=== PATIENT | male | born 1975 | race American Indian/Alaskan Native ===

== ENCOUNTER 2016-06-01 17:40 | Inpatient (IN) | payer MEDICARE, BC ==
[2016-06-01 17:52] VITALS: BMI 37.3
[2016-06-01 18:26] LABS: ADD MANUAL DIFF? NO
--- NOTE | 2016-06-01 18:31 | ED PDOC ---
Arrival/HPI - General Chief Complaint: Abdominal Pain Time Seen by Provider: 06/01/16 18:02 Historian: Patient - History of Present Illness Narrative History of Present Illness (Text): 06/01/16 18:30 A 40 year old male, whose past medical history includes ESRD (on dialysis M,W,F ) presents to the emergency room complaining of epigastric abdominal pain that developed 4 days ago. Patient reports he completed today's dialysis treatment prior to arrival. Patient notes that he has had a decrease in appetite since then and has been vomiting. Patient denies any cough or any other complaints at this time. PMD: Dr. White Time/Duration: < week Symptom Onset: Gradual Symptom Course: Unchanged Activities at Onset: Rest Modifying Factors (Text): none Context: Home Associated Symptoms (Text): nausea and vomiting Past Medical History - Provider Review Nursing Documentation Reviewed: Yes - Infectious Disease Hx of Infectious Diseases: None - Tetanus Immunization Tetanus Immunization: Unknown - Cardiac Hx Cardiac Disorders: Yes Hx Congestive Heart Failure: Yes Hx Hypertension: Yes Hx Pacemaker: No - Pulmonary Hx Respiratory Disorders: Yes Hx Respiratory Tract Infection: Yes Hx Sleep Apnea: Yes - Neurological Hx Neurological Disorder: No Hx Paralysis: No - HEENT Hx HEENT Disorder: No - Renal Hx Renal Disorder: Yes Date of Last Dialysis Treatment: 06/01/16 Hx Renal Failure: Yes - Endocrine/Metabolic Hx Endocrine Disorders: Yes Hx Diabetes Mellitus Type 2: Yes - Hematological/Oncological Hx Blood Disorders: No Hx Blood Transfusions: No Hx Blood Transfusion Reaction: No - Integumentary Hx Dermatological Disorder: No - Musculoskeletal/Rheumatological Hx Musculoskeletal Disorders: Yes (OSTEOMYELITIS) - Gastrointestinal Hx Gastrointestinal Disorders: Yes Hx Diverticulitis: Yes Hx Gastroesophageal Reflux: Yes - Genitourinary/Gynecological Hx Genitourinary Disorders: No Hx Reproductive Disorders: No - Psychiatric Hx Psychophysiologic Disorder: No Hx Emotional Abuse: No Hx Physical Abuse: No Hx Substance Use: No - Past Surgical History Past Surgical History: Non-Contributing - Surgical History Hx Cardiac Catheterization: Yes Hx Coronary Stent: Yes Other/Comment: defibrillator - Anesthesia Hx Anesthesia Reactions: No Hx Malignant Hyperthermia: No - Suicidal Assessment Feels Threatened In Home Enviroment: No Family/Social History - Physician Review Nursing Documentation Reviewed: Yes Family/Social History: No Known Family HX Smoking Status: Never Smoked Hx Alcohol Use: No Hx Substance Use: No Hx Substance Use Treatment: No Allergies/Home Meds Allergies/Adverse Reactions: Allergies IV DYE Adverse Reaction (Uncoded 06/01/16 17:51) NAUSEA Home Medications: Home Meds Medication Instructions Recorded Confirmed Clopidogrel [Plavix] 75 mg PO DAILY 10/06/15 06/01/16 Review of Systems - Physician Review All systems were reviewed & negative as marked: Yes - Review of Systems Respiratory: absent: Cough Gastrointestinal: Abdominal Pain, Nausea, Vomiting Physical Exam Vital Signs Reviewed: Yes Vital Signs Temp Pulse Resp BP Pulse Ox 06/01/16 20:46 100 H 19 123/77 99 06/01/16 18:00 98.6 F 111 H 17 95/53 L 99 Temperature: Afebrile Blood Pressure: Hypotensive Pulse: Tachycardic Respiratory Rate: Normal Appearance: Positive for: Well-Appearing, Non-Toxic, Comfortable Pain Distress: None Mental Status: Positive for: Alert and Oriented X 3 - Systems Exam Head: Present: Atraumatic, Normocephalic Pupils: Present: PERRL Extroacular Muscles: Present: EOMI Conjunctiva: Present: Normal Mouth: Present: Moist Mucous Membranes Neck: Present: Normal Range of Motion Respiratory/Chest: Present: Clear to Auscultation, Good Air Exchange. No: Respiratory Distress, Accessory Muscle Use Cardiovascular: Present: Regular Rate and Rhythm, Normal S1, S2. No: Murmurs Abdomen: Present: Tenderness (epigastric), Normal Bowel Sounds. No: Peritoneal Signs Upper Extremity: Present: Normal Inspection. No: Cyanosis, Edema Lower Extremity: Present: Normal Inspection. No: Edema Neurological: Present: GCS=15, CN II-XII Intact, Speech Normal Skin: Present: Warm, Dry, Normal Color. No: Rashes Psychiatric: Present: Alert, Oriented x 3, Normal Insight, Normal Concentration Medical Decision Making ED Course and Treatment: 06/01/16 18:10 Impression: 40 year old male with epigastric abdominal pain. bedside us shows distended gallbladder, no wall thickening, limited study 2/[address] added as pt allergic to iv contrast. Differential Diagnosis included but are not limited to: r/o colitis vs gastitis vs pancreatitis, vs atypical cardiac Plan: -- EKG -- CT abd/pelvis -- Urinalysis -- Labs -- Zofran, Protonix -- Reassess and disposition Prior Visits: Notes and results from previous visits were reviewed. Progress Notes: EKG: Ordered, reviewed, and independently interpreted the EKG. Rate : 104 BPM Rhythm : Sinus Tachycardia Interpretation : No ST/T changes CT Abd/Pelvis Creator : Aneesh Diaz MD FINDINGS: GALLBLADDER AND BILE DUCTS: Cholelithiasis. IMPRESSION: Cholelithiasis. 06/01/16 19:23 pt with persistent vomiting, case discussed with dr white, requests admission surgical eval to r/o cholecytitis. - Lab Interpretations Lab Results: 06/01/16 18:12 06/01/16 18:12 Lab Results 06/01/16 18:12: WBC 13.5 H D, RBC 4.19, Hgb 14.7, Hct 44.5, MCV 106.2 H, MCH 35.1 H, MCHC 33.0, RDW 16.5 H, Plt Count 284, MPV 10.1, Gran % 78.6 H, Lymph % ( Auto) 14.5 L, [place] % (Auto) 6.1 H, Eos % (Auto) 0.5 L, Baso % (Auto) 0.3, Gran # 10.62 H, Lymph # 2.0, [place] # 0.8 H, Eos # 0.1, Baso # 0.04, Neutrophils % ( Manual) 76 H, Band Neutrophils % 2, Lymphocytes % (Manual) 13 L, Monocytes % ( Manual) 9 H, Platelet Evaluation Normal, Polychromasia Slight, Anisocytosis ( manual) Slight, Macrocytosis (manual) Slight, PT 10.6, INR 0.98, APTT 27.3, Sodium 135, Potassium 4.5, Chloride 88 L, Carbon Dioxide 32, Anion Gap 20, BUN 25 H, Creatinine 8.4 H*, Est GFR ( Amer) 9, Est GFR (Non-Af Amer) 7, Random Glucose 228 H, Calcium 9.7, Magnesium 2.0, Total Bilirubin 0.9, AST 45, ALT 51, Alkaline Phosphatase 90, Lactate Dehydrogenase 674, Total Creatine Kinase 310 H, CK-MB (CK-2) 4.9 H, CK-MB (CK-2) % Cancelled, Troponin I 0.05 D, Total Protein 9.9 H, Albumin 4.7, Globulin 5.3, Albumin/Globulin Ratio 0.9 L, Lipase 118 I have reviewed the lab results: Yes - RAD Interpretation Radiology Orders: 06/01/16 18:10 CHEST PORTABLE [RAD] Stat 06/01/16 18:20 ABD & PELVIS W/O PO OR IV CONT [CT] Stat - EKG Interpretation Interpreted by ED Physician: Yes Type: 12 lead EKG - Medication Orders Current Medication Orders: Piperacillin Sod/Tazobactam Sod (Zosyn 2.25 Gm In 0.9% 100 Ml) 100 mls @ 100 mls/hr IV Q8 TINY PRN Reason: Protocol Stop: 06/09/16 06:01 Losartan Potassium (Cozaar) 50 mg PO DAILY TINY Pantoprazole Sodium (Protonix Inj) 40 mg IVP DAILY TINY Last Admin: 06/02/16 09:43 Dose: 40 MG IVP Administration Document 06/02/16 09:43 [facility] (Rec: 06/02/16 09:43 [facility] [id number]) Charges for Administration # of IVP Administrations 1 Sevelamer HCl (Renagel) 800 mg PO AC TINY Discontinued Medications Piperacillin Sod/Tazobactam Sod (Zosyn 3.375 In Ns 100ml) 100 mls @ 200 mls/hr IVPB STAT STA PRN Reason: Protocol Stop: 06/01/16 19:47 Last Admin: 06/01/16 19:32 Dose: 200 MLS/HR eMAR Start Stop Document 06/01/16 19:32 SE (Rec: 06/01/16 19:32 SE [id number]) Intravenous Solution Start Date 06/01/16 Start Time 19:32 Morphine Sulfate (Morphine) 1 mg IVP STAT STA Stop: 06/01/16 21:58 Last Admin: 06/01/16 22:35 Dose: 1 MG MAR Pain Assessment Document 06/01/16 22:35 CDE (Rec: 06/01/16 22:36 [facility] [id number]) Pain Reassessment Is this a pain reassessment? No Presence of Pain Presence of Pain Yes Pain Scale Used Pain Scale Used Numeric Location Pain Location Body Site Abdomen Description Description Sharp Intensity of Pain at present 10 Alleviating Factors/Management Medication Techniques Alleviating Factors Medication IVP Administration Document 06/01/16 22:35 CDE (Rec: 06/01/16 22:36 CDE [id number]) Charges for Administration # of IVP Administrations 1 Morphine Sulfate (Morphine) 1 mg IVP STAT STA Stop: 06/02/16 00:30 Last Admin: 06/02/16 00:55 Dose: 1 MG MAR Pain Assessment Document 06/02/16 00:55 CDE (Rec: 06/02/16 00:56 [id number]) Pain Reassessment Is this a pain reassessment? No Presence of Pain Presence of Pain Yes Pain Scale Used Pain Scale Used Numeric Location Pain Location Body Site Abdomen Description Intensity of Pain at present 10 Alleviating Factors Medication IVP Administration Document 06/02/16 00:55 CDE (Rec: 06/02/16 00:56 [id number]) Charges for Administration # of IVP Administrations 1 Ondansetron HCl (Zofran Inj) 4 mg IVP STAT STA Stop: 06/01/16 18:12 Last Admin: 06/01/16 18:16 Dose: 4 MG IVP Administration Document 06/01/16 18:16 SE (Rec: 06/01/16 18:16 SE [id number]) Charges for Administration # of IVP Administrations 1 Ondansetron HCl (Zofran Inj) 4 mg IVP ONCE ONE Stop: 06/01/16 21:58 Last Admin: 06/01/16 22:35 Dose: 4 MG IVP Administration Document 06/01/16 22:35 CDE (Rec: 06/01/16 22:35 [facility] [id number]) Charges for Administration # of IVP Administrations 1 Pantoprazole Sodium (Protonix Inj) 40 mg IVP STAT STA Stop: 06/01/16 18:12 Last Admin: 06/01/16 18:16 Dose: 40 MG IVP Administration Document 06/01/16 18:16 SE (Rec: 06/01/16 18:16 SE [id number]) Charges for Administration # of IVP Administrations 1 - Scribe Statement The provider has reviewed the documentation as recorded by the Shal[employer] Diallo training under Otis Tena All medical record entries made by the Delmiibchidi were at my direction and personally dictated by me. I have reviewed the chart and agree that the record accurately reflects my personal performance of the history, physical exam, medical decision making, and the department course for this patient. I have also personally directed, reviewed, and agree with the discharge instructions and disposition. Disposition/Present on Arrival - Present on Arrival Any Indicators Present on Arrival: No History of DVT/PE: No History of Uncontrolled Diabetes: No Urinary Catheter: No History of Decub. Ulcer: No History Surgical Site Infection Following: Orthopedic Procedures - Disposition Have Diagnosis and Disposition been Completed?: Yes Diagnosis: Abdominal pain, Cholelithiasis Disposition: HOSPITALIZED Disposition Time: 07:00 Condition: FAIR
[2016-06-01 18:37] LABS: ALB/GLOB RATIO 0.9 (1.1-1.8); BILIRUBIN,TOTAL 0.9 mg/dL (0.2-1.3); CALCIUM 9.7 mg/dL (8.4-10.5); POTASSIUM 4.5 mmol/L (3.6-5.0); TOTAL PROTEIN 9.9 g/dL (5.8-8.3)
[2016-06-01 18:45] LABS: BASO # 0.04 K/mm3 (0.0-2.0); BASO % 0.3 % (0.0-3.0); EOS # 0.1 (0.0-0.7); EOS % 0.5 % (1.5-5.0); GRAN # 10.62 (1.4-6.5); GRAN % 78.6 % (50.0-68.0); HEMATOCRIT 44.5 % (42.0-52.0); LYMPH % 14.5 % (22.0-35.0); MEAN CELL VOLUME 106.2 fL (80.0-105.0); MEAN CORPUSCULAR HEMOGLOBIN 35.1 pg (25.0-35.0); MEAN PLATELET VOLUME 10.1 fl (7.0-11.0); MONO # 0.8 (0.1-0.6); MONO % 6.1 % (1.0-6.0); PLATELET COUNT 284 10^3/uL (120.0-450.0); RED CELL DISTRIBUTION WIDTH 16.5 % (11.5-14.5)
[2016-06-01 18:48] LABS: TROPONIN I 0.05 ng/mL
[2016-06-01 18:52] LABS: WHITE BLOOD COUNT 13.5 10^3/ul (4.5-11.0)
--- NOTE | 2016-06-01 19:00 | CT ---
PROCEDURE: CT Abdomen and Pelvis without intravenous contrast HISTORY: upper abd pain n/v COMPARISON: None. TECHNIQUE: Technique. Contrast Dose: Radiation dose: Total exam DLP = 1385 mGy-cm. This CT exam was performed using one or more of the following dose reduction techniques: Automated exposure control, adjustment of the mA and/or kV according to patient size, and/or use of iterative reconstruction technique. FINDINGS: LOWER THORAX: Unremarkable. LIVER: Unremarkable. No gross lesion or ductal dilatation. GALLBLADDER AND BILE DUCTS: Cholelithiasis. PANCREAS: Unremarkable. No gross lesion or ductal dilatation. SPLEEN: Unremarkable. ADRENALS: Unremarkable. No mass. KIDNEYS AND URETERS: Unremarkable. No hydronephrosis. No solid mass. VASCULATURE: Unremarkable. No aortic aneurysm. BOWEL: Unremarkable. No obstruction. No gross mural thickening. APPENDIX: Unremarkable. Normal appendix. PERITONEUM: Unremarkable. No free fluid. No free air. LYMPH NODES: Unremarkable. No enlarged lymph nodes. BLADDER: Unremarkable. REPRODUCTIVE: Unremarkable. BONES: No acute fracture. OTHER FINDINGS: None. IMPRESSION: Cholelithiasis.
[2016-06-01] MEDS ORDERED: Piperacillin/Tazobact 3.375 gm 100 ML IVPB STA (19:18)
[2016-06-01 19:25] LABS: INR 0.98 (0.93-1.08); PARTIAL THROMBOPLASTIN TIME 27.3 Seconds (23.7-30.8)
[2016-06-01 20:14] LABS: BAND 2 % (0-2); NEUTROPHIL 76 % (50.0-70.0)
[2016-06-01 20:15] LABS: ANISOCYTOSIS SLIGHT; PLATELET ESTIMATE NORMAL (NORMAL); POLYCHROMASIA SLIGHT
--- NOTE | 2016-06-01 21:27 | US ---
EXAM: US Abdomen Complete CLINICAL HISTORY: 40 years old, male; Pain; Abdominal pain; Flank; Right upper quadrant (ruq); Additional info: R/O cholecystitis TECHNIQUE: Real-time ultrasound of the abdomen (complete) with image documentation. COMPARISON: Prior CT abdomen of 06/01/2016 FINDINGS: Limitations: Overall suboptimal visualization, due to bowel gas and the patient's body habitus. Gallbladder: Contains several small gallstones. No significant gallbladder wall thickening noted. No evidence of pericholecystic fluid. Reportedly negative sonographic Hugo's sign. Common bile duct: Does not appear abnormally dilated, measuring less than 6 mm in diameter. Liver: Demonstrates increased parenchymal echogenicity, most compatible with fatty infiltration. Otherwise within normal limits in appearance. Measures 12.1 cm in length. Normal flow seen in the main portal vein on color and Doppler imaging. Pancreas: Incompletely seen due to gas. Imaged portions appear grossly normal. Right kidney: Incompletely seen due to gas. Demonstrates increased cortical echogenicity, most likely due to renal parenchymal disease. Measures 10.4 cm in length. No evidence of hydronephrosis. Left kidney: Incompletely seen due to gas. Demonstrates increased cortical echogenicity, most likely due to renal parenchymal disease. Measures 10.8 cm in length. No evidence of hydronephrosis. Spleen: Poorly seen due to gas. Appears normal in size, measuring 9 cm in length. Aorta: Imaged portions appear unremarkable. IVC: Obscured by gas. IMPRESSION: Gallstones. No sonographic evidence of acute cholecystitis. Increased renal cortical echogenicity, most likely due to renal parenchymal disease. No evidence of hydronephrosis. Fatty infiltration of the liver. Limited exam due to bowel gas and the patient's body habitus. See above for remaining findings.
--- NOTE | 2016-06-01 21:32 | HP ---
HISTORY OF PRESENT ILLNESS: A 40-year-old male on dialysis unit with a history of vomiting bilious material. The patient states that for the last several days , he has been having some abdominal discomfort with vomiting. He believes that it might be related to a recent change in his medication where blood pressure medicines were added. He names valsartan and carvedilol, which he believes were added after having a defibrillator placed at [facility]. He states that he was seen at that time by a boiler repairman, Dr. Green, and the blood pressure medicines were changed. He states that he did discuss this with the surgeon who placed the pacemaker who said that he needed the blood pressure medicines. He denies any fever or chills, any change in bowel habits, any problems with urination. SOCIAL HISTORY: History of being a nonsmoker, nondrinker, nondrug user. PAST MEDICAL HISTORY: Diabetes, coronary artery disease with stent placement, cardiomyopathy, defibrillator placement, osteomyelitis of the left foot, end- stage renal disease, dental abscess. MEDICATIONS: He states that the medications that he is currently taking is Renagel 3 times a day, Ecotrin 81 mg daily, Plavix 75 mg daily. This is what is populated in the L2 system through the Emergency Room. ALLERGIES: THERE IS AN ALLERGY TO IV DYE. PHYSICAL EXAMINATION: VITAL SIGNS: He has a temp of 98.6, his pulse is 111. His blood pressure was reported as 95/53, respiratory rate was 17. Oxygen saturation is reported in the Emergency Room at 99% on room air, as per the L2 system. PHYSICAL EXAMINATION: NEUROLOGIC: He is alert and oriented x 3. NECK: Supple. LUNGS: Show diminished breath sounds at the bases. HEART: S1, S2 rhythm. ABDOMEN: Soft. No rebound appreciated. EXTREMITIES: No evidence of edema. LABORATORY DATA: Shows a WBC of 13.5, RBC 4.19, hemoglobin 14.7, hematocrit 44.5, MCV of 106.2, platelet count of 284. His PT is 10.6 with an INR of 0.98. His PTT is 27.3. Chemistry shows a sodium 135, potassium 4.5, chloride 88, CO2 of 32, BUN is 25, creatinine is 8.4. His blood sugar is 228. His calcium is 9.7, his magnesium is 2. LFTs are normal. He has total CK of 310. His troponin is 0.05. Total protein is 9.9. Lipase is 118. A CAT scan of the abdomen and pelvis was performed which was reported as showing cholelithiasis. Chest x-ray was pending, as was his EKG. PROBLEMS: A 40-year-old male: 1. On dialysis with nausea and vomiting, history of abdominal pain for several days, cholelithiasis on a CAT scan with leukocytosis. One must rule out the possibility of acute cholecystitis.Differential includes gastritis,gastroparesis 2. Systemic inflammatory response syndrome. 3. Chronic renal disease. 4. Diabetes mellitus. 5. History of osteomyelitis. 6. Cardiomyopathy. 7. Status post defibrillator placement. 8.Ulcer right foot PLAN: The patient will be admitted to telemetry. Serial cardiac enzymes will be requested, as well as consults with GI, infectious disease, nephrology and surgery. The patient will receive PPI medication, initiated on antibiotic therapy after cultures of urine and blood are performed. Further evaluation as per the individual consultants. All clinical findings have been discussed with the Emergency Room and the patient. Cleopatra White MD cc: [id number] TT: 06/01/2016 21:31:12 melecio HARRIS
[2016-06-01] MEDS ORDERED: Morphine 2 mg/ml ISec IVP STA (21:57)
--- NOTE | 2016-06-01 22:04 | CP.PCM.CON ---
<Isidoro Pichardo - Last Filed: 06/01/16 21:58> History of Present Illness - History of Present Illness History of Present Illness: General Surgery Consult note for Dr. Resendez CC: Abdominal / Epigastric pain for 3 days This is a 40M with a PMH of HTN, DM, CAD, TX, S/P stent placement X 4, ESRD on dialysis, COPD, who presents complaining of abodminal pain that has been going on for the past few weeks. He was just started on valsartan and reports that the pain begins after taking his pills. He reports however that over the past 3 days the pain has been more or less constant. The pain is located on the upper aspect of his abdomen. He has experienced reflux, nausea, vomiting, and mild diarrhea. He denies any association between the pain and meals. He denies any fevers or chills at home. He does report a soar throat as a consequence of his emesis. PMH: See above PSH: Cardiac stending, AVF placement left arm PSH: Deneis ETOH, Tobacco, Drugs ALL: IV Contrast Review of Systems - Constitutional Constitutional: absent: Anorexia, Chills, Weight Loss - EENT Eyes: absent: Blurred Vision, Change in Vision Ears: absent: Ear Pain, Tinnitus Nose/Mouth/Throat: absent: Nasal Congestion, Nasal Discharge - Cardiovascular Cardiovascular: absent: Chest Pain, Diaphoresis, Dyspnea - Gastrointestinal Gastrointestinal: Abdominal Pain, Diarrhea, Heartburn, Loose Stools, Nausea, Vomiting - Musculoskeletal Additional comments: Foot ulcer Past Patient History - Infectious Disease Hx of Infectious Diseases: None - Tetanus Immunizations Tetanus Immunization: Unknown - Past Social History Smoking Status: Never Smoked - CARDIAC Hx Cardiac Disorders: Yes Hx Congestive Heart Failure: Yes Hx Hypertension: Yes Hx Pacemaker: No - PULMONARY Hx Respiratory Disorders: Yes Hx Respiratory Tract Infection: Yes Hx Sleep Apnea: Yes - NEUROLOGICAL Hx Neurological Disorder: No Hx Paralysis: No - HEENT Hx HEENT Problems: No - RENAL Hx Chronic Kidney Disease: Yes Date of Last Dialysis Treatment: 06/01/16 Hx Renal Failure: Yes - ENDOCRINE/METABOLIC Hx Endocrine Disorders: Yes Hx Diabetes Mellitus Type 2: Yes - HEMATOLOGICAL/ONCOLOGICAL Hx Blood Disorders: No Hx Blood Transfusions: No Hx Blood Transfusion Reaction: No - INTEGUMENTARY Hx Dermatological Problems: No - MUSCULOSKELETAL/RHEUMATOLOGICAL Hx Musculoskeletal Disorders: Yes (OSTEOMYELITIS) - GASTROINTESTINAL Hx Gastrointestinal Disorders: Yes Hx Diverticulitis: Yes Hx Gastroesophageal Reflux: Yes - GENITOURINARY/GYNECOLOGICAL Hx Genitourinary Disorders: No Hx Reproductive Disorders: No - PSYCHIATRIC Hx Psychophysiologic Disorder: No Hx Emotional Abuse: No Hx Physical Abuse: No Hx Substance Use: No - SURGICAL HISTORY Hx Cardiac Catheterization: Yes Hx Coronary Stent: Yes Other/Comment: defibrillator - ANESTHESIA Hx Anesthesia Reactions: No Hx Malignant Hyperthermia: No Meds Allergies/Adverse Reactions: Allergies Allergy/AdvReac Type Severity Reaction Status Date / Time IV DYE AdvReac NAUSEA Uncoded 06/01/16 17:51 - Medications Medications: Current Medications Pantoprazole Sodium (Protonix Inj) 40 mg IVP DAILY TINY Physical Exam - Constitutional Appears: Non-toxic, No Acute Distress - Head Exam Head Exam: ATRAUMATIC, NORMOCEPHALIC - Eye Exam Eye Exam: EOMI, Normal appearance - ENT Exam ENT Exam: Mucous Membranes Moist, Normal Exam - Respiratory Exam Respiratory Exam: NORMAL BREATHING PATTERN - Cardiovascular Exam Cardiovascular Exam: +S1, +S2 - GI/Abdominal Exam GI & Abdominal Exam: Soft, Tenderness (Mild epigastric tenderness, no murphys, no RUQ tenderness). absent: Distended, Firm, Guarding, Hernia - Neurological Exam Neurological exam: Alert, Oriented x3 Results - Vital Signs Recent Vital Signs: Last Vital Signs Temp 98.6 F 06/01/16 18:00 Pulse 100 H 06/01/16 20:46 Resp 19 06/01/16 20:46 BP 123/77 06/01/16 20:46 Pulse Ox 99 06/01/16 20:46 - Labs Result Diagrams: 06/01/16 18:12 06/01/16 18:12 - Imaging and Cardiology CT scan - abdomen Status: Image reviewed by me, Report reviewed by me Assessment & Plan - Assessment and Plan (Free Text) Assessment: This is a 40M Presenting with abdominal and epigastric pain CT significant for gallstones Abdominal ultrasound ordered will followup Continue medical management per primary care provider Serial abdominal exams Will re-evaluate in the morning D/W Dr. Mal Pichardo <Declan Resendez - Last Filed: 06/02/16 08:40> Meds - Medications Medications: Current Medications Piperacillin Sod/Tazobactam Sod (Zosyn 2.25 Gm In 0.9% 100 Ml) 100 mls @ 100 mls/hr IV Q8 TINY PRN Reason: Protocol Stop: 06/09/16 06:01 Pantoprazole Sodium (Protonix Inj) 40 mg IVP DAILY [facility] Results - Vital Signs Recent Vital Signs: Last Vital Signs Temp 98.4 F 06/02/16 06:00 Pulse 80 06/02/16 06:00 Resp 22 06/02/16 06:00 BP 106/53 L 06/02/16 06:00 Pulse Ox 98 06/02/16 06:00 - Labs Result Diagrams: 06/02/16 07:00 06/01/16 18:12 Labs: Laboratory Results - last 24 hr 06/01/16 06/02/16 21:41 07:00 WBC 12.2 H RBC 4.22 Hgb 14.6 Hct 44.8 MCV 106.2 H MCH 34.6 MCHC 32.6 RDW 16.7 H Plt Count 295 MPV 10.0 Gran % 62.4 Lymph % (Auto) 30.4 [place] % (Auto) 5.2 Eos % (Auto) 1.4 L Baso % (Auto) 0.6 Gran # 7.60 H Lymph # 3.7 H [place] # 0.6 Eos # 0.2 Baso # 0.07 Lactate Dehydrogenase 598 Total Creatine Kinase 269 H CK-MB (CK-2) 3.9 H CK-MB (CK-2) % Cancelled Troponin I 0.06 Assessment & Plan - Assessment and Plan (Free Text) Assessment: Patient was seen and examined by me. I agree with assessment and plan as per resident's note. - Date & Time Date: 06/01/16 Time: 22:30
[2016-06-01 22:32] LABS: TROPONIN I 0.06 ng/mL
[2016-06-02] MEDS ORDERED: Morphine 2 mg/ml ISec IVP STA (00:29)
--- NOTE | 2016-06-02 00:32 | CON ---
DATE: 06/01/2016 SUBJECTIVE: This patient was seen in the Emergency Room and discussed with the ER physician and also with Dr. White. This is a 40-year-old patient who has been complaining of episodes of vomiting for the past 3 days. The patient is complaining of epigastric discomfort. No history of any diarrhea. The patient had no vomiting blood. PAST MEDICAL HISTORY: Significant for end-stage renal disease, on hemodialysis, coronary artery dise ase, diabetes mellitus, status post PCI, cardiomyopathy, defibrillator placement and osteomyelitis of the left foot, history of dental abscess. ALLERGIES: TO IV DYE. SOCIAL HISTORY: Denies smoking or alcohol. REVIEW OF SYSTEMS: All other 14-point systems reviewed, positive as above. PHYSICAL EXAMINATION: GENERAL: The patient is lying on the bed, not in acute distress. VITAL SIGNS: Stable. Blood pressure was 95/53, pulse 110, respirations 18, O2 saturation 99%. HEENT: Atraumatic, anicteric. NECK: Supple. HEART: S1, S2 heard. LUNGS: Bilateral air entry present. ABDOMEN: Soft. There is no mass, no tenderness. EXTREMITIES: No cyanosis, no clubbing. LABORATORY DATA: WBC count is elevated at 13.5, hemoglobin 14.7, hematocrit 43.5. LFTs normal. The CT of the abdomen and pelvis was reviewed, which showed small calcified gallstones. IMPRESSION: This 40-year-old patient admitted with recurrent episodes of vomiting and has an epigast torin discomfort. The CAT scan showed gallstones. There is no CT evidence of cholecystitis. The anna ent has some epigastric tenderness. This could be due to recurrence of retching and vomiting. The d ifferential diagnosis of vomiting should include gastroparesis, erosive esophagitis less likely secon cedric to , less likely secondary to the gallstones. The patient has been requested for ultrasoun d scan of the abdomen and will follow up. The patient had an endoscopy done in 2012, found to have g astritis, H. pylori negative. PLAN: 1. The present plan is to start the patient on IV Protonix. 2. Follow up the ultrasound scan. 3. Will consider clear liquid diet when the symptoms improve. 4. Followup of the hemoglobin, follow up the ultrasound. 5. The patient may consider upper GI endoscopy. The patient continues to remain symptomatic. The p atient has a mild leukocytosis, the etiology is unclear. 6. We will continue to closely follow up his care and suggest further management based on the clinic al course. Rick Raymond MD cc: [id number] TT: 06/02/2016 00:31:23 Confirmation # [id number] Dictation # [id number] mn
--- NOTE | 2016-06-02 01:41 | CP.PCM.PN ---
Subjective - Date & Time of Evaluation Date of Evaluation: 06/01/16 Time of Evaluation: 21:45 - Subjective Subjective: Evaluated for abd pain upon request of the pmd, as per the patient says has been happening off and on for about a month and attributes to newer medication valsartan, last time taken on the monday and skipped since that time due to nausea/vomiting/abd pain. Mentions pain and nausea are related. USG done in ER negative pelletising extruder operator's oro sign, gb stone noticed. CT abd/pelvis no acute inflammation related with gb Meds ER course, pmh reviewed On exam Epigastric tenderness causing nausea Chest clear, aicd on the right side Ext no edema Skin euvolemic Assessment/Plan Epigastric pain clinically gastritis, dd of biliary colic, unlikely cholecytstis as negative pelletising extruder operator's oro sign, as per the patient has tolerated morphine before will give with zofran, informed about s/e of nausea/ vomiting. Patient already receive protonix, NSAIDS should be avoided. D/w the nurse. Objective - Vital Signs/Intake and Output Vital Signs (last 24 hours): Temp Pulse Resp BP Pulse Ox 97.3 F L 112 H 20 135/66 99 06/01/16 21:13 06/01/16 22:00 06/01/16 21:13 06/01/16 21:13 06/01/16 20:46 - Medications Medications: Current Medications Pantoprazole Sodium (Protonix Inj) 40 mg IVP DAILY TINY - Labs Labs: PT 10.6 Seconds (9.9-11.8) 06/01/16 18:12 INR 0.98 (0.93-1.08) 06/01/16 18:12 APTT 27.3 Seconds (23.7-30.8) 06/01/16 18:12
[2016-06-02 08:10] LABS: ADD MANUAL DIFF? NO
[2016-06-02 08:20] LABS: BASO # 0.07 K/mm3 (0.0-2.0); BASO % 0.6 % (0.0-3.0); EOS # 0.2 (0.0-0.7); EOS % 1.4 % (1.5-5.0); GRAN % 62.4 % (50.0-68.0); HEMATOCRIT 44.8 % (42.0-52.0); LYMPH # 3.7 (1.2-3.4); LYMPH % 30.4 % (22.0-35.0); MEAN CELL VOLUME 106.2 fL (80.0-105.0); MEAN CORPUSCULAR HEMOGLOBIN 34.6 pg (25.0-35.0); MEAN CORPUSCULAR HGB CONC 32.6 g/dl (31.0-37.0); MONO # 0.6 (0.1-0.6); MONO % 5.2 % (1.0-6.0); PLATELET COUNT 295 10^3/uL (120.0-450.0); RED CELL DISTRIBUTION WIDTH 16.7 % (11.5-14.5); WHITE BLOOD COUNT 12.2 10^3/ul (4.5-11.0)
[2016-06-02 08:39] LABS: ALB/GLOB RATIO 0.9 (1.1-1.8); CALCIUM 9.7 mg/dL (8.4-10.5); POTASSIUM 4.3 mmol/L (3.6-5.0); TOTAL PROTEIN 9.9 g/dL (5.8-8.3)
[2016-06-02 08:45] LABS: TROPONIN I 0.05 ng/mL
--- NOTE | 2016-06-02 09:49 | PN ---
DATE: 06/02/2016 A 40-year-old male resting in bed this morning. The patient states that he is still having some epig astric abdominal pain. No nausea or vomiting was reported during the night. PHYSICAL EXAMINATION: VITAL SIGNS: Show a temp of 98.4. His pulse is 80, his blood pressure is 106/53. His oxygen satura tion is reported 98% on room air. GENERAL: He is alert and oriented x 3. NECK: Supple. LUNGS: Clear. HEART: An S1, S2 rhythm. ABDOMEN: Soft. There is mild epigastric tenderness. EXTREMITIES: Show no evidence of edema. LABORATORY DATA: Shows sodium 137, potassium 4.3, chloride 90, the BUN is 30, the creatinine is 10.3 . His random blood sugar is 121. His lipase is 118. His amylase is 110. The troponins are 0.05, 0 .06 and 0.05. His calcium is 9.7. LFTs are normal. CBC shows a WBC of 12.2, RBC 4.22, hemoglobin 1 4.6, hematocrit 44.8, platelet count of 295. ASSESSMENT AND PLAN: 1. The patient is having abdominal discomfort. While the CAT scan of the abdomen showed gallstones, in the differential is gastritis, gastroparesis. Gastroenterology is evaluating the patient and the patient has been placed on Zosyn IV because of the leukocytosis and cultures are pending. He has al so been placed on Protonix IV. 2. The patient has chronic renal disease on dialysis 3 times a week. He will be followed by Dr. Vern malloy, his cnc operator, and a discussion will be had with nephrology and the patient regarding the r ecent addition by thoracic surgery who placed his defibrillator for his blood pressure medications. 3. The patient has a history of a new ulcer on the right foot which he says Dr. Bucio has been monit oring on the outside. He was planning to go for an MRI of the foot, but because of the recent placem ent of the defibrillator it was not able to be done. We will request a consult with Dr. Bucio. I eubanks ve discussed the findings with infectious disease and the patient did not allow me to take the dressi ng down at this time. His diabetes is currently monitored on diet. He is not on any medications at this time. The ultrasound of his abdomen looking at the gallbladder did not show any evidence of acu te cholecystitis. This will be discussed with infectious disease and gastroenterology. Cleopatra White MD cc: [id number] TT: 06/02/2016 09:49:23 Confirmation # [id number] Dictation # [id number] tn
--- NOTE | 2016-06-02 10:02 | RAD ---
HISTORY: abd pain COMPARISON: 10/06/2015 FINDINGS: LUNGS: No active pulmonary disease. PLEURA: No significant pleural effusion identified, no pneumothorax apparent. CARDIOVASCULAR: AICD new since prior examination. OSSEOUS STRUCTURES: No significant abnormalities. VISUALIZED UPPER ABDOMEN: Normal. OTHER FINDINGS: None. IMPRESSION: No active disease.
--- NOTE | 2016-06-02 10:50 | CARD ---
APPROVED REPORT EKG Measurement Heart [id number] [place] [id number] <Conclusion> Sinus tachycardia Possible Left atrial enlargement Anterolateral infarct, age undetermined Abnormal ECG
--- NOTE | 2016-06-02 11:30 | CON ---
DATE: 06/02/2016 REFERRING PHYSICIAN: Dr. White. REASON FOR CONSULTATION: End-stage renal disease, on hemodialysis. CHIEF COMPLAINT AND HISTORY OF PRESENT ILLNESS: This is a 40-year-old male who is coming in to the [facility] complaining of nausea and vomiting. The patient has a past medical history of end-stage dov l disease and has been on hemodialysis. He says that he was started on valsartan after he had his de fibrillator placed, and since then he has been having epigastric discomfort; he has been having episo fadi of nausea and vomiting. He believes that this is from his medications. He says that when he barron s not take his medication, his nausea and vomiting improved. He has been having a decrease in appeti te. He denies any chest pain or shortness of breath. He has been evaluated for transplant and was u ndergoing this defibrillator so that he can be placed on a transplant list. REVIEW OF SYSTEMS: All of the review of symptoms are within normal limits except as mentioned. He d enies any diarrhea. He says that he has also been taking carvedilol that was started while he was at [facility] having his defibrillator placed. The patient had successful defibrillator done and had been placed on carve dilol and valsartan by Dr. Green. HOME MEDICATIONS: He is on: 1. Renagel 800 mg t.i.d. with meals. 2. Aspirin 81 mg daily. 3. Plavix 75 mg daily. 4. Carvedilol. 5. Valsartan. PAST MEDICAL HISTORY: 1. End-stage renal disease, on hemodialysis. 2. Coronary artery disease with stent. 3. Obesity with a body mass index of 40. 4. Dyslipidemia. 5. Hypertension. 6. Diabetes, type 2, x 13 years. 7. Secondary hyperparathyroidism. 8. Anemia, chronic. 9. Cardiomyopathy. 10. Defibrillator. 11. Osteomyelitis of his foot. PAST SURGICAL HISTORY: 1. Left forearm fistula placement. 2. PermCath placement in 01/2013. FAMILY HISTORY: No kidney disease in the family. SOCIAL HISTORY: He drinks socially. He denies smoking and drug use. PHYSICAL EXAMINATION: VITAL SIGNS: He has a temperature of 98.4, pulse of 80, blood pressure 106/53, respirations 22, O2 s aturation 98%. Height is 5 feet 10, weight is 281 pounds, BMI is 40.3. GENERAL: Patient lying in bed, flat, and in no apparent distress. HEAD AND NECK EXAM: Atraumatic, normocephalic. Conjunctivae are pink. Throat clear and mouth with moist mucosa. Oropharynx benign. EYES: Extraocular movements are intact. PERRLA. NECK: Supple. No JVD, thyromegaly, or adenopathy. No bruits. HEART: S1 and S2 regular rate and rhythm. No murmurs, rubs, or gallops. LUNGS: Clear to auscultation bilaterally. No wheezing rales or rhonchi appreciated. No retraction s on exam. ABDOMEN: Soft, nontender, nondistended. Bowel sounds are positive in all quadrants. No rebound. No hepatosplenomegaly. EXTREMITIES: No cyanosis, clubbing, or edema. In the left arm, he has a fistula with a good thril l and bruit. NEURO: No facial asymmetry, tongue is midline, no uvula deviation. Power is 5/5 in upper extremity and 5/5 in lower extremity. Sensation is normal in upper extremity and lower extremity. PSYCH: Awake, alert, oriented x3. No anxiety or depression symptoms. Good insight. Normal affec t. : No CVA tenderness VASCULAR: 2+ pulses in carotid and pedal pulses. SKIN: No erythema or abnormal nodules noted. SPINE: Normal curvature. LYMPHADENOPATHY: No anterior cervical or posterior cervical adenopathy. No inguinal adenopathy. LABORATORY DATA: White count of 13.5 and repeat is 12.2, hemoglobin is 14.7 with an MCV that is 106. INR is 0.98. He has a sodium of 135, potassium is 4.5, creatinine is 8.4. Troponin x 3 have been negative. Albumin is 4.7, amylase is 110, lipase is 118. Calcium is 9.7, magnesium is 2.0. CT of the abdomen and pelvis done shows cholelithiasis. Chest x-ray done shows no active disease. An EKG done shows sinus tachycardia at 104, left atrial enlargement, QTC is 49. ASSESSMENT: 1. Nausea and vomiting. 2. Coronary artery disease. 3. End-stage renal disease, on hemodialysis. 4. Secondary hyperparathyroidism. 5. Obesity with a body mass index of 40. 6. Hypertension. 7. Diabetes, type 2. 8. Diabetic nephropathy. 9. Cardiomyopathy. 10. Defibrillator. PLAN: The patient is admitted to the hospital. The patient's CT of the abdomen does not show any si gnificant abnormalities except for cholelithiasis. The patient will have his valsartan discontinued. I will start him on losartan and to see if he is able to tolerate at 50 mg. I did advise him eithe r to stop medication and follow up with Dr. Roger who placed the defibrillator, or I can start the p atient on another ARB to see if he can tolerate. He agreed to being started on another ARB. I will start him on losartan to see if he is able to tolerate because he has a cardiomyopathy. I did speak to Dr. White regarding the case. The patient is getting evaluated by Dr. Raymond. He is going to continue his Renagel for his secondary hyperparathyroidism. He is on Zosyn for antibiotics. The pat ient has urine cultures and blood cultures that are pending. I will add on B12 and folate level maria del rosario use his MCV is elevated. Maximilian Zheng MD cc: [id number] TT: 06/02/2016 11:29:16 Confirmation # [id number] Dictation # [id number] ashlee
--- NOTE | 2016-06-02 11:39 | PN ---
DATE: 06/02/2016 GI FOLLOWUP NOTE Seen and examined at the bedside earlier this morning. He denies any further episodes of nausea or v omiting. The epigastric discomfort has improved. He is reporting that he is hungry. No reports of any shortness of breath or chest pain. Had formed bowel movement. No melena or bright red blood. VITAL SIGNS: Temperature is 98.4, blood pressure 106/52, pulse 80, respirations 22, 98% on room air. LABORATORY DATA: WBC is 12.2. H and H is 14.6 and 44.8, platelets of 95. Sodium is 137. The K is 4.3. BUN is 30. Creatinine is 10.3. His LFTs are within normal limits. The total CK decreased to 236. Troponin is 0.05. Amylase is 110. He went for an abdominal ultrasound yesterday, and that did reveal several small gallstones, but no s ignificant gallbladder wall thickening noted. No evidence of pericholecystic fluid. The common bile duct measures less than 6 mm in diameter, did not appear abnormally dilated. Liver is fatty infiltr ations. PHYSICAL EXAMINATION: HEENT: Sclerae are anicteric. NECK: Supple. CARDIAC: S1, S2. LUNGS: Lung sounds with decreased breath sounds. No rales or wheeze. ABDOMEN: With bowel sounds, soft. Mild epigastric tenderness. No rebound or guarding. EXTREMITIES: No edema. NEUROLOGIC: Awake, alert, and oriented. ASSESSMENT: This is a 40-year-old male with history of chronic renal disease on dialysis t.i.____ wi th complaints of abdominal discomfort, mostly epigastric discomfort. The patient had a CAT scan show ing gallstones. He also had an abdominal ultrasound confirming gallstones, but no evidence of acute cholecystitis or biliary ductal dilatation or common bile duct stones. He is not having any more wilner sea or vomiting. We are considering gastritis, gastroparesis. The patient was also found to have le ukocytosis, unknown etiology. Cultures are pending. The patient also has history of ulcer on right foot. PLAN: We will start the patient on clear liquid diet. Continue Protonix IV daily. The patient has been placed on IV antibiotics, as per ID. Follow up his urine and blood cultures, and discuss with t he patient regarding endoscopic evaluation if his epigastric pain continues. He says it is feeling b kathryn now. We will continue to follow. The patient was seen and case discussed with Dr. Raymond. Katarina AC cc: [phone] TT: 06/02/2016 11:31:22 Confirmation # [id number] Dictation # [id number] yenifer
[2016-06-02 13:05] LABS: TROPONIN I 0.04 ng/mL
[2016-06-02] MEDS: Piperacillin/Tazobact 2.25gm 100 ML IV SCH ×2 (14:08→22:05)
--- NOTE | 2016-06-02 15:37 | CP.PCM.PN ---
<Samia Monsivais - Last Filed: 06/02/16 15:33> Subjective - Date & Time of Evaluation Date of Evaluation: 06/02/16 Time of Evaluation: 10:30 - Subjective Subjective: Surgery: Dr. Resendez Pt seen and examined. No acute overnight events. States abdominal pain has improved. Denies N/V, F/C. Objective - Vital Signs/Intake and Output Vital Signs (last 24 hours): Temp Pulse Resp BP Pulse Ox 98.4 F 115 H 22 74/47 L 98 06/02/16 06:00 06/02/16 11:23 06/02/16 06:00 06/02/16 11:23 06/02/16 06:00 Intake and Output: 06/02/16 06/02/16 06:59 18:59 Intake Total 100 Balance 100 - Medications Medications: Current Medications Piperacillin Sod/Tazobactam Sod (Zosyn 2.25 Gm In 0.9% 100 Ml) 100 mls @ 100 mls/hr IV Q8 [facility] PRN Reason: Protocol Stop: 06/09/16 06:01 Last Admin: 06/02/16 14:08 Dose: 100 mls/hr Losartan Potassium (Cozaar) 50 mg PO DAILY [facility] Last Admin: 06/02/16 11:23 Dose: Not Given Pantoprazole Sodium (Protonix Inj) 40 mg IVP DAILY [facility] Last Admin: 06/02/16 09:43 Dose: 40 mg Sevelamer HCl (Renagel) 800 mg PO AC [facility] Last Admin: 06/02/16 11:18 Dose: 800 mg - Labs Labs: 06/02/16 07:00 06/02/16 07:20 PT 10.6 Seconds (9.9-11.8) 06/01/16 18:12 INR 0.98 (0.93-1.08) 06/01/16 18:12 APTT 27.3 Seconds (23.7-30.8) 06/01/16 18:12 - Constitutional Appears: Well, No Acute Distress - Head Exam Head Exam: ATRAUMATIC, NORMOCEPHALIC - ENT Exam ENT Exam: Mucous Membranes Moist - Respiratory Exam Respiratory Exam: NORMAL BREATHING PATTERN - Cardiovascular Exam Cardiovascular Exam: Tachycardia - GI/Abdominal Exam GI & Abdominal Exam: Soft. absent: Distended, Guarding, Tenderness - Extremities Exam Extremities Exam: absent: Tenderness - Neurological Exam Neurological Exam: Alert, Awake, Oriented x3 - Skin Skin Exam: Dry, Intact, Warm Assessment and Plan - Assessment and Plan (Free Text) Assessment: 40M with abdominal pain Plan: - Abdomen US findings were benign and pt's abdominal pain has improved - GI is on board and diet can be advanced as tolerated as per GI recs - no plan for surgical intervention at this time - d/w Dr. Mal Monsivais, PGY-2 Surgery <Declan Resendez - Last Filed: 09/07/16 23:28> Objective - Vital Signs/Intake and Output Vital Signs (last 24 hours): Temp Pulse Resp BP Pulse Ox 98.1 F 95 H 18 116/69 95 06/04/16 06:00 06/04/16 06:00 06/04/16 06:00 06/04/16 06:00 06/04/16 06:00 - Labs Labs: 06/04/16 07:00 06/04/16 07:00 PT 10.6 Seconds (9.9-11.8) 06/01/16 18:12 INR 0.98 (0.93-1.08) 06/01/16 18:12 APTT 27.3 Seconds (23.7-30.8) 06/01/16 18:12 Assessment and Plan - Assessment and Plan (Free Text) Plan: Patient was seen and examined by me. I agree with assessment and plan as per resident's note.
[2016-06-02 17:48] LABS: FOLATE 16.9 ng/mL
--- NOTE | 2016-06-02 18:20 | CON ---
DATE: 06/02/2016 The patient is in bed, was seen earlier today. CHIEF COMPLAINT: Nausea and vomiting x 4 days and epigastric pain. HISTORY OF PRESENT ILLNESS: A 40-year-old male with morbid obesity with a BMI of 41 and a history of end-stage renal disease on hemodialysis, diabetes mellitus, chronic obstructive lung disease, hypert ension, history of Klebsiella bacteremia secondary to a catheter which was removed eventually, histor y of diverticulitis, history of a left foot cellulitis and osteomyelitis, which has healed in the fac e of diabetes, hypertension and COPD. Now admitted with epigastric pain, nausea and vomiting x 4 day s' duration. The patient denies any fevers. The epigastric pain is described as dull in nature. No chest pain, no headaches, no blurred vision. PAST MEDICAL HISTORY: Significant for end-stage renal disease on hemodialysis, diabetes mellitus, hy pertension, chronic obstructive lung disease, morbid obesity, BMI of 41, Klebsiella bacteremia second kaylyn to catheter, history of diverticulitis, history of left foot cellulitis and osteomyelitis. PAST SURGICAL HISTORY: Significant for dialysis catheter removal because of the persistent and recur rent bacteremia with Klebsiella. ALLERGIES: THE PATIENT HAS ALLERGY TO IV DYE. MEDICATIONS AT HOME: Reveals Plavix and Ecotrin and Renagel. PHYSICAL EXAMINATION: GENERAL: The patient is in bed. VITAL SIGNS: Temperature of 98, blood pressure is 106/60, respiratory rate of 22, a heart rate of 10 0. HEENT: Unremarkable. NECK: Supple. LUNGS: Have decreased breath sounds. HEART: Normal S1, S2. ABDOMEN: Soft, nontender. EXTREMITIES: Examination of the right foot, there is apparently an ulcer. He is not allowing me to fully examine his right foot. He does let me remove the dressing. LABORATORY EXAMINATION: Reveals the patient's white count of 13,500, hemoglobin of 14, platelets of 284. Coagulation is noted. Chemistries reveals the BUN of 25, creatinine of 8.4. Microbiology is p ending. The patient had a CAT scan of the abdomen and pelvis, which was unremarkable except for the cholelithiasis. Ultrasound is noted. Dr. Zheng's consultation is reviewed. Katarina Barkley' note is reviewed. Dr. Samia Monsivais review ed. As per vice president & general manager [employer] [place], no surgical intervention. Chest x-ray is reported to be no active pul monary disease. ASSESSMENT AND PLAN: A 40-year-old male with end-stage renal disease on hemodialysis, diabetes ned harden, chronic obstructive lung disease, hypertension, morbid obesity with a body mass index of 41, his tory of Klebsiella bacteremia, history of diverticulitis. Now presenting with tachycardia, dyspnea, leukocytosis. Systemic inflammatory response syndrome and must rule out gastrointestinal such as acute cholecystiti s in a diabetic. Must also rule out diabetic gastroparesis in a patient with a right foot ulcer. We will treat the patient with Zosyn pending the remainder of the workup and patient's clinical respons e and culture, blood culture, urine culture and we will follow the WBCs. Case discussed with Dr. Anoop hernandez. We will further need to work up the right foot and rule out underlying osteomyelitis and a bone scan has been ordered. Vascular workup should be done for the right foot workup and will follow benny holland with you. Nasir Dunn MD cc: [id number] TT: 06/02/2016 18:19:44 Confirmation # [id number] Dictation # [id number] en
--- NOTE | 2016-06-03 05:36 | CON ---
DATE: 06/02/2016 LOCATION OF CONSULTATION: Room 373, bed 1. REASON FOR CONSULTATION: Bilateral diabetic ulceration. HISTORY OF PRESENT ILLNESS: This is a 40-year-old male known to me who had been hospitalized last ye with osteomyelitis and diabetic ulcer on the left foot. This had undergone surgical debridement a nd had resolved. The patient was on diabetic foot care in the office after healing and underwent sev eral months of delay in acquiring his diabetic orthopedic shoe gear, mostly because of ongoing comorb idities including cardiac and his renal dialysis. During last 6 weeks he developed an ulceration on the right foot, which has not improved during this time of continued greater attention to his cardiac and renal condition. He was admitted through the ED on Monday following dialysis, having had sev eral days of vomiting and significant epigastric pain. PAST MEDICAL HISTORY: Is obtained. It is positive for diabetes, peripheral neuropathy, CAD, obesity , hypertension, dyslipidemia, end-stage renal disease on dialysis, previous osteomyelitis of the left foot and current diabetic foot ulceration on both feet. He also has a history of bacteremia seconda ry to a catheter, which was recently removed, history of diverticulitis and COPD. Now he is admitted for workup of his epigastric pain and nausea and vomiting, which he says started several weeks ago a fter 2 or 3 weeks prior to the onset having had a significant change in his hypertensive medications following a cardiac defibrillator surgical placement. PAST SURGICAL HISTORY: Includes cardiac stenting, previous left foot debridement for osteomyelitis, recent removal of a dialysis catheter because of chronic infection, and recently placement of the car diac defibrillator. ALLERGIES: THE PATIENT IS ALLERGIC TO IV DYE. HOME MEDICATIONS: Positive for Renagel, Plavix, and Ecotrin. FAMILY AND SOCIAL HISTORY: No significant family history obtained. The patient currently lives at [facility] with both parents. He denies tobacco, alcohol or recreational drug use. He has been on renal di alysis for some time now, 3 times a week. REVIEW OF SYSTEMS: A 10-point review of systems is obtained from the patient and reveals nothing sig nificant with the exception of the previously mentioned history. He currently reports no leg cramps, calf tenderness, or dizziness or shortness of breath. PHYSICAL EXAMINATION: GENERAL: The patient is alert and oriented x 3 with vital signs stable and in no acute distress, lyi ng comfortably in bed during this examination tonight. EXTREMITIES: The dressings on both feet are removed. He has weakly palpable pulses of the foot and ankle. Both lower extremities are warm to the touch. There is no significant erythema. There is no lymphangitis, no appearance of cellulitis in the feet. There is no calf tenderness and a negative H omans sign bilaterally. There was is heel or ankle decubitus. The patient's light touch is signific antly reduced. His 2-point discrimination and proprioception is significantly reduced. He has no pa in in either foot. There is no malodor. There is no acute discharge. There is a full thickness ulce ration on both feet in the area of the fifth MTP joint on the margins and sole. There is a respectfu l amount of necrosis on the right foot ulceration. The size is 7 x 3 cm and goes down to the joint c apsule layer. There is no exposed bone. The wound bed is 80-90% necrotic slough and there appears t o be no undermining or pocketing. The left foot is approximately 4 x 1.5 cm. It also is full thickn ess at the center, but goes down to subcutaneous fat. It is probably less than 50% fibrous slough an d also has no undermining and no evidence of sinus. LABORATORY DATA: Reviewed. It reveals an elevated white count. No cultures were obtained yet. IMPRESSION: A 40-year-old male known to me with end-stage renal disease on hemodialysis, diabetes me llitus with neuropathy, chronic obstructive pulmonary disease, hypertension, morbid obesity, and rece nt bacteremia and a history of diverticulitis, currently admitted and undergoing workup for recent ep igastric pain and vomitus, who has ongoing diabetic foot ulcerations on both feet, the right worse th an the left. PLAN: During this hospitalization for his comorbidities, the patient will undergo continued diabetic foot ulcer care. Additional debridements will probably be anticipated. Currently, at the bedside, aerobic and anaerobic wound cultures were obtained from both the right and left foot as well as a [facility] han[facility] scrub both feet with saline, moist gauze, and application of hydrogel and gauze dressing to b oth feet. Orders will be written for foot x-rays on both feet tomorrow. We will order Cruzito myers tic debridement ointment to the bedside to be used for daily dressing changes once a day. We will or tamela a pair of postop shoes to be used with the overlying bandages for any ambulation that the patient does. We are waiting for the previously ordered 3 phase bone scan to be performed. After consultat ion with the nurse practitioner and because of his recent cardiac defibrillator placement, we are sti ll several weeks away from being allowed to perform MRI examination and we are trying to discern the likelihood of possible osteomyelitis, especially in the right foot. We will reevaluate the patient a fter the tests come online and after several days of Santyl wound dressing changes for possible debri radhika of the ulcers on both feet. Ajay Bucio DPM cc: [phone] TT: 06/03/2016 05:35:20 Confirmation # [id number] Dictation # [id number] jn
[2016-06-03] MEDS: Piperacillin/Tazobact 2.25gm 100 ML IV SCH ×3 (05:44→21:46)
[2016-06-03 07:52] LABS: ADD MANUAL DIFF? NO
[2016-06-03 07:54] LABS: BASO # 0.06 K/mm3 (0.0-2.0); BASO % 0.5 % (0.0-3.0); EOS # 0.3 (0.0-0.7); EOS % 2.3 % (1.5-5.0); GRAN # 6.93 (1.4-6.5); GRAN % 62.7 % (50.0-68.0); HEMATOCRIT 40.2 % (42.0-52.0); LYMPH # 2.9 (1.2-3.4); LYMPH % 26.6 % (22.0-35.0); MEAN CELL VOLUME 105.2 fL (80.0-105.0); MEAN CORPUSCULAR HEMOGLOBIN 34.6 pg (25.0-35.0); MEAN CORPUSCULAR HGB CONC 32.8 g/dl (31.0-37.0); MEAN PLATELET VOLUME 9.7 fl (7.0-11.0); MONO # 0.9 (0.1-0.6); MONO % 7.9 % (1.0-6.0); PLATELET COUNT 265 10^3/uL (120.0-450.0); RED CELL DISTRIBUTION WIDTH 16.6 % (11.5-14.5); WHITE BLOOD COUNT 11.1 10^3/ul (4.5-11.0)
[2016-06-03 08:21] LABS: BILIRUBIN,TOTAL 0.9 mg/dL (0.2-1.3); CALCIUM 9.1 mg/dL (8.4-10.5); TOTAL PROTEIN 8.4 g/dL (5.8-8.3)
--- NOTE | 2016-06-03 09:14 | PN ---
DATE: 06/03/2016 SUBJECTIVE: The patient has no complaints of any chest pain or shortness of breath. He says he does not feel nauseous. He says he has no abdominal pain. He feels well, better than yesterday. PHYSICAL EXAMINATION: VITAL SIGNS: Temperature is 98.2, pulse of 98, blood pressure 111/67, respirations 19, O2 saturation 94%. GENERAL: The patient comfortable, in no acute distress. HEENT: Anicteric sclerae. Moist mucosa. NECK: No JVD or adenopathy. CARDIAC: S1/S2. No murmurs. No rubs. Regular. RESPIRATORY: Clear to auscultation bilaterally. No wheezes, rales, or rhonchi. Good air entry. ABDOMEN: Bowel sounds are positive, soft, nontender, and nondistended. EXTREMITIES: No edema. Has 1+ pulses. ASSESSMENT: 1. Nausea and vomiting, improved. 2. Coronary artery disease. 3. End-stage renal disease, on hemodialysis. 4. Secondary hyperparathyroidism. 5. Cardiomyopathy. 6. Obesity with a body mass index of 40. 7. Hypertension. 8. Diabetes, type 2. 9. Diabetic nephropathy. 10. Defibrillator. PLAN: The patient is currently comfortable. He is going to be on losartan instead of valsartan. If he is able to tolerate this medication then he should continue losartan at home. He does have carve dilol that he was taking; this has been placed on hold to see if there are any side effects from the losartan. I advised him that if he is able to tolerate the losartan he should continue this medicati on and also take carvedilol as well. He is on Renagel for his secondary hyperparathyroidism. He is on Protonix. He is receiving antibiotics with Zosyn. He has a bone scan that is scheduled for his f oot. If the bone scan is negative, he may be discharged home according to Dr. White who I spoke wit h today. The patient is due for dialysis today. He had an elevated MCV. A folate level was ordered and that is within normal limits as well as a B12 level that is within normal limits. Maximilian Zheng MD cc: [id number] TT: 06/03/2016 09:13:23 Confirmation # [id number] Dictation # [id number] mn
--- NOTE | 2016-06-03 10:26 | RAD ---
PROCEDURE: Bilateral feet three views HISTORY: ulcer 5th MTP left foot COMPARISON: Left foot 12/10/2015 TECHNIQUE: Three views of each foot FINDINGS: There is a chronic bony erosion of the head of the 5th metatarsal. This is unchanged. There is shortening and deformity of the 1st proximal phalanx which appears to be a chronic finding. There are no acute findings IMPRESSION: Chronic bony erosion of the head of the 5th metatarsal unchanged
--- NOTE | 2016-06-03 10:42 | PN ---
DATE: 06/03/2016 The patient is in bed, in no acute distress. PHYSICAL EXAMINATION: VITAL SIGNS: Temperature is 98, blood pressure is 111/60, respiratory rate of 16. HEENT: Unremarkable. NECK: Supple. LUNGS: Have decreased breath sounds. HEART: Normal S1, S2. ABDOMEN: Soft, nontender. LABORATORY EXAMINATION: Reveals a white count of 11,000, hemoglobin of 13, platelets of 265. Coagul ation is noted. BUN is 39, creatinine of 12.3. The patient's foot ulcer is noted. The patient's [facility] foot culture is pending. The patient is in bed, no acute distress. PHYSICAL EXAMINATION: VITAL SIGNS: Temperature of 98, blood pressure is 100/60, respiratory rate of 16. HEENT: Unremarkable. NECK: Supple. LUNGS: Have decreased breath sounds. HEART: Normal S1, S2. ABDOMEN: Soft. LABORATORY EXAMINATION: Noted and reviewed. Right foot culture is pending. Left foot culture is pe nding. The patient is scheduled for a bone scan, which is also pending. The patient is on Zosyn. ASSESSMENT AND PLAN: A 40-year-old male with end-stage renal disease on hemodialysis, diabetes ned harden, chronic obstructive lung disease, hypertension, morbid obesity with a body mass index of 41, his tory of Klebsiella bacteremia, history of diverticulitis. Admitted with systemic inflammatory respon se syndrome with gastrointestinal as a possible cause and possible diabetic gastroparesis and also pa tient with a right foot ulcer, must rule out underlying osteomyelitis. Awaiting for bone scan result s from today. Case discussed with Dr. White Currently, the patient is on Zosyn and will follow with you. Nasir Dunn MD cc: [id number] TT: 06/03/2016 10:22:07 Confirmation # [id number] Dictation # [id number] en 06/03/2016 09:41:55
[2016-06-03] MEDS: Collagenase 250 Units/gm Ointment(30 gm) TOP SCH (11:00)
--- NOTE | 2016-06-03 11:53 | CP.PCM.PN ---
Subjective - Date & Time of Evaluation Date of Evaluation: 06/03/16 Time of Evaluation: 12:04 - Subjective Subjective: 40 y/o male patient with PMHx of HTN, DM, ESRD on HD< CAD, obesity was seen at bedside this morning concerning bilateral feet ulcers. Patient is well known to Dr. Ajay Bucio DPM who has treated him in the past for Left foot osteomyelitis. Patient states that he developed another ulcer to his right foot over the past few weeks. Patient denies of any trauma or bug bite. Patient was resting comfortably in bed and AAO x3 at the time of visit, and the dressings to bilateral feet were clean, dry and intact. Patient denies of any N/V/F/C or SOB today. Objective - Vital Signs/Intake and Output Vital Signs (last 24 hours): Temp Pulse Resp BP Pulse Ox 98.2 F 98 H 19 111/67 94 L 06/03/16 08:00 06/03/16 10:43 06/03/16 08:00 06/03/16 10:43 06/03/16 08:00 Intake and Output: 06/03/16 06/03/16 06:59 18:59 Intake Total 960 240 Output Total 800 Balance 160 240 - Medications Medications: Current Medications Collagenase (Santyl) 0 gm TOP DAILY [facility] Piperacillin Sod/Tazobactam Sod (Zosyn 2.25 Gm In 0.9% 100 Ml) 100 mls @ 100 mls/hr IV Q8 [facility] PRN Reason: Protocol Stop: 06/09/16 06:01 Last Admin: 06/03/16 05:44 Dose: 100 mls/hr Losartan Potassium (Cozaar) 50 mg PO DAILY [facility] Last Admin: 06/03/16 10:43 Dose: 50 mg Pantoprazole Sodium (Protonix Inj) 40 mg IVP DAILY [facility] Last Admin: 06/03/16 10:44 Dose: 40 mg Sevelamer HCl (Renagel) 800 mg PO AC [facility] Last Admin: 06/03/16 08:40 Dose: 800 mg - Labs Labs: 06/03/16 07:00 06/03/16 07:00 PT 10.6 Seconds (9.9-11.8) 06/01/16 18:12 INR 0.98 (0.93-1.08) 06/01/16 18:12 APTT 27.3 Seconds (23.7-30.8) 06/01/16 18:12 - Constitutional Appears: Well, Non-toxic, No Acute Distress - Extremities Exam Additional comments: Bilateral lower extremity exam DERM: 1) RIGHT foot open ulceration to lateral aspect of right 5th digit measuring 2.5cm x 2.5cm x 0.4cm with fibrotic base. Mild serous drainage is noted from the wound. Mild erythema noted around the ulceration with margins less than 2 cm. No probe to bone noted. No tracking noted. 2)Left foot open ulceration noted to lateral aspect of 5th MTPJ measuring 1cm x 1cm x 0.2cm with no erythema around the ulcer. No drainage is noted. Wound base appears 80% granular and 20% fibrotic and appears to be healing. No PTB. VASC: Palpable DP / PT. MINE ENGINEER less than 3 seconds to digits ORTHO: No pain on palpation to the left foot wound site NEURO: Gross sensation diminished - Neurological Exam Neurological Exam: Alert, Awake, Oriented x3 - Psychiatric Exam Psychiatric exam: Normal Affect, Normal Mood - Skin Skin Exam: Normal Color, Warm Assessment and Plan - Assessment and Plan (Free Text) Assessment: 40 yo male patient presenting with bilateral feet diabetic open ulcerations Plan: Patient was seen, evaluated and treated this AM discussed with Dr. Bucio labs and vitals reviewed Bilateral feet dressed with DSD; Santyl to be applied with wet-to dry dressing WCX from bilateral feet pending MRI contra indicated for the patient for several weeks; s/p cardiac defibrillator placement Bone scan ordered to r/o Podiatry will continue to follow In-house
--- NOTE | 2016-06-03 12:41 | NM ---
PROCEDURE: Bone scan, three-phase HISTORY: r/o osteo, radha/feet attention to 5th metarsal COMPARISON: Plain film same day TECHNIQUE: 20.0 mCi of technetium 99 M MDP. Triple phase imaging of both feet were performed FINDINGS: On the flow images there is some minimal focal activity in the region of the 5th toe bilaterally right greater than left. On the follow-up immediate images there is persistent activity in the region of the 5th toes. There is also some activity in the midfoot on the right. The delayed images show more focal intense activity in the region of the right 5th toe as well as the midfoot. There is mildly increased activity in the region of the left metatarsal head. The findings are equivocal for osteomyelitis. Plain film show chronic erosive changes in the head of the 5th metatarsal on the left. Minimal air is seen in the soft tissues adjacent to the right 5th proximal phalanx without evidence of bony destruction. IMPRESSION: Mild accumulation of radionuclide in the right 5th toe region on all 3 phases suspicious for osteomyelitis. There is no corresponding bony destruction seen on plain film.
--- NOTE | 2016-06-03 14:46 | CP.PCM.PN ---
<JacekRakesh schulte - Last Filed: 06/03/16 14:40> Subjective - Date & Time of Evaluation Date of Evaluation: 06/03/16 Time of Evaluation: 07:45 - Subjective Subjective: Surgery Progress note. Dr. Resendez. PT seen and examined at bedside. No acute events overnight. Denies any new complaints. No N/V/D. No Abdominal pain. No F/C. Objective - Vital Signs/Intake and Output Vital Signs (last 24 hours): Temp Pulse Resp BP Pulse Ox 98.2 F 98 H 19 111/67 94 L 06/03/16 08:00 06/03/16 10:43 06/03/16 08:00 06/03/16 10:43 06/03/16 08:00 Intake and Output: 06/03/16 06/03/16 06:59 18:59 Intake Total 960 240 Output Total 800 Balance 160 240 - Medications Medications: Current Medications Collagenase (Santyl) 0 gm TOP DAILY [facility] Last Admin: 06/03/16 11:00 Dose: Not Given Piperacillin Sod/Tazobactam Sod (Zosyn 2.25 Gm In 0.9% 100 Ml) 100 mls @ 100 mls/hr IV Q8 [facility] PRN Reason: Protocol Stop: 06/09/16 06:01 Last Admin: 06/03/16 05:44 Dose: 100 mls/hr Losartan Potassium (Cozaar) 50 mg PO DAILY [facility] Last Admin: 06/03/16 10:43 Dose: 50 mg Pantoprazole Sodium (Protonix Inj) 40 mg IVP DAILY [facility] Last Admin: 06/03/16 10:44 Dose: 40 mg Sevelamer HCl (Renagel) 800 mg PO AC [facility] Last Admin: 06/03/16 12:48 Dose: 800 mg - Labs Labs: 06/03/16 07:00 06/03/16 07:00 PT 10.6 Seconds (9.9-11.8) 06/01/16 18:12 INR 0.98 (0.93-1.08) 06/01/16 18:12 APTT 27.3 Seconds (23.7-30.8) 06/01/16 18:12 - Constitutional Appears: Well, No Acute Distress - Head Exam Head Exam: ATRAUMATIC, NORMAL INSPECTION, NORMOCEPHALIC - Eye Exam Eye Exam: EOMI, Normal appearance, PERRL Pupil Exam: PERRL - ENT Exam ENT Exam: Mucous Membranes Moist - Neck Exam Neck Exam: Full ROM - Respiratory Exam Respiratory Exam: NORMAL BREATHING PATTERN - Cardiovascular Exam Cardiovascular Exam: REGULAR RHYTHM - GI/Abdominal Exam GI & Abdominal Exam: Soft. absent: Distended, Firm, Guarding, Rigid, Tenderness , Rebound - Extremities Exam Extremities Exam: Normal Inspection - Neurological Exam Neurological Exam: Alert, Awake, Oriented x3 - Psychiatric Exam Psychiatric exam: Normal Affect, Normal Mood - Skin Skin Exam: Dry, Intact, Normal Color, Warm Assessment and Plan - Assessment and Plan (Free Text) Assessment: 40yo M here with abdominal pain. - abdominal pain improved - CT Abd - evidence of cholelithiasis - ABD US with no evidence of acute rodrigo. - GI following. Patient tolerating Renal Soft Diet - No plans for any acute surgical intervention Discussed case with Dr. Mal Read PGY1 Surgery Pager: [phone] <Declan Resendez - Last Filed: 09/07/16 23:29> Objective - Vital Signs/Intake and Output Vital Signs (last 24 hours): Temp Pulse Resp BP Pulse Ox 98.1 F 95 H 18 116/69 95 06/04/16 06:00 06/04/16 06:00 06/04/16 06:00 06/04/16 06:00 06/04/16 06:00 - Labs Labs: 06/04/16 07:00 06/04/16 07:00 PT 10.6 Seconds (9.9-11.8) 06/01/16 18:12 INR 0.98 (0.93-1.08) 06/01/16 18:12 APTT 27.3 Seconds (23.7-30.8) 06/01/16 18:12 Assessment and Plan - Assessment and Plan (Free Text) Plan: Patient was seen and examined by me. I agree with assessment and plan as per resident's note.
--- NOTE | 2016-06-03 14:54 | PN ---
DATE: 06/03/2016 Seen and examined at the bedside earlier today. The patient reports resolved epigastric pain, which may have likely been from his intractable vomiting. He is tolerating solid intake. No further nause a, vomiting. He is having bowel movements. No reports of any bleeding or bright red blood per rectu m. VITAL SIGNS: Temperature is 98.2, blood pressure 111/67, pulse 98, respirations 19, 94% room air. LABORATORIES: WBC is 11.1, H and H is 13.2 and 40.2, platelets is 265. Sodium is 134, K 4.0, BUN 39 , creatinine is 12.3. LFTs are within normal limits. The patient went for a bone scan and it showed mild accumulation of radionuclide in the right fifth t oe region on all 3 phases, suspicious for osteomyelitis. No corresponding bony destruction seen on p fabian films. PHYSICAL EXAMINATION: HEENT: Sclera is anicteric. NECK: Supple. CARDIAC: S1, S2. LUNG SOUNDS: Clear. ABDOMEN: With bowel sounds, softly obese, and nontender. No rebound, guarding, or organomegaly. ASSESSMENT: The patient with intractable nausea, vomiting, improved, resolved. He also was complain ing of epigastric discomfort, which may have been secondary to the intractable vomiting. His epigast torin discomfort has resolved. He did go for an abdominal ultrasound and that did show gallstones, but the common bile duct was not abnormally dilated. It measured less than 60 mm. There was no evidenc e of pericholecystic fluid or gallbladder wall thickening. Also, obese, has history of end-stage phyllis al disease on hemodialysis, diabetes mellitus type 2, defibrillator, diabetic neuropathy. PLAN: The patient was recommended an upper endoscopy for further evaluation of the epigastric pain, but his pain has resolved and he does not want to have the endoscopy done today. Discussed with the patient in detail, risks, benefits, alternatives. He currently still does not want to have the endos copy. If his symptoms return, patient was recommended to have endoscopy done, which he stated unders tanding. The patient had a bone scan. It looks like he may have some osteomyelitis on his right fif th toe. He is on PPI. He is on IV antibiotics as per ID. He is going to see Dr. Bucio for his foot ulcer. Continue diet as tolerated. The patient was seen and case discussed with Dr. Raymond. Katarina AC cc: [phone] TT: 06/03/2016 14:54:08 Confirmation # [id number] Dictation # [id number]
[2016-06-03] MEDS ORDERED: Doxercalciferol 4 mcg/2 ml Inj (RENAL) IVP ONE (17:29)
[2016-06-03] MEDS ORDERED: Doxercalciferol 4 mcg/2 ml Inj IVP ONE (17:35)
--- NOTE | 2016-06-03 18:30 | PN ---
Progress note 06/03/2016 A 40-year-old male was admitted to [facility] with complaints of abdominal pain. The patient also has a history of an ulcer on the right foot. PHYSICAL EXAMINATION VITAL SIGNS: His temperature is 98.2, his pulse is 98, his blood pressure 111/ 67, respiratory rate is 19. NECK: Supple. LUNGS: Clear. HEART: S1, S2 rhythm. ABDOMEN: Soft with positive bowel sounds. EXTREMITIES: Show dressings on both feet. The patient is not permitting me to take the dressing down. He states that Dr. Bucio has been debriding an ulcer on the right foot. LABORATORY DATA: His WBC is 11, hemoglobin 13, hematocrit 40, platelet count is 265. His chemistry shows sodium 134, potassium 4, chloride 90. BUN is 39, creatinine is 12.3, random blood sugar is 135 with normal LFTs. The patient is scheduled for a bone scan as ordered by Dr. Bucio today, as well as dialysis. Pending the results of the bone scan, we will see recommendations for further treatment. The concern is there is a possibility of osteomyelitis of the right foot. There is a history of osteomyelitis of the left foot. These things have been explained to the patient and he has been strongly cautioned about the need to comply with his care. Wound care continues at this time as well as GI prophylaxis with Protonix and IV Zosyn by infectious disease. Cleopatra White MD cc: [id number] TT: 06/03/2016 18:29:42 jn MTDD
[2016-06-04] MEDS: Piperacillin/Tazobact 2.25gm 100 ML IV SCH (05:28)
[2016-06-04 07:52] LABS: HEMATOCRIT 37.2 % (42.0-52.0); MEAN CELL VOLUME 106.3 fL (80.0-105.0); MEAN PLATELET VOLUME 9.5 fl (7.0-11.0); RED CELL DISTRIBUTION WIDTH 16.5 % (11.5-14.5)
[2016-06-04 08:05] LABS: ALB/GLOB RATIO 0.9 (1.1-1.8); BILIRUBIN,TOTAL 0.4 mg/dL (0.2-1.3); CALCIUM 7.6 mg/dL (8.4-10.5); POTASSIUM 3.4 mmol/L (3.6-5.0); TOTAL PROTEIN 7.3 g/dL (5.8-8.3)
[2016-06-04] MEDS: Collagenase 250 Units/gm Ointment(30 gm) TOP SCH (09:10)
[2016-06-04 09:13] VITALS: BP 116/69; PULSE 95; RESP 18; TEMP 98.1; O2SAT 95
--- NOTE | 2016-06-04 10:55 | CP.PCM.PN ---
Subjective - Date & Time of Evaluation Date of Evaluation: 06/04/16 Time of Evaluation: 10:55 - Subjective Subjective: 40 year old male patient with PMHx of HTN, DM, ESRD on HD< CAD, obesity was seen at bedside this morning concerning bilateral feet ulcers. Patient was resting comfortably in bed and AAO x3 at the time of visit, and the dressings to bilateral feet were clean, dry and intact. Patient states that he is going home today and will follow up with Dr. Bucio on Monday in office. Patient denies any n/v/f/c/sob/cp. Objective - Vital Signs/Intake and Output Vital Signs (last 24 hours): Temp Pulse Resp BP Pulse Ox 98.1 F 95 H 18 116/69 95 06/04/16 06:00 06/04/16 06:00 06/04/16 06:00 06/04/16 06:00 06/04/16 06:00 Intake and Output: 06/04/16 06/04/16 06:59 18:59 Intake Total 960 Balance 960 - Medications Medications: Current Medications Collagenase (Santyl) 0 gm TOP DAILY [facility] Last Admin: 06/04/16 09:10 Dose: 1 applic Losartan Potassium (Cozaar) 50 mg PO DAILY [facility] Last Admin: 06/04/16 09:09 Dose: 50 mg Pantoprazole Sodium (Protonix Inj) 40 mg IVP DAILY [facility] Last Admin: 06/04/16 09:09 Dose: 40 mg Sevelamer HCl (Renagel) 800 mg PO AC [facility] Last Admin: 06/04/16 08:30 Dose: 800 mg - Labs Labs: 06/04/16 07:00 06/04/16 07:00 PT 10.6 Seconds (9.9-11.8) 06/01/16 18:12 INR 0.98 (0.93-1.08) 06/01/16 18:12 APTT 27.3 Seconds (23.7-30.8) 06/01/16 18:12 - Constitutional Appears: Well, Non-toxic, No Acute Distress - Extremities Exam Additional comments: Bilateral lower extremity exam: VASC: DP and PT pulses palpable 2/4 b/l. CFT less than 3 seconds to digits DERM:Right foot open ulceration to lateral aspect of right 5th digit measuring approximately 2.5cm x 2.5cm x 0.4cm with fibrotic base. Mild serous drainage is noted from the wound. Mild erythema noted around the ulceration with margins less than 2 cm. No probe to bone noted. No tracking noted. Left foot open ulceration noted to lateral aspect of 5th MTPJ measuring approximately 1cm x 1cm x 0.2cm with no erythema around the ulcer. No drainage is noted. Wound base appears 80% granular and 20% fibrotic and appears to be healing. No probe to bone noted. ORTHO: No pain on palpation to the left foot wound site NEURO: Gross sensation diminished - Neurological Exam Neurological Exam: Alert, Awake, Oriented x3 - Psychiatric Exam Psychiatric exam: Normal Affect, Normal Mood Assessment and Plan - Assessment and Plan (Free Text) Assessment: 40 year old male presenting with bilateral feet diabetic open ulcerations Plan: Patient was examined and evaluated Chart, labs, vitals reviewed Discussed with Dr. Bucio Bilateral feet dressed with DSD; Santyl to be applied with wet-to dry dressing WCX from feet-no growth noted Bone scan IMPRESSION: Mild accumulation of radionuclide in the right 5th toe region on all 3 phases suspicious for osteomyelitis. There is no corresponding bony destruction seen on plain film. Patient to have daily dressing changes at home Patient to follow up with Dr. Bucio upon d/c Podiatry will continue to follow In-house
--- NOTE | 2016-06-04 13:13 | PN ---
DATE: 06/04/2016 SUBJECTIVE: This patient was seen and evaluated earlier. The patient is doing well, tolerating the diet. No complaints. The patient was admitted with complaints of epigastric pain. His episodes of vomiting have totally subsided. This patient was offered upper GI endoscopic evaluation in view of t he history of mild anemia with endoscopy before and the patient refused. He states he is feeling bet ter. He will decide about it later on. PHYSICAL EXAMINATION: VITAL SIGNS: Afebrile, blood pressure is 116/69, pulse 95, room air saturation 95%. HEENT: Atraumatic, anicteric. NECK: Supple. HEART: S1, S2 heard. LUNGS: Bilateral air entry present. ABDOMEN: Soft. There is no tenderness. LABORATORY DATA: Hemoglobin 11, hematocrit 37.2, WBC is 9.0, platelets are 238. The patient did hav e some drop in blood count. The patient's hemoglobin before was 14.7 on admission. The patient's al bumin yesterday was 4.2. Today is 3.4. Partly, drop in blood count could be due to dilutional. IMPRESSION AND PLAN: This is a 40-year-old patient with a history of end-stage renal disease on hemo dialysis, gallstones, admitted with nausea, epigastric pain and vomiting. The patient's symptoms hav e subsided and tolerating the diet now. The patient refused to have the endoscopy done. He is feeli ng better. The patient's hemoglobin slightly dropped today, but albumin also correspondingly shows s ome decrease. It could be partly related to the hemodilution. The patient is on PPI and the patient is being treated for possible osteomyelitis. I did discuss with Dr. White. The hemoglobin and hem atocrit can be followed as an outpatient during dialysis and continue the PPI. If the patient is agr eeable, we will consider upper GI endoscopy. Thank you very much for allowing us to participate in the care of the patient. Rick Raymond MD cc: [id number] TT: 06/04/2016 13:12:52 Confirmation # [id number] Dictation # [id number] [email or web address]
--- NOTE | 2016-06-04 14:44 | PN ---
DATE: 06/04/2016 The patient is in bed in no acute distress, nontoxic. PHYSICAL EXAMINATION: VITAL SIGNS: Temperature is 98, blood pressure is 117/60, respiratory rate 16. HEENT: Unremarkable. NECK: Supple. LUNGS: Have decreased breath sounds. HEART: Normal S1, S2. ABDOMEN: Soft. LABORATORY DATA: Reveals a white count of 9, hemoglobin 11, platelets of 238. The chemistries revea l the BUN of 22, creatinine of 8.3. Coagulation is noted. Microbiology reveals the blood cultures a re negative. Right foot culture has no growth. ASSESSMENT AND PLAN: This is a 40-year-old male with end-stage renal disease on hemodialysis, diabet es mellitus, chronic obstructive lung disease, hypertension, morbid obesity, BMI of 41, history of Kl ebsiella bacteremia, history of diverticulitis, admitted with systemic inflammatory response syndrome , gastrointestinal as the source, diabetic gastroparesis, possibly patient also with a right foot ulc er. We will discontinue the antibiotics and patient for possible debridement of the right foot. Dr. Raymond's, the manager freelance, note from this morning is reviewed and is considering upper endo scopy. The patient is for possible foot surgery. Nasir Dunn MD cc: [id number] TT: 06/04/2016 14:44:19 Confirmation # [id number] Dictation # [id number] [email or web address]
--- NOTE | 2016-06-04 20:28 | DS ---
A 40-year-old male with a history of abdominal pain, chronic renal disease, coronary artery disease, [place], stent, a remote history of osteomyelitis of the left foot, admitted to [facility] for abdom inal discomfort, which improved, and he was seen by surgery and GI and cleared by them. Upper endosc opy was recommended, but the patient declined. He had a CAT scan of the abdomen that showed gallston es. He was found to have a chronic ulcer on the right foot, which was being attended to by his podia trist, Dr. Ajay Bucio. He is also being followed by infectious disease, Dr. Dunn. The patien t was advised of the possibility of changes on the bone scan consistent with the possibility of osteo myelitis. It was recommended that the patient remain in the hospital; however, he wished to be disch arged home and after discussion with the individual consultants, Dr. Bucio, infectious disease, and Iris Gilman, the patient was subsequently discharged home. He was fully aware of his medical issues and his or ed to closely follow up with podiatry in 24-48 hours. He would be on Cozaar 50 mg daily, prescribed by his customer consulting manager, Dr. Zheng. He will be on Protonix 40 mg daily, Renagel 800 mg before meals, Santyl wound care. There was no feeling that there was any indication for any sort of antibiotics to be prescribed for the patient to continue at home. He was seen by Dr. Raymond and will be followed as an outpatient post-hospital. His WBC was 9, his hemoglobin was 11.9, hematocrit 37.2, platelet c ount was 238. Chemistries showed a sodium of 141, potassium 3.4, chloride 102. The BUN was 22, his creatinine was 8.3. He was status post dialysis. Cultures of blood and wound were negative. Antibi otic was discontinued by infectious disease. Again, the patient is aware that there is a need to fol low up with podiatry for further management of his foot and the risk of noncompliance was clearly exp lained to the patient and he was fully aware of the risks and assumed full responsibility for himself . Cleopatra M White MD cc: [id number] TT: 06/04/2016 20:27:56 rn
== END 2016-06-04 14:08 | disposition home or self-care (01) | DRG 444 ==
LOC: ED 17:40 → ERH 19:20 → 2RSO 20:57 → 3RSO 06-02 14:46
PROVIDERS: ADMIT Internal Medicine; ATTEND Internal Medicine
PROC: 5A1D00Z (ICD-10-PCS; principal; 2016-06-03)
DX: K80.20 Calculus of gallbladder without cholecystitis without obstruction (principal); N18.6 End stage renal disease; I13.2 Hypertensive heart and chronic kidney disease with heart failure and with stage 5 chronic kidney disease, or end stage renal disease; I42.9 Cardiomyopathy, unspecified; R65.10 Systemic inflammatory response syndrome (SIRS) of non-infectious origin without acute organ dysfunction; E11.21 Type 2 diabetes mellitus with diabetic nephropathy; N25.81 Secondary hyperparathyroidism of renal origin; M86.8X7 Other osteomyelitis, ankle and foot; Z68.41 Body mass index [BMI] 40.0-44.9, adult; K29.70 Gastritis, unspecified, without bleeding; E11.621 Type 2 diabetes mellitus with foot ulcer; L97.519 Non-pressure chronic ulcer of other part of right foot with unspecified severity; L97.529 Non-pressure chronic ulcer of other part of left foot with unspecified severity; I25.10 Atherosclerotic heart disease of native coronary artery without angina pectoris; E11.69 Type 2 diabetes mellitus with other specified complication; E78.5 Hyperlipidemia, unspecified; D64.9 Anemia, unspecified; E11.42 Type 2 diabetes mellitus with diabetic polyneuropathy; K31.84 Gastroparesis; J44.9 Chronic obstructive pulmonary disease, unspecified; E11.43 Type 2 diabetes mellitus with diabetic autonomic (poly)neuropathy; E66.01 Morbid (severe) obesity due to excess calories; Z99.2 Dependence on renal dialysis; Z95.810 Presence of automatic (implantable) cardiac defibrillator; Z95.5 Presence of coronary angioplasty implant and graft; I25.2 Old myocardial infarction; Z79.02 Long term (current) use of antithrombotics/antiplatelets; Z79.82 Long term (current) use of aspirin

== ENCOUNTER 2016-06-10 07:38 | Inpatient (IN) | payer MEDICARE, BC ==
[2016-06-10 07:48] VITALS: BMI 40.8
--- NOTE | 2016-06-10 08:12 | ED PDOC ---
Arrival/HPI - General Chief Complaint: Lower Extremity Problem/Injury Time Seen by Provider: 06/10/16 07:50 Historian: Patient - History of Present Illness Narrative History of Present Illness (Text): 06/10/16 07:59 A 40 year old male was sent in to the emergency department by PMD for hospital admission concerning right foot wound. Patient denies any pain or discomfort at this time. Patient is able to ambulate without difficultly. Patient denies any fever, nausea, vomiting, diarrhea, abdominal pain, chest pain, shortness of breath or any other complaints. PMD: Dr. White Time/Duration: Prior to Arrival Symptom Course: Unchanged Quality: Other Context: Other Past Medical History - Provider Review Nursing Documentation Reviewed: Yes - Infectious Disease Hx of Infectious Diseases: None - Tetanus Immunization Tetanus Immunization: Unknown - Cardiac Hx Cardiac Disorders: Yes Hx Congestive Heart Failure: Yes Hx Hypertension: Yes Hx Internal Defibrillator: Yes Hx Pacemaker: No - Pulmonary Hx Respiratory Disorders: Yes Hx Respiratory Tract Infection: Yes Hx Sleep Apnea: Yes - Neurological Hx Neurological Disorder: No Hx Paralysis: No - HEENT Hx HEENT Disorder: No - Renal Hx Renal Disorder: Yes Hx Dialysis: Yes (Left Fistula) Type of Dialysis Access: Hemodialysis Date of Last Dialysis Treatment: 06/08/16 Hx Renal Failure: Yes - Endocrine/Metabolic Hx Endocrine Disorders: Yes Hx Diabetes Mellitus Type 2: Yes - Hematological/Oncological Hx Blood Disorders: No Hx Blood Transfusions: No Hx Blood Transfusion Reaction: No - Integumentary Hx Dermatological Disorder: No - Musculoskeletal/Rheumatological Hx Musculoskeletal Disorders: Yes Hx Osteomyelitis: Yes - Gastrointestinal Hx Gastrointestinal Disorders: Yes Hx Diverticulitis: Yes Hx Gastroesophageal Reflux: Yes - Genitourinary/Gynecological Hx Genitourinary Disorders: No Hx Reproductive Disorders: No - Psychiatric Hx Psychophysiologic Disorder: No Hx Emotional Abuse: No Hx Physical Abuse: No Hx Substance Use: No - Past Surgical History Past Surgical History: Non-Contributing - Surgical History Hx Arteriovenous Shunt: Yes Hx Cardiac Catheterization: Yes Hx Coronary Stent: Yes Other/Comment: defibrillator - Anesthesia Hx Anesthesia Reactions: No Hx Malignant Hyperthermia: No - Suicidal Assessment Feels Threatened In Home Enviroment: No Family/Social History - Physician Review Nursing Documentation Reviewed: Yes Family/Social History: No Known Family HX Smoking Status: Never Smoked Hx Alcohol Use: No Hx Substance Use: No Hx Substance Use Treatment: No Allergies/Home Meds Allergies/Adverse Reactions: Allergies IV DYE Adverse Reaction (Uncoded 06/10/16 07:48) NAUSEA Home Medications: Home Meds Medication Instructions Recorded Confirmed Clopidogrel [Plavix] 75 mg PO DAILY 10/06/15 06/01/16 Review of Systems - Physician Review All systems were reviewed & negative as marked: Yes - Review of Systems Constitutional: absent: Fevers Respiratory: absent: SOB Cardiovascular: absent: Chest Pain Gastrointestinal: absent: Abdominal Pain, Diarrhea, Nausea, Vomiting Musculoskeletal: Other (Right foot wound) Physical Exam Vital Signs Reviewed: Yes Vital Signs Temp Pulse Resp BP Pulse Ox 06/10/16 07:53 98.2 F 75 18 140/79 97 Temperature: Afebrile Blood Pressure: Normal Pulse: Regular Respiratory Rate: Normal Appearance: Positive for: Well-Appearing, Non-Toxic, Comfortable Pain Distress: None Mental Status: Positive for: Alert and Oriented X 3 - Systems Exam Head: Present: Atraumatic, Normocephalic Pupils: Present: PERRL Extroacular Muscles: Present: EOMI Conjunctiva: Present: Normal Respiratory/Chest: Present: Clear to Auscultation, Good Air Exchange. No: Respiratory Distress, Accessory Muscle Use Cardiovascular: Present: Regular Rate and Rhythm, Normal S1, S2. No: Murmurs Lower Extremity: Present: NORMAL PULSES, Other (1cm ulcer with purulent discharge on right 5th digit). No: Edema, CALF TENDERNESS Neurological: Present: GCS=15, CN II-XII Intact, Speech Normal Skin: Present: Warm, Dry, Normal Color. No: Rashes Psychiatric: Present: Alert, Oriented x 3, Normal Insight, Normal Concentration Medical Decision Making ED Course and Treatment: 06/10/16 07:59 Impression: A 40 year old male sent in for right foot wound Plan: -- Labs -- Reassess and disposition Progress Notes: 06/10/16 08:[address] White, who request Dr. Meza for consult 06/10/16 08:[address] Meza, who states to administer Zosyn and Vancomycin 06/10/16 09:31 pt reported itching during zosyn infusion. infusion stopped. shawn started. dr white updated. - Lab Interpretations Lab Results: 06/10/16 08:37 06/10/16 08:37 Lab Results 06/10/16 08:37: WBC 9.1, RBC 3.47 L, Hgb 12.1 L, Hct 36.1 L, MCV 104.0, MCH 34.9 , MCHC 33.5, RDW 15.7 H, Plt Count 274, MPV 9.4, Gran % 64.0, Lymph % (Auto) 24.5, [place] % (Auto) 8.4 H, Eos % (Auto) 2.5, Baso % (Auto) 0.6, Gran # 5.80, Lymph # 2.2, [place] # 0.8 H, Eos # 0.2, Baso # 0.05, ESR Pending, PT 10.2, INR 0.94, APTT 28.3, Sodium 136, Potassium 5.0, Chloride 93 L, Carbon Dioxide 28, Anion Gap 20, BUN 51 H, Creatinine 10.8 H*, Est GFR ( Amer) 6, Est GFR ( Non-Af Amer) 5, Random Glucose 146 H, Calcium 9.4, Total Bilirubin 0.7, AST 22, ALT 36, Alkaline Phosphatase 57, Total Protein 7.5, Albumin 3.9, Globulin 3.5, Albumin/Globulin Ratio 1.1 I have reviewed the lab results: Yes - Medication Orders Current Medication Orders: Vancomycin HCl (Vancomycin 1gm) 250 mls @ 167 mls/hr IVPB STAT STA PRN Reason: Protocol Stop: 06/10/16 09:49 Discontinued Medications Diphenhydramine HCl (Benadryl) 25 mg IVP STAT STA Stop: 06/10/16 09:24 Piperacillin Sod/Tazobactam Sod (Zosyn 3.375 In Ns 100ml) 100 mls @ 200 mls/hr IVPB STAT STA PRN Reason: Protocol Stop: 06/10/16 08:48 Last Admin: 06/10/16 08:52 Dose: 200 MLS/HR eMAR Start Stop Document 06/10/16 08:52 SS (Rec[facility] 06[facility]10[facility]16 08:57 [id number] Intravenous Solution Start Date 06/10/16 Start Time 08:57 End Date 06/10/16 End time 09:27 Total Infusion Time 30 Morphine Sulfate (Morphine) 4 mg IVP STAT STA Stop: 06/10/16 09:00 Last Admin: 06/10/16 09:09 Dose: 4 MG MAR Pain Assessment Document 06/10/16 09:09 SS (Rec: 06/10/16 09:23 [facility] [id number] Pain Reassessment Is this a pain reassessment? No Sleep Is patient sleeping during reassessment? No Presence of Pain Presence of Pain Yes Pain Scale Used Pain Scale Used Numeric Location Left, Right or Bilateral Right Pain Location Body Site Foot Description Description Throbbing Intensity of Pain at present 7 IVP Administration Document 06/10/16 09:09 SS (Rec: 06/10/16 09:23 [facility] [id number] Charges for Administration # of IVP Administrations 1 - Scribe Statement The provider has reviewed the documentation as recorded by the Scribe Eden Bajwa Provider Scribe Attestation: All medical record entries made by the Scribe were at my direction and personally dictated by me. I have reviewed the chart and agree that the record accurately reflects my personal performance of the history, physical exam, medical decision making, and the department course for this patient. I have also personally directed, reviewed, and agree with the discharge instructions and disposition. Disposition/Present on Arrival - Present on Arrival Any Indicators Present on Arrival: No History of DVT/PE: No History of Uncontrolled Diabetes: No Urinary Catheter: No History of Decub. Ulcer: No History Surgical Site Infection Following: Orthopedic Procedures - Disposition Have Diagnosis and Disposition been Completed?: Yes Diagnosis: Osteomyelitis, Foot ulcer Disposition: HOSPITALIZED Disposition Time: 09:05 Patient Problems: Current Active Problems Problem Status Diagnosed Foot ulcer Acute Osteomyelitis Acute Condition: STABLE Referrals: Cleopatra White MD [Primary Care Provider] - Follow up with primary
[2016-06-10] MEDS ORDERED: Piperacillin/Tazobact 3.375 gm 100 ML IVPB STA (08:19)
[2016-06-10] MEDS ORDERED: Vancomycin 1gm in NS 250ml 250 ML IVPB STA (08:20)
[2016-06-10 08:46] LABS: ADD MANUAL DIFF? NO
[2016-06-10 08:53] LABS: BASO # 0.05 K/mm3 (0.0-2.0); BASO % 0.6 % (0.0-3.0); EOS # 0.2 (0.0-0.7); EOS % 2.5 % (1.5-5.0); HEMATOCRIT 36.1 % (42.0-52.0); LYMPH # 2.2 (1.2-3.4); LYMPH % 24.5 % (22.0-35.0); MEAN CORPUSCULAR HEMOGLOBIN 34.9 pg (25.0-35.0); MEAN CORPUSCULAR HGB CONC 33.5 g/dl (31.0-37.0); MEAN PLATELET VOLUME 9.4 fl (7.0-11.0); MONO # 0.8 (0.1-0.6); MONO % 8.4 % (1.0-6.0); PLATELET COUNT 274 10^3/uL (120.0-450.0); RED CELL DISTRIBUTION WIDTH 15.7 % (11.5-14.5); WHITE BLOOD COUNT 9.1 10^3/ul (4.5-11.0)
[2016-06-10] MEDS ORDERED: Morphine 4 mg/ml ISec IVP STA (08:59)
[2016-06-10 09:08] LABS: ALB/GLOB RATIO 1.1 (1.1-1.8); BILIRUBIN,TOTAL 0.7 mg/dL (0.2-1.3); CALCIUM 9.4 mg/dL (8.4-10.5); TOTAL PROTEIN 7.5 g/dL (5.8-8.3)
[2016-06-10] MEDS ORDERED: DiphenhydrAMINE 50 mg/ml Inj IVP STA (09:23)
[2016-06-10 09:25] LABS: INR 0.94 (0.93-1.08); PARTIAL THROMBOPLASTIN TIME 28.3 Seconds (23.7-30.8)
[2016-06-10] MEDS ORDERED: Meropenem 1g/NS 100mL IVPB 100 ML IVPB STA (09:30)
--- NOTE | 2016-06-10 10:05 | HP ---
A 40-year-old male referred to [facility] with a history of a draining ulcer of the right foot. The patient had a bone scan done which raised concerns for osteomyelitis of the right foot, a nd reported that the wound, which has been being followed by his recruiter manager, had started to drain. Piper murillo was referred to the Emergency Room. PAST MEDICAL HISTORY: Osteomyelitis of the left foot, coronary artery disease, PTCA, remote cardiomy opathy, recent placement of a defibrillator, diabetes, end-stage kidney disease on dialysis, dental a bscess. ALLERGY TO IV DYE. He reports that his home medications consist of Renagel 1600 mg 3 times a day, Cozaar 50 mg daily, Pl avix 75 mg daily, and Ecotrin 81 mg daily. REVIEW OF SYSTEMS: Twelve systems are reviewed. Pertinent findings is that there was a dressing ove r the right foot which he says is a little moist, but I did not notice any drainage this morning. On physical exam his temp is 98.2, his pulse is 75, his blood pressure is 140/79, his oxygen sat is 9 7% on room air, his respiratory rate is 18. He is alert and oriented x 3. NECK: Supple. LUNGS: Clear, with diminished breath sounds at the bases. HEART: Has a regular S1, S2 rhythm. ABDOMEN: Soft, positive bowel sounds, obese. EXTREMITIES: Show a dressing over the right foot. LABORATORY DATA: Shows a WBC of 9.1, RBC 3.47, hemoglobin 12, hematocrit 36, platelet count is 274. The PT is 10.2, with an INR of 0.94, the PTT is 28.3. Chemistry shows sodium 136, potassium 5, chlo ride 93, BUN is 51, and creatinine is 10.8. His random blood sugar is 146. LFTs are normal. IMPRESSION: A 40-year-old dialysis patient with a draining ulcer of the right foot, with positive betito ne scan for osteomyelitis, to be admitted to [facility] for antibiotic treatment and surgical m anagement of the foot. Consults have been requested with nephrology, infectious disease, and podiatr y. All clinical findings to date have been discussed to the Emergency Room, and with the patient. More than 50 minutes have been spent. Cleopatra White MD cc: [phone] TT: 06/10/2016 10:05:18 jn
[2016-06-10 11:09] LABS: ERYTHROCYTE SEDIMENTATION RATE 49 mm/hr (0.0-15.0)
--- NOTE | 2016-06-10 23:23 | CP.PCM.PN ---
Subjective - Date & Time of Evaluation Date of Evaluation: 06/10/16 Time of Evaluation: 23:23 - Subjective Subjective: Nurse calls because patient has right foot pain. Patient was seen by bedside. Complains of right foot pain, sharp ,intermittent pain for past hour. Received morphine 4 mg I V in the ER for same pain. Wants something orally , mild for pain. Has no other complaints now. Medical record was reviewed. This 40 year old male was admitted with draining ulcer on right foot. Has PMH of osteomyelitis of left foot, CAD, PTCA, remote CMP,DM,ESRD, placement of defibrillator, obesity, dental abscess. Objective - Vital Signs/Intake and Output Vital Signs (last 24 hours): Temp Pulse Resp BP Pulse Ox 97 F L 88 18 150/78 97 06/10/16 13:20 06/10/16 13:20 06/10/16 13:20 06/10/16 13:20 06/10/16 09:52 Intake and Output: 06/10/16 06/11/16 18:59 06:59 Intake Total 120 Balance 120 - Medications Medications: Current Medications Losartan Potassium (Cozaar) 50 mg PO DAILY [facility] Last Admin: 06/10/16 10:16 Dose: 50 mg Sevelamer HCl (Renagel) 1,600 mg PO 0800,1200,1700 [facility] Last Admin: 06/10/16 12:27 Dose: 1,600 mg - Labs Labs: PT 10.2 Seconds (9.9-11.8) 06/10/16 08:37 INR 0.94 (0.93-1.08) 06/10/16 08:37 APTT 28.3 Seconds (23.7-30.8) 06/10/16 08:37 - Constitutional Appears: Well, No Acute Distress - Head Exam Head Exam: ATRAUMATIC, NORMAL INSPECTION Additional comments: Obese person. - ENT Exam ENT Exam: Normal External Ear Exam - Neck Exam Neck Exam: Normal Inspection - Respiratory Exam Respiratory Exam: NORMAL BREATHING PATTERN - Cardiovascular Exam Cardiovascular Exam: absent: JVD - GI/Abdominal Exam GI & Abdominal Exam: absent: Distended - Rectal Exam Rectal Exam: Deferred - Extremities Exam Additional comments: Right foot dressing on. Clean & Dry. - Back Exam Back Exam: NORMAL INSPECTION - Neurological Exam Neurological Exam: Alert, Oriented x3 - Psychiatric Exam Psychiatric exam: Normal Affect, Normal Mood - Skin Skin Exam: Normal Color Assessment and Plan - Assessment and Plan (Free Text) Assessment: A/P:Right foot ulcer. Right foot osteomyelitis. Obesity. CAD. CMP. DM. Percocet as ordered. Discussed with . Continue present medications.
[2016-06-10] MEDS: Oxycodone/Acetaminophen 10/325 mg Tab PO PRN (23:35)
[2016-06-11] MEDS ORDERED: Piperacillin/Tazobact 2.25gm 100 ML IVPB SCH (00:15)
--- NOTE | 2016-06-11 00:19 | CP.PCM.CON ---
History of Present Illness - History of Present Illness History of Present Illness: 40 year old male with PMH of eft foot cellulitis and osteomyelitis with enterococcus, morbid obesity with a BMI 38.9 , end stage renal failure on hemodialysis with left arm fistula, diabetes mellitus, chronic obstructive lung disease, hypertension, history of Klebsiella bacteremia secondary to a dialysis catheter, S/P removal, coronary artery disease S/P cardiac catheterization was admitted because of right foot wound with note of discharge. He has been seeing his Addiction Specialist and there is note of worsening of the wound. The patient denies fever or chills, no nausea or vomiting, no chest pain, no dysuria, no diarrhea, no sore throat, no abdominal pain. Infectious Diseases consult is requested to further evaluate and manage. Review of Systems - Review of Systems All systems: reviewed and no additional remarkable complaints except (as per HPI ) Past Patient History - Infectious Disease Hx of Infectious Diseases: None - Tetanus Immunizations Tetanus Immunization: Unknown - Past Social History Smoking Status: Never Smoked - CARDIAC Hx Cardiac Disorders: Yes Hx Congestive Heart Failure: Yes Hx Hypertension: Yes Hx Internal Defibrillator: Yes Hx Pacemaker: No - PULMONARY Hx Respiratory Disorders: Yes Hx Respiratory Tract Infection: Yes Hx Sleep Apnea: Yes - NEUROLOGICAL Hx Neurological Disorder: No Hx Paralysis: No - HEENT Hx HEENT Problems: No - RENAL Hx Chronic Kidney Disease: Yes Hx Dialysis: Yes (Left Fistula) Type of Dialysis Access: Hemodialysis Date of Last Dialysis Treatment: 06/08/16 Hx Renal Failure: Yes - ENDOCRINE/METABOLIC Hx Endocrine Disorders: Yes Hx Diabetes Mellitus Type 2: Yes - HEMATOLOGICAL/ONCOLOGICAL Hx Blood Disorders: No Hx Blood Transfusions: No Hx Blood Transfusion Reaction: No - INTEGUMENTARY Hx Dermatological Problems: No - MUSCULOSKELETAL/RHEUMATOLOGICAL Hx Musculoskeletal Disorders: Yes Hx Osteomyelitis: Yes - GASTROINTESTINAL Hx Gastrointestinal Disorders: Yes Hx Diverticulitis: Yes Hx Gastroesophageal Reflux: Yes - GENITOURINARY/GYNECOLOGICAL Hx Genitourinary Disorders: No Hx Reproductive Disorders: No - PSYCHIATRIC Hx Psychophysiologic Disorder: No Hx Emotional Abuse: No Hx Physical Abuse: No Hx Substance Use: No - SURGICAL HISTORY Hx Arteriovenous Shunt: Yes Hx Cardiac Catheterization: Yes Hx Coronary Stent: Yes Other/Comment: defibrillator - ANESTHESIA Hx Anesthesia Reactions: No Hx Malignant Hyperthermia: No Meds Allergies/Adverse Reactions: Allergies Allergy/AdvReac Type Severity Reaction Status Date / Time IV DYE AdvReac NAUSEA Uncoded 06/10/16 07:48 - Medications Medications: Current Medications Vancomycin HCl (Vancomycin 1gm) 250 mls @ 167 mls/hr IVPB STAT STA PRN Reason: Protocol Stop: 06/10/16 09:49 Physical Exam - Constitutional Appears: Non-toxic, No Acute Distress - Head Exam Head Exam: NORMAL INSPECTION - ENT Exam ENT Exam: Mucous Membranes Moist - Neck Exam Neck exam: Negative for: Lymphadenopathy, Meningismus - Respiratory Exam Respiratory Exam: Decreased Breath Sounds - Cardiovascular Exam Cardiovascular Exam: +S1, +S2 - GI/Abdominal Exam GI & Abdominal Exam: Soft, Tenderness - Extremities Exam Additional comments: right foot with dry dressings in place Results - Vital Signs Recent Vital Signs: Last Vital Signs Temp 98.2 F 06/10/16 07:53 Pulse 75 06/10/16 07:53 Resp 18 06/10/16 07:53 BP 140/79 06/10/16 07:53 Pulse Ox 97 06/10/16 07:53 - Labs Result Diagrams: 06/10/16 08:37 06/10/16 08:37 Labs: Laboratory Results - last 24 hr 06/10/16 08:37 WBC 9.1 RBC 3.47 L Hgb 12.1 L Hct 36.1 L MCV 104.0 MCH 34.9 MCHC 33.5 RDW 15.7 H Plt Count 274 MPV 9.4 Gran % 64.0 Lymph % (Auto) 24.5 [place] % (Auto) 8.4 H Eos % (Auto) 2.5 Baso % (Auto) 0.6 Gran # 5.80 Lymph # 2.2 [place] # 0.8 H Eos # 0.2 Baso # 0.05 PT 10.2 INR 0.94 APTT 28.3 Sodium 136 Potassium 5.0 Chloride 93 L Carbon Dioxide 28 Anion Gap 20 BUN 51 H Creatinine 10.8 H* Est GFR ( Amer) 6 Est GFR (Non-Af Amer) 5 Random Glucose 146 H Calcium 9.4 Total Bilirubin 0.7 AST 22 ALT 36 Alkaline Phosphatase 57 Total Protein 7.5 Albumin 3.9 Globulin 3.5 Albumin/Globulin Ratio 1.1 Assessment & Plan - Assessment and Plan (Free Text) Plan: Assessment Probable right foot ulcer, infected with skin and skin structure infection, suspicious for osteomyelitis Sepsis secondary to left foot skin and skin structure infection with abscess with Corynebacterium, abscess again found S/P repeat drainage POD #4 - so far no growth; no evidence of osteomyelitis on MRI history of left foot cellulitis and osteomyelitis with enterococcus morbid obesity with a BMI 38.9 end stage renal failure on hemodialysis with left arm fistula diabetes mellitus chronic obstructive lung disease hypertension history of Klebsiella bacteremia secondary to a dialysis catheter S/P removal coronary artery disease S/P cardiac catheterization Plan started Intermittent Vancomycin and started Zosyn pending blood cx, wound cx; follow up Podiatry evaluation Will follow clinically
[2016-06-11] MEDS: Oxycodone/Acetaminophen 10/325 mg Tab PO PRN ×2 (05:57→22:31)
--- NOTE | 2016-06-11 08:40 | CON ---
DATE: 06/11/2016 REFERRING PHYSICIAN: Dr. White. REASON FOR CONSULTATION: End-stage renal disease on hemodialysis and continuation of dialysis. CHIEF COMPLAINT AND HISTORY OF PRESENT ILLNESS: This is a 40-year-old male who is coming into the [facility], was sent in by his primary care doctor because of a right foot drainage and wound. The patie nt has a history of a right foot ulcer that is being treated by Dr. Bucio. The patient had a bone sc an done on 06/03/2016 indicating that maybe osteomyelitis is present. The patient is admitted to the hospital for evaluation. He has a history of end-stage renal disease and has been on dialysis 3 time s a week. There are some issues with compliance at times. The patient has undergone cardiac evaluat ion in order to be placed the transplant list. He currently has no complaints of any chest pain or s hortness of breath, no nausea, no vomiting, no fever, headaches or chills. He does have cardiomyopat hy and had recent defibrillator that was placed. He says he started noticing drainage over the past few days. He has been able to put weight on it, but the pain has developed in the last day or 2. He has no abdominal pain, no back pain, no weakness in the arms or the legs. REVIEW OF SYSTEMS: All other review of symptoms are within normal limits except as mentioned. ALLERGIES: IV DYE. HOME MEDICATIONS: 1. Plavix 75 mg daily. 2. Aspirin 81 mg daily. 3. Renvela 1600 mg t.i.d. with meals. 4. Losartan 50 mg daily. PAST MEDICAL HISTORY: 1. End-stage renal disease on hemodialysis. 2. Coronary artery disease with stenting. 3. Cardiomyopathy. 4. Defibrillator placement. 5. Dyslipidemia. 6. Hypertension. 7. Diabetes type 2. 8. Secondary hyperparathyroidism. 9. Chronic anemia secondary to kidney disease. 10. Osteomyelitis. PAST SURGICAL HISTORY: 1. Left AV fistula placement. 2. Perm-A-Cath placement. 3. Defibrillator. FAMILY HISTORY: No history of kidney disease in the family. SOCIAL HISTORY: He drinks socially. He denies smoking or drug use. PHYSICAL EXAMINATION: VITAL SIGNS: Temperature is 97, pulse of 88, blood pressure 150/78, respirations 18, O2 saturation i s 97%. Height is 5 feet 10, weight is 285 pounds, BMI is 40.9. GENERAL: Patient lying in bed, flat, and in no apparent distress. HEAD AND NECK EXAM: Atraumatic, normocephalic. Conjunctivae are pink. Throat clear and mouth with moist mucosa. Oropharynx benign. EYES: Extraocular movements are intact. PERRLA. NECK: Supple. No JVD, thyromegaly, or adenopathy. No bruits. HEART: S1 and S2 regular rate and rhythm. No murmurs, rubs, or gallops. LUNGS: Clear to auscultation bilaterally. No wheezing rales or rhonchi appreciated. No retraction s on exam. ABDOMEN: Soft, nontender, nondistended. Bowel sounds are positive in all quadrants. No rebound. No hepatosplenomegaly. EXTREMITIES: Left forearm fistula with good thrill and bruit. Right foot with sock, unable to do ex am with dressing in place. There is some dried blood that can be seen. NEURO: No facial asymmetry, tongue is midline, no uvula deviation. Power is 5/5 in upper extremity and 5/5 in lower extremity. Sensation is normal in upper extremity and lower extremity. PSYCH: Awake, alert, oriented x3. No anxiety or depression symptoms. Good insight. Normal affec t. : No CVA tenderness VASCULAR: 2+ pulses in carotid and pedal pulses. SKIN: No erythema or abnormal nodules noted. SPINE: Normal curvature. LYMPHADENOPATHY: No anterior cervical or posterior cervical adenopathy. No inguinal adenopathy. LABORATORY DATA: White count of 9.1, hemoglobin 12.1, platelet count is 274. INR is 0.94, creatinin e is 10.8, potassium is 5.0. AST, ALT is 22 and 36. Albumin is 3.9. ASSESSMENT: 1. Right foot ulcer, possible suspicious for osteomyelitis. 2. End-stage renal disease on hemodialysis. 3. Left forearm AV fistula. 4. Secondary hyperparathyroidism. 5. Chronic anemia. 6. Obesity with a body mass index of 41. 7. Diabetes type 2. 8. Diabetic nephropathy. 9. Hypertension. 10. Cardiomyopathy. 11. Defibrillator. 12. Coronary artery disease with stent. PLAN: The patient is currently comfortable. He was dialyzed yesterday, I did speak to the dialysis nurse. He is going to need further management of his foot ulcer. Dr. Bucio from podiatry and Dr. Si son from ID will be seeing the patient. He is currently on Zosyn that is renally dosed at 2.25 grams . The patient is currently not in volume overload. The patient is on Renagel for secondary hyperpar athyroidism, he is getting 2 tablets 3 times a day with meals. He does not wish to be on a renal t. I will change that to a regular diet. He is going to continue his losartan and we will also plac e him on carvedilol. Will continue his dialysis. Next dialysis will be on Monday. Blood cultures h ave been done. He may need surgical intervention and he is optimized from renal prospective for this . Thank you for allowing me to participate in the care of your patient. Maximilian Zheng MD cc: [id number] TT: 06/11/2016 08:39:11 Confirmation # [id number] Dictation # [id number] yenifer
--- NOTE | 2016-06-11 09:25 | PN ---
DATE: 06/11/2016 A 40-year-old male admitted to [facility] with a draining ulcer of the right foot and a b one scan with findings consistent with osteomyelitis. The patient was being followed by podiatry. PHYSICAL EXAMINATION: VITAL SIGNS: He currently has a temp of 98.2, his pulse is 95, his blood pressure is 121/77, his oxy gen sat is 95% on room air. GENERAL: He is alert and oriented x 3. NECK: Supple. LUNGS: Clear. HEART: An S1, S2 rhythm. ABDOMEN: Soft, obese, positive bowel sounds. There is a positive fistula for dialysis in the left f orearm with a positive thrill. EXTREMITIES: Show no evidence of edema. There is a dressing over the right foot. LABORATORY DATA: This morning is pending. He has a C-reactive protein of 8.7. The patient received a dose of Zosyn in the Emergency Room. It was reported that there was some mild itching and the medication is being changed to meropenem and vancomycin by infectious disease. He w ill continue Renagel and Percocet p.r.n. for pain and he has been placed on Cozaar and Coreg by his n ephrologist. He has a history of cardiomyopathy. We will be getting an infectious disease consult a s well as podiatry consult and cardiology consult for clearance for probable debridement of the wound . Cleopatra White MD cc: [id number] TT: 06/11/2016 09:25:04 Confirmation # [id number] Dictation # [id number] tn
[2016-06-11] MEDS ORDERED: Meropenem 500 MG in Sodium Chloride 0.9% 100 ML IVPB SCH (10:00)
[2016-06-11 10:20] LABS: ADD MANUAL DIFF? NO
[2016-06-11 10:22] LABS: BASO # 0.04 K/mm3 (0.0-2.0); BASO % 0.4 % (0.0-3.0); EOS # 0.3 (0.0-0.7); EOS % 2.8 % (1.5-5.0); GRAN # 6.48 (1.4-6.5); GRAN % 64.7 % (50.0-68.0); HEMATOCRIT 39.8 % (42.0-52.0); LYMPH # 2.4 (1.2-3.4); MEAN CELL VOLUME 105.6 fL (80.0-105.0); MEAN CORPUSCULAR HGB CONC 33.2 g/dl (31.0-37.0); MEAN PLATELET VOLUME 9.8 fl (7.0-11.0); MONO # 0.8 (0.1-0.6); MONO % 8.1 % (1.0-6.0); PLATELET COUNT 251 10^3/uL (120.0-450.0); RED CELL DISTRIBUTION WIDTH 15.8 % (11.5-14.5)
[2016-06-11 10:40] LABS: ALB/GLOB RATIO 0.9 (1.1-1.8); CALCIUM 9.5 mg/dL (8.4-10.5); POTASSIUM 4.8 mmol/L (3.6-5.0); TOTAL PROTEIN 8.2 g/dL (5.8-8.3)
[2016-06-11] MEDS: Meropenem 500 MG in Sodium Chloride 0.9% 100 ML IVPB SCH ×2 (10:47→21:46)
[2016-06-11] MEDS: Collagenase 250 Units/gm Ointment(30 gm) TOP SCH (10:48)
--- NOTE | 2016-06-11 11:37 | CP.PCM.CON ---
History of Present Illness - History of Present Illness History of Present Illness: PODIATRY CONSULT NOTE 40 year old male with PMH of ESRD, DM, HTN, presents fr right foot ulceration and potential osteomyelitis. Pt sent in from by PMD for admission & evaluation of right foot ulceration. Pt denies recent f/c/n/vcp/sob. Pt is know to attending Dr. Bucio as he ahs been treated for chronic leg wound. Right foot ulceration has persisted for past 4 weeks, occurring secondary to shear forces from prolonged walking. Pt denies acute traumatic source. Pt in no acute distress. Past Patient History - Infectious Disease Hx of Infectious Diseases: None - Tetanus Immunizations Tetanus Immunization: Unknown - Past Social History Smoking Status: Never Smoked - CARDIAC Hx Cardiac Disorders: Yes Hx Congestive Heart Failure: Yes Hx Hypertension: Yes Hx Internal Defibrillator: Yes Hx Pacemaker: No - PULMONARY Hx Respiratory Disorders: Yes Hx Respiratory Tract Infection: Yes Hx Sleep Apnea: Yes - NEUROLOGICAL Hx Neurological Disorder: No Hx Paralysis: No - HEENT Hx HEENT Problems: No - RENAL Hx Chronic Kidney Disease: Yes Hx Dialysis: Yes (Left Fistula) Type of Dialysis Access: Hemodialysis Date of Last Dialysis Treatment: 06/08/16 Hx Renal Failure: Yes - ENDOCRINE/METABOLIC Hx Endocrine Disorders: Yes Hx Diabetes Mellitus Type 2: Yes - HEMATOLOGICAL/ONCOLOGICAL Hx Blood Disorders: No Hx Blood Transfusions: No Hx Blood Transfusion Reaction: No - INTEGUMENTARY Hx Dermatological Problems: No - MUSCULOSKELETAL/RHEUMATOLOGICAL Hx Musculoskeletal Disorders: Yes Hx Osteomyelitis: Yes - GASTROINTESTINAL Hx Gastrointestinal Disorders: Yes Hx Diverticulitis: Yes Hx Gastroesophageal Reflux: Yes - GENITOURINARY/GYNECOLOGICAL Hx Genitourinary Disorders: No Hx Reproductive Disorders: No - PSYCHIATRIC Hx Psychophysiologic Disorder: No Hx Emotional Abuse: No Hx Physical Abuse: No Hx Substance Use: No - SURGICAL HISTORY Hx Arteriovenous Shunt: Yes Hx Cardiac Catheterization: Yes Hx Coronary Stent: Yes Other/Comment: defibrillator - ANESTHESIA Hx Anesthesia Reactions: No Hx Malignant Hyperthermia: No Meds Allergies/Adverse Reactions: Allergies Allergy/AdvReac Type Severity Reaction Status Date / Time piperacillin sodium Allergy ITCHING Verified 06/11/16 09:16 [From Zosyn] tazobactam sodium Allergy ITCHING Verified 06/11/16 09:16 [From Zosyn] IV DYE AdvReac NAUSEA Uncoded 06/10/16 07:48 - Medications Medications: Current Medications Carvedilol (Coreg) 3.125 mg PO BID [facility] Last Admin: 06/11/16 10:45 Dose: Not Given Collagenase (Santyl) 0 gm TOP DAILY [facility] Last Admin: 06/11/16 10:48 Dose: 1 gm Meropenem 500 mg/ Sodium (Chloride) 100 mls @ 100 mls/hr IVPB Q12 TINY PRN Reason: Protocol Stop: 06/17/16 22:59 Last Admin: 06/11/16 10:47 Dose: 100 mls/hr Losartan Potassium (Cozaar) 50 mg PO DAILY [facility] Last Admin: 06/11/16 10:45 Dose: Not Given Oxycodone/Acetaminophen (Percocet 10/325 Mg Tab) 1 tab PO Q4H PRN PRN Reason: Pain, moderate (4-7) Last Admin: 06/11/16 05:57 Dose: 1 tab Sevelamer HCl (Renagel) 1,600 mg PO 0800,1200,1700 [facility] Last Admin: 06/11/16 08:23 Dose: 1,600 mg Physical Exam - Constitutional Appears: Well, Non-toxic, No Acute Distress - Extremities Exam Additional comments: Lower extremity focused. VASC: DP pilses graded 2/4, PT pulses wekly palpable, graded 1/4 bilaterally. Temperature runs warm to cooll proximal to distal. DERM: Right foot ulceration, to lateral 5th MTPJ, measuring 2 x 1.6 cm with positive probe to bone on a 15% necrotic to 85% fibrotic base, absent active draingage, no undermining of margins or tunneling. Erythemaatous margin extending 5mm circumferentially. Left foot superficial ulceration, to planta lateral aspect of 5th mettarsal head, measuring 1.2 x 0.6 cm with hyperkeratotic margins. No acut signs of infection. left 4th inter-space maceration noted. Scaling, peeling, xerotic acral skin noted to feet bilaterally. NEURO: Protective sensation grossly diminished. ORTHO: No pain on palpation to beet bilaterally. Decreased arch height noted bilaterally, reproducible on Hubscher maneuver. - Neurological Exam Neurological exam: Alert, Oriented x3 - Psychiatric Exam Psychiatric exam: Normal Affect, Normal Mood Results - Vital Signs Recent Vital Signs: Last Vital Signs Temp 98.2 F 06/11/16 07:55 Pulse 86 06/11/16 10:45 Resp 20 06/11/16 07:55 BP 100/70 06/11/16 10:45 Pulse Ox 95 06/11/16 07:55 - Labs Result Diagrams: 06/11/16 10:10 06/11/16 10:10 Labs: Laboratory Results - last 24 hr 06/11/16 10:10 WBC 10.0 RBC 3.77 Hgb 13.2 L Hct 39.8 L MCV 105.6 H MCH 35.0 MCHC 33.2 RDW 15.8 H Plt Count 251 MPV 9.8 Gran % 64.7 Lymph % (Auto) 24.0 [place] % (Auto) 8.1 H Eos % (Auto) 2.8 Baso % (Auto) 0.4 Gran # 6.48 Lymph # 2.4 [place] # 0.8 H Eos # 0.3 Baso # 0.04 Sodium 134 Potassium 4.8 Chloride 95 L Carbon Dioxide 25 Anion Gap 19 BUN 34 H Creatinine 8.5 H* Est GFR ( Amer) 9 Est GFR (Non-Af Amer) 7 Random Glucose 153 H Calcium 9.5 Total Bilirubin 1.0 AST 28 ALT 33 Alkaline Phosphatase 52 Total Protein 8.2 Albumin 3.9 Globulin 4.3 Albumin/Globulin Ratio 0.9 L Assessment & Plan - Assessment and Plan (Free Text) Assessment: 40 year old male with 1) right foot wound (Rojas Grade 3), secondary to diabetes, 2) Left foot rojas grade 1 ulcer, secondary to diabetes. 3) Tinea Pedis. Plan: Charts evaluated and treated at bedside. Discussed with attending, Dr. Bucio. Wound culture taken Foot x-ray ordered Continue Iv abx Pre-operative clearance pending. Dressed with Santyl, 4x4,abd, kerlix. - Date & Time Date: 06/11/16 Time: 11:40
--- NOTE | 2016-06-11 21:40 | CP.PCM.PN ---
Subjective - Date & Time of Evaluation Date of Evaluation: 06/11/16 Time of Evaluation: 10:45 - Subjective Subjective: Complained that he had some itching with Zosyn. No fevers. Less pain in the right foot. Objective - Vital Signs/Intake and Output Vital Signs (last 24 hours): Temp Pulse Resp BP Pulse Ox 98.3 F 88 20 151/83 H 93 L 06/11/16 16:00 06/11/16 16:00 06/11/16 16:00 06/11/16 16:00 06/11/16 16:00 Intake and Output: 06/11/16 06/12/16 18:59 06:59 Intake Total 600 720 Balance 600 720 - Medications Medications: Current Medications Carvedilol (Coreg) 3.125 mg PO BID [facility] Last Admin: 06/11/16 17:05 Dose: Not Given Collagenase (Santyl) 0 gm TOP DAILY [facility] Last Admin: 06/11/16 10:48 Dose: 1 gm Meropenem 500 mg/ Sodium (Chloride) 100 mls @ 100 mls/hr IVPB Q12 [facility] PRN Reason: Protocol Stop: 06/17/16 22:59 Last Admin: 06/11/16 10:47 Dose: 100 mls/hr Losartan Potassium (Cozaar) 50 mg PO DAILY [facility] Last Admin: 06/11/16 10:45 Dose: Not Given Oxycodone/Acetaminophen (Percocet 10/325 Mg Tab) 1 tab PO Q4H PRN PRN Reason: Pain, moderate (4-7) Last Admin: 06/11/16 05:57 Dose: 1 tab Sevelamer HCl (Renagel) 1,600 mg PO 0800,1200,1700 [facility] Last Admin: 06/11/16 17:04 Dose: 1,600 mg - Labs Labs: 06/11/16 10:10 06/11/16 10:10 PT 10.2 Seconds (9.9-11.8) 06/10/16 08:37 INR 0.94 (0.93-1.08) 06/10/16 08:37 APTT 28.3 Seconds (23.7-30.8) 06/10/16 08:37 - Constitutional Appears: Non-toxic, No Acute Distress - Head Exam Head Exam: NORMAL INSPECTION - ENT Exam ENT Exam: Mucous Membranes Moist - Neck Exam Neck Exam: absent: Lymphadenopathy, Meningismus - Respiratory Exam Respiratory Exam: Decreased Breath Sounds - Cardiovascular Exam Cardiovascular Exam: +S1, +S2 - GI/Abdominal Exam GI & Abdominal Exam: Soft. absent: Tenderness Assessment and Plan - Assessment and Plan (Free Text) Plan: Assessment Probable right foot ulcer, infected with skin and skin structure infection, suspicious for osteomyelitis history of epsis secondary to left foot skin and skin structure infection with abscess with Corynebacterium history of left foot cellulitis and osteomyelitis with enterococcus morbid obesity with a BMI 38.9 end stage renal failure on hemodialysis with left arm fistula diabetes mellitus chronic obstructive lung disease hypertension history of Klebsiella bacteremia secondary to a dialysis catheter S/P removal coronary artery disease S/P cardiac catheterization Plan continue Intermittent Vancomycin and change Zosyn to Meropenem pending blood cx , wound cx; follow up Podiatry evaluation Will continue to follow clinically Discussed with Dr. White
--- NOTE | 2016-06-12 08:01 | RAD ---
HISTORY: r/o OM COMPARISON: 06/03/2016 FINDINGS: BONES: Normal. No fracture. Chronic deformity of the 1st proximal phalanx. JOINTS: Normal. No osteoarthritis. SOFT TISSUE: Normal. OTHER FINDINGS: None . IMPRESSION: No fracture.
[2016-06-12] MEDS: Meropenem 500 MG in Sodium Chloride 0.9% 100 ML IVPB SCH ×2 (09:09→22:37)
[2016-06-12] MEDS: Collagenase 250 Units/gm Ointment(30 gm) TOP SCH (09:11)
[2016-06-12] MEDS ORDERED: Vancomycin 1gm in NS 250ml 250 ML IVPB STA (10:34)
--- NOTE | 2016-06-12 10:48 | PN ---
DATE: 06/12/2016 A 40-year-old male receiving IV antibiotic therapy and wound care for osteomyelitis of the right foot . The patient has chronic renal disease on dialysis 3 times a week, cardiomyopathy, coronary artery disease with remote stenting, and recently had a defibrillator placed. PHYSICAL EXAMINATION: VITAL SIGNS: Show a temp of 98. His pulse is 88. His blood pressure is 104/70. His oxygen sat is 100% on room air. GENERAL: The patient is alert and oriented x 3. NECK: Supple. LUNGS: Clear. HEART: S1, S2 rhythm. ABDOMEN: Obese, soft with positive bowel sounds. EXTREMITIES: Show dressing over the right foot. X-ray of the right foot showed no evidence of fracture. He is being followed by infectious disease, on antibiotics consisting of meropenem. Cultures of the blood and wound at this point are negative. We are awaiting podiatry and cardiology input for planned debridement and surgery of the foot. We wi ll continue current medical care. The patient is scheduled for dialysis in the morning, and I will c heck his labs. Cleopatra White MD cc: [id number] TT: 06/12/2016 10:47:59 Confirmation # [id number] Dictation # [id number] yenifer
--- NOTE | 2016-06-12 12:38 | CON ---
DATE: 06/11/2016 HISTORY OF PRESENT ILLNESS: The patient is a 40-year-old male who presents with possible osteomyelit is in the lower extremity. PAST MEDICAL HISTORY: Complex with a documented ejection fraction of 38%. The patient is free of CHF symptoms. The patient's cardiac risk factors include end-stage renal disease, diabetes mellitus and hypertensio n. He also has persistent increased weight. SOCIAL HISTORY: Denies smoking. REVIEW OF SYSTEMS: A 14-point review of systems was reviewed in detail. No cardiac symptomatology i s noted. PHYSICAL EXAMINATION: VITAL SIGNS: Blood pressure is 144/94, the heart rate is in the 80s-90s, regular. NECK: Negative JVD. LUNGS: Without rales. HEART: Revealed S1, S2. EXTREMITIES: Positive wounds in the lower extremities. EKG is not available. LABORATORIES: Includes a potassium of 4.8, glucose is 153. The hemoglobin is unchanged. IMPRESSION: 1. Possible osteomyelitis of the lower extremities. 2. Diabetes mellitus. 3. Dilated cardiomyopathy. 4. Hypertension. 5. End-stage renal disease. 6. Hypertension. Given these findings, the patient's cardiac status as well as his multiple comorbidities puts him at increased risk for any anesthesia. His cardiac status, however, is at its optimum at this time. Ajay Diggs MD cc: [id number] TT: 06/12/2016 12:37:27 Confirmation # [id number] Dictation # [id number] an
--- NOTE | 2016-06-12 13:15 | CARD ---
APPROVED REPORT EKG Measurement Heart [id number] <Conclusion> Normal sinus rhythm Anterior infarct, age undetermined Abnormal ECG
--- NOTE | 2016-06-12 13:39 | CP.PCM.PN ---
Subjective - Date & Time of Evaluation Date of Evaluation: 06/12/16 Time of Evaluation: 13:00 - Subjective Subjective: 40 year old male with right 5th digit ulceration and osteomyelitis. Pt reports no acute overnight events. Pt denies recent f.c.n.v.cp.sob Objective - Vital Signs/Intake and Output Vital Signs (last 24 hours): Temp Pulse Resp BP Pulse Ox 98.2 F 101 H 22 128/90 100 06/12/16 08:00 06/12/16 08:00 06/12/16 08:00 06/12/16 12:15 06/12/16 08:00 Intake and Output: 06/12/16 06/12/16 06:59 18:59 Intake Total 960 Balance 960 - Medications Medications: Current Medications Collagenase (Santyl) 0 gm TOP DAILY [facility] Last Admin: 06/12/16 09:11 Dose: 1 gm Meropenem 500 mg/ Sodium (Chloride) 100 mls @ 100 mls/hr IVPB Q12 [facility] PRN Reason: Protocol Stop: 06/17/16 22:59 Last Admin: 06/12/16 09:09 Dose: 100 mls/hr Losartan Potassium (Cozaar) 50 mg PO DAILY [facility] Last Admin: 06/12/16 12:15 Dose: 50 mg Oxycodone/Acetaminophen (Percocet 10/325 Mg Tab) 1 tab PO Q4H PRN PRN Reason: Pain, moderate (4-7) Last Admin: 06/11/16 22:31 Dose: 1 tab Sevelamer HCl (Renagel) 1,600 mg PO 0800,1200,1700 [facility] Last Admin: 06/12/16 12:16 Dose: 1,600 mg - Labs Labs: 06/11/16 10:10 06/11/16 10:10 PT 10.2 Seconds (9.9-11.8) 06/10/16 08:37 INR 0.94 (0.93-1.08) 06/10/16 08:37 APTT 28.3 Seconds (23.7-30.8) 06/10/16 08:37 - Constitutional Appears: Well, Non-toxic, No Acute Distress - Extremities Exam Additional comments: Lower extremity focused. VASC: DP pilses graded 2/4, PT pulses wekly palpable, graded 1/4 bilaterally. Temperature runs warm to cooll proximal to distal. DERM: Right foot ulceration, to lateral 5th MTPJ, measuring 2 x 1.6 cm with positive probe to bone on a 15% necrotic to 85% fibrotic base, absent active draingage, no undermining of margins or tunneling. Erythemaatous margin extending 5mm circumferentially. Left foot superficial ulceration, to planta lateral aspect of 5th mettarsal head, measuring 1.2 x 0.6 cm with hyperkeratotic margins. No acut signs of infection. left 4th inter-space maceration noted. Scaling, peeling, xerotic acral skin noted to feet bilaterally. NEURO: Protective sensation grossly diminished. ORTHO: No pain on palpation to beet bilaterally. Decreased arch height noted bilaterally, reproducible on Hubscher maneuver. - Neurological Exam Neurological Exam: Alert, Awake, Oriented x3 - Psychiatric Exam Psychiatric exam: Normal Affect, Normal Mood Assessment and Plan - Assessment and Plan (Free Text) Assessment: 40 year old male with 1) right foot wound (Rojas Grade 3), secondary to diabetes, 2) Left foot rojas grade 1 ulcer, secondary to diabetes. 3) Tinea Pedis. Plan: Charts evaluated and treated at bedside. Discussed with attending, Dr. Bucio. Wound culture results- pending Foot x-ray ordered Continue Iv abx Pre-operative & cardiac clearances pending. Dressed with Santyl, 4x4,abd, kerlix. Lotrisone cream ordered. Discussed with pt potential need for right foot debridement and potential amputation or metatarsal ehad resection as needed. Pt aware of risks benefits, complications and alternatives for surgical intervention. podiatry will continue to monitor while inhouse.
--- NOTE | 2016-06-12 15:57 | RAD ---
HISTORY: sirs COMPARISON: No prior. TECHNIQUE: Chest PA and lateral FINDINGS: LUNGS: No active pulmonary disease. PLEURA: No significant pleural effusion identified. No pneumothorax apparent. CARDIOVASCULAR: Normal. Pacemaker leads in place. OSSEOUS STRUCTURES: No significant abnormalities. VISUALIZED UPPER ABDOMEN: Normal. OTHER FINDINGS: None. IMPRESSION: No active disease.
[2016-06-12] MEDS: Clotrimazole 1% Cream(30 gm) TOP SCH (17:42)
--- NOTE | 2016-06-12 18:37 | CP.PCM.PN ---
Subjective - Date & Time of Evaluation Date of Evaluation: 06/12/16 Time of Evaluation: 10:50 - Subjective Subjective: Comfortable in bed, not in distress, afebrile. Objective - Vital Signs/Intake and Output Vital Signs (last 24 hours): Temp Pulse Resp BP Pulse Ox 98.3 F 95 H 22 149/97 H 95 06/12/16 16:00 06/12/16 16:00 06/12/16 16:00 06/12/16 16:00 06/12/16 16:00 Intake and Output: 06/12/16 06/12/16 06:59 18:59 Intake Total 960 520 Balance 960 520 - Medications Medications: Current Medications Clotrimazole (Lotrimin 1%) 0 gm TOP BID [facility] Last Admin: 06/12/16 17:42 Dose: 1 gm Collagenase (Santyl) 0 gm TOP DAILY [facility] Last Admin: 06/12/16 09:11 Dose: 1 gm Meropenem 500 mg/ Sodium (Chloride) 100 mls @ 100 mls/hr IVPB Q12 [facility] PRN Reason: Protocol Stop: 06/17/16 22:59 Last Admin: 06/12/16 09:09 Dose: 100 mls/hr Losartan Potassium (Cozaar) 50 mg PO DAILY [facility] Last Admin: 06/12/16 12:15 Dose: 50 mg Oxycodone/Acetaminophen (Percocet 10/325 Mg Tab) 1 tab PO Q4H PRN PRN Reason: Pain, moderate (4-7) Last Admin: 06/11/16 22:31 Dose: 1 tab Sevelamer HCl (Renagel) 1,600 mg PO 0800,1200,1700 [facility] Last Admin: 06/12/16 17:43 Dose: Not Given - Labs Labs: 06/11/16 10:10 06/11/16 10:10 PT 10.2 Seconds (9.9-11.8) 06/10/16 08:37 INR 0.94 (0.93-1.08) 06/10/16 08:37 APTT 28.3 Seconds (23.7-30.8) 06/10/16 08:37 - Constitutional Appears: Non-toxic, No Acute Distress - Head Exam Head Exam: NORMAL INSPECTION - ENT Exam ENT Exam: Mucous Membranes Moist - Neck Exam Neck Exam: absent: Lymphadenopathy, Meningismus - Respiratory Exam Respiratory Exam: Decreased Breath Sounds - Cardiovascular Exam Cardiovascular Exam: +S1, +S2 - GI/Abdominal Exam GI & Abdominal Exam: Soft. absent: Tenderness - Extremities Exam Additional comments: right foot with dry dressings in place Assessment and Plan - Assessment and Plan (Free Text) Plan: Assessment Probable right foot ulcer, infected with skin and skin structure infection, suspicious for osteomyelitis history of epsis secondary to left foot skin and skin structure infection with abscess with Corynebacterium history of left foot cellulitis and osteomyelitis with enterococcus morbid obesity with a BMI 38.9 end stage renal failure on hemodialysis with left arm fistula diabetes mellitus chronic obstructive lung disease hypertension history of Klebsiella bacteremia secondary to a dialysis catheter S/P removal coronary artery disease S/P cardiac catheterization Plan continue Intermittent Vancomycin and Meropenem pending blood cx, wound cx; follow up Podiatry evaluation Will continue to follow clinically
[2016-06-13 07:51] LABS: ADD MANUAL DIFF? NO
[2016-06-13 07:56] LABS: BASO # 0.06 K/mm3 (0.0-2.0); BASO % 0.6 % (0.0-3.0); EOS # 0.3 (0.0-0.7); EOS % 2.8 % (1.5-5.0); GRAN # 6.36 (1.4-6.5); GRAN % 64.3 % (50.0-68.0); HEMATOCRIT 37.5 % (42.0-52.0); LYMPH # 2.3 (1.2-3.4); LYMPH % 23.7 % (22.0-35.0); MEAN CELL VOLUME 102.7 fL (80.0-105.0); MEAN CORPUSCULAR HEMOGLOBIN 34.2 pg (25.0-35.0); MEAN CORPUSCULAR HGB CONC 33.3 g/dl (31.0-37.0); MEAN PLATELET VOLUME 9.8 fl (7.0-11.0); MONO # 0.9 (0.1-0.6); MONO % 8.6 % (1.0-6.0); PLATELET COUNT 314 10^3/uL (120.0-450.0); RED CELL DISTRIBUTION WIDTH 15.2 % (11.5-14.5); WHITE BLOOD COUNT 9.9 10^3/ul (4.5-11.0)
[2016-06-13 08:24] LABS: CALCIUM 9.7 mg/dL (8.4-10.5); POTASSIUM 5.5 mmol/L (3.6-5.0)
--- NOTE | 2016-06-13 09:21 | PN ---
DATE: 06/13/2016 SUBJECTIVE: The patient has no complaints of any chest pain, no shortness of breath, no headaches or dizziness. PHYSICAL EXAMINATION: VITAL SIGNS: Temperature is 98.6, pulse of 100, blood pressure 120/81, respirations 18. GENERAL: The patient comfortable, in no acute distress. HEENT: Anicteric sclerae. Moist mucosa. NECK: No JVD or adenopathy. CARDIAC: S1/S2. No murmurs. No rubs. Regular. RESPIRATORY: Clear to auscultation bilaterally. No wheezes, rales, or rhonchi. Good air entry. ABDOMEN: Bowel sounds are positive, soft, nontender, and nondistended. EXTREMITIES: No edema. Has 1+ pulses. ASSESSMENT: 1. Right foot ulcer with probable osteomyelitis. 2. End-stage renal disease, on hemodialysis. 3. Secondary hyperparathyroidism. 4. Left forearm arteriovenous fistula. 5. Chronic anemia. 6. Coronary artery disease with stents. 7. Diabetes, type 2. 8. Diabetic nephropathy. 9. Obesity with a body mass index of 41. 10. Cardiomyopathy. 11. Hypertension. 12. Defibrillator. PLAN: The patient is currently comfortable. He is undergoing dialysis with no issues. He is on Lyle agel for his secondary hyperparathyroidism. The patient is on meropenem for antibiotics. His blood cultures have been negative. He is on losartan for his hypertension. I did speak to Dr. White this morning. Awaiting input from Dr. Bucio about the patient's procedure in the OR. Maximilian Zheng MD cc: [id number] TT: 06/13/2016 09:20:37 Confirmation # [id number] Dictation # [id number] mn
--- NOTE | 2016-06-13 09:23 | CON ---
DATE: 06/13/2016 TIME OF CONSULTATION: 0700 hours LOCATION OF CONSULTATION: Room 570, bed 2. REASON FOR CONSULTATION: Ongoing diabetic foot ulcer with probable osteomyelitis and cellulitis of t he right foot. HISTORY OF PRESENT ILLNESS: This is a 40-year-old male patient, known to me for some time now with o ngoing ulcerations on both feet over time. Over the last 6 weeks, he developed a significant diabeti c foot ulcer on the right fifth metatarsal and toe, which has not responded to conservative therapies and debridements. He was inpatient approximately 2 weeks ago, scheduled for a following week debrid ement. Because of cardiac history, he was unable to have an MRI. Bone scans indicated probable oste omyelitis of the fifth toe. The patient was discharged prior to debridement and was scheduled last w rainier for outpatient procedure when he became cellulitic and given his extensive past medical history, was admitted this past weekend through the ED for medical and cardiology clearances, anticipating florentin ridement this week. PAST MEDICAL HISTORY: Extensive. He is on hemodialysis for ESRD. He has CAD with cardiac stenting, cardiomyopathy with current ejection fraction of 38%. Approximately 6-8 weeks ago, he had a defibri llator placement procedure performed. Type 2 diabetes, poorly controlled, hyperlipidemia and hyperte nsion, hyperparathyroidism and significant obesity. HOME MEDICATIONS: Include Plavix, aspirin, and losartan and occasionally oral antibiotic. PAST SURGICAL HISTORY: Positive for a left AV fistula, PermCath and defibrillator procedures and pre vious foot debridements. FAMILY HISTORY: Noncontributory. SOCIAL HISTORY: Social alcohol use and denies any tobacco or recreational drug use. ALLERGIES: HE ADMITS AN IV DYE ALLERGY. REVIEW OF SYSTEMS: Performed and no findings except for the extensive past medical history is obtain ed. PHYSICAL EXAMINATION: GENERAL: The patient is in bed, awake, alert and oriented x 3, sitting up, and in no acute distress. VITAL SIGNS: Stable. EXTREMITIES: The dressings are removed from the right foot. There is forefoot edema. There is some resolving cellulitis in the forefoot. There is a 3 cm x 5 cm full-thickness diabetic ulceration rohini n to and contiguous with the capsular and periosteal tissues of the toe and metatarsal on the right f oot. The appearance of this tissue is significantly nonviable. There appears to be no significant u ndermining or sinus formation to this ulcer. There are no visible decubitus. There is no calf tende rness. There is no lymphangitis or streaking on the extremity. LABORATORY DATA: Indicates an elevated white count marginally, an INR close to 1 and elevated creati nine. X-ray data is reviewed. The most recent x-ray indicates a negative finding. However, a view of film s indicates a demineralization of the proximal phalanx and the head of the first metatarsal without c lear osteonecrosis. The 3-phase bone scan performed approximately 1 week to 10 days prior indicates probable delayed intensity in the fifth toe and metatarsal of the right foot. We are unable to perfo rm MRI studies because of the recent placement of the defibrillator. IMPRESSION: Diabetic patient with extensive neuropathy of the feet, poor glucose control with multip le comorbidities, not the least of which is cardiomyopathy and hemodialysis with end-stage renal dise ase, and most likely osteomyelitis of the fifth toe and metatarsal head on the right foot with a nonh ealing full thickness diabetic foot ulcer. PLAN: The patient has been seen by medicine, infectious disease and cardiology. Appears to have bee n cleared by cardiology for a surgical debridement of the right foot. He is currently on the schedul e for this . We are attempting to move the surgery procedure to first thing tomorrow morning . We anticipate being able to do this. We will check with Dr. White and Dr. Diggs this afternoon to confirm medical clearance and take the patient to the OR for debridement and probable amputation of the fifth toe and metatarsal on the right foot. Ajay Bucio DPM cc: [id number] TT: 06/13/2016 09:22:30 Confirmation # [id number] Dictation # [id number] en
[2016-06-13] MEDS: Meropenem 500 MG in Sodium Chloride 0.9% 100 ML IVPB SCH ×2 (09:46→22:20)
[2016-06-13] MEDS: Clotrimazole 1% Cream(30 gm) TOP SCH ×2 (09:47→17:37)
[2016-06-13] MEDS: Collagenase 250 Units/gm Ointment(30 gm) TOP SCH (09:48)
--- NOTE | 2016-06-13 10:53 | PN ---
DATE: 06/13/2016 A 40-year-old male, receiving IV antibiotic with history of osteomyelitis of the right foot, an ulcer , chronic renal disease on dialysis, cardiomyopathy, diabetes, status post recent defibrillator place ment, history of sepsis, cellulitis and osteomyelitis in the past. PHYSICAL EXAMINATION: VITAL SIGNS: Show a temp of 98.6, his pulse is 95, his blood pressure is 120/81. GENERAL: He is alert and oriented x 3. NECK: Supple. LUNGS: Clear. HEART: Has an S1, S2. ABDOMEN: Soft, obese, positive bowel sounds. EXTREMITIES: Show no evidence of edema. There is a dressing on the right foot. The patient has been seen by cardiology, Dr. Diggs, podiatry, Dr. Bucio, nephrology, Dr. Zheng. patient's notes of these consultants have been reviewed. The patient is tentatively scheduled for debridement of the ulcer and care of the osteomyelitis of the foot. Infectious disease is following the patient and he is currently receiving IV meropenem. He is receiving topical Lotrimin cream as we ll. His blood pressure medication at this time is Cozaar 50 mg daily. His composing machine operator discontinued any Coreg. He is on Renagel 3 times a day and Santyl wound dressings, Percocet p.r.n. for pain. patient is scheduled for dialysis this morning. His WBC is 9.9, his hemoglobin is 12.5, hematocrit 37.5, his platelet count is 314. His chemistry sh ows a sodium of 135, potassium 5.5, chloride is 92, the BUN is 66, the creatinine is 12.6, his blood sugar is 103. Clinical findings and settings and impressions from the individual consultants have been reviewed wit h the patient and we are awaiting surgical scheduling of the procedure by Dr. Bucio. We will continu e to follow the patient closely, continue the current antibiotics, follow up the patient's lab work. Cleopatra White MD cc: [id number] TT: 06/13/2016 10:52:57 Confirmation # [id number] Dictation # [id number] en
[2016-06-13] MEDS: Oxycodone/Acetaminophen 10/325 mg Tab PO PRN ×3 (11:11→22:19)
[2016-06-13 15:15] LABS: ADD MANUAL DIFF? NO
[2016-06-13 15:23] LABS: BASO # 0.03 K/mm3 (0.0-2.0); BASO % 0.4 % (0.0-3.0); EOS # 0.3 (0.0-0.7); GRAN # 5.67 (1.4-6.5); GRAN % 66.3 % (50.0-68.0); HEMATOCRIT 35.1 % (42.0-52.0); LYMPH # 1.8 (1.2-3.4); LYMPH % 20.9 % (22.0-35.0); MEAN CELL VOLUME 100.6 fL (80.0-105.0); MEAN CORPUSCULAR HEMOGLOBIN 34.7 pg (25.0-35.0); MEAN CORPUSCULAR HGB CONC 34.5 g/dl (31.0-37.0); MONO # 0.8 (0.1-0.6); MONO % 9.4 % (1.0-6.0); PLATELET COUNT 313 10^3/uL (120.0-450.0); WHITE BLOOD COUNT 8.6 10^3/ul (4.5-11.0)
[2016-06-13 15:28] LABS: ALB/GLOB RATIO 1.1 (1.1-1.8); BILIRUBIN,TOTAL 0.8 mg/dL (0.2-1.3); MAGNESIUM 2.2 mg/dL (1.7-2.2); PHOSPHOROUS 8.3 mg/dL (2.5-4.5); POTASSIUM 5.4 mmol/L (3.6-5.0); TOTAL PROTEIN 8.3 g/dL (5.8-8.3)
--- NOTE | 2016-06-13 22:22 | CP.PCM.PN ---
Subjective - Date & Time of Evaluation Date of Evaluation: 06/13/16 Time of Evaluation: 12:35 - Subjective Subjective: Comfortable in bed, not in distress, afebrile. Objective - Vital Signs/Intake and Output Vital Signs (last 24 hours): Temp Pulse Resp BP Pulse Ox 98.6 F 100 H 18 128/81 99 06/13/16 07:30 06/13/16 09:46 06/13/16 07:30 06/13/16 09:46 06/13/16 07:30 Intake and Output: 06/13/16 06/14/16 18:59 06:59 Intake Total 600 720 Balance 600 720 - Medications Medications: Current Medications Clotrimazole (Lotrimin 1%) 0 gm TOP BID [facility] Last Admin: 06/13/16 17:37 Dose: 1 applic Collagenase (Santyl) 0 gm TOP DAILY [facility] Last Admin: 06/13/16 09:48 Dose: 1 gm Meropenem 500 mg/ Sodium (Chloride) 100 mls @ 100 mls/hr IVPB Q12 [facility] PRN Reason: Protocol Stop: 06/17/16 22:59 Last Admin: 06/13/16 22:20 Dose: 100 mls/hr Losartan Potassium (Cozaar) 50 mg PO DAILY [facility] Last Admin: 06/13/16 09:46 Dose: 50 mg Oxycodone/Acetaminophen (Percocet 10/325 Mg Tab) 1 tab PO Q4H PRN PRN Reason: Pain, moderate (4-7) Last Admin: 06/13/16 22:19 Dose: 1 tab Sevelamer HCl (Renagel) 1,600 mg PO 0800,1200,1700 [facility] Last Admin: 06/13/16 17:36 Dose: 1,600 mg - Labs Labs: 06/13/16 13:00 06/13/16 13:00 PT 10.2 Seconds (9.9-11.8) 06/10/16 08:37 INR 0.94 (0.93-1.08) 06/10/16 08:37 APTT 28.3 Seconds (23.7-30.8) 06/10/16 08:37 - Constitutional Appears: Non-toxic, No Acute Distress - Head Exam Head Exam: NORMAL INSPECTION - Respiratory Exam Respiratory Exam: Decreased Breath Sounds - Cardiovascular Exam Cardiovascular Exam: +S1, +S2 - GI/Abdominal Exam GI & Abdominal Exam: Soft. absent: Tenderness - Extremities Exam Additional comments: right foot with dry dressings in place Assessment and Plan - Assessment and Plan (Free Text) Plan: Assessment Probable right foot ulcer, infected with skin and skin structure infection, suspicious for osteomyelitis history of epsis secondary to left foot skin and skin structure infection with abscess with Corynebacterium history of left foot cellulitis and osteomyelitis with enterococcus morbid obesity with a BMI 38.9 end stage renal failure on hemodialysis with left arm fistula diabetes mellitus chronic obstructive lung disease hypertension history of Klebsiella bacteremia secondary to a dialysis catheter S/P removal coronary artery disease S/P cardiac catheterization Plan continue Intermittent Vancomycin and Meropenem day 3; wound cx only showing coagulase negative staph but need deeper cultures; planned for Surgery this week Will continue to follow clinically
[2016-06-14] MEDS ORDERED: Vancomycin 1 GM in Sodium Chloride 0.9% 500 ML IVPB ONE (07:00)
[2016-06-14] MEDS ORDERED: Vancomycin 1 g Inj ONE (07:22)
[2016-06-14] MEDS ORDERED: Lidocaine 2% Inj (20ml) ONE (07:23)
[2016-06-14] MEDS ORDERED: Midazolam 2 MG/2 ML VIAL ONE (07:45)
[2016-06-14] MEDS ORDERED: Bupivacaine 0.5% Inj(30mL) ONE (07:47)
--- NOTE | 2016-06-14 09:23 | PCM.SURG1 ---
Surgeon's Initial Post Op Note - Surgeon's Notes Surgeon: Dr. Ajay Bucio Retail Office Manager: Dr. Westfall PGY-1 Type of Anesthesia: IV Sedation, Local Anesthesia Administered By: Dr. Reddy Pre-Operative Diagnosis: right foot nonhealing ulceration with ostemyelitis of 5th digit Operative Findings: see dictation. 20mL 0.5%marcaine plain. 2-0 prolene. vancomycin 500mg abx beads. YOUNG drain Post-Operative Diagnosis: same as preop Operation Performed: right foot full thickness debridement of diabetic ulceration with partial resection of osteomyelitic bone Specimen/Specimens Removed: bone, soft tissue Estimated Blood Loss: EBL {In ML}: 20 Blood Products Given: N/A Drains Used: Jose Gambino Post-Op Condition: Good Date of Surgery/Procedure: 06/14/16 Time of Surgery/Procedure: 08:00
[2016-06-14] MEDS ORDERED: Lactated Ringer's 1,000 ML IV SCH (09:24)
[2016-06-14] MEDS: Meropenem 500 MG in Sodium Chloride 0.9% 100 ML IVPB SCH ×2 (09:30→22:47)
[2016-06-14] MEDS: Clotrimazole 1% Cream(30 gm) TOP SCH ×2 (09:35→17:29)
[2016-06-14] MEDS: Collagenase 250 Units/gm Ointment(30 gm) TOP SCH (09:36)
--- NOTE | 2016-06-14 10:22 | PN ---
DATE: 06/14/2016 A 40-year-old male with a history of osteomyelitis of the right foot, receiving IV antibiotic therapy , meropenem and vancomycin, history of chronic renal disease on dialysis 3 times a week, history of c ardiomyopathy, diabetes mellitus, hypertension, recent placement of defibrillator, is undergoing debr idement of the right foot ulcer and bone by Dr. Ajay Bucio. PHYSICAL EXAMINATION: VITAL SIGNS: Show a temp of 98.8, his pulse is 98, his blood pressure is 138/70, oxygen sat is 98% o n room air, respiratory rate is 20. GENERAL: He is alert and oriented x 3. NECK: Supple. LUNGS: Clear. HEART: S1, S2 rhythm. ABDOMEN: Obese, soft, positive bowel sounds. EXTREMITIES: There is a dressing over the right foot, status post surgical procedure by Dr. Bucio. There is an AV fistula in the left forearm for dialysis, there is a positive bruit. CURRENT MEDICATIONS: Consist of Cozaar 50 mg daily, Lotrimin topically b.i.d., meropenem q. 12, vanc omycin daily, Santyl to wound site, Renagel 3 times a day, Percocet p.r.n. for pain. LABORATORY DATA: Pending. The patient will continue current level of care, continue to be followed by podiatry and infectious d isyohanae. We will await cultures of the bone. His blood cultures at 4 days are negative. Cleopatra White MD cc: [id number] TT: 06/14/2016 10:21:27 Confirmation # [id number] Dictation # [id number] [email or web address]
--- NOTE | 2016-06-14 10:32 | RAD ---
PROCEDURE: Right Foot Radiographs. HISTORY: s/p right foot surrgery COMPARISON: 06/11/2016 FINDINGS: BONES: Surgical packing is seen in the region of the amputation of the distal 5th metatarsal. JOINTS: Normal. SOFT TISSUES: Normal. OTHER FINDINGS: None. IMPRESSION: Surgical packing is seen in the region of the amputation of the distal 5th metatarsal.
[2016-06-14] MEDS: Oxycodone/Acetaminophen 10/325 mg Tab PO PRN ×3 (12:02→22:46)
--- NOTE | 2016-06-14 12:25 | OP ---
PROCEDURE DATE: 06/14/2016 SURGEON: Dr. Ajay Bucio. STATION COOK: Dr. Sotomayor, PGY-1. BREAKDOWN MAN: Dr. Reddy. ANESTHESIA: IV sedation with local. PREOPERATIVE DIAGNOSES: Right foot nonhealing diabetic ulceration and osteomyelitis. POSTOPERATIVE DIAGNOSES: Right foot nonhealing diabetic ulceration and osteomyelitis. NAME OF PROCEDURE: Right foot full thickness debridement of diabetic ulceration with resection of osteomyelitic bone. INDICATIONS: The patient is a 40-year-old male with the above diagnosis. The patient has exhausted all conservative treatment at this time and now requests surgical intervention. The patient signed the consent after careful explanation of risks, benefits, complications and alternatives for surgical procedure. No guarantees were given nor implied. PREPARATION: The patient was brought into the operating room and placed on the operating room table in a supine position. Timeout was performed for identification of the correct patient and procedure. The patient received a total of 20 mL of 0.5% Marcaine plain in a local block type fashion to the right foot. Once local anesthesia was achieved, the right foot was then prepped and draped in normal sterile manner and the procedure began. PROCEDURE: Right foot full thickness debridement of diabetic ulceration with resection of osteomyelitic bone. DESCRIPTION OF PROCEDURE: Attention was then directed to the patient's right foot in which the use of a #15 blade, a circumferential incision was made down around the fifth digit ulceration extending distally across the fifth digit and proximally to the mid shaft of the fifth metatarsal. The incision was deepened through subcutaneous tissue all the way down to bone using a #15 blade and Metzenbaum scissors. At this time, deep cultures were taken once adequate bone was exposed. Once adequate bone was exposed, a sagittal saw was then used to resect the fifth metatarsal, just proximal to the metatarsal neck. All necrotic nonviable and devitalized tissue and bone was then excisionally excised and sent to pathology. A bone culture was taken and sent to pathology as well. The remaining sharp bone was then debrided down to smoothness with a rongeur. Next, a pulse lavage using 3 liters of saline mixed with bacitracin was utilized to copiously flush the wound. At this time, antibiotic beads were made using [employer] OsteoSet and vancomycin 500 mg powder and were placed in the surgical incision site. Next, 2-0 Prolene suture was then used to reapproximate the skin edges in a simple suture technique. A YOUNG drain was then placed in the wound and the bulb was attached to allow for negative pressure. The surgical site was then dressed with sterile gauze, ABD, Kerlix and Lionel. POSTOPERATIVE CONDITION: The patient tolerated the local anesthesia and procedure well and was escorted to the recovery room with vital signs stable and neurovascular status intact to the right foot. The patient is to remain weightbearing in a surgical shoe to the right lower extremity and podiatry will follow the patient while in house and will follow up with Dr. Ajay Bucio upon discharge. JEFFREY SOTOMAYOR DPM Ajay Bucio DPM cc: [id number] TT: 06/14/2016 12:25:42 [email or web address] HARRIS
--- NOTE | 2016-06-14 13:07 | PN ---
DATE: 06/14/2016 The patient tolerated his surgery for his foot. No shortness of breath, no chest pain. PHYSICAL EXAMINATION: VITAL SIGNS: Stable. NECK: Negative JVD. LUNGS: Without rales. HEART: Reveals S1, S2. EXTREMITIES: Bandaged. IMPRESSION: 1. Cellulitis of the lower extremities. 2. Hypertension. 3. Dilated cardiomyopathy. 4. Coronary artery disease. Given these findings, the patient tolerated his surgery without issues. Ajay Diggs MD cc: [id number] TT: 06/14/2016 13:06:26 Confirmation # [id number] Dictation # [id number] en
[2016-06-14 13:16] LABS: HEMATOCRIT 36.4 % (42.0-52.0); MEAN CORPUSCULAR HEMOGLOBIN 34.9 pg (25.0-35.0); MEAN CORPUSCULAR HGB CONC 33.5 g/dl (31.0-37.0); MEAN PLATELET VOLUME 9.3 fl (7.0-11.0); RED CELL DISTRIBUTION WIDTH 15.4 % (11.5-14.5); WHITE BLOOD COUNT 7.9 10^3/ul (4.5-11.0)
[2016-06-14 13:24] LABS: BILIRUBIN,TOTAL 0.8 mg/dL (0.2-1.3); CALCIUM 9.8 mg/dL (8.4-10.5); POTASSIUM 5.4 mmol/L (3.6-5.0); TOTAL PROTEIN 8.5 g/dL (5.8-8.3)
[2016-06-14] MEDS: POLYETHYLENE GLYCOL 3350 17 GM/Dose PACKET PO SCH (17:22)
--- NOTE | 2016-06-14 21:06 | CP.PCM.PN ---
Subjective - Date & Time of Evaluation Date of Evaluation: 06/14/16 Time of Evaluation: 11:45 - Subjective Subjective: Comfortable in bed, not in distress, had surgery today on his foot. No fevers overnight. Objective - Vital Signs/Intake and Output Vital Signs (last 24 hours): Temp Pulse Resp BP Pulse Ox 97.9 F 90 20 123/49 L 100 06/14/16 16:00 06/14/16 16:00 06/14/16 16:00 06/14/16 16:00 06/14/16 16:00 Intake and Output: 06/14/16 06/15/16 18:59 06:59 Intake Total 480 Balance 480 - Medications Medications: Current Medications Clotrimazole (Lotrimin 1%) 0 gm TOP BID [facility] Last Admin: 06/14/16 17:29 Dose: 1 applic Collagenase (Santyl) 0 gm TOP DAILY [facility] Last Admin: 06/14/16 09:36 Dose: Not Given Meropenem 500 mg/ Sodium (Chloride) 100 mls @ 100 mls/hr IVPB Q12 [facility] PRN Reason: Protocol Stop: 06/17/16 22:59 Last Admin: 06/14/16 09:30 Dose: Not Given Losartan Potassium (Cozaar) 50 mg PO DAILY [facility] Last Admin: 06/14/16 09:30 Dose: 50 mg Oxycodone/Acetaminophen (Percocet 10/325 Mg Tab) 1 tab PO Q4H PRN PRN Reason: Pain, moderate (4-7) Last Admin: 06/14/16 17:28 Dose: 1 tab Polyethylene Glycol (Miralax) 17 gm PO DAILY [facility] Last Admin: 06/14/16 17:22 Dose: 17 gm Sevelamer HCl (Renagel) 1,600 mg PO 0800,1200,1700 [facility] Last Admin: 06/14/16 17:23 Dose: 1,600 mg - Labs Labs: 06/14/16 13:10 06/14/16 13:10 PT 10.2 Seconds (9.9-11.8) 06/10/16 08:37 INR 0.94 (0.93-1.08) 06/10/16 08:37 APTT 28.3 Seconds (23.7-30.8) 06/10/16 08:37 - Constitutional Appears: Non-toxic, No Acute Distress - Head Exam Head Exam: NORMAL INSPECTION - ENT Exam ENT Exam: Mucous Membranes Moist - Neck Exam Neck Exam: absent: Lymphadenopathy, Meningismus - Respiratory Exam Respiratory Exam: Decreased Breath Sounds - Cardiovascular Exam Cardiovascular Exam: +S1, +S2 - GI/Abdominal Exam GI & Abdominal Exam: Soft. absent: Tenderness - Extremities Exam Additional comments: right foot with dressings in place Assessment and Plan - Assessment and Plan (Free Text) Plan: Assessment Probable right foot ulcer, infected with skin and skin structure infection, suspicious for osteomyelitis S/P 5th toe amputation and partial metatarsal amputation today history of epsis secondary to left foot skin and skin structure infection with abscess with Corynebacterium history of left foot cellulitis and osteomyelitis with enterococcus morbid obesity with a BMI 38.9 end stage renal failure on hemodialysis with left arm fistula diabetes mellitus chronic obstructive lung disease hypertension history of Klebsiella bacteremia secondary to a dialysis catheter S/P removal coronary artery disease S/P cardiac catheterization Plan continue Intermittent Vancomycin and Meropenem day 4; follow up OR cultures and pathology Will continue to follow clinically
[2016-06-15] MEDS: Oxycodone/Acetaminophen 10/325 mg Tab PO PRN ×2 (05:49→19:14)
[2016-06-15] MEDS: Collagenase 250 Units/gm Ointment(30 gm) TOP SCH (09:53)
[2016-06-15] MEDS: Meropenem 500 MG in Sodium Chloride 0.9% 100 ML IVPB SCH ×2 (09:53→22:01)
[2016-06-15] MEDS: POLYETHYLENE GLYCOL 3350 17 GM/Dose PACKET PO SCH (09:53)
--- NOTE | 2016-06-15 10:39 | PN ---
DATE: 06/15/2016 This is postop day 1. The patient had a surgical procedure on his right foot for osteomyelitis by Dr Samara Bucio. PHYSICAL EXAMINATION: VITAL SIGNS: His temp is 98, his pulse is 90, blood pressure is 128/82, his respiratory rate is 20 a nd his oxygen saturation is 96% on room air. GENERAL: He is alert and oriented x 3. NECK: Supple. LUNGS: Clear. HEART: S1, S2 rhythm. ABDOMEN: Soft with positive bowel sounds. EXTREMITIES: Show dressing with drainage on the right foot, ____ is in place. ASSESSMENT AND PLAN: The patient is scheduled for dialysis today. Labs will be done during dialysis . Currently, he is receiving meropenem IV, is receiving intermittent vancomycin as well. We will co ntinue his blood pressure medicine of Cozaar 50 mg daily and his local wound care of Lotrimin, contin ue his meropenem antibiotic and wound care with Santyl. We will await final cultures of the surgical site and continue current level of care. Cleopatra White MD cc: [id number] TT: 06/15/2016 10:39:18 Confirmation # [id number] Dictation # [id number] tn
[2016-06-15 14:18] LABS: ADD MANUAL DIFF? NO
--- NOTE | 2016-06-15 14:28 | CP.PCM.PN ---
Subjective - Date & Time of Evaluation Date of Evaluation: 06/15/16 Time of Evaluation: 14:25 - Subjective Subjective: 40 y/o male seen at bedside 1 day s/p right foot 5th partial ray resection. Patient denies any acute events overnight. The dressing remains c/d/i, YOUNG drain intact and actively draining. Patient denies n/f/v/c/d/sob. Objective - Vital Signs/Intake and Output Vital Signs (last 24 hours): Temp Pulse Resp BP Pulse Ox 98 F 100 H 20 128/82 96 06/15/16 08:46 06/15/16 09:52 06/15/16 08:46 06/15/16 09:52 06/15/16 08:46 Intake and Output: 06/15/16 06/15/16 06:59 18:59 Intake Total 340 Output Total 35 Balance 305 - Medications Medications: Current Medications Clotrimazole (Lotrimin 1%) 0 gm TOP BID [facility] Last Admin: 06/14/16 17:29 Dose: 1 applic Collagenase (Santyl) 0 gm TOP DAILY [facility] Last Admin: 06/15/16 09:53 Dose: 1 gm Meropenem 500 mg/ Sodium (Chloride) 100 mls @ 100 mls/hr IVPB Q12 [facility] PRN Reason: Protocol Stop: 06/17/16 22:59 Last Admin: 06/15/16 09:53 Dose: 100 mls/hr Losartan Potassium (Cozaar) 50 mg PO DAILY [facility] Last Admin: 06/15/16 09:52 Dose: 50 mg Oxycodone/Acetaminophen (Percocet 10/325 Mg Tab) 1 tab PO Q4H PRN PRN Reason: Pain, moderate (4-7) Last Admin: 06/15/16 05:49 Dose: 1 tab Polyethylene Glycol (Miralax) 17 gm PO DAILY [facility] Last Admin: 06/15/16 09:53 Dose: 17 gm Sevelamer HCl (Renagel) 1,600 mg PO 0800,1200,1700 [facility] Last Admin: 06/15/16 11:57 Dose: 1,600 mg - Labs Labs: 06/14/16 13:10 06/14/16 13:10 PT 10.2 Seconds (9.9-11.8) 06/10/16 08:37 INR 0.94 (0.93-1.08) 06/10/16 08:37 APTT 28.3 Seconds (23.7-30.8) 06/10/16 08:37 - Constitutional Appears: Well, Non-toxic, No Acute Distress - Extremities Exam Additional comments: Vasc: lightly palpable pedal pulses b/l, TG wnl, CFT < 3 sec to all digits, nonpitting edema neuro: grossly diminished derm: mild edema, no erythema, surgical incision site well coapted, sutures intact, no dehiscence, no purulence, mild serous drainage with strikethrough on bandage, YOUNG drain in place and actively draining blood, no acute clinical signs of infection ortho: no pain on palpation along surgical incision site - Neurological Exam Neurological Exam: Alert, Awake, Oriented x3 - Psychiatric Exam Psychiatric exam: Normal Affect, Normal Mood Assessment and Plan - Assessment and Plan (Free Text) Assessment: 40 y/o male seen at bedside 1 day s/p right foot 5th ray resection Plan: patient evaluated and chart reviewed discussed in detail with attending Dr. Bucio labs and vitals reviewed, WBC 7.9 continue IV abx as per ID YOUNG drain left intact applied DSD, ABD, kerlix, JOANNE to right foot patient to continue nonweightbearing to forefoot podiatry will continue to monitor while patient remains in house
[2016-06-15 14:30] LABS: ALB/GLOB RATIO 1.1 (1.1-1.8); BILIRUBIN,TOTAL 0.7 mg/dL (0.2-1.3); CALCIUM 9.7 mg/dL (8.4-10.5); MAGNESIUM 2.1 mg/dL (1.7-2.2); PHOSPHOROUS 6.9 mg/dL (2.5-4.5); POTASSIUM 5.3 mmol/L (3.6-5.0); TOTAL PROTEIN 7.6 g/dL (5.8-8.3)
[2016-06-15 14:39] LABS: BASO # 0.04 K/mm3 (0.0-2.0); BASO % 0.6 % (0.0-3.0); EOS # 0.1 (0.0-0.7); GRAN % 67.1 % (50.0-68.0); HEMATOCRIT 33.3 % (42.0-52.0); LYMPH # 1.5 (1.2-3.4); LYMPH % 20.8 % (22.0-35.0); MEAN CELL VOLUME 101.2 fL (80.0-105.0); MEAN CORPUSCULAR HGB CONC 33.6 g/dl (31.0-37.0); MEAN PLATELET VOLUME 9.9 fl (7.0-11.0); MONO # 0.7 (0.1-0.6); MONO % 9.5 % (1.0-6.0); PLATELET COUNT 283 10^3/uL (120.0-450.0); RED CELL DISTRIBUTION WIDTH 14.9 % (11.5-14.5); WHITE BLOOD COUNT 7.2 10^3/ul (4.5-11.0)
--- NOTE | 2016-06-15 15:00 | PN ---
DATE: 06/15/2016 SUBJECTIVE: The patient is comfortable. No shortness of breath, no chest pain. The patient is undergoing dialysis without issues. PHYSICAL EXAMINATION: VITAL SIGNS: Blood pressure is 128/82, heart rate is in the 90s. NECK: Negative JVD. LUNGS: Without rales. HEART: Reveals S1, S2. EXTREMITIES: Bandaged. LABORATORIES: Hemoglobin is 10.2, potassium is 5.3 predialysis. IMPRESSION: 1. End-stage renal disease. 2. Open wound of the lower extremity. 3. Dilated cardiomyopathy. 4. Diabetes mellitus. 5. Hypertension. PLAN: Given these findings, the patient is hemodynamically stable. He is currently on IV antibiotic s. Ajay Diggs MD cc: [id number] TT: 06/15/2016 14:59:51 Confirmation # [id number] Dictation # [id number] oh
[2016-06-15] MEDS ORDERED: Doxercalciferol 4 mcg/2 ml Inj (RENAL) IVP ONE (15:40)
[2016-06-15] MEDS ORDERED: Doxercalciferol 4 mcg/2 ml Inj IV ONE (16:05)
[2016-06-15] MEDS: Clotrimazole 1% Cream(30 gm) TOP SCH ×2 (17:12→18:06)
--- NOTE | 2016-06-15 20:23 | PN ---
DATE: 06/15/2016 SUBJECTIVE: The patient has no complaints of any chest pain, no shortness of breath, no headaches. He says the pain is controlled. PHYSICAL EXAMINATION: VITAL SIGNS: Temperature is 98.4, pulse 110, blood pressure 130/74, respirations are 18. GENERAL: The patient comfortable, in no acute distress. HEENT: Anicteric sclerae. Moist mucosa. NECK: No JVD or adenopathy. CARDIAC: S1/S2. No murmurs. No rubs. Regular. RESPIRATORY: Clear to auscultation bilaterally. No wheezes, rales, or rhonchi. Good air entry. ABDOMEN: Bowel sounds are positive, soft, nontender, and nondistended. EXTREMITIES: No edema. Has 1+ pulses. The right foot has dressing in place. There is also a drai n with serosanguineous fluid that is being drained. Left forearm fistula with good thrill and bruit . ASSESSMENT: 1. Right foot ulcer with osteomyelitis. 2. End-stage renal disease on hemodialysis. 3. Secondary hyperparathyroidism. 4. Left forearm arteriovenous fistula. 5. Coronary artery disease. 6. Diabetes type 2. 7. Diabetic nephropathy. 8. Cardiomyopathy. 9. Hypertension. 10. Defibrillator. 11. Obesity with a body mass index of 41. PLAN: The patient is continuing on dialysis. He is on losartan for his hypertension. He is on Hect orol for his secondary hyperparathyroidism. The patient is on meropenem for antibiotics. He is on R enagel for his secondary hyperparathyroidism. He is on Santyl for dressing. He is on a renal diet. Will go ahead and place him on a regular diet and by Dr. White, will continue for now. Maximilian Zheng MD cc: [id number] TT: 06/15/2016 20:22:36 Confirmation # [id number] Dictation # [id number] [email or web address]
[2016-06-15] MEDS ORDERED: Oxycodone/Acetaminophen 5/325 mg Tab PO ONE (21:41)
--- NOTE | 2016-06-15 22:25 | CP.PCM.PN ---
Subjective - Date & Time of Evaluation Date of Evaluation: 06/15/16 Time of Evaluation: 12:45 - Subjective Subjective: Comfortable in bed, not in distress, afebrile overnight. Objective - Vital Signs/Intake and Output Vital Signs (last 24 hours): Temp Pulse Resp BP Pulse Ox 98.4 F 110 H 18 130/74 96 06/15/16 19:21 06/15/16 19:21 06/15/16 19:21 06/15/16 19:21 06/15/16 19:21 Intake and Output: 06/15/16 06/16/16 18:59 06:59 Intake Total 720 780 Balance 720 780 - Medications Medications: Current Medications Clotrimazole (Lotrimin 1%) 0 gm TOP BID [facility] Last Admin: 06/15/16 18:06 Dose: Not Given Collagenase (Santyl) 0 gm TOP DAILY [facility] Last Admin: 06/15/16 09:53 Dose: 1 gm Meropenem 500 mg/ Sodium (Chloride) 100 mls @ 100 mls/hr IVPB Q12 [facility] PRN Reason: Protocol Stop: 06/17/16 22:59 Last Admin: 06/15/16 22:01 Dose: 100 mls/hr Losartan Potassium (Cozaar) 50 mg PO DAILY [facility] Last Admin: 06/15/16 09:52 Dose: 50 mg Oxycodone/Acetaminophen (Percocet 10/325 Mg Tab) 1 tab PO Q4H PRN PRN Reason: Pain, moderate (4-7) Last Admin: 06/15/16 19:14 Dose: 1 tab Polyethylene Glycol (Miralax) 17 gm PO DAILY [facility] Last Admin: 06/15/16 09:53 Dose: 17 gm Sevelamer HCl (Renagel) 1,600 mg PO 0800,1200,1700 [facility] Last Admin: 06/15/16 19:13 Dose: 1,600 mg - Labs Labs: 06/15/16 14:17 06/15/16 14:17 PT 10.2 Seconds (9.9-11.8) 06/10/16 08:37 INR 0.94 (0.93-1.08) 06/10/16 08:37 APTT 28.3 Seconds (23.7-30.8) 06/10/16 08:37 - Constitutional Appears: Non-toxic, No Acute Distress - Head Exam Head Exam: NORMAL INSPECTION - ENT Exam ENT Exam: Mucous Membranes Moist - Neck Exam Neck Exam: absent: Lymphadenopathy, Meningismus - Respiratory Exam Respiratory Exam: Decreased Breath Sounds - Cardiovascular Exam Cardiovascular Exam: +S1, +S2 - GI/Abdominal Exam GI & Abdominal Exam: Soft. absent: Tenderness Assessment and Plan - Assessment and Plan (Free Text) Plan: Assessment Probable right foot ulcer, infected with skin and skin structure infection, with probable osteomyelitis S/P 5th toe amputation and partial metatarsal amputation POD #2 history of epsis secondary to left foot skin and skin structure infection with abscess with Corynebacterium history of left foot cellulitis and osteomyelitis with enterococcus morbid obesity with a BMI 38.9 end stage renal failure on hemodialysis with left arm fistula diabetes mellitus chronic obstructive lung disease hypertension history of Klebsiella bacteremia secondary to a dialysis catheter S/P removal coronary artery disease S/P cardiac catheterization Plan continue Intermittent Vancomycin and Meropenem day 5; follow up OR cultures and pathology Will continue to follow clinically Discussed with Dr. White
[2016-06-16 08:22] VITALS: RESP 20
--- NOTE | 2016-06-16 09:01 | PN ---
DATE: 06/16/2016 TIME OF PROGRESS NOTE: 0700 hours. LOCATION OF PATIENT: Room 570, bed 2. SUBJECTIVE: The patient is approximately 48 hours status post debridement of diabetic foot ulcer wit h resection of osteomyelitic fifth metatarsal head and toe on the right foot. He is awake, alert, or iented x 3. His vital signs are stable. He is dressed and communicative. He has no complaint of pa in. He remains on IV antibiotic and reports the infectious disease physician had been in to see him yesterday. OBJECTIVE: VITAL SIGNS: Stable. EXTREMITIES: Dressings are dry and intact on both feet. The dressing is removed from the left foot where there had been a partial-thickness ulceration improving on the left side of the fifth metatarsa l. It is currently a status of healed. There is no open wound, no moisture, and no discharge from t he left foot. The left foot is dry and scaly. Pulses are weak but palpable, and the foot is warm to the touch without any swelling or cellulitis. The dressings are removed from the right foot. The J P drain is still intact. There appears to be about 4 mL of fluid at the current time in the drain. The patient reports having it filled and emptied 2-3 times over the last 48 hours, though he notes le ss drainage now compared to the first 24 hours. The wound is inspected. The skin is dry. There is no evidence of maceration. There is no discharge. There is no dehiscence of the wound edges. The c oloration is normal skin. There is no evidence of acute cellulitis. There is no lymphangitis or str eaking on the foot. There is no significant edema in the foot or ankle. The pathology report is still yet unavailable, and the wound cultures and bone cultures obtained 2 da ys ago and surgery are still not online. ASSESSMENT AND PLAN: The drain will remain in place for another 48-72 hours to ensure a minimal back up of infiltrate and decrease the risk of wound maceration and dehiscence. The patient will remain o n IV antibiotic per infectious disease and medicine. He will continue his cardiology and medical wor kups and his renal dialysis as per Dr. White. The right foot dressing is reapplied with a dry steri le dressing, ABD and Kerlix with a lightly applied Lionel bandage for dressing protection. The patient is fully ambulatory. He can start rehab at this point any time he wants. He has been dispensed 2 po stoperative shoes. A dry sterile dressing is applied to the left side just for padding and control o f the previously ulcerated foot. He can ambulate to tolerance with the surgical shoes, exercising ca re for the YOUNG drain so it does not become entangled. He will undergo dry dressing changes daily by e zuly the floor nurses or the podiatry resident over the next 2-3 days. Anticipating no change in hi s healing status, we anticipate removing the drain at the bedside Monday morning. Ajay Bucio DPM cc: [phone] TT: 06/16/2016 09:00:23 Confirmation # [id number] Dictation # [id number] mn
[2016-06-16] MEDS: POLYETHYLENE GLYCOL 3350 17 GM/Dose PACKET PO SCH (09:28)
[2016-06-16] MEDS: Meropenem 500 MG in Sodium Chloride 0.9% 100 ML IVPB SCH (09:28)
[2016-06-16] MEDS: Clotrimazole 1% Cream(30 gm) TOP SCH (09:29)
[2016-06-16] MEDS: Collagenase 250 Units/gm Ointment(30 gm) TOP SCH (09:29)
[2016-06-16] MEDS ORDERED: Meropenem 500 MG in Sodium Chloride 0.9% 100 ML IVPB SCH (11:00)
--- NOTE | 2016-06-16 11:41 | PN ---
DATE: 06/16/2016 The patient is healing well. The drain in his right foot is decreasing. PHYSICAL EXAMINATION: VITAL SIGNS: Blood pressure is 112/67, the heart rate is approximately 100. NECK: Negative JVD. LUNGS: Without rales. HEART: Reveals S1, S2. EXTREMITIES: Bandages on both legs. Hemoglobin was not measured today. IMPRESSION: 1. Lower extremity wounds, which tolerated surgery. 2. End-stage renal disease. 3. Diabetes mellitus. 4. Dilated cardiomyopathy. Given these findings, the patient is doing well postoperatively. No evidence for congestive heart fa ilure. Ajay Diggs MD cc: [phone] TT: 06/16/2016 11:40:47 Confirmation # [id number] Dictation # [id number]
[2016-06-16] MEDS: Oxycodone/Acetaminophen 10/325 mg Tab PO PRN (15:42)
[2016-06-16 16:13] VITALS: BP 141/86; PULSE 108; TEMP 98.4; O2SAT 94
--- NOTE | 2016-06-16 18:27 | PN ---
DATE: 06/16/2016 SUBJECTIVE: The patient has no complaints of any chest pain or shortness of breath, no headaches or dizziness. PHYSICAL EXAMINATION: VITAL SIGNS: Temperature is 98.4, pulse of 108, blood pressure 141/86, respirations 20. GENERAL: Patient lying in bed, flat, and in no apparent distress. HEAD AND NECK EXAM: Atraumatic, normocephalic. Conjunctivae are pink. Throat clear and mouth with moist mucosa. Oropharynx benign. EYES: Extraocular movements are intact. PERRLA. NECK: Supple. No JVD, thyromegaly, or adenopathy. No bruits. HEART: S1 and S2 regular rate and rhythm. No murmurs, rubs, or gallops. LUNGS: Clear to auscultation bilaterally. No wheezing rales or rhonchi appreciated. No retraction s on exam. ABDOMEN: Soft, nontender, nondistended. Bowel sounds are positive in all quadrants. No rebound. No hepatosplenomegaly. EXTREMITIES: No cyanosis, clubbing, or edema. NEURO: No facial asymmetry, tongue is midline, no uvula deviation. Power is 5/5 in upper extremity and 5/5 in lower extremity. Sensation is normal in upper extremity and lower extremity. PSYCH: Awake, alert, oriented x3. No anxiety or depression symptoms. Good insight. Normal affec t. : No CVA tenderness VASCULAR: 2+ pulses in carotid and pedal pulses. SKIN: No erythema or abnormal nodules noted. SPINE: Normal curvature. LYMPHADENOPATHY: No anterior cervical or posterior cervical adenopathy. No inguinal adenopathy. ASSESSMENT: 1. Right foot ulcer with osteomyelitis. 2. End-stage renal disease on hemodialysis. 3. Secondary hyperparathyroidism. 4. Left forearm arteriovenous fistula. 5. Coronary artery disease. 6. Diabetes type 2. 7. Diabetic nephropathy. 8. Cardiomyopathy. 9. Hypertension. 10. Defibrillator. 11. Obesity with a body mass index of 41. PLAN: The patient is comfortable. He is getting dialyzed. He may be discharged home later today. He does have a drain that has serosanguineous fluid. He is on a renal diet. The patient is on Renag el. He is going to continue with Hectorol. He is receiving meropenem for antibiotics. Maximilian Zheng MD cc: [id number] TT: 06/16/2016 18:26:07 Confirmation # [id number] Dictation # [id number] ln
--- NOTE | 2016-06-16 18:49 | DS ---
A 40-year-old male receiving IV antibiotic for presumptive osteomyelitis of the right foot, status po st surgical debridement of the right foot with removal of the fifth toe and a portion of the metatars al. Cultures are pending. PHYSICAL EXAMINATION: VITAL SIGNS: His temp is 98.4, his pulse is 108, his blood pressure is 141/86. His oxygen saturatio n is 95% on room air. His respiratory rate is 20. GENERAL: He is alert and oriented x 3. NECK: Supple. LUNGS: Clear. HEART: S1, S2 rhythm. ABDOMEN: Soft, obese, positive bowel sounds. EXTREMITIES: Show no evidence of edema. There was a dressing over the right foot with a Jose-Pra tt drain. The patient states that this morning he was visited by infectious disease and by Dr. Bucio. He has b een advised by Dr. Bucio that the Jose-Gambino should remain in place through Monday. He said that infectious disease is awaiting for further results of the surgical procedure to decide regarding his course of antibiotics. He currently has no pain at the surgical site. He is on MiraLax 17 grams liya ly, meropenem q. 12, Lotrimin topically b.i.d., Cozaar 50 mg daily, Percocet 10/325 q. 4 hours p.r.n. 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 LABORATORY DATA: Shows WBC is pending. The patient has underlying chronic renal disease on dialysis 3 times a week. He has a history of kno wn coronary disease with myocardial infarction and remote percutaneous transluminal coronary angiopla sty with stent. He has a fistula, which is functional in the left forearm. He has a history of diab etes and hypertension. He also has a defibrillator that was placed several weeks back with a history of cardiomyopathy. The patient will be transferred to the transitional care unit to continue his wound care, continue hi s antibiotic therapy and will continue on dialysis. We are awaiting final results of the pathology o f the surgical procedure done on his foot. This will then give us a direction regarding his course o f antibiotics. This has been fully explained to the patient and this has been discussed with the con sultants, as well as with the embedded case manager and the nursing staff. Cleopatra White MD cc: [phone] TT: 06/16/2016 18:48:50 rn
--- NOTE | 2016-06-17 07:30 | PN ---
DATE: 06/16/2016 The patient is in bed. Was seen early this morning in room 570, bed 2. No fevers and no chills. PHYSICAL EXAMINATION: VITAL SIGNS: Temperature is 98, blood pressure is 112/60, respiratory rate of 20, heart rate of 116. HEENT: Unremarkable. NECK: Supple. LUNGS: Have decreased breath sounds. HEART: Normal S1, S2. ABDOMEN: Soft, nontender. LABORATORY EXAMINATION: Reveals a white count of 7.2, hemoglobin 11 and platelets of 283. Chemistri es reveal a BUN of 50, creatinine is 12. Microbiology reveals the leg cultures are noted. ASSESSMENT AND PLAN: This is a 40-year-old male who was seen early this morning doing well with a ri ght foot ulcer, infected skin and skin soft tissue infection, probable osteomyelitis, status post amp utation, and patient's pathology report of the toe from 06/14/2016 reveals the patient's resection ma rgins are free of any bone, margin of bone is free of inflammation. Case discussed with PMD. Toni andrew closely with you. Nasir Dunn MD cc: [phone] TT: 06/17/2016 07:29:18 Confirmation # [id number] Dictation # [id number] mn
== END 2016-06-16 16:13 | DRG 617 ==
LOC: ED 07:38 → ERH 09:13 → 5RSO 10:43
PROVIDERS: ADMIT Internal Medicine; ATTEND Internal Medicine
PROC: 5A1D60Z (ICD-10-PCS; 2016-06-10)
PROC: 0Y6M0ZF Detachment at Right Foot, Partial 5th Ray, Open Approach (ICD-10-PCS; principal; 2016-06-14 07:30)
PROC: 0QBN0ZZ Excision of Right Metatarsal, Open Approach (ICD-10-PCS; 2016-06-14 07:30)
DX: E11.69 Type 2 diabetes mellitus with other specified complication (principal); M86.171 Other acute osteomyelitis, right ankle and foot; N18.6 End stage renal disease; I42.0 Dilated cardiomyopathy; I13.11 Hypertensive heart and chronic kidney disease without heart failure, with stage 5 chronic kidney disease, or end stage renal disease; E11.21 Type 2 diabetes mellitus with diabetic nephropathy; L03.116 Cellulitis of left lower limb; Z68.41 Body mass index [BMI] 40.0-44.9, adult; E11.621 Type 2 diabetes mellitus with foot ulcer; N25.81 Secondary hyperparathyroidism of renal origin; E11.22 Type 2 diabetes mellitus with diabetic chronic kidney disease; I25.10 Atherosclerotic heart disease of native coronary artery without angina pectoris; L97.529 Non-pressure chronic ulcer of other part of left foot with unspecified severity; J44.9 Chronic obstructive pulmonary disease, unspecified; L97.519 Non-pressure chronic ulcer of other part of right foot with unspecified severity; E66.01 Morbid (severe) obesity due to excess calories; D63.1 Anemia in chronic kidney disease; E78.5 Hyperlipidemia, unspecified; B35.3 Tinea pedis; E11.65 Type 2 diabetes mellitus with hyperglycemia; E11.40 Type 2 diabetes mellitus with diabetic neuropathy, unspecified; K04.7 Periapical abscess without sinus; Z99.2 Dependence on renal dialysis; I25.2 Old myocardial infarction; Z95.5 Presence of coronary angioplasty implant and graft; Z95.810 Presence of automatic (implantable) cardiac defibrillator; Z79.82 Long term (current) use of aspirin

== ENCOUNTER 2016-06-16 16:52 | Inpatient (IN) | payer OTHER, BC ==
[2016-06-16 17:32] VITALS: BMI 42.3
[2016-06-16] MEDS: Clotrimazole 1% Cream(30 gm) TOP SCH (18:48)
[2016-06-16] MEDS ORDERED: Pneumococcal 23-Valent Vaccine IM ONE (19:34)
--- NOTE | 2016-06-17 07:59 | PN ---
DATE: 06/17/2016 SUBJECTIVE: The patient has no complaints of any chest pain, shortness of breath, no headaches or di zziness. PHYSICAL EXAMINATION: VITAL SIGNS: Temperature is 99.3, pulse of 112, blood pressure 186/97, respirations 18. GENERAL: The patient comfortable, in no acute distress. HEENT: Anicteric sclerae. Moist mucosa. NECK: No JVD or adenopathy. CARDIAC: S1/S2. No murmurs. No rubs. Regular. RESPIRATORY: Clear to auscultation bilaterally. No wheezes, rales, or rhonchi. Good air entry. ABDOMEN: Bowel sounds are positive, soft, nontender, and nondistended. EXTREMITIES: No edema. Has 1+ pulses. Right leg has a dressing in place with a drain that has ser osanguineous fluid. ASSESSMENT: 1. Right foot ulcer with osteomyelitis. 2. End-stage renal disease on hemodialysis. 3. Secondary hyperparathyroidism. 4. Left forearm AV fistula. 5. Coronary artery disease. 6. Diabetes type 2. 7. Diabetic nephropathy. 8. Cardiomyopathy. 9. Hypertension. 10. Defibrillator. 11. Obesity with a body mass index of 41. PLAN: The patient was seen in the hospital on initial consultation, which I agree with. The patient is here for IV antibiotics. He is awaiting final results of his pathology from the surgical procedu re that was done on his foot by Dr. Bucio. He is on losartan for his hypertension and his cardiomyop athy. He is on MiraLax for his constipation. He is going to continue Renagel for his secondary hype rparathyroidism. The patient is on a renal diet. He is going to continue dialysis 3 times a week. No issues on dialysis. Maximilian Zheng MD cc: [id number] TT: 06/17/2016 07:59:00 Confirmation # [id number] Dictation # [id number]
[2016-06-17] MEDS: Oxycodone/Acetaminophen 10/325 mg Tab PO PRN (08:38)
--- NOTE | 2016-06-17 09:47 | HP ---
HISTORY OF PRESENT ILLNESS: A 40-year-old male admitted to the transitional care unit status post leung rgical management of an osteomyelitic right foot. He has currently been receiving IV antibiotic and being followed by infectious disease, podiatry, and renal. PAST MEDICAL HISTORY: Chronic renal disease, diabetes mellitus, cardiomyopathy, defibrillator, cellu litis of the feet, osteomyelitis of the foot, coronary artery disease with remote PTCA. ALLERGIES: THE PATIENT HAS ALLERGIES TO ZOSYN AND IV DYE. CURRENT ACTIVE MEDICATIONS: Cozaar 50 mg daily, Lotrimin topically b.i.d., MiraLax 17 grams daily, P ercocet 10/325 q. 4 hours p.r.n. pain, Renagel 1600 mg with meals, and Santyl topically. This is to be reviewed with Dr. Bucio. PRIOR MEDICATIONS: Consisted of Ecotrin 81 mg daily and Plavix 75 mg daily. We will review with pod iatry if there is any contraindication to resuming it. The patient is now postop 2 days. He has a Jose-Gambino in place which is draining some fluid. SOCIAL HISTORY: He is a nonsmoker, nondrinker, nondrug user. REVIEW OF SYSTEMS: Fourteen systems are reviewed. Pertinent findings are that he has a dressing on the right foot and he has an AV fistula in the left forearm. PHYSICAL EXAMINATION: VITAL SIGNS: His temp is 99.3, his pulse is 112. His blood pressure is 186/97. His room air oxygen is 93%. GENERAL: He is alert and oriented x 3. NECK: Supple. LUNGS: Clear. HEART: An S1, S2 rhythm. ABDOMEN: Soft, obese, positive bowel sounds. EXTREMITIES: Show the dressing on the right foot and a positive thrill in the AV fistula in his left forearm. The patient will be seen by infectious disease who will decide on the course of antibiotics. The pat hology of the surgical site from the surgical procedure on his right foot showed acute osteomyelitis, but this seems to be culture negative. He will be going to dialysis today. He will receive physica l and occupational therapy. He has been encouraged to work with them and ambulate and he will contin ue his wound care as provided by podiatry. Cleopatra White MD cc: [id number] TT: 06/17/2016 09:47:27 tn
[2016-06-17] MEDS: POLYETHYLENE GLYCOL 3350 17 GM/Dose PACKET PO SCH (09:50)
[2016-06-17] MEDS: Clotrimazole 1% Cream(30 gm) TOP SCH ×2 (09:51→22:05)
[2016-06-17] MEDS ORDERED: Collagenase 250 Units/gm Ointment(30 gm) TOP SCH (10:00)
--- NOTE | 2016-06-17 10:46 | CP.PCM.PN ---
Subjective - Date & Time of Evaluation Date of Evaluation: 06/17/16 Time of Evaluation: 10:44 - Subjective Subjective: 40 y/o male seen at bedside 3 days s/p right foot 5th partial ray resection. Patient denies any acute events overnight. The dressing remains c/d/i, YOUNG drain intact and actively draining. Patient denies n/f/v/c/d/sob. Objective - Vital Signs/Intake and Output Vital Signs (last 24 hours): Temp Pulse Resp BP Pulse Ox 98.2 F 90 18 137/88 97 06/17/16 06:00 06/17/16 09:45 06/17/16 06:00 06/17/16 09:45 06/17/16 06:00 - Medications Medications: Current Medications Clotrimazole (Lotrimin 1%) 0 gm TOP BID TINY PRN Reason: Protocol Last Admin: 06/17/16 09:51 Dose: 1 applic Collagenase (Santyl) 0 gm TOP DAILY TINY PRN Reason: Protocol Last Admin: 06/17/16 09:44 Dose: Not Given Losartan Potassium (Cozaar) 50 mg PO DAILY TINY PRN Reason: Protocol Last Admin: 06/17/16 09:45 Dose: Not Given Oxycodone/Acetaminophen (Percocet 10/325 Mg Tab) 1 tab PO Q4H PRN; Protocol PRN Reason: Pain, moderate (4-7) Last Admin: 06/17/16 08:38 Dose: 1 tab Polyethylene Glycol (Miralax) 17 gm PO DAILY TINY PRN Reason: Protocol Last Admin: 06/17/16 09:50 Dose: 17 gm Sevelamer HCl (Renagel) 1,600 mg PO WM TINY PRN Reason: Protocol Last Admin: 06/17/16 08:16 Dose: 1,600 mg - Constitutional Appears: Well, Non-toxic, No Acute Distress - Extremities Exam Additional comments: Vasc: lightly palpable pedal pulses b/l, TG wnl, CFT < 3 sec to all digits, nonpitting edema neuro: grossly diminished derm: mild edema, no erythema, surgical incision site well coapted, sutures intact, no dehiscence, no purulence, mild serous drainage with strikethrough on bandage, YOUNG drain in place and actively draining blood, no acute clinical signs of infection ortho: no pain on palpation along surgical incision site - Neurological Exam Neurological Exam: Alert, Awake, Oriented x3 - Psychiatric Exam Psychiatric exam: Normal Affect, Normal Mood Assessment and Plan - Assessment and Plan (Free Text) Assessment: 40 y/o male seen at bedside in TCU 3 days s/p right foot 5th ray resection Plan: patient evaluated and chart reviewed discussed in detail with attending Dr. Bucio labs and vitals reviewed, afebrile continue IV abx as per ID YOUNG drain left intact applied DSD, ABD, kerlix, JOANNE to right foot patient to continue weightbearing in a surgical shoe continue PT daily podiatry will continue to monitor while patient remains in house
--- NOTE | 2016-06-17 20:25 | CON ---
DATE: 06/17/2016 The patient seen in room 303 this morning. CHIEF COMPLAINT: Weakness times several days. HISTORY OF PRESENT ILLNESS: This is a 40-year-old male with a history of chronic left foot infection , osteomyelitis, history of Klebsiella bacteremia, history of diabetes mellitus, history of chronic r enal failure on hemodialysis, diabetes mellitus and morbid obesity with a BMI of 42, who was in the [facility]. He had amputation of the right fifth toe and is now transferred to transitional care for further care. REVIEW OF SYSTEMS: The patient is complaining of being weak. No fevers, no chills, no nausea, no vo miting. PAST MEDICAL HISTORY: Is significant for recurrent Klebsiella bacteremia, diabetes mellitus, morbid obesity, BMI of 42, chronic renal failure on hemodialysis, chronic left foot infection, coronary zaida ry disease and anemia. PAST SURGICAL HISTORY: Is significant for a left arm fistula for dialysis. The patient had cardiac stents. ALLERGIES: THE PATIENT IS ALLERGIC TO ZOSYN AND IV DYE. MEDICATIONS: Are reviewed. PHYSICAL EXAMINATION: GENERAL: He is in bed with a temperature of 99.3, heart rate of 112, blood pressure is , respir atory rate of 18. HEENT: Unremarkable. NECK: Supple. LUNGS: Have decreased breath sounds. HEART: Normal S1, S2. ABDOMEN: Soft, nontender. No rebound, no guarding. EXTREMITIES: Examination of the foot is noted. LABORATORY EXAMINATION: Is reviewed. WBC count is 5.9, hemoglobin of 11, platelets of 299. Microbi ology is reviewed. Pathology is also reviewed. ASSESSMENT AND PLAN: This is a 40-year-old male with a chronic left foot infection, osteomyelitis, K lebsiella bacteremia, morbid obesity, BMI of 42; diabetes mellitus, chronic renal failure on hemodial ysis, coronary artery disease and anemia. 1. Status post right fifth toe amputation. Will treat the patient with meropenem; adjusted the dosi ng. Since there is no remaining osteomyelitis and the pathology shows that the patient has margins t hat are free of osteomyelitis 5-7 days post-procedure treatment and will follow closely with you. Wi ll be discontinuing the antibiotics within the next 24-48 hours. The case was discussed with Dr. Anoop hernandez. Nasir Dunn MD cc: [phone] TT: 06/17/2016 20:24:26 Confirmation # [id number] Dictation # [id number] dn
[2016-06-18] MEDS: POLYETHYLENE GLYCOL 3350 17 GM/Dose PACKET PO SCH ×2 (09:33→18:14)
[2016-06-18] MEDS: Clotrimazole 1% Cream(30 gm) TOP SCH ×2 (09:34→18:14)
--- NOTE | 2016-06-18 10:35 | PN ---
DATE: 06/18/2016 This is a 40-year-old male on transitional care unit. He is status post surgical debridement of an o steomyelitic right foot. Currently with a Jose-Gambino drain and dressing, on IV meropenem by infec tious disease. Nursing staff relates that there were no particular problems during the night. The p atient states that he is feeling a bit better today, although he does state that there is significant drainage in the Jose-Gambino this morning. PHYSICAL EXAMINATION: VITAL SIGNS: His temp is 98.2, his pulse is 90, his blood pressure is 137/88, oxygen saturation is 9 7% on room air. GENERAL: He is alert and oriented x 3. NECK: Supple. LUNGS: Clear. HEART: An S1, S2 rhythm. ABDOMEN: Obese, soft, positive bowel sounds. EXTREMITIES: Show a dressing over the right foot with a Jose-Gambino drain with blood-tinged fluid. There is an AV fistula in the left forearm for his dialysis. ASSESSMENT AND PLAN: The patient is continuing on meropenem and receiving wound care by podiatry. Piper murillo is receiving physical therapy and he is on dialysis 3 times a week. He is a non-insulin dependent diabetic. He has a history of cardiomyopathy and defibrillator and a history of coronary disease wit h remote percutaneous transluminal coronary angioplasty. We will continue his current medications wi wound care and await recommendations from podiatry, Dr. Bucio. We will order labs for the morning and continue current level of care. Cleopatra White MD cc: [phone] TT: 06/18/2016 10:34:31 Confirmation # [id number] Dictation # [id number] tn
--- NOTE | 2016-06-18 18:58 | PN ---
DATE: 06/18/2016 The patient seen earlier today in bed. No acute distress, nontoxic. PHYSICAL EXAMINATION: VITAL SIGNS: Temperature is 99, blood pressure is 130/70, respiratory rate of 16. HEENT: Unremarkable. NECK: Supple. LUNGS: Have decreased breath sounds. HEART: Normal S1, S2. ABDOMEN: Soft, nontender. LABORATORY DATA: Reveals the patient's numbers are reviewed. ASSESSMENT AND PLAN: This is a 40-year-old male status post right fifth toe amputation, still has th e drainage tube and continues to drain. Currently on meropenem in this patient who has a history of osteomyelitis, history of recurrent Klebsiella bacteremia, morbid obesity, BMI of 42, diabetes mell us, chronic renal failure on hemodialysis, coronary artery disease, anemia. Will continue the merope nem. Case discussed with Dr. Wihte. Will follow with you. Nasir Dunn MD cc: 350 TT: 06/18/2016 18:57:55 Confirmation # [id number] Dictation # [id number] melecio
[2016-06-19 09:31] LABS: ADD MANUAL DIFF? NO
[2016-06-19] MEDS: Clotrimazole 1% Cream(30 gm) TOP SCH ×2 (09:34→17:31)
[2016-06-19] MEDS: POLYETHYLENE GLYCOL 3350 17 GM/Dose PACKET PO SCH ×2 (09:35→17:31)
[2016-06-19 09:42] LABS: BASO # 0.06 K/mm3 (0.0-2.0); BASO % 0.8 % (0.0-3.0); EOS # 0.2 (0.0-0.7); EOS % 2.7 % (1.5-5.0); GRAN # 4.09 (1.4-6.5); GRAN % 55.4 % (50.0-68.0); HEMATOCRIT 35.5 % (42.0-52.0); LYMPH # 2.3 (1.2-3.4); LYMPH % 31.5 % (22.0-35.0); MEAN CELL VOLUME 103.2 fL (80.0-105.0); MEAN CORPUSCULAR HEMOGLOBIN 34.3 pg (25.0-35.0); MEAN CORPUSCULAR HGB CONC 33.2 g/dl (31.0-37.0); MEAN PLATELET VOLUME 9.8 fl (7.0-11.0); MONO # 0.7 (0.1-0.6); MONO % 9.6 % (1.0-6.0); PLATELET COUNT 338 10^3/uL (120.0-450.0); RED CELL DISTRIBUTION WIDTH 14.8 % (11.5-14.5); WHITE BLOOD COUNT 7.4 10^3/ul (4.5-11.0)
[2016-06-19 09:59] LABS: BILIRUBIN,TOTAL 0.8 mg/dL (0.2-1.3); CALCIUM 10.4 mg/dL (8.4-10.5); POTASSIUM 4.5 mmol/L (3.6-5.0); TOTAL PROTEIN 8.3 g/dL (5.8-8.3)
--- NOTE | 2016-06-19 14:06 | PN ---
DATE: 06/19/2016 A 40-year-old male on the transitional care unit receiving IV antibiotics for osteomyelitis of the ri ght foot, status post surgical debridement. The patient is alert and oriented x 3. PHYSICAL EXAMINATION: VITAL SIGNS: His temp is 98.3, his pulse is 100 and his blood pressure is 138/97. His respiratory r ate is 20. Oxygen sat on room air is 98%. LABORATORY DATA: Shows a WBC of 7.4, hemoglobin 11.8, hematocrit 35.5, platelet count 338. Chemistr y shows a sodium 134, potassium 4.5, chloride 93, BUN is 43, creatinine is 11.2. His LFTs are normal . PHYSICAL EXAMINATION: GENERAL: The patient is alert and oriented x 3. NECK: Supple. LUNGS: Clear. HEART: S1, S2 rhythm. ABDOMEN: Obese, soft, positive bowel sounds. EXTREMITIES: Show dressing over the right foot with a Jose-Gambino drain. Nursing staff relates th at this morning there was only 5 mL of fluid in the bulb. However, the patient does state that the b ed was wet this morning and the bulb had opened up and spilled some liquid drainage. He is feeling well. He is moving his bowels. He continues on meropenem antibiotics by chidi abrams. We are awaiting a followup with podiatry regarding wound care, and he has chronic dialysis h istory. Dialysis is 3 times a week, being followed by nephrology. He has a history of coronary dise ase, cardiomyopathy, defibrillator, remote PTCA with stent and non-insulin dependent diabetes. He wi ll continue his occupational and physical therapy. Continue medical care. Cleopatra White MD cc: [phone] TT: 06/19/2016 14:05:43 Confirmation # [id number] Dictation # [id number] an
--- NOTE | 2016-06-19 16:14 | PN ---
DATE: 06/19/2016 SUBJECTIVE: The patient is in bed in no acute distress, nontoxic. PHYSICAL EXAMINATION: VITAL SIGNS: Temperature is 98, blood pressure is 130/70, respiratory rate of 20, heart rate of 100. HEENT: Unremarkable. NECK: Supple. LUNGS: Have decreased breath sounds. HEART: Normal S1, S2. ABDOMEN: Soft, nontender. LABORATORY DATA: Reveals a white count of 7.4, hemoglobin of 11, platelets of 338, BUN of 42, creati nine of 11. ASSESSMENT AND PLAN: This is a 40-year-old male status post right and 5th toe amputation. Still has a drainage tube, continues to drain. Currently on meropenem with a history of osteomyelitis. Has a recurrent history of Klebsiella bacteremia, morbid obesity, BMI of 42, diabetes mellitus and chroni c renal failure on hemodialysis, coronary artery disease, currently on meropenem. The patient's path ology report reveals the margins are clear of any infection of osteomyelitis and margins are free of osteomyelitis. Ideally would complete 5-7 days post-surgery. Cultures thus far are negative, althou gh he still has a drainage tube that is draining. Will follow with you. Nasir Dunn MD cc: [phone] TT: 06/19/2016 16:13:34 Confirmation # [id number] Dictation # [id number] an
[2016-06-20 06:21] VITALS: RESP 18
--- NOTE | 2016-06-20 09:16 | PN ---
DATE: 06/20/2016 SUBJECTIVE: The patient has no complaints of any headaches, no dizziness. PHYSICAL EXAMINATION: VITAL SIGNS: Temperature is 97.8, pulse of 92, blood pressure 123/74, respirations 18. GENERAL: The patient comfortable, in no acute distress. HEENT: Anicteric sclerae. Moist mucosa. NECK: No JVD or adenopathy. CARDIAC: S1/S2. No murmurs. No rubs. Regular. RESPIRATORY: Clear to auscultation bilaterally. No wheezes, rales, or rhonchi. Good air entry. ABDOMEN: Bowel sounds are positive, soft, nontender, and nondistended. EXTREMITIES: Right leg with dressing in place. No edema. Has 1+ pulses. LABORATORIES: Creatinine is 11.2. ASSESSMENT: 1. Right foot ulcer with osteomyelitis. 2. End-stage renal disease, on hemodialysis. 3. Secondary hyperparathyroidism. 4. Left arteriovenous fistula. 5. Coronary artery disease. 6. Diabetes type 2. 7. Diabetic nephropathy. 8. Cardiomyopathy. 9. Hypertension. 10. Defibrillator. 11. Obesity with a body mass index of 41. PLAN: The patient is currently comfortable. He has a Jose-Gambino drain with serosanguineous fluid . The patient is being followed by infectious disease. He is going to be on his meropenem. The pat ient's pathology margins reveals that the margins are clear of any infection. The patient is receivi ng MiraLax for constipation, is on Renagel for secondary hyperparathyroidism, is on a renal diet. Maximilian Zheng MD cc: [id number] TT: 06/20/2016 09:15:39 Confirmation # [id number] Dictation # [id number] en
[2016-06-20] MEDS: Clotrimazole 1% Cream(30 gm) TOP SCH ×2 (11:00→18:40)
[2016-06-20] MEDS: POLYETHYLENE GLYCOL 3350 17 GM/Dose PACKET PO SCH ×2 (11:00→18:41)
--- NOTE | 2016-06-20 11:36 | CON ---
DATE: 06/20/2016 LOCATION OF CONSULTATION: TCU room 303, bed 1. REASON FOR CONSULTATION: Surgical drain in the right foot. HISTORY OF PRESENT ILLNESS: This is a 40-year-old male well known to me with a history of chronic fo ot infection and ulceration on both feet over the past 1-2 years. Most recently, he had a nonhealing ulceration on the right fifth MTP joint and toe, resulting in a bacteremia with Klebsiella and osteo myelitis of the fifth toe and metatarsal head. He underwent surgical debridement of the fifth toe an d metatarsal head on 06/14/2016 which was closed primarily over sterile vancomycin eluding beads and a surgical drain. He was maintained on IV antibiotic by infectious disease and he continues his medic al and renal management with Dr. White. PAST MEDICAL HISTORY: Significant for recent bacteremia, chronic diabetes, diabetic foot infection, diabetes mellitus with neuropathy, morbid obesity, coronary artery disease, chronic kidney disease on renal dialysis, and anemia. PAST SURGICAL HISTORY: Positive for the dialysis fistula in the left arm, and cardiac stents and rec ent placement of a cardiac defibrillator. FAMILY HISTORY: Unremarkable. SOCIAL HISTORY: The patient denies alcohol, tobacco or recreational drug use. ALLERGIES: He has a positive ALLERGIC REACTION TO IV DYE AND ZOSYN. REVIEW OF SYSTEMS: The patient has no complaints today and denies fevers, chills, nausea, vomiting a nd his weakness seems to have resolved. He reports actively walking hallways this past weekend. MEDICATIONS: Per the face sheet. PHYSICAL EXAMINATION: GENERAL: He is a well-developed, well-nourished, oriented x 3, vital signs stable, male, 40-year-old patient in no acute distress. EXTREMITIES: Lower extremity examination reveals the left fifth metatarsal ulceration is healed with a loose eschar and keratotic skin. There is no evidence of wound on the left foot. The patient is dry and xerotic. His pulses are weakly palpable. The temperature is warm on both feet. There is no calf tenderness on either foot. The right foot dressings are removed. There is a stable closed suc tion drainage coming off the top of the left foot. The surgical incision and sutures on the right fi fth metatarsal area remain dry, no signs of dehiscence. No active discharge. There is no odor on th e foot. There appears to be no inflammation around the drain site. The nurses report minimal, if an y, drainage over the last 24-48 hours. LABORATORY DATA: His white count has reduced. The microbiology and culture reports are reviewed. P athology indicates the proximal margin of resection to be free of evidence of osteomyelitis. Ajay Bucio DPM cc: [phone] TT: 06/20/2016 09:49:37 Confirmation # [id number] Dictation # [id number] 06/20/2016 10:35:34
[2016-06-20 14:14] LABS: ADD MANUAL DIFF? NO
[2016-06-20 14:16] LABS: BASO # 0.03 K/mm3 (0.0-2.0); BASO % 0.4 % (0.0-3.0); EOS # 0.2 (0.0-0.7); GRAN # 4.63 (1.4-6.5); HEMATOCRIT 32.8 % (42.0-52.0); LYMPH # 2.4 (1.2-3.4); LYMPH % 30.6 % (22.0-35.0); MEAN CELL VOLUME 100.9 fL (80.0-105.0); MEAN CORPUSCULAR HEMOGLOBIN 34.8 pg (25.0-35.0); MEAN CORPUSCULAR HGB CONC 34.5 g/dl (31.0-37.0); MEAN PLATELET VOLUME 9.6 fl (7.0-11.0); MONO # 0.7 (0.1-0.6); PLATELET COUNT 373 10^3/uL (120.0-450.0); RED CELL DISTRIBUTION WIDTH 14.6 % (11.5-14.5)
[2016-06-20 14:23] LABS: ALB/GLOB RATIO 1.1 (1.1-1.8); BILIRUBIN,TOTAL 0.7 mg/dL (0.2-1.3); CALCIUM 10.5 mg/dL (8.4-10.5); MAGNESIUM 2.6 mg/dL (1.7-2.2); PHOSPHOROUS 7.4 mg/dL (2.5-4.5); POTASSIUM 4.8 mmol/L (3.6-5.0); TOTAL PROTEIN 8.2 g/dL (5.8-8.3)
--- NOTE | 2016-06-20 16:06 | PN ---
DATE: 06/20/2016 A 40-year-old male on the transitional care unit receiving IV antibiotic therapy for osteomyelitis of the right foot. This morning, the trestleman, Dr. Bucio came to see the patient and apparently vignesh ve the drain. PHYSICAL EXAMINATION: GENERAL: The patient is alert and oriented x 3. NECK: Supple. LUNGS: Clear. HEART: An S1, S2 rhythm. ABDOMEN: Obese, soft, positive bowel sounds. There is a dressing on the right lower extremity. LABORATORY DATA: Showing a WBC of 8, hemoglobin 11.3, hematocrit 32.8, platelet count 373. His chem istry shows sodium 133, potassium 4.8, chloride 91, BUN is 58, the creatinine is 13.7. His LFTs are normal. This is predialysis labs. He is scheduled for dialysis today. He is continuing at the moment on meropenem IV by infectious dis ease. I will continue current level of care and he is receiving occupational and physical therapy on the transitional care unit. His other medical issues consist of known cardiomyopathy with coronary artery disease and hypertension and non-insulin dependent diabetes and he has a defibrillator in plac e. Cleopatra White MD cc: [phone] TT: 06/20/2016 16:05:58 Confirmation # [id number] Dictation # [id number] sn
--- NOTE | 2016-06-20 20:51 | PN ---
DATE: 06/20/2016 The patient is in bed in no acute distress, nontoxic. PHYSICAL EXAMINATION: VITAL SIGNS: Temperature is 98, blood pressure is 118/70, respiratory rate 16. HEENT: Unremarkable. NECK: Supple. LUNGS: Have decreased breath sounds. HEART: Normal S1, S2. ABDOMEN: Soft, nontender. LABORATORY DATA: Reveals a white count of 8000, hemoglobin 11 and platelets of 373 and BUN of 58, cr eatinine of 13.7, phosphorus 7.4. ASSESSMENT AND PLAN: This is a 40-year-old male with status post right fifth toe amputation and drai nage tube and continues to drain and drainage tube is out and on meropenem, history of recurrent Kleb siella bacteremia, diabetes mellitus, morbid obesity, BMI of 42, chronic renal failure on hemodialysi s, coronary artery disease and pathology reveals the margins are free of osteomyelitis. Would comple te 5-7 days postoperatively and will discuss with Dr. White. Nasir Dunn MD cc: 350 TT: 06/20/2016 20:51:08 Confirmation # [id number] Dictation # [id number] [email or web address]
[2016-06-21] MEDS: Oxycodone/Acetaminophen 10/325 mg Tab PO PRN (01:21)
[2016-06-21 06:23] VITALS: BP 107/65; PULSE 101; O2SAT 96
--- NOTE | 2016-06-21 08:39 | PN ---
DATE: 06/21/2016 LOCATION: TCU room 303, bed 1. TIME: 0700 hours. SUBJECTIVE: The patient is sleeping in bed at the time of our arrival comfortably. He is awake and responds immediately, and has no complaints of pain, reports being discharged from physical therapy y esterday as he has met all their physical therapy goals and is walking over half an hour with the consuelo gical shoes on. He continues to receive IV antibiotic per infectious disease, but reports being told by Dr. Dunn that he will be dischargeable on oral antibiotic. This is a 40-year-old male in no acute distress, rehabilitating from an admission for bacteremia and cellulitis with diabetic ulceration and osteomyelitis of the right fifth toe and metatarsal. He is p ostop debridement with resection of the toe and metatarsal head, implantation of vancomycin-eluting a ntibiotic beads with primary closure over a closed suction drain. Yesterday morning, approximately d ay 5, the closed suction drain was removed. Today, his vital signs stable. His laboratory data is s table. He remains on renal dialysis 3 times a week and antibiotic per ID. The previous ulceration o n the left foot is completely healed with no keratosis and dry skin, which the patient is applying cr eam to everyday. The right foot wound dressings are taken down. The drain aperture has reduced sign ificantly in the last 24 hours. The flap and repair on the surgical site remains well-sutured, viabl e, and no evidence of maceration. There is minimal discharge on the surgical dressing, and it is dry . There is no lymphangitis or calf tenderness to palpation. The patient shows no discomfort, althou gh one should consider that he is neuropathic. ASSESSMENT AND PLAN: The patient remains a morbidly obese diabetic with neuropathy, previous debride ments and amputations, chronic kidney disease on renal dialysis, coronary artery disease with stentin g and pacemaker placement, and recuperating from a Klebsiella bacteremia with a right foot surgical w ound that is in very good condition at this point. We redressed the patient today with a Betadine paint stick on the surgical site and drain site, and t hen a dry gauze, ABD and Kerlix wrap covered with a 3-inch Lionel bandage slightly firm just to maintain dressing integrity. The patient remains fully ambulatory and postop surgical shoes on both feet. W e anticipate discharge over the next several days per infectious disease and medicine. We will follo w up with the patient outpatient in the office approximately 1 week to 10 days after discharge, and i n about 3 weeks with suture removal and complete healing, we anticipate placing the patient in custom orthopedic shoe gear to prevent further breakdown, ulceration, and amputation. Ajay Bucio DPM cc: [phone] TT: 06/21/2016 08:39:41 Confirmation # [id number] Dictation # [id number] jn
[2016-06-21] MEDS: POLYETHYLENE GLYCOL 3350 17 GM/Dose PACKET PO SCH (10:08)
[2016-06-21 10:16] VITALS: TEMP 98.7
[2016-06-21] MEDS: Clotrimazole 1% Cream(30 gm) TOP SCH (13:43)
--- NOTE | 2016-06-21 21:22 | DS ---
A 40-year-old male discharged from transitional care unit. He was finishing a course of meropenem, s tatus post surgical management of an osteomyelitis of the right foot with removal of the fifth toe __ ___ of the metatarsal. He was on dialysis 3 times a week secondary to his chronic renal disease. He had non-insulin dependent diabetes history. There is a history of cardiomyopathy with a defibrillat or and a history of remote PTCA. His medications would be Vantin 100 mg daily for 5 days, Ecotrin 81 mg daily, Plavix 75 mg daily, Cozaar 50 mg daily, 50 mg daily, and Percocet 10/325 one q. 8 ho urs p.r.n. for pain. He was seen by Dr. Bucio and infectious disease. He would be followed up as an outpatient by myself and by podiatry. He was fully aware of the need to maintain wound care with po diatry and be followed as an outpatient. Cleopatra White MD cc: [phone] TT: 06/21/2016 21:21:55 ashlee
== END 2016-06-21 16:14 | disposition home or self-care (01) | DRG 638 ==
LOC: TRCU 16:52
PROVIDERS: ADMIT Internal Medicine; ATTEND Internal Medicine
PROC: 3E03329 Introduction of Other Anti-infective into Peripheral Vein, Percutaneous Approach (ICD-10-PCS; 2016-06-16)
PROC: 5A1D60Z (ICD-10-PCS; 2016-06-17)
PROC: F08Z4ZZ Home Management Treatment (ICD-10-PCS; 2016-06-17)
PROC: F07Z9ZZ Gait Training/Functional Ambulation Treatment (ICD-10-PCS; principal; 2016-06-18)
DX: E11.69 Type 2 diabetes mellitus with other specified complication (principal); M86.171 Other acute osteomyelitis, right ankle and foot; Z79.2 Long term (current) use of antibiotics; Z89.421 Acquired absence of other right toe(s); Z68.41 Body mass index [BMI] 40.0-44.9, adult; I42.9 Cardiomyopathy, unspecified; I12.0 Hypertensive chronic kidney disease with stage 5 chronic kidney disease or end stage renal disease; N18.6 End stage renal disease; E11.21 Type 2 diabetes mellitus with diabetic nephropathy; E11.621 Type 2 diabetes mellitus with foot ulcer; N25.81 Secondary hyperparathyroidism of renal origin; E11.22 Type 2 diabetes mellitus with diabetic chronic kidney disease; E66.01 Morbid (severe) obesity due to excess calories; I25.10 Atherosclerotic heart disease of native coronary artery without angina pectoris; D64.9 Anemia, unspecified; E11.40 Type 2 diabetes mellitus with diabetic neuropathy, unspecified; L97.519 Non-pressure chronic ulcer of other part of right foot with unspecified severity; K59.00 Constipation, unspecified; Z99.2 Dependence on renal dialysis; Z95.810 Presence of automatic (implantable) cardiac defibrillator; Z95.5 Presence of coronary angioplasty implant and graft

== ENCOUNTER 2016-12-12 06:31 | Day surgery (SDC) | payer MEDICARE, BC ==
[2016-11-25 12:42] VITALS: BMI 37.8
[2016-12-12] MEDS ORDERED: Vancomycin 1 g Inj ONE (07:07)
[2016-12-12] MEDS ORDERED: Lidocaine 1% Inj (20ml) ONE (07:07)
[2016-12-12] MEDS ORDERED: Lidocaine 2% Inj (20ml) ONE (07:08)
[2016-12-12 07:35] LABS: CALCIUM 9.9 mg/dL (8.4-10.5); POTASSIUM 5.1 mmol/L (3.6-5.0)
[2016-12-12] MEDS ORDERED: Midazolam 2 MG/2 ML VIAL ONE (07:42)
[2016-12-12] MEDS ORDERED: Propofol 10 mg/ml Inj (20 ML) ONE (07:43)
[2016-12-12] MEDS ORDERED: Etomidate 20 mg/10ml Inj IV ONE (07:43)
[2016-12-12] MEDS: Bupivacaine 0.5% Inj(30mL) ONE ×2 (07:58→08:50)
--- NOTE | 2016-12-12 09:09 | PCM.SURG1 ---
Surgeon's Initial Post Op Note - Surgeon's Notes Surgeon: Dr. Ajay Bucio, DPM Laboratory Associate: Dr. Bethel Melissa, PGY1 Type of Anesthesia: IV Sedation, Local Anesthesia Administered By: Dr. Garsia Pre-Operative Diagnosis: Osteomyelitis of left fifth proximal phalanx and distal fifth metatarsal head with non-healing diabetic ulceration Operative Findings: See dictation report. M- Osteoset antibiotic eluding beads with Vancomycin, 0-0 prolene, 2-0 prolene. I- Preop: 20 cc 0.5% marcaine plain. Postop: 7 cc 0.5% marcaine plain Post-Operative Diagnosis: Same Operation Performed: Debridement of osteomyelitis left fifth metatarsal and proximal phalanx and surrounding infected soft tissue with insertion of Osteoset antibiotic eluding beads and closure Specimen/Specimens Removed: Wound cx left foot soft tissue. Bone cx left foot fifth metatarsal head and proximal phalanx base. Bone specimen left foot fifth metatarsal head and proximal phalanx base Estimated Blood Loss: EBL {In ML}: 5 Blood Products Given: N/A Drains Used: No Drains Post-Op Condition: Good Date of Surgery/Procedure: 12/12/16 Time of Surgery/Procedure: 09:15
[2016-12-12] MEDS ORDERED: Sodium Chloride 0.9% 1,000 ML IV SCH (09:15)
[2016-12-12 10:45] VITALS: RESP 18; TEMP 97.9
--- NOTE | 2016-12-12 11:03 | RAD ---
PROCEDURE: Left Foot Radiographs. HISTORY: s/p left foot surgery COMPARISON: None. FINDINGS: BONES: Status post amputation at the level of the proximal 5th metatarsal. There are multiple uniform densities at the amputation site likely represent chain packing material. Bone alignment and mineralization are normal. There is no acute fracture. JOINTS: Normal. SOFT TISSUES: There is soft tissue swelling and subcutaneous emphysema in the little toe in keeping with postsurgical changes. OTHER FINDINGS: None. IMPRESSION: Status post amputation at the level of the proximal 5th metatarsal with postsurgical changes in the amputation bed and soft tissues.
[2016-12-12 11:12] VITALS: BP 132/79; PULSE 75; O2SAT 99
--- NOTE | 2016-12-13 04:02 | OP ---
PROCEDURE DATE: 12/12/2016 SURGEON: Ajay Bucio DPM CHEMICAL APPLICATOR: Bethel Melissa, PGY1 ANESTHESIOLOGIST: Dr. Garsia. ANESTHESIA: IV sedation with local. PREOPERATIVE DIAGNOSES: Osteomyelitis of left fifth proximal phalanx and distal fifth metatarsal head with nonhealing diabetic ulceration. POSTOPERATIVE DIAGNOSES: Osteomyelitis of left fifth proximal phalanx and distal fifth metatarsal head with nonhealing diabetic ulceration. NAME OF PROCEDURE: Debridement of osteomyelitis of left fifth metatarsal and proximal phalanx and surrounding infected soft tissue with insertion of Osteoset antibiotic-eluting beads and closure. INDICATIONS: The patient is a 41-year-old male with the above diagnosis. The patient has exhausted all conservative treatments at this time and now requires surgical intervention. The patient signed the consent after careful explanation of risks, benefits, complications, and alternatives for surgical procedure. No guarantees were given nor implied, n.p.o. status was confirmed prior to taking the patient to the OR. Indications for surgical intervention including infected chronic wound found on the plantar aspect of the patient's left foot at the level of the fifth metatarsal head as well as osteomyelitic changes noted to the patient's left fifth metatarsal head and proximal phalanx base including bony resorption and fractures. PREPARATION: The patient was brought into the operating room and placed on the operating room table in a supine position. A time-out was performed for identification of the correct patient and procedure. After induction of IV sedation, the patient received a total of 20 mL of a 1:1 mixture of 0.5% Marcaine plain and 1% lidocaine plain in a local block fashion to the left lower extremity. The left lower extremity was then prepped and draped in a normal sterile manner and Esmarch was then utilized to exsanguinate all blood from the patient's left foot and was tied off at the ankle to act as a tourniquet for the duration of the procedure, and the procedure was then begun. DESCRIPTION OF PROCEDURE: Attention was then drawn to the dorsal aspect of the patient's left foot where a longitudinal incision was made from the proximal aspect of the fifth metatarsal to the level of the fifth proximal interphalangeal joint. The incision was made down to the level of the bone using a fresh #15 blade, while incising down the bone approximately 3 mL of purulent drainage was expressed from the surgical site. A wound culture was taken from the area where the purulent drainage was noted to be drained from and sent for anaerobic and aerobic microbiological examination. Periosteum was then removed from the bony surface using a #15 blade as well as a villatoro elevator until the entirety of the fifth metatarsal midshaft was exposed. Fracture fragments were noted at both the fifth metatarsal neck and fifth proximal phalanx base. Using a sagittal saw power, a dorsal distal to proximal plantar cut was made to the metatarsal shaft. A towel clamp was then used to grasp the loose bone and all remaining soft tissue was cut away with a #15 blade. The distal one-half of the metatarsal bone was excised from the field. Bony fragments were then sent for culture as well as pathological examination. Attention was then turned to the base of the fifth proximal phalanx. Using a #15 blade, the bone was disarticulated at the proximal interphalangeal joint and excised from the field. Using and a #15 blade, all necrotic tissue was then identified and sharply debrided from the surgical field. A pulse lavage was then introduced into the field and the site was copiously flushed with 3 L of bacitracin normal saline following pulse lavage, three full-thickness sutures using 0 Prolene taper needle was placed into the surgical site, one proximal, one distal and one in between. As you said, antibiotic-eluting beads were then introduced in the wound site. Using 2-0 Prolene on a taper needle, a running Endo, and stitch was used to close the surgical site superficially. The site was then dressed with Betadine-soaked Adaptic gauze and Kerlix. POSTOPERATIVE CONDITION: The patient tolerated the anesthesia and procedure well and was escorted to the recovery room with vital signs stable and neurovascular status intact to the left lower extremity. The patient is to remain partial weightbearing to the left lower extremity on a surgical shoe. The patient will follow up with Dr. Bucio in his office in one week. Bethel Melissa DPM Ajay Buico DPM
== END 2016-12-12 11:50 | disposition home or self-care (01) ==
LOC: SDS 06:31
PROVIDERS: ATTEND Podiatrist
DX: E11.69 Type 2 diabetes mellitus with other specified complication (principal); M86.172 Other acute osteomyelitis, left ankle and foot; E11.621 Type 2 diabetes mellitus with foot ulcer; L97.529 Non-pressure chronic ulcer of other part of left foot with unspecified severity

== ENCOUNTER 2017-03-01 15:55 | Emergency (ER) | payer MEDICARE, BC ==
[2017-03-01 16:13] VITALS: RESP 18; TEMP 98.3; BMI 35.9
--- NOTE | 2017-03-01 16:59 | ED PDOC ---
Arrival/HPI - General Chief Complaint: GI Problem Time Seen by Provider: 03/01/17 16:28 Historian: Patient - History of Present Illness Narrative History of Present Illness (Text): 03/01/17 16:59 41 year old male, whose past medical history includes hypertension, diabetes, ESRD (on dialysis M, W, F), osteomyelitis, heart failure with an EF of 19, and defibrillator, presents to the emergency department complaining of vomiting associated with substernal chest burn that began last night. Patient reports he previously ate fish and onion and felt a burning sensation. Patient took Tums with no relief. He states this happened before when he ate seafood. Patient's last dialysis treatment was today. Patient denies any fever, chills, shortness of breath, nausea, diarrhea, urinary symptoms, back pain, neck pain, headache, dizziness, or any other complaints. PMD: Dr. White Time/Duration: Other (last night) Symptom Onset: Gradual Symptom Course: Unchanged Quality: Burning Activities at Onset: Light Context: Home Past Medical History - Provider Review Nursing Documentation Reviewed: Yes - Infectious Disease Hx of Infectious Diseases: None - Tetanus Immunization Tetanus Immunization: Unknown - Cardiac Hx Cardiac Disorders: Yes (mi,cad) Hx Angina: Yes Hx Congestive Heart Failure: Yes Hx Hypertension: Yes Hx Internal Defibrillator: Yes Hx Peripheral Edema: No (edema at present time) - Pulmonary Hx Respiratory Disorders: (bronchiolitis as a child) Hx Bronchitis: Yes Hx Chronic Obstructive Pulmonary Disease (COPD): Yes Hx Respiratory Tract Infection: Yes Hx Sleep Apnea: (sleep study recommended) - Neurological Hx Neurological Disorder: Yes (syncope) Hx Dizziness: Yes (from b/p meds) Other/Comment: headaches brom b/p meds - HEENT Hx HEENT Disorder: Yes (tinnitis) Other/Comment: retinal detatchment 2008, laser sx both eyes - Renal Hx Renal Disorder: Yes Hx Dialysis: Yes (bmx t mon) Date of Last Dialysis Treatment: 12/24/16 Hx Renal Failure: Yes (dx 02/2012) - Endocrine/Metabolic Hx Endocrine Disorders: Yes Hx Diabetes Mellitus Type 2: Yes ([id number] as per pt) - Hematological/Oncological Hx Anemia: Yes (blood transfusion x1) - Integumentary Hx Dermatological Disorder: Yes Other/Comment: for a "couple of weeks" c/o scalp itchy and areas of dy patches of skin scabs forming, dry patches to right scalp, top of scalp and neck by the hairline, ble dry skin, left foot dressing from sx 12/12/16, for debridement non healing ulceration and osteomylitis 5th toe - Musculoskeletal/Rheumatological Hx Musculoskeletal Disorders: Yes Hx Arthritis: Yes Hx Falls: No Hx Fractures: Yes (left wrist casted) Hx Herniated Disk: Yes (lower back) Hx Osteomyelitis: Yes Other/Comment: left ankle torn achilles tendon football injury casted - Gastrointestinal Hx Gastrointestinal Disorders: (obese) Hx Diverticulitis: Yes Hx Gall Bladder Disease: Yes (gallstones) Hx Gastroesophageal Reflux: Yes - Genitourinary/Gynecological Hx Genitourinary Disorders: No - Psychiatric Hx Emotional Abuse: No Hx Physical Abuse: No Hx Substance Use: No - Past Surgical History Past Surgical History: Non-Contributing - Surgical History Hx Cardiac Catheterization: Yes Hx Coronary Stent: Yes (x4) Other/Comment: multiple infections to hd catheters in and out 3 to right chest and 1 to left chest all removed pt has left forearm av shunt, picc 07/22/15 amina and removed, debridement of osteomylitis of 5th metatarsal and proximal phalanyx and surrounding infected soft tissue with insertion of osteoset vancomycin beads, as per pt 5th toe shattered and dr zheng repaired it sx done 12/12/16, kidney bx - Anesthesia Hx Anesthesia Reactions: No Hx Malignant Hyperthermia: No - Suicidal Assessment Feels Threatened In Home Enviroment: No Family/Social History - Physician Review Nursing Documentation Reviewed: Yes Family/Social History: No Known Family HX Smoking Status: Never Smoked Hx Alcohol Use: No Hx Substance Use: No Hx Substance Use Treatment: No Allergies/Home Meds Allergies/Adverse Reactions: Allergies piperacillin sodium [From Zosyn] Allergy (Verified 03/01/17 16:14) ITCHING tazobactam sodium [From Zosyn] Allergy (Verified 03/01/17 16:14) ITCHING IV DYE Adverse Reaction (Uncoded 03/01/17 16:14) NAUSEA Home Medications: Home Meds Medication Instructions Recorded Confirmed Clopidogrel [Plavix] 75 mg PO DAILY 10/06/15 03/01/17 Carvedilol [Coreg] 12.5 mg PO BID 12/12/16 03/01/17 oxyCODONE/Acetaminophen [Percocet 1 tab PO Q4 PRN 12/12/16 03/01/17 5/325 mg Tab] Review of Systems - Physician Review All systems were reviewed & negative as marked: Yes - Review of Systems Constitutional: absent: Fevers, Other (Chills) Respiratory: absent: SOB Cardiovascular: absent: Other (Chest burning) Gastrointestinal: Vomiting. absent: Diarrhea, Nausea Genitourinary Male: absent: Frequency, Hematuria Musculoskeletal: absent: Back Pain, Neck Pain Neurological: absent: Headache, Dizziness Physical Exam Vital Signs Reviewed: Yes Vital Signs Temp Pulse Resp BP Pulse Ox 03/01/17 16:13 98.3 F 103 H 18 154/88 H 100 03/01/17 16:09 105 H 18 164/91 H 100 Temperature: Afebrile Blood Pressure: Hypertensive Pulse: Tachycardic Respiratory Rate: Normal Appearance: Positive for: Well-Appearing, Non-Toxic, Comfortable Pain Distress: None Mental Status: Positive for: Alert and Oriented X 3 - Systems Exam Head: Present: Atraumatic, Normocephalic Pupils: Present: PERRL Extroacular Muscles: Present: EOMI Conjunctiva: Present: Normal Mouth: Present: Moist Mucous Membranes Neck: Present: Normal Range of Motion Respiratory/Chest: Present: Clear to Auscultation, Good Air Exchange. No: Respiratory Distress, Accessory Muscle Use Cardiovascular: Present: Regular Rate and Rhythm, Normal S1, S2. No: Murmurs Abdomen: Present: Normal Bowel Sounds. No: Tenderness, Distention, Peritoneal Signs Back: Present: Normal Inspection Upper Extremity: Present: Normal Inspection, Other (dialysis access graft on left forearm). No: Cyanosis, Edema Lower Extremity: Present: Normal Inspection. No: Edema Neurological: Present: GCS=15, CN II-XII Intact, Speech Normal Skin: Present: Warm, Dry, Normal Color. No: Rashes Psychiatric: Present: Alert, Oriented x 3, Normal Insight, Normal Concentration Medical Decision Making ED Course and Treatment: 03/01/17 16:59 Impression: 41 year old male presents complaining of vomiting associated with substernal chest burn. PE normal. Plan: -- Zofran inj -- Reassess and disposition Prior Visits: Notes and results from previous visits were reviewed. Patient was last seen in the emergency department on 12/24/16 presents complaining of vomiting since yesterday. Patient was admitted. Progress Notes: - Medication Orders Current Medication Orders: Discontinued Medications Ondansetron HCl (Zofran Inj) 8 mg IM STAT STA Stop: 03/01/17 16:49 Last Admin: 03/01/17 17:16 Dose: 8 mg IM Administration Charges Document 03/01/17 17:16 COOKY MACHINE OPERATOR (Rec: 03/01/17 17:17 COOKY MACHINE OPERATOR [id number]) Injection Site MAR Injection Site Right Deltoid Charges for Administration # of IM Administrations 1 - Scribe Statement The provider has reviewed the documentation as recorded by the Shalom Tamayo Provider Scribe Attestation: All medical record entries made by the Delmiibe were at my direction and personally dictated by me. I have reviewed the chart and agree that the record accurately reflects my personal performance of the history, physical exam, medical decision making, and the department course for this patient. I have also personally directed, reviewed, and agree with the discharge instructions and disposition.- Disposition/Present on Arrival - Present on Arrival Any Indicators Present on Arrival: No History of DVT/PE: No History of Uncontrolled Diabetes: Yes Urinary Catheter: No History of Decub. Ulcer: No History Surgical Site Infection Following: None - Disposition Have Diagnosis and Disposition been Completed?: Yes Diagnosis: Nausea & vomiting, Renal failure Disposition: HOME/ ROUTINE Disposition Time: 18:00 Condition: IMPROVED Prescriptions: Ondansetron [Zofran] 4 mg PO Q8H PRN #10 tab PRN Reason: Nausea/Vomiting Referrals: Cleopatra White MD [Primary Care Provider] - Follow up with primary Forms: [employer] (Tongan)
[2017-03-01 18:33] VITALS: BP 148/78; PULSE 98; O2SAT 98
== END 2017-03-01 18:33 | disposition home or self-care (01) ==
LOC: ED 15:55
DX: R11.2 Nausea with vomiting, unspecified (principal); I12.9 Hypertensive chronic kidney disease with stage 1 through stage 4 chronic kidney disease, or unspecified chronic kidney disease; N18.9 Chronic kidney disease, unspecified; E11.9 Type 2 diabetes mellitus without complications; Z99.2 Dependence on renal dialysis
CPT/HCPCS: 96372; 99283; J2405

== ENCOUNTER 2017-07-25 15:19 | Inpatient (IN) | payer MEDICARE, BC ==
[2017-07-25] MEDS ORDERED: Sodium Chloride 0.9% 500 ML IV STA (15:57)
[2017-07-25] MEDS ORDERED: Morphine 2 mg/2 mL syringe IVP STA ×3 (16:34→20:42)
[2017-07-25 16:36] LABS: BASO # 0.03 K/mm3 (0.0-2.0); BASO % 0.2 % (0.0-3.0); EOS % 0.1 % (1.5-5.0); GRAN # 14.73 (1.4-6.5); GRAN % 87.2 % (50.0-68.0); HEMOGLOBIN 15.6 g/dL (14.0-18.0); LYMPH # 1.3 (1.2-3.4); LYMPH % 7.7 % (22.0-35.0); MEAN CORPUSCULAR HEMOGLOBIN 34.7 pg (25.0-35.0); MEAN CORPUSCULAR HGB CONC 34.1 g/dl (31.0-37.0); MEAN PLATELET VOLUME 10.1 fl (7.0-11.0); MONO # 0.8 (0.1-0.6); MONO % 4.8 % (1.0-6.0); RBC 4.49 10^6/uL (3.5-6.1); RED CELL DISTRIBUTION WIDTH 14.3 % (11.5-14.5); WHITE BLOOD COUNT 16.9 10^3/ul (4.5-11.0)
--- NOTE | 2017-07-25 16:37 | RAD ---
HISTORY: Abdominal pain. COMPARISON: 06/12/2016 FINDINGS: LUNGS: No active pulmonary disease. PLEURA: No significant pleural effusion identified, no pneumothorax apparent. CARDIOVASCULAR: No radiographic findings to suggest acute or significant cardiovascular disease. Position/ configuration of pacemaker device: Satisfactory. OSSEOUS STRUCTURES: No significant abnormalities. VISUALIZED UPPER ABDOMEN: Normal. OTHER FINDINGS: None. IMPRESSION: No active disease. No significant interval change compared to the prior examination(s).
[2017-07-25 16:43] LABS: ALBUMIN 5.2 g/dL (3.0-4.8); CALCIUM 9.4 mg/dL (8.4-10.5)
[2017-07-25 16:47] LABS: INR 0.97 (0.93-1.08); PARTIAL THROMBOPLASTIN TIME 31.7 Seconds (25.1-36.5); PROTHROMBIN TIME 11.1 SECONDS (9.4-12.5)
[2017-07-25 16:59] LABS: CK-MB 4.7 ng/mL (0.0-3.6); TROPONIN I 0.03 ng/mL
--- NOTE | 2017-07-25 19:12 | ED PDOC ---
Arrival/HPI - General Chief Complaint: Abdominal Pain Time Seen by Provider: 07/25/17 15:55 Historian: Patient - History of Present Illness Narrative History of Present Illness (Text): 07/25/17 19:09 41-year-old male with a history of hypertension, diabetes and end-stage renal disease on dialysis Wednesdays and Fridays presenting today with a 2 day history of upper abdominal pain with nausea and vomiting. Patient describes abdominal pain as a burning sensation. He denies radiation of pain to the back. Patient states the pain is localized in the upper abdomen. Patient states he had similar symptoms like this previously. Patient states symptoms started after dialysis yesterday. Patient denies chest pain or shortness of breath. He denies diarrhea or constipation. No medications have been taken for pain at home. No other complaints. Past Medical History - Provider Review Nursing Documentation Reviewed: Yes - Travel History Have you recently traveled outside [place] w/in the past 3 mons?: No - Infectious Disease Hx of Infectious Diseases: None - Tetanus Immunization Tetanus Immunization: Unknown - Cardiac Hx Cardiac Disorders: Yes Hx Angina: Yes Hx Congestive Heart Failure: Yes Hx AK: Yes Hx Hypertension: Yes Hx Internal Defibrillator: Yes Hx Peripheral Edema: Yes - Pulmonary Hx Respiratory Disorders: Yes (bronchiolitis as a child) Hx Bronchitis: Yes Hx Chronic Obstructive Pulmonary Disease (COPD): Yes Hx Respiratory Tract Infection: Yes Hx Sleep Apnea: Yes - Neurological Hx Neurological Disorder: Yes Hx Dizziness: Yes Hx Syncope: Yes - HEENT Hx HEENT Disorder: Yes (tinnitis) Other/Comment: retinal detatchment 2008, laser sx both eyes - Renal Hx Renal Disorder: Yes Hx Dialysis: Yes Date of Last Dialysis Treatment: 07/24/17 Hx Renal Failure: Yes - Endocrine/Metabolic Hx Endocrine Disorders: Yes Hx Diabetes Mellitus Type 2: Yes - Hematological/Oncological Hx Blood Disorders: Yes Hx Anemia: Yes (blood transfusion x1) - Integumentary Hx Dermatological Disorder: Yes Other/Comment: ULCER TO TOE - Musculoskeletal/Rheumatological Hx Musculoskeletal Disorders: Yes Hx Arthritis: Yes Hx Falls: No Hx Fractures: Yes Hx Herniated Disk: Yes Hx Osteomyelitis: Yes Other/Comment: left ankle torn achilles tendon - Gastrointestinal Hx Gastrointestinal Disorders: Yes Hx Diverticulitis: Yes Hx Gall Bladder Disease: Yes Hx Gastroesophageal Reflux: Yes - Genitourinary/Gynecological Hx Genitourinary Disorders: No - Psychiatric Hx Emotional Abuse: No Hx Physical Abuse: No Hx Substance Use: No - Past Surgical History Past Surgical History: Non-Contributing - Surgical History Hx Cardiac Catheterization: Yes Hx Coronary Stent: Yes (x4) - Anesthesia Hx Anesthesia Reactions: No Hx Malignant Hyperthermia: No - Suicidal Assessment Feels Threatened In Home Enviroment: No Family/Social History - Physician Review Nursing Documentation Reviewed: Yes Family/Social History: Unknown Family HX Smoking Status: Never Smoked Hx Alcohol Use: No Hx Substance Use: No Hx Substance Use Treatment: No Allergies/Home Meds Allergies/Adverse Reactions: Allergies piperacillin sodium [From Zosyn] Allergy (Verified 07/25/17 15:32) ITCHING tazobactam sodium [From Zosyn] Allergy (Verified 07/25/17 15:32) ITCHING IV DYE Adverse Reaction (Uncoded 07/25/17 15:32) NAUSEA Home Medications: Home Meds Medication Instructions Recorded Confirmed Clopidogrel [Plavix] 75 mg PO DAILY 10/06/15 07/25/17 Carvedilol [Coreg] 12.5 mg PO BID 12/12/16 07/25/17 Review of Systems - Review of Systems Constitutional: Fatigue. absent: Fevers Respiratory: absent: SOB, Cough Cardiovascular: absent: Chest Pain, Palpitations Gastrointestinal: Abdominal Pain, Nausea, Vomiting. absent: Constipation, Diarrhea Genitourinary Male: Other (does not produce urine) Musculoskeletal: absent: Arthralgias, Back Pain, Neck Pain Skin: absent: Rash, Pruritis Neurological: absent: Headache, Dizziness Psychiatric: absent: Anxiety, Depression, Suicidal Ideation Physical Exam Vital Signs Reviewed: Yes Vital Signs Temp Pulse Resp BP Pulse Ox 07/25/17 17:09 86 18 148/89 100 07/25/17 15:37 98.6 F 98 H 20 153/98 H 100 Temperature: Afebrile Blood Pressure: Hypertensive Pulse: Tachycardic Respiratory Rate: Normal Appearance: Positive for: Well-Appearing, Non-Toxic, Uncomfortable Pain Distress: Mild Mental Status: Positive for: Alert and Oriented X 3 - Systems Exam Head: Present: Atraumatic Mouth: Present: Moist Mucous Membranes Neck: Present: Normal Range of Motion Respiratory/Chest: Present: Clear to Auscultation, Good Air Exchange. No: Respiratory Distress, Accessory Muscle Use Cardiovascular: Present: Regular Rate and Rhythm, Normal S1, S2. No: Murmurs Abdomen: Present: Tenderness (+ minimal epigastric tenderness). No: Distention , Peritoneal Signs, Rebound, Guarding Back: Present: Normal Inspection. No: CVA Tenderness, Midline Tenderness, Paraspinal Tenderness Upper Extremity: Present: Normal ROM Lower Extremity: Present: Normal ROM Neurological: Present: GCS=15, Speech Normal Skin: Present: Warm, Dry, Normal Color. No: Rashes Psychiatric: Present: Alert, Oriented x 3 Medical Decision Making ED Course and Treatment: 07/25/17 19:13 Patient with stable vital signs presenting with severe upper abdominal pain pt given pepcid and zofran for nausea/vomiting. morphine given for pain; CBC: wbc: 16.9 Lipase: wnl ast; wnl alt; wnl alk phos; wnl CAT scan: FINDINGS: Lung bases: Patchy nonspecific ground glass density and atelectatic changes are visualized at the lung bases. Mediastinum: There is wall thickening of the distal esophagus, with a probable small hiatal hernia. This wall thickening may be inflammatory, although additional pathology cannot be excluded. ABDOMEN: Liver: No visualized hepatic mass. The liver measures 20.6 cm in the craniocaudad dimension, consistent with hepatomegaly. Gallbladder and bile ducts: Several gallstones are again visualized, with new mild distention of the gallbladder. Pancreas: Normal contour. No ductal dilation. Spleen: No splenomegaly. Adrenals: There is mild stranding adjacent to the left adrenal gland, without a visualized mass. There is a hypodense nodule of the right adrenal gland measuring 1.7 x 1.2 cm. This nodule has mildly increased in size. Kidneys and ureters: There is no hydronephrosis bilaterally. Stomach and bowel: No obstruction. No mucosal thickening. Evaluation of bowel is limited by the absence of oral contrast. PELVIS: Appendix: No findings to suggest acute appendicitis. Bladder: There is nonspecific wall thickening of the bladder, likely contributed by incomplete filling of the bladder. There is a stable band of isodensity extending from the bladder to the level the umbilicus, which is likely developmental. No stones. Reproductive: Unremarkable as visualized. ABDOMEN and PELVIS: Intraperitoneal space: No free air. Bones/joints: Hypertrophic degenerative changes are noted within the spine. There is stable increased concavity of the L2-L4 endplates. A stable mild compression fracture is visualized of T11, with slight anterior wedging of T12. Soft tissues: There is minimal herniation of fat into the umbilicus. Vasculature: There is atherosclerosis of the renal arteries. There is atherosclerotic calcification of the abdominal aorta and iliac arteries. No abdominal aortic aneurysm. Lymph nodes: Mildly enlarged bilateral external iliac chain lymph nodes are identified, nonspecific as to etiology. There is no significant progression compared to the prior study. A left external iliac chain lymph node measures 1.4 x 0.8 cm. Small retroperitoneal lymph nodes are visualized, without significant lymphadenopathy. Tubes, lines and devices: Pacemaker leads are partially visualized within the heart. IMPRESSION: 1. Several gallstones are again visualized, with new mild distention of the gallbladder. Clinical correlation is recommended. 2. There is wall thickening of the distal esophagus, with a probable small hiatal hernia. This wall thickening may be inflammatory, although additional pathology cannot be excluded. 3. There is a hypodense nodule of the right adrenal gland measuring 1.7 x 1.2 cm. This nodule has mildly increased in size. This can be further evaluated with a nonemergent MRI. 4. Hepatomegaly. 5. Mildly enlarged bilateral external iliac chain lymph nodes are identified, nonspecific as to etiology. There is no significant progression compared to the prior study. 6. Additional CT findings described above. Patient reassessment: pt requiring multiple doses of morphine given; case discussed with dr. augustin who saw patient at bedside. case discussed with Dr. Resendez in depth; case discussed with surgical garment inspector. Discussed all results with patient in depth Blood cultures pending Cipro 200 mg IV Flagyl 500 mg IV pt reassessment; pt feeling better after medications. case discussed with dr. augustin; will admit for cholelithiasis, abdominal pain, leukocytosis, nausea and vomiting, cholecystitis Impression: Abdominal pain, gallstones, leukocytosis, cholecystitis admit to med/surg Reassessment Condition: Re-examined, Improving,but remains with symptoms - Lab Interpretations Lab Results: 07/25/17 16:26 07/25/17 16:26 Lab Results 07/25/17 17:00: NT-Pro-B Natriuret Pep 5420 H 07/25/17 16:26: PT 11.1, INR 0.97, APTT 31.7 07/25/17 16:26: WBC 16.9 H D, RBC 4.49, Hgb 15.6, Hct 45.8, MCV 102.0, MCH 34.7 , MCHC 34.1, RDW 14.3, Plt Count 322, MPV 10.1, Gran % 87.2 H, Lymph % (Auto) 7.7 L, [place] % (Auto) 4.8, Eos % (Auto) 0.1 L, Baso % (Auto) 0.2, Gran # 14.73 H , Lymph # (Auto) 1.3, [place] # (Auto) 0.8 H, Eos # (Auto) 0.0, Baso # (Auto) 0.03 07/25/17 16:26: Sodium 142, Potassium 5.1 H, Chloride 84 L, Carbon Dioxide 38 H , Anion Gap 25 H, BUN 48 H, Creatinine 12.7 H*, Est GFR ( Amer) 5, Est GFR (Non-Af Amer) 4, Random Glucose 138 H, Calcium 9.4, Total Bilirubin 0.6, AST 50, ALT 28, Alkaline Phosphatase 72, Lactate Dehydrogenase 774 H, Total Creatine Kinase 387 H, CK-MB (CK-2) 4.7 H, CK-MB (CK-2) % Cancelled, Troponin I 0.03 D, Total Protein 10.2 H, Albumin 5.2 H, Globulin 5.0, Albumin/Globulin Ratio 1.0 L, Lipase 165 - RAD Interpretation Radiology Orders: 07/25/17 15:56 CHEST PORTABLE [RAD] Stat 07/25/17 17:19 ABD & PELVIS W/O PO OR IV CONT [CT] Stat - Medication Orders Current Medication Orders: Ciprofloxacin (Cipro 200mg/100ml D5w) 100 mls @ 67 mls/hr IVPB STAT STA PRN Reason: Protocol Stop: 07/25/17 23:17 Ciprofloxacin (Cipro 200mg/100ml D5w) 100 mls @ 67 mls/hr IVPB Q12H TINY PRN Reason: Protocol Stop: 07/26/17 11:30 Metronidazole (Flagyl) 250 mg in 50 mls @ 100 mls/hr IVPB Q8 TINY PRN Reason: Protocol Stop: 07/31/17 06:01 Ondansetron HCl (Zofran Inj) 4 mg IVP Q6H PRN PRN Reason: Nausea/Vomiting Pantoprazole Sodium (Protonix Inj) 40 mg IVP DAILY TINY Discontinued Medications Famotidine (Pepcid) 20 mg IVP STAT STA Stop: 07/25/17 15:57 Last Admin: 07/25/17 16:20 Dose: 20 mg IVP Administration Document 07/25/17 16:20 HI (Rec: 07/25/17 16:28 HI [id number]) Charges for Administration # of IVP Administrations 1 Sodium Chloride (Sodium Chloride 0.9%) 500 mls @ 999 mls/hr IV .Q31M STA Stop: 07/25/17 16:27 Last Admin: 07/25/17 16:20 Dose: 999 mls/hr eMAR Start Stop Document 07/25/17 16:20 HI (Rec: 07/25/17 16:29 HI [id number]) Intravenous Solution Start Date 07/25/17 Start Time 16:20 Metronidazole (Flagyl) 500 mg in 100 mls @ 100 mls/hr IVPB STAT STA PRN Reason: Protocol Stop: 07/25/17 22:48 Last Admin: 07/25/17 23:01 Dose: 100 mls/hr eMAR Start Stop Document 07/25/17 23:01 HI (Rec: 07/25/17 23:01 HI [id number]) Intravenous Solution Start Date 07/25/17 Start Time 23:01 Morphine Sulfate (Morphine) 2 mg IVP STAT STA Stop: 07/25/17 16:35 Last Admin: 07/25/17 16:48 Dose: 2 mg IVP Administration Document 07/25/17 16:48 HI (Rec: 07/25/17 16:48 HI [id number]) Charges for Administration # of IVP Administrations 1 Morphine Sulfate (Morphine) 2 mg IVP STAT STA Stop: 07/25/17 17:20 Last Admin: 07/25/17 18:12 Dose: 2 mg IVP Administration Document 07/25/17 18:12 HI (Rec: 07/25/17 18:12 HI [id number]) Charges for Administration # of IVP Administrations 1 Morphine Sulfate (Morphine) 2 mg IVP STAT STA Stop: 07/25/17 20:43 Last Admin: 07/25/17 21:55 Dose: 2 mg IVP Administration Document 07/25/17 21:55 HI (Rec: 07/25/17 21:55 HI [id number]) Charges for Administration # of IVP Administrations 1 Ondansetron HCl (Zofran Inj) 4 mg IVP STAT STA Stop: 07/25/17 15:56 Last Admin: 07/25/17 16:20 Dose: 4 mg IVP Administration Document 07/25/17 16:20 HI (Rec: 07/25/17 16:28 HI [id number]) Charges for Administration # of IVP Administrations 1 Disposition/Present on Arrival - Present on Arrival Any Indicators Present on Arrival: Yes History of DVT/PE: No History of Uncontrolled Diabetes: Yes Urinary Catheter: No History of Decub. Ulcer: No History Surgical Site Infection Following: None - Disposition Have Diagnosis and Disposition been Completed?: Yes Diagnosis: Cholelithiases, Leukocytosis, Vomiting, Abdominal pain, Cholecystitis Disposition: HOSPITALIZED Disposition Time: 21:14 Patient Plan: Admission Patient Problems: Current Active Problems Problem Status Onset Abdominal pain Acute Cholelithiases Acute Leukocytosis Acute Vomiting Acute Condition: FAIR
--- NOTE | 2017-07-25 20:49 | CT ---
EXAM: CT Abdomen and Pelvis Without Intravenous Contrast EXAM DATE/TIME: 07/25/2017 5:19 PM CLINICAL HISTORY: The patient age is 41 years old and is male; Pain; Abdominal pain; Acute; Additional info: Abd pain Facility exam id and description: Ct abdpelscon abd pelvis w/o po or iv cont TECHNIQUE: Axial computed tomography images of the abdomen and pelvis without intravenous contrast. All CT scans at this facility use one or more dose reduction techniques, viz.: automated exposure control; ma/kV adjustment per patient size (including targeted exams where dose is matched to indication; i.e. head); or iterative reconstruction technique. Coronal and sagittal reformatted images were created and reviewed. COMPARISON: CT - ABD PELVIS W/O PO OR IV CONT 2016-12-24 16:17 FINDINGS: Lung bases: Patchy nonspecific ground glass density and atelectatic changes are visualized at the lung bases. Mediastinum: There is wall thickening of the distal esophagus, with a probable small hiatal hernia. This wall thickening may be inflammatory, although additional pathology cannot be excluded. ABDOMEN: Liver: No visualized hepatic mass. The liver measures 20.6 cm in the craniocaudad dimension, consistent with hepatomegaly. Gallbladder and bile ducts: Several gallstones are again visualized, with new mild distention of the gallbladder. Pancreas: Normal contour. No ductal dilation. Spleen: No splenomegaly. Adrenals: There is mild stranding adjacent to the left adrenal gland, without a visualized mass. There is a hypodense nodule of the right adrenal gland measuring 1.7 x 1.2 cm. This nodule has mildly increased in size. Kidneys and ureters: There is no hydronephrosis bilaterally. Stomach and bowel: No obstruction. No mucosal thickening. Evaluation of bowel is limited by the absence of oral contrast. PELVIS: Appendix: No findings to suggest acute appendicitis. Bladder: There is nonspecific wall thickening of the bladder, likely contributed by incomplete filling of the bladder. There is a stable band of isodensity extending from the bladder to the level the umbilicus, which is likely developmental. No stones. Reproductive: Unremarkable as visualized. ABDOMEN and PELVIS: Intraperitoneal space: No free air. Bones/joints: Hypertrophic degenerative changes are noted within the spine. There is stable increased concavity of the L2-L4 endplates. A stable mild compression fracture is visualized of T11, with slight anterior wedging of T12. Soft tissues: There is minimal herniation of fat into the umbilicus. Vasculature: There is atherosclerosis of the renal arteries. There is atherosclerotic calcification of the abdominal aorta and iliac arteries. No abdominal aortic aneurysm. Lymph nodes: Mildly enlarged bilateral external iliac chain lymph nodes are identified, nonspecific as to etiology. There is no significant progression compared to the prior study. A left external iliac chain lymph node measures 1.4 x 0.8 cm. Small retroperitoneal lymph nodes are visualized, without significant lymphadenopathy. Tubes, lines and devices: Pacemaker leads are partially visualized within the heart. IMPRESSION: 1. Several gallstones are again visualized, with new mild distention of the gallbladder. Clinical correlation is recommended. 2. There is wall thickening of the distal esophagus, with a probable small hiatal hernia. This wall thickening may be inflammatory, although additional pathology cannot be excluded. 3. There is a hypodense nodule of the right adrenal gland measuring 1.7 x 1.2 cm. This nodule has mildly increased in size. This can be further evaluated with a nonemergent MRI. 4. Hepatomegaly. 5. Mildly enlarged bilateral external iliac chain lymph nodes are identified, nonspecific as to etiology. There is no significant progression compared to the prior study. 6. Additional CT findings described above.
[2017-07-25] MEDS ORDERED: Ciprofloxacin 200mg/100ml D5W 100 ML IVPB STA (21:48)
[2017-07-25] MEDS ORDERED: metroNIDAZOLE IV 500 mg/100 ml 500 MG/100 ML BAG IVPB STA (21:49)
--- NOTE | 2017-07-25 21:58 | CP.PCM.CON ---
History of Present Illness - History of Present Illness History of Present Illness: General Surgery Consult Note for Dr. Resendez Reason for consult: Abdominal pain, nausea/vomiting 41 M with PMH that includes ESRD on HD (MWF), CAD with stents, HTN, DM, s/p defibrillator [place] [facility] [place] nausea/vomting for 2 days. Patient was seen and examined in the ED. Patient states symptoms began while at home. He reports sudden onset and states that he has not experienced symptoms like this in the past. Patient admits to multiple episodes on NBNB emesis. He denies hematemesis, diarrhea, hematochezia. Patient's symptomes worsened over the 2 day when he finally decide to be seen. He rate pain as moderate. He describes pain as constant and burning located in epigastrium radiating RUQ. He reports that symptoms were not associated with eating. He denies any specific aggravating or alleviating factors. He denies recent illness or sick contacts. Admits to globus sensation and pyrosis. Denies fever/chills, chest pain, SOB, palpitations diarrhea, constipation, incontinence, urinary symptoms. CT abd/ pelvis reveals cholelithiasis with suspected gb wall thickening, distal esophagus thickening with probably hiatal hernia, adrenal lesion, and lymphadenopathy (see full report). PMH: HTN, DM, ESRD on HD (MWF), CAD with stents, HLD, retinal detachment Meds: as per EMR Allergy: Zosyn PSH: AVF, eye laser surgery, defibrillator, cardiac cath x 2 FH: HTN, DM Social: denies tobacco/EtOH/illicit drug use, medically disabled Past Patient History - Infectious Disease Hx of Infectious Diseases: None - Tetanus Immunizations Tetanus Immunization: Unknown - Past Social History Smoking Status: Never Smoked - CARDIAC Hx Cardiac Disorders: Yes Hx Angina: Yes Hx Congestive Heart Failure: Yes Hx Heart Attack: Yes Hx Hypertension: Yes Hx Internal Defibrillator: Yes Hx Peripheral Edema: Yes - PULMONARY Hx Respiratory Disorders: Yes (bronchiolitis as a child) Hx Bronchitis: Yes Hx Chronic Obstructive Pulmonary Disease (COPD): Yes Hx Respiratory Tract Infection: Yes Hx Sleep Apnea: Yes - NEUROLOGICAL Hx Neurological Disorder: Yes Hx Dizziness: Yes Hx Syncope: Yes - HEENT Hx HEENT Problems: Yes (tinnitis) Other/Comment: retinal detatchment 2008, laser sx both eyes - RENAL Hx Chronic Kidney Disease: Yes Hx Dialysis: Yes Date of Last Dialysis Treatment: 07/24/17 Hx Renal Failure: Yes - ENDOCRINE/METABOLIC Hx Endocrine Disorders: Yes Hx Diabetes Mellitus Type 2: Yes - HEMATOLOGICAL/ONCOLOGICAL Hx Blood Disorders: Yes Hx Anemia: Yes (blood transfusion x1) - INTEGUMENTARY Hx Dermatological Problems: Yes Other/Comment: ULCER TO TOE - MUSCULOSKELETAL/RHEUMATOLOGICAL Hx Musculoskeletal Disorders: Yes Hx Arthritis: Yes Hx Falls: No Hx Fractures: Yes Hx Herniated Disk: Yes Hx Osteomyelitis: Yes Other/Comment: left ankle torn achilles tendon - GASTROINTESTINAL Hx Gastrointestinal Disorders: Yes Hx Diverticulitis: Yes Hx Gall Bladder Disease: Yes Hx Gastroesophageal Reflux: Yes - GENITOURINARY/GYNECOLOGICAL Hx Genitourinary Disorders: No - PSYCHIATRIC Hx Emotional Abuse: No Hx Physical Abuse: No Hx Substance Use: No - SURGICAL HISTORY Hx Cardiac Catheterization: Yes Hx Coronary Stent: Yes (x4) - ANESTHESIA Hx Anesthesia Reactions: No Hx Malignant Hyperthermia: No Meds Allergies/Adverse Reactions: Allergies Allergy/AdvReac Type Severity Reaction Status Date / Time piperacillin sodium Allergy ITCHING Verified 07/25/17 15:32 [From Zosyn] tazobactam sodium Allergy ITCHING Verified 07/25/17 15:32 [From Zosyn] IV DYE AdvReac NAUSEA Uncoded 07/25/17 15:32 - Medications Medications: Current Medications Ciprofloxacin (Cipro 200mg/100ml D5w) 100 mls @ 67 mls/hr IVPB STAT STA PRN Reason: Protocol Stop: 07/25/17 23:17 Metronidazole (Flagyl) 500 mg in 100 mls @ 100 mls/hr IVPB STAT STA PRN Reason: Protocol Stop: 07/25/17 22:48 Physical Exam - Constitutional Appears: No Acute Distress - Head Exam Head Exam: ATRAUMATIC, NORMOCEPHALIC - Eye Exam Eye Exam: EOMI, Normal appearance Pupil Exam: PERRL - ENT Exam ENT Exam: Mucous Membranes Dry - Neck Exam Neck exam: Positive for: Normal Inspection - Respiratory Exam Respiratory Exam: NORMAL BREATHING PATTERN - Cardiovascular Exam Cardiovascular Exam: RRR, +S1, +S2 - GI/Abdominal Exam GI & Abdominal Exam: Normal Bowel Sounds, Soft, Tenderness (mild, epigastrium). absent: Distended, Firm, Guarding, Hernia, Rebound, Rigid Additional comments: (-) oro's sign - Extremities Exam Extremities exam: Positive for: normal capillary refill, pedal pulses present. Negative for: calf tenderness, pedal edema Additional comments: LUE AVF with palpable thrill and audible bruit - Back Exam Back exam: absent: CVA tenderness (L), CVA tenderness (R) - Neurological Exam Neurological exam: Alert, CN II-XII Intact, Oriented x3 - Psychiatric Exam Psychiatric exam: Normal Affect, Normal Mood - Skin Skin Exam: Dry, Intact, Normal Color, Warm Results - Vital Signs Recent Vital Signs: Last Vital Signs Temp 98.6 F 07/25/17 15:37 Pulse 86 07/25/17 17:09 Resp 18 07/25/17 17:09 BP 148/89 07/25/17 17:09 Pulse Ox 100 07/25/17 17:09 - Labs Result Diagrams: 07/26/17 06:40 07/26/17 06:40 Labs: Laboratory Results - last 24 hr 07/25/17 07/25/17 07/25/17 16:26 16:26 16:26 WBC 16.9 H D RBC 4.49 Hgb 15.6 Hct 45.8 MCV 102.0 MCH 34.7 MCHC 34.1 RDW 14.3 Plt Count 322 MPV 10.1 Gran % 87.2 H Lymph % (Auto) 7.7 L [place] % (Auto) 4.8 Eos % (Auto) 0.1 L Baso % (Auto) 0.2 Gran # 14.73 H Lymph # (Auto) 1.3 [place] # (Auto) 0.8 H Eos # (Auto) 0.0 Baso # (Auto) 0.03 PT 11.1 INR 0.97 APTT 31.7 Sodium 142 Potassium 5.1 H Chloride 84 L Carbon Dioxide 38 H Anion Gap 25 H BUN 48 H Creatinine 12.7 H* Est GFR ( Amer) 5 Est GFR (Non-Af Amer) 4 Random Glucose 138 H Calcium 9.4 Total Bilirubin 0.6 AST 50 ALT 28 Alkaline Phosphatase 72 Lactate Dehydrogenase 774 H Total Creatine Kinase 387 H CK-MB (CK-2) 4.7 H CK-MB (CK-2) % Cancelled Troponin I 0.03 D NT-Pro-B Natriuret Pep Total Protein 10.2 H Albumin 5.2 H Globulin 5.0 Albumin/Globulin Ratio 1.0 L Lipase 165 07/25/17 17:00 WBC RBC Hgb Hct MCV MCH MCHC RDW Plt Count MPV Gran % Lymph % (Auto) [place] % (Auto) Eos % (Auto) Baso % (Auto) Gran # Lymph # (Auto) [place] # (Auto) Eos # (Auto) Baso # (Auto) PT INR APTT Sodium Potassium Chloride Carbon Dioxide Anion Gap BUN Creatinine Est GFR ( Amer) Est GFR (Non-Af Amer) Random Glucose Calcium Total Bilirubin AST ALT Alkaline Phosphatase Lactate Dehydrogenase Total Creatine Kinase CK-MB (CK-2) CK-MB (CK-2) % Troponin I NT-Pro-B Natriuret Pep 5420 H Total Protein Albumin Globulin Albumin/Globulin Ratio Lipase Assessment & Plan - Assessment and Plan (Free Text) Assessment: 41 M who present swith abdominal pain, nausea/vomiting; CT findings of cholelithiasis with suspected gb wall thickening, distal esophagus thickening with probably hiatal hernia, adrenal lesion, and lymphadenopathy Plan: -NPO -IV abx -Recommend GI consult -f/u ABUS -daily labs -Serial abd exams -Analgesics/anti-emetics PRN -Dialysis as scheduled -Discussed with Dr. Mal Cobian PGY1 - Date & Time Date: 07/25/17 Time: 21:00
--- NOTE | 2017-07-25 23:23 | US ---
EXAM: US Abdomen Complete EXAM DATE/TIME: 07/25/2017 9:58 PM CLINICAL HISTORY: The patient age is 41 years old and is male; Pain; Abdominal pain; Generalized; Additional info: Abdominal pain, nausea/vomiting Facility exam id and description: Us abd abdomen complete TECHNIQUE: Real-time ultrasound of the abdomen (complete) with image documentation. COMPARISON: US - RENAL 2011-10-14 20:51 FINDINGS: Liver: The liver measured 19.5 cm in length, consistent with hepatomegaly. Gallbladder: The gallbladder is distended with echogenic shadowing gallstones. There is no significant gallbladder wall thickening or pericholecystic fluid. The sonographic Hugo sign is negative. Common bile duct: The common bile duct measures 6 mm in diameter, which is within normal range. Pancreas: The pancreas is nonvisualized due to bowel gas. Kidneys: This increased echogenicity of the bilateral renal cortices, suggestive of medical renal disease. The right kidney measures 9.8 x 3.9 x 4.8 cm. The left kidney measures 8.9 x 5.1 x 5.1 cm. No shadowing stones within the right kidney. Evaluation of the left kidney is limited. No hydronephrosis bilaterally. Spleen: The spleen measures 7.7 x 3.6 x 4.7 cm. There is a limited evaluation of the spleen. Aorta: The visualized segment of the abdominal aorta is normal in caliber. The abdominal aorta is incompletely visualized. Inferior vena cava: There is a suboptimal evaluation of the IVC. IMPRESSION: 1. The gallbladder is distended with echogenic shadowing gallstones. There is no significant gallbladder wall thickening or pericholecystic fluid. Clinical correlation is recommended. 2. Hepatomegaly. 3. This increased echogenicity of the bilateral renal cortices, suggestive of medical renal disease. 4. Additional findings described above.
[2017-07-26] MEDS ORDERED: Morphine 2 mg/2 mL syringe IVP STA ×2 (02:21→23:53)
[2017-07-26 02:51] VITALS: BMI 36.1
[2017-07-26] MEDS ORDERED: metroNIDAZOLE IV 250mg/50 ml 250 MG/50 ML BAG IVPB SCH (06:00)
[2017-07-26 07:11] LABS: BASO # 0.04 K/mm3 (0.0-2.0); BASO % 0.3 % (0.0-3.0); EOS # 0.1 (0.0-0.7); GRAN # 10.48 (1.4-6.5); GRAN % 74.1 % (50.0-68.0); HEMOGLOBIN 14.7 g/dL (14.0-18.0); LYMPH # 2.6 (1.2-3.4); LYMPH % 18.3 % (22.0-35.0); MEAN CELL VOLUME 101.2 fl (80.0-105.0); MEAN CORPUSCULAR HEMOGLOBIN 33.9 pg (25.0-35.0); MEAN CORPUSCULAR HGB CONC 33.5 g/dl (31.0-37.0); MEAN PLATELET VOLUME 9.9 fl (7.0-11.0); MONO # 0.9 (0.1-0.6); MONO % 6.3 % (1.0-6.0); RBC 4.34 10^6/uL (3.5-6.1); RED CELL DISTRIBUTION WIDTH 14.3 % (11.5-14.5); WHITE BLOOD COUNT 14.1 10^3/ul (4.5-11.0)
[2017-07-26 07:13] LABS: PARTIAL THROMBOPLASTIN TIME 29.8 Seconds (25.1-36.5); PROTHROMBIN TIME 11.5 SECONDS (9.4-12.5)
[2017-07-26 07:34] LABS: ALBUMIN 4.7 g/dL (3.0-4.8); CALCIUM 8.7 mg/dL (8.4-10.5)
[2017-07-26] MEDS ORDERED: Ciprofloxacin 200mg/100ml D5W 100 ML IVPB SCH (10:00)
--- NOTE | 2017-07-26 10:19 | CARD ---
APPROVED REPORT EKG Measurement Heart [id number] CT 156P50 [id number] <Conclusion> Normal sinus rhythm Possible Left atrial enlargement Anterolateral infarct, old Smalll q waves 2,3,F NSSTW changes Prolongeed QTc No change
--- NOTE | 2017-07-26 12:08 | CP.PCM.PN ---
Subjective - Date & Time of Evaluation Date of Evaluation: 07/26/17 Time of Evaluation: 10:00 - Subjective Subjective: Patient seen and examined at bedside this AM. Patient states that his pain is resolved and denies any nausea, vomiting, diarrhea, and is tolerating a clear liquid diet Objective - Vital Signs/Intake and Output Vital Signs (last 24 hours): Temp Pulse Resp BP Pulse Ox 98.2 F 98 H 20 166/101 H 99 07/26/17 06:00 07/26/17 06:00 07/26/17 06:00 07/26/17 06:00 07/26/17 06:00 - Medications Medications: Current Medications Meropenem 250 mg/ Sodium (Chloride) 100 mls @ 100 mls/hr IVPB Q12H TINY PRN Reason: Protocol Stop: 08/02/17 11:31 Ondansetron HCl (Zofran Inj) 4 mg IVP Q6H PRN PRN Reason: Nausea/Vomiting Pantoprazole Sodium (Protonix Inj) 40 mg IVP DAILY TINY - Labs Labs: 07/26/17 06:40 07/26/17 06:40 PT 11.5 SECONDS (9.4-12.5) 07/26/17 06:40 INR 1.00 (0.93-1.08) 07/26/17 06:40 APTT 29.8 Seconds (25.1-36.5) 07/26/17 06:40 - Constitutional Appears: Well, Non-toxic, No Acute Distress - Head Exam Head Exam: ATRAUMATIC, NORMOCEPHALIC - Eye Exam Eye Exam: Normal appearance. absent: Conjunctival injection, Scleral icterus - ENT Exam ENT Exam: Mucous Membranes Moist, Normal Oropharynx - Respiratory Exam Respiratory Exam: NORMAL BREATHING PATTERN. absent: Accessory Muscle Use, Respiratory Distress - Cardiovascular Exam Cardiovascular Exam: RRR - GI/Abdominal Exam GI & Abdominal Exam: Soft. absent: Distended, Tenderness, Rebound - Neurological Exam Neurological Exam: Alert, Awake, Oriented x3 - Psychiatric Exam Psychiatric exam: Normal Affect, Normal Mood - Skin Skin Exam: Dry, Intact, Normal Color, Warm Assessment and Plan - Assessment and Plan (Free Text) Assessment: 41M with chronic cholelithiasis and epigastric pain, nausea, and vomiting, likely due to gastroenteritis and esophagitis Plan: No surgery indicated at this time--patient's abdominal ultrasound was negative for any signs of acute cholecystitis and clinical picture/history of present disease is more indicative of gastroenteritis Advance diet as tolerated per GI recommendations Would recommend endoscopy to evaluate esophagitis and hiatal hernia if GI team thinks it would be beneficial Monitor intake and output Discussed with DR. Mal Melendez, PGY2
--- NOTE | 2017-07-26 12:39 | CP.PCM.CON ---
<Katarina Barkley - Last Filed: 07/26/17 12:38> History of Present Illness - History of Present Illness History of Present Illness: Seen and examined at bedside , just return from dialysis, chart reviewed. Request for GI consult is for abdominal pain/ vomiting. HPI: This is a 41-year-old male with a past medical history of end-stage renal disease on hemodialysis, coronary artery disease with stents, diabetes mellitus , hypertension came to the emergency room with complaints of multiple episodes of ME cysts, denies hematemesis as well as complaints of abdominal pain. patient complains of pain to epigastric area radiating to the right upper quadrant and describes it as constant and burning. Patient recalls Monday having gone to [employer] in [place] consuming Truffle burger and nachos rita and on Monday went to [employer] and had chicken fajita. he then had episodes of multiple vomiting and some episodes of diarrhea. He did complain of mid abdominal pain but likely from the constant retching. He also stated that his girlfriend who he ate out with on Monday also had some diarrhea. Prior to this he was fine as per patient. He denies any fever, chills or any overt GI bleed. He also reported that one of his friends had been sick with constant vomiting and had contact with them. He endorses his last episode of vomiting was when he was in the ER. Currently he denies nausea or any episodes of vomiting. Abdominal pain has improved except for feeling of soreness from constant vomiting. No episodes of diarrhea. He states he is hungry. On admission he had a CT scan of abdomen and pelvis which revealed cholelithiasis with suspected gallbladder wall thickening, distal esophagus thickening probable hiatal hernia, adrenal lesion and lymphadenopathy, see [facility] for full report. He also had an abdominal ultrasound which did report gallbladder distention with echogenicity, shadowing gallstones but no gallbladder wall thickening or pericholecystic fluid. Did show hepatomegaly and the common bile duct measured 6 mm.patient's last endoscopy was 09/2012 had a EUS as well for elevated LFT, found to have gastritis, gastric biopsy was negative for H. pylori, EUS revealed gallbladder stone, pancreatitis, and normal CBD, it was a limited study. At times may get dyspesia and take TUMS but not on regular basis. He also mentioned that he has had weight loss secondary to him purposefully loosing the weight and not unintentional. Past medical history: End-stage renal disease on hemodialysis, hypertension, diabetes mellitus, coronary artery disease with stents, retinal detachment, hyperlipidemia, cholelithiasis, gastritis Past surgical history: Eye laser surgery, defibrillator, cardiac catheterization 2, H2 venous fistula Allergies: Zosyn Family history: Diabetes mellitus and hypertension Medications: Reviewed as per MAR Social history: Denies tobacco, EtOH or recreational drug use ROS: Systems reviewed with positive finding see HPI Past Patient History - Infectious Disease Hx of Infectious Diseases: None - Tetanus Immunizations Tetanus Immunization: Unknown - Past Social History Smoking Status: Never Smoked - CARDIAC Hx Cardiac Disorders: Yes Hx Angina: Yes Hx Congestive Heart Failure: Yes Hx Heart Attack: Yes Hx Hypertension: Yes Hx Internal Defibrillator: Yes Hx Peripheral Edema: Yes - PULMONARY Hx Respiratory Disorders: Yes (bronchiolitis as a child) Hx Bronchitis: Yes Hx Chronic Obstructive Pulmonary Disease (COPD): Yes Hx Respiratory Tract Infection: Yes Hx Sleep Apnea: Yes - NEUROLOGICAL Hx Neurological Disorder: Yes Hx Dizziness: Yes Hx Syncope: Yes - HEENT Hx HEENT Problems: Yes (tinnitis) Other/Comment: retinal detatchment 2008, laser sx both eyes - RENAL Hx Chronic Kidney Disease: Yes Hx Dialysis: Yes Date of Last Dialysis Treatment: 07/24/17 Hx Renal Failure: Yes - ENDOCRINE/METABOLIC Hx Endocrine Disorders: Yes Hx Diabetes Mellitus Type 2: Yes - HEMATOLOGICAL/ONCOLOGICAL Hx Blood Disorders: Yes Hx Anemia: Yes (blood transfusion x1) - INTEGUMENTARY Hx Dermatological Problems: Yes Other/Comment: ULCER TO TOE - MUSCULOSKELETAL/RHEUMATOLOGICAL Hx Musculoskeletal Disorders: Yes Hx Arthritis: Yes Hx Falls: No Hx Fractures: Yes Hx Herniated Disk: Yes Hx Osteomyelitis: Yes Other/Comment: left ankle torn achilles tendon - GASTROINTESTINAL Hx Gastrointestinal Disorders: Yes Hx Diverticulitis: Yes Hx Gall Bladder Disease: Yes Hx Gastroesophageal Reflux: Yes - GENITOURINARY/GYNECOLOGICAL Hx Genitourinary Disorders: No - PSYCHIATRIC Hx Emotional Abuse: No Hx Physical Abuse: No Hx Substance Use: No - SURGICAL HISTORY Hx Cardiac Catheterization: Yes Hx Coronary Stent: Yes (x4) - ANESTHESIA Hx Anesthesia Reactions: No Hx Malignant Hyperthermia: No Meds Allergies/Adverse Reactions: Allergies Allergy/AdvReac Type Severity Reaction Status Date / Time piperacillin sodium Allergy ITCHING Verified 07/25/17 15:32 [From Zosyn] tazobactam sodium Allergy ITCHING Verified 07/25/17 15:32 [From Zosyn] IV DYE AdvReac NAUSEA Uncoded 07/25/17 15:32 - Medications Medications: Current Medications Meropenem 250 mg/ Sodium (Chloride) 100 mls @ 100 mls/hr IVPB Q12H TINY PRN Reason: Protocol Stop: 08/02/17 11:31 Ondansetron HCl (Zofran Inj) 4 mg IVP Q6H PRN PRN Reason: Nausea/Vomiting Pantoprazole Sodium (Protonix Inj) 40 mg IVP DAILY TINY Physical Exam - Constitutional Appears: No Acute Distress - Head Exam Head Exam: NORMOCEPHALIC - Eye Exam Eye Exam: Normal appearance. absent: Scleral icterus - ENT Exam ENT Exam: Mucous Membranes Moist - Neck Exam Neck exam: Positive for: Normal Inspection - Respiratory Exam Respiratory Exam: NORMAL BREATHING PATTERN. absent: Respiratory Distress - Cardiovascular Exam Cardiovascular Exam: +S1, +S2 - GI/Abdominal Exam GI & Abdominal Exam: Normal Bowel Sounds, Soft, Tenderness (very mild tenderness to epigastric area, pt relays more of a "soreness"). absent: Guarding, Organomegaly, Rebound - Extremities Exam Extremities exam: Positive for: pedal pulses present. Negative for: calf tenderness - Neurological Exam Neurological exam: Alert, Oriented x3 Results - Vital Signs Recent Vital Signs: Last Vital Signs Temp 98.2 F 07/26/17 06:00 Pulse 98 H 07/26/17 06:00 Resp 20 07/26/17 06:00 BP 166/101 H 07/26/17 06:00 Pulse Ox 99 07/26/17 06:00 - Labs Result Diagrams: 07/26/17 06:40 07/26/17 06:40 Labs: Laboratory Results - last 24 hr 07/26/17 07/26/17 07/26/17 06:40 06:40 06:40 WBC 14.1 H RBC 4.34 Hgb 14.7 Hct 43.9 MCV 101.2 MCH 33.9 MCHC 33.5 RDW 14.3 Plt Count 322 MPV 9.9 Gran % 74.1 H Lymph % (Auto) 18.3 L [place] % (Auto) 6.3 H Eos % (Auto) 1.0 L Baso % (Auto) 0.3 Gran # 10.48 H Lymph # (Auto) 2.6 [place] # (Auto) 0.9 H Eos # (Auto) 0.1 Baso # (Auto) 0.04 PT 11.5 INR 1.00 APTT 29.8 Sodium 138 Potassium 4.4 Chloride 88 L Carbon Dioxide 32 Anion Gap 23 H BUN 52 H Creatinine 13.6 H* Est GFR ( Amer) 5 Est GFR (Non-Af Amer) 4 Random Glucose 95 Calcium 8.7 Phosphorus 7.0 H Magnesium 2.0 Total Bilirubin 0.6 AST 34 ALT 24 Alkaline Phosphatase 68 Total Protein 9.2 H Albumin 4.7 Globulin 4.5 Albumin/Globulin Ratio 1.0 L Assessment & Plan - Assessment and Plan (Free Text) Assessment: Assessment: Intractable nausea/vomiting may likely be secondary to gastroenteritis Abdominal pain Cholelithiasis, status post abdominal ultrasound negative for gallbladder wall thickening or pericholecystic fluid, CBD measures 6 mm Leukocytosis End-stage renal disease on dialysis Coronary artery disease with stents Diabetes mellitus Hypertension Plan: Start clear liquid diet and advance as tolerated Continue PPI on Iv antibiotics as per ID FU urine and blood culture if have episode of diarrhea obtain stool culture, O&P Thank you for this consult and for allowing us to participate in your patient's care, further recommendations based upon clinical course. Seen and discussed with Dr. Raymond. <Rick Raymond V - Last Filed: 07/27/17 06:31> Meds - Medications Medications: Current Medications Al Hydrox/Mg Hydrox/Simethicone 30 ml/Diphenhydramine HCl 75 mg/Lidocaine 30 ml 0 ml PO Q2H PRN PRN Reason: MOUTH/THROAT PAIN Last Admin: 07/26/17 21:47 Dose: 5 soln Hydromorphone HCl (Dilaudid) 0.25 mg IVP Q4H PRN PRN Reason: Pain, severe (8-10) Last Admin: 07/27/17 03:13 Dose: 0.25 mg Meropenem 250 mg/ Sodium (Chloride) 100 mls @ 100 mls/hr IVPB Q12H TINY PRN Reason: Protocol Stop: 08/02/17 11:31 Last Admin: 07/27/17 00:04 Dose: 100 mls/hr Ondansetron HCl (Zofran Inj) 4 mg IVP Q6H PRN PRN Reason: Nausea/Vomiting Last Admin: 07/26/17 21:18 Dose: 4 mg Pantoprazole Sodium (Protonix Inj) 40 mg IVP DAILY TINY Last Admin: 07/26/17 12:24 Dose: 40 mg Results - Vital Signs Recent Vital Signs: Last Vital Signs Temp 97.5 F L 07/26/17 21:43 Pulse 86 07/26/17 21:43 Resp 20 07/26/17 21:43 BP 168/84 H 07/26/17 21:43 Pulse Ox 99 07/26/17 21:43 - Labs Result Diagrams: 07/26/17 06:40 07/26/17 06:40 Labs: Laboratory Results - last 24 hr 07/26/17 07/26/17 07/26/17 06:40 06:40 06:40 WBC 14.1 H RBC 4.34 Hgb 14.7 Hct 43.9 MCV 101.2 MCH 33.9 MCHC 33.5 RDW 14.3 Plt Count 322 MPV 9.9 Gran % 74.1 H Lymph % (Auto) 18.3 L [place] % (Auto) 6.3 H Eos % (Auto) 1.0 L Baso % (Auto) 0.3 Gran # 10.48 H Lymph # (Auto) 2.6 [place] # (Auto) 0.9 H Eos # (Auto) 0.1 Baso # (Auto) 0.04 PT 11.5 INR 1.00 APTT 29.8 Sodium 138 Potassium 4.4 Chloride 88 L Carbon Dioxide 32 Anion Gap 23 H BUN 52 H Creatinine 13.6 H* Est GFR ( Amer) 5 Est GFR (Non-Af Amer) 4 Random Glucose 95 Calcium 8.7 Phosphorus 7.0 H Magnesium 2.0 Total Bilirubin 0.6 AST 34 ALT 24 Alkaline Phosphatase 68 Total Protein 9.2 H Albumin 4.7 Globulin 4.5 Albumin/Globulin Ratio 1.0 L Attending/Attestation - Attestation I have personally seen and examined this patient.: Yes I have fully participated in the care of the patient.: Yes I have reviewed all pertinent clinical information: Yes Notes (Text): This is an addendum to GI progress report dictated by Katarina Barkley APN.The patient was seen and examined earlier. Medical records, lab studies, imagings were reviewed. Last 24 hours events reviewed. Agreed with the above treatment plan as outlined in Katarina Barkley APN's notes with the addition of the following 07/27/17 06:30
--- NOTE | 2017-07-26 14:26 | CP.PCM.CON ---
History of Present Illness - History of Present Illness History of Present Illness: 41 year old male with PMH of left foot cellulitis and osteomyelitis with enterococcus, morbid obesity with a BMI 38.9 , end stage renal failure on hemodialysis with left arm fistula, diabetes mellitus, chronic obstructive lung disease, hypertension, history of Klebsiella bacteremia secondary to a dialysis catheter, S/P removal, coronary artery disease S/P cardiac catheterization came in to [facility] complaining of epigastric pain radiating to the right upper quadrant for the past 1-2 days. He admits to eating a lot of fatty foods over the weekend. The patient is worse after eating, associated with nausea, but no vomiting, no diarrhea. He also denies fever or chills, no headache or dizziness , no chest pain, no SOB, no cough or rhinorrhea, no dysuria. In the ED, he was noted to have leukocytosis as well. Infectious Diseases consult is requested to further evaluate and manage. Review of Systems - Review of Systems All systems: reviewed and no additional remarkable complaints except (as per HPI ) Past Patient History - Infectious Disease Hx of Infectious Diseases: None - Tetanus Immunizations Tetanus Immunization: Unknown - Past Social History Smoking Status: Never Smoked - CARDIAC Hx Cardiac Disorders: Yes Hx Angina: Yes Hx Congestive Heart Failure: Yes Hx Heart Attack: Yes Hx Hypertension: Yes Hx Internal Defibrillator: Yes Hx Peripheral Edema: Yes - PULMONARY Hx Respiratory Disorders: Yes (bronchiolitis as a child) Hx Bronchitis: Yes Hx Chronic Obstructive Pulmonary Disease (COPD): Yes Hx Respiratory Tract Infection: Yes Hx Sleep Apnea: Yes - NEUROLOGICAL Hx Neurological Disorder: Yes Hx Dizziness: Yes Hx Syncope: Yes - HEENT Hx HEENT Problems: Yes (tinnitis) Other/Comment: retinal detatchment 2008, laser sx both eyes - RENAL Hx Chronic Kidney Disease: Yes Hx Dialysis: Yes Date of Last Dialysis Treatment: 07/24/17 Hx Renal Failure: Yes - ENDOCRINE/METABOLIC Hx Endocrine Disorders: Yes Hx Diabetes Mellitus Type 2: Yes - HEMATOLOGICAL/ONCOLOGICAL Hx Blood Disorders: Yes Hx Anemia: Yes (blood transfusion x1) - INTEGUMENTARY Hx Dermatological Problems: Yes Other/Comment: ULCER TO TOE - MUSCULOSKELETAL/RHEUMATOLOGICAL Hx Musculoskeletal Disorders: Yes Hx Arthritis: Yes Hx Falls: No Hx Fractures: Yes Hx Herniated Disk: Yes Hx Osteomyelitis: Yes Other/Comment: left ankle torn achilles tendon - GASTROINTESTINAL Hx Gastrointestinal Disorders: Yes Hx Diverticulitis: Yes Hx Gall Bladder Disease: Yes Hx Gastroesophageal Reflux: Yes - GENITOURINARY/GYNECOLOGICAL Hx Genitourinary Disorders: No - PSYCHIATRIC Hx Emotional Abuse: No Hx Physical Abuse: No Hx Substance Use: No - SURGICAL HISTORY Hx Cardiac Catheterization: Yes Hx Coronary Stent: Yes (x4) - ANESTHESIA Hx Anesthesia Reactions: No Hx Malignant Hyperthermia: No Meds Allergies/Adverse Reactions: Allergies Allergy/AdvReac Type Severity Reaction Status Date / Time piperacillin sodium Allergy ITCHING Verified 07/25/17 15:32 [From Zosyn] tazobactam sodium Allergy ITCHING Verified 07/25/17 15:32 [From Zosyn] IV DYE AdvReac NAUSEA Uncoded 07/25/17 15:32 - Medications Medications: Current Medications Ciprofloxacin (Cipro 200mg/100ml D5w) 100 mls @ 67 mls/hr IVPB Q12H TINY PRN Reason: Protocol Stop: 07/26/17 11:30 Metronidazole (Flagyl) 250 mg in 50 mls @ 100 mls/hr IVPB Q8 TINY PRN Reason: Protocol Stop: 07/31/17 06:01 Ondansetron HCl (Zofran Inj) 4 mg IVP Q6H PRN PRN Reason: Nausea/Vomiting Pantoprazole Sodium (Protonix Inj) 40 mg IVP DAILY TINY Physical Exam - Constitutional Appears: Non-toxic - Head Exam Head Exam: NORMAL INSPECTION - ENT Exam ENT Exam: Mucous Membranes Moist - Neck Exam Neck exam: Negative for: Lymphadenopathy, Meningismus - Respiratory Exam Respiratory Exam: Decreased Breath Sounds - Cardiovascular Exam Cardiovascular Exam: +S1, +S2 - GI/Abdominal Exam GI & Abdominal Exam: Soft, Tenderness (mild, RUQ). absent: Distended, Firm, Guarding, Rebound, Rigid Results - Vital Signs Recent Vital Signs: Last Vital Signs Temp 98.2 F 07/26/17 06:00 Pulse 98 H 07/26/17 06:00 Resp 20 07/26/17 06:00 BP 166/101 H 07/26/17 06:00 Pulse Ox 99 07/26/17 06:00 - Labs Result Diagrams: 07/26/17 06:40 07/26/17 06:40 Labs: Laboratory Results - last 24 hr 07/26/1718 07/26/17 06:40 06:40 06:40 WBC 14.1 H RBC 4.34 Hgb 14.7 Hct 43.9 MCV 101.2 MCH 33.9 MCHC 33.5 RDW 14.3 Plt Count 322 MPV 9.9 Gran % 74.1 H Lymph % (Auto) 18.3 L Dolores % (Auto) 6.3 H Eos % (Auto) 1.0 L Baso % (Auto) 0.3 Gran # 10.48 H Lymph # (Auto) 2.6 Dolores # (Auto) 0.9 H Eos # (Auto) 0.1 Baso # (Auto) 0.04 PT 11.5 INR 1.00 APTT 29.8 Sodium 138 Potassium 4.4 Chloride 88 L Carbon Dioxide 32 Anion Gap 23 H BUN 52 H Creatinine 13.6 H* Est GFR ( Amer) 5 Est GFR (Non-Af Amer) 4 Random Glucose 95 Calcium 8.7 Phosphorus 7.0 H Magnesium 2.0 Total Bilirubin 0.6 AST 34 ALT 24 Alkaline Phosphatase 68 Total Protein 9.2 H Albumin 4.7 Globulin 4.5 Albumin/Globulin Ratio 1.0 L Assessment & Plan - Assessment and Plan (Free Text) Plan: Assessment systemic inflammatory response syndrome from pain due to due cholelithiasis R/O acute cholecystitis history of fungal infection of the scalp history of acute gastroenteritis history of right foot ulcer, infected with skin and skin structure infection, with probable osteomyelitis S/P 5th toe amputation and partial metatarsal amputation history of sepsis secondary to left foot skin and skin structure infection with abscess with Corynebacterium history of left foot cellulitis and osteomyelitis with enterococcus morbid obesity with a BMI 38.9 end stage renal failure on hemodialysis with left arm fistula diabetes mellitus chronic obstructive lung disease hypertension history of Klebsiella bacteremia secondary to a dialysis catheter S/P removal coronary artery disease S/P cardiac catheterization Plan started Meropenem pending blood cx; reviewed Ultrasound of the abdomen - follow up GI evaluation and recommendations will monitor clinically - discussed with Dr. White
--- NOTE | 2017-07-26 18:48 | PN ---
DATE: 07/26/2017 SUBJECTIVE: A 41-year-old male on dialysis with a chronic renal disease, history of gallstone. This morning, he is sitting in bed. He states that he is feeling better this morning. He is status post dialysis. OBJECTIVE: VITAL SIGNS: Show a temperature of 98.2, his pulse is 98, his blood pressure is 137/88. GENERAL: He is alert and oriented x3. LUNGS: Clear. HEART: S1 and S2 rhythm. ABDOMEN: Obese, soft. Positive bowel sounds. EXTREMITIES: No evidence of edema. LABORATORY DATA: Shows a WBC of 14.1, RBC 4.34, hemoglobin 14.7, hematocrit of 43.9, the platelet count is 322. Chemistries, pre-dialysis: Sodium is 138, potassium 4.4, chloride is 88. BUN is 52, the creatinine is 13.6. His phosphorus is 7, magnesium is 2. Currently, the patient is receiving meropenem IV. He is on Protonix IV. He has been placed on a liquid diet at this time. Consult has been requested with Nephrology, Infectious Disease, Surgery, and GI. We will continue current level of care. Follow up the patient's lab and closely monitor the patient. Cleopatra White MD
[2017-07-26] MEDS ORDERED: Alum-Mag Hydrox-Simethicone Susp (30 mL) PO ONE (21:11)
[2017-07-26] MEDS ORDERED: DiphenhydrAMINE 12.5 mg/5 ml LIQ UD (5 ml) PO PRN (21:13)
[2017-07-27] MEDS ORDERED: HYDROmorphone 0.5 mg/0.5 ml ISec IVP PRN (03:06)
--- NOTE | 2017-07-27 03:13 | HP ---
DATE OF EXAM: 07/25/2017 HISTORY OF PRESENT ILLNESS: A 41-year-old male presented to [facility] on 07/25/2017, being referred because of the history of 24 hours of nausea, vomiting. The patient states that he ate some food over the weekend, symptoms started on Monday, post dialysis and he was feeling ill on Monday when he eat the food. PAST MEDICAL HISTORY: Patient has a past medical history of chronic renal failure on dialysis, coronary artery disease with remote stenting, gallstones, gastroenteritis and diabetes mellitus. SOCIAL HISTORY: He is a nonsmoker, non drug user, social drinker. ALLERGY HISTORY: TO ZOSYN AND IV DYE CONTRAINDICATED.. HOME MEDICATIONS: Consist of Renagel 1600 mg three times a day, Zofran 4 mg every 8 hours p.r.n., Cozaar 50 mg daily, Plavix 75 mg daily and Coreg 12.5 mg b.i.d. and Ecotrin 81 mg daily. PHYSICAL EXAMINATION: GENERAL: He was sitting on the edge of the stretcher, vomiting blackish fluidy material and complaining of abdominal discomfort. VITAL SIGNS: He has a pulse of 98, temperature of 98.6, his blood pressure was 153/98, respiratory rate was 20, room saturation oxygen was reported 98%. NECK: Supple. LUNGS: Diminished breath sounds at the bases. HEART: S1 and S2 rhythm. ABDOMEN: Obese, soft, with positive bowel sounds. There was some mild epigastric tenderness. No rebound. EXTREMITIES: Show no evidence of edema. NEUROLOGIC: Alert and oriented x3. LABORATORY DATA: Showed WBC of 16.9, RBC of 4.49, hemoglobin 15.6, hematocrit 45.8, platelet count was 322. PT was 11.1 with an INR 0.97, PTT was 31.7. Chemistry showed a sodium of 142, potassium 5.1, chloride 84, CO2 was 38, BUN was 48, creatinine was 12.7. Random blood sugar was 130. LDH was 774. His total CK was 387, CK-MB was 4.7. Troponin was 0.03. BNP was 5420, lipase was 165 and his albumin is 5.2. DIAGNOSTIC DATA: Patient had a chest x-ray read by Radiology, which reported showing no active pulmonary disease. He has a pacemaker in place. CAT scan of the abdomen and pelvis reported as showing patchy nonspecific ground glass densities and atelectatic changes in the lungs, wall thickening of the distal esophagus with probable small hiatal hernia, several gallstones visualized, hypodense nodule in the right adrenal and thyromegaly, mildly enlarged bilateral external lymph nodes. PLAN: The patient will be admitted to the medical floor and initiated on antibiotics after duncan culture. GI, Renal and Infectious Disease consults will be requested and surgical consult will be requested as well. Replace the n.p.o. at this time with IV PPI. Renal consult. Cleopatra White MD
--- NOTE | 2017-07-27 05:35 | CON ---
DATE: 07/26/2017 REASON FOR CONSULTATION: End-stage renal disease, on hemodialysis. REFERRING PHYSICIAN: Dr. Cleopatra White. CHIEF COMPLAINT AND HISTORY OF PRESENT ILLNESS: This is a 41-year-old male who comes into the hospital with past medical history of end-stage renal disease on hemodialysis, hypertension, diabetes type 2. He has been having 2 days of epigastric pain, he had nausea and vomiting. The patient states the pain was more like burning, it would go to his back at times. He has been getting dialysis regularly. He denied any fevers or chills. No headaches. He does have a history of foot osteomyelitis. The patient was seen on dialysis. He says his belly is feeling better. ALLERGIES: TO PIPERACILLIN AND TAZOBACTAM. PAST MEDICAL HISTORY: 1. End-stage renal disease, on hemodialysis. 2. Coronary artery disease with stents. 3. Cardiomyopathy. 4. Defibrillator. 5. Dyslipidemia. 6. Hypertension. 7. Diabetes type 2. 8. CHF secondary to systolic dysfunction, stable. 9. Secondary hyperparathyroidism. 10. Chronic anemia secondary to CKD. PAST SURGICAL HISTORY: 1. Left AV fistula. 2. PermCath. 3. Defibrillator. FAMILY HISTORY: No history of kidney disease. SOCIAL HISTORY: No smoking or drinking. PHYSICAL EXAMINATION: VITAL SIGNS: The patient has a temperature of 97.5, pulse of 86, blood pressure 160/84, respirations 20. GENERAL: The patient lying in bed, uncomfortable, and in no acute distress. HEENT: Atraumatic and normocephalic. Anicteric sclerae. Moist mucosa. [place] conjunctivae. No oral lesions. NECK: No JVD, anterior and posterior adenopathy, thyromegaly, or bruits. CARDIOVASCULAR: S1 and S2 regular. No murmur, rubs, or gallop. LUNGS: Clear to auscultation bilaterally. No wheezes, rales, or rhonchi. ABDOMEN: Bowel sounds are positive. Soft, nontender and nondistended. No hepatosplenomegaly. No rebound and no guarding. EXTREMITIES: No cyanosis, clubbing, or edema. NEUROLOGIC: No facial asymmetry. Tongue is midline. No uvula deviation. Power is 5/5 upper extremity and lower extremity. Sensation intact in upper extremity and lower extremity. PSYCHIATRIC: He is awake, alert and oriented x3. No anxiety or depression. He has normal affect. GENITOURINARY: No CVA tenderness. VASCULAR: 2+ pulses in the carotid pulses and pedal pulses. SKIN: No erythema or nodules. SPINE: Shows normal curvature. There is a left AV fistula with a good brown bruit. LABORATORY DATA: Labs have been reviewed. His white count is 16.9, he had a creatinine of 12.7 with a potassium of 5.1. His EKG shows sinus rhythm at 98 with left atrial enlargement, QTc is 485. CT of the abdomen and pelvis done was reviewed, there was no gallstones that were visualized. Chest x-ray done shows no active disease. ASSESSMENT: 1. Endstage renal disease, on hemodialysis. 2. Cholelithiasis. 3. Coronary artery disease. 4. Dyslipidemia. 5. Hypertension. 6. Diabetes type 2. 7. Secondary hyperparathyroidism. PLAN: The patient is currently admitted to the hospital, he was seen at dialysis and had his dialysis treatment. The patient is getting antibiotics with meropenem, they reviewed the notes from ID. The patient is on Protonix IV. He is on Zofran, he is on a liquid diet. He has been seen by Surgery. He was given a fluid bolus yesterday. We will continue to follow. Thank you for allowing me to participate in the care of your patient. Maximilian Zheng MD
[2017-07-27 08:04] LABS: BASO # 0.05 K/mm3 (0.0-2.0); BASO % 0.4 % (0.0-3.0); EOS # 0.1 (0.0-0.7); EOS % 0.6 % (1.5-5.0); GRAN # 8.12 (1.4-6.5); GRAN % 70.1 % (50.0-68.0); HEMOGLOBIN 15.4 g/dL (14.0-18.0); LYMPH # 2.5 (1.2-3.4); LYMPH % 21.7 % (22.0-35.0); MEAN CELL VOLUME 102.4 fl (80.0-105.0); MEAN CORPUSCULAR HEMOGLOBIN 34.2 pg (25.0-35.0); MEAN CORPUSCULAR HGB CONC 33.4 g/dl (31.0-37.0); MEAN PLATELET VOLUME 9.9 fl (7.0-11.0); MONO # 0.8 (0.1-0.6); MONO % 7.2 % (1.0-6.0); RBC 4.5 10^6/uL (3.5-6.1); RED CELL DISTRIBUTION WIDTH 14.2 % (11.5-14.5); WHITE BLOOD COUNT 11.6 10^3/ul (4.5-11.0)
[2017-07-27 08:38] LABS: ALB/GLOB RATIO 1.1 (1.1-1.8); ALBUMIN 4.6 g/dL (3.0-4.8); CALCIUM 8.8 mg/dL (8.4-10.5)
--- NOTE | 2017-07-27 11:00 | PN ---
DATE: 07/27/2017 SUBJECTIVE: The patient has no complaints of any chest pain. No shortness of breath. No headaches. His abdominal and epigastric pain is better. PHYSICAL EXAMINATION: VITAL SIGNS: Temperature is 98.7, pulse of 97, blood pressure 134/88, respirations 20. GENERAL: The patient is lying in bed, flat, comfortable. HEENT: No oral lesion. Anicteric sclerae. Moist mucosa. NECK: No JVD, adenopathy, or thyromegaly. CARDIOVASCULAR: S1 and S2, regular. No murmurs, rubs, or gallops. LUNGS: Clear to auscultation bilaterally. No wheeze, rales, or rhonchi. ABDOMEN: Bowel sounds are positive, soft, nontender and nondistended. EXTREMITIES: No cyanosis, clubbing or edema. ASSESSMENT: 1. End-stage renal disease, on hemodialysis. 2. Cholelithiasis. 3. Coronary artery disease. 4. Dyslipidemia. 5. Hypertension. 6. Diabetes type 2. 7. Secondary hyperparathyroidism. PLAN: The patient was dialyzed yesterday. He did fairly well. He is going to have his next dialysis tomorrow. The patient is on Protonix. He is on Zofran. He is on a liquid diet. I did speak to Surgery regarding the case. Maximilian Zheng MD
--- NOTE | 2017-07-27 11:18 | CP.PCM.PN ---
Subjective - Date & Time of Evaluation Date of Evaluation: 07/27/17 Time of Evaluation: 08:00 - Subjective Subjective: GI Progress Note for Arminda Yanez PGY2 Patient seen and examined at bedside. Overnight patient was very nauseous and vomiting several times. He reports his nausea has slightly improved. He denies chest pain, shortness of breath, diarrhea, fever or chills. Patient described having a hiccough sensation which causes him to vomit. Objective - Vital Signs/Intake and Output Vital Signs (last 24 hours): Temp Pulse Resp BP Pulse Ox 98.7 F 97 H 20 134/88 98 07/27/17 06:00 07/27/17 06:00 07/27/17 06:00 07/27/17 06:00 07/27/17 06:00 Intake and Output: 07/27/17 07/27/17 06:59 18:59 Intake Total 240 Output Total 0 Balance 240 - Medications Medications: Current Medications Al Hydrox/Mg Hydrox/Simethicone 30 ml/Diphenhydramine HCl 75 mg/Lidocaine 30 ml 0 ml PO Q2H PRN PRN Reason: MOUTH/THROAT PAIN Last Admin: 07/26/17 21:47 Dose: 5 soln Hydromorphone HCl (Dilaudid) 0.25 mg IVP Q4H PRN PRN Reason: Pain, severe (8-10) Last Admin: 07/27/17 03:13 Dose: 0.25 mg Meropenem 250 mg/ Sodium (Chloride) 100 mls @ 100 mls/hr IVPB Q12H TINY PRN Reason: Protocol Stop: 08/02/17 11:31 Last Admin: 07/27/17 00:04 Dose: 100 mls/hr Ondansetron HCl (Zofran Inj) 4 mg IVP Q6H PRN PRN Reason: Nausea/Vomiting Last Admin: 07/26/17 21:18 Dose: 4 mg Pantoprazole Sodium (Protonix Inj) 40 mg IVP DAILY TINY Last Admin: 07/27/17 09:56 Dose: 40 mg Sucralfate (Carafate Oral Susp) 1 gm PO BID TINY - Labs Labs: 07/27/17 07:30 07/27/17 07:30 PT 11.5 SECONDS (9.4-12.5) 07/26/17 06:40 INR 1.00 (0.93-1.08) 07/26/17 06:40 APTT 29.8 Seconds (25.1-36.5) 07/26/17 06:40 - Constitutional Appears: No Acute Distress - Head Exam Head Exam: ATRAUMATIC, NORMAL INSPECTION, NORMOCEPHALIC - Eye Exam Eye Exam: Normal appearance Pupil Exam: NORMAL ACCOMODATION - ENT Exam ENT Exam: Mucous Membranes Moist - Respiratory Exam Respiratory Exam: Clear to Ausculation Bilateral, NORMAL BREATHING PATTERN. absent: Rales, Rhonchi, Wheezes - Cardiovascular Exam Cardiovascular Exam: REGULAR RHYTHM, +S1, +S2. absent: Gallop, Rubs, Murmur - GI/Abdominal Exam GI & Abdominal Exam: Soft, Tenderness (epigastric ), Normal Bowel Sounds - Extremities Exam Extremities Exam: Normal Inspection. absent: Calf Tenderness, Pedal Edema - Neurological Exam Neurological Exam: Alert, Awake, CN II-XII Intact, Normal Gait, Oriented x3 - Skin Skin Exam: Dry, Warm Assessment and Plan - Assessment and Plan (Free Text) Assessment: This is a 41yo male with a past medical history of ESRD on HD, HTN, DM, CAD who is admitted for 1. Abdominal pain with intractable nausea/vomiting 2. Cholelithiasis 3. ESRD on HD 4. CAD 5. DM 6. HTN Plan: Symptoms most likely secondary to esophagitis with possible diabetic gastroparesis. Continue clear liquid diet. Plan is for EGD tomorrow after dialysis. Patient will be NPO after breakfast. Continue PPI. Continue HD as scheduled. Will give patient 2 doses of carafate today. Case seen, discussed and reviewed with Dr. Segundo Herrera PGY2
[2017-07-27] MEDS: Sucralfate 1 gm/10 ml Oral Susp UD PO SCH ×2 (11:40→17:01)
--- NOTE | 2017-07-27 11:46 | CP.PCM.PN ---
Subjective - Date & Time of Evaluation Date of Evaluation: 07/27/17 Time of Evaluation: 07:40 - Subjective Subjective: Patient seen and examined at the bedside this AM. Patient had epigastric pain overnight associated with hiccups and one episode of clear emesis, no blood. Patient was given morphine without relief but pain resolved wiht dilaudid. Patient denies any symptoms today and is tolerating low fat renal diet this AM Objective - Vital Signs/Intake and Output Vital Signs (last 24 hours): Temp Pulse Resp BP Pulse Ox 98.7 F 97 H 20 134/88 98 07/27/17 06:00 07/27/17 06:00 07/27/17 06:00 07/27/17 06:00 07/27/17 06:00 Intake and Output: 07/27/17 07/27/17 06:59 18:59 Intake Total 240 Output Total 0 Balance 240 - Medications Medications: Current Medications Al Hydrox/Mg Hydrox/Simethicone 30 ml/Diphenhydramine HCl 75 mg/Lidocaine 30 ml 0 ml PO Q2H PRN PRN Reason: MOUTH/THROAT PAIN Last Admin: 07/26/17 21:47 Dose: 5 soln Hydromorphone HCl (Dilaudid) 0.25 mg IVP Q4H PRN PRN Reason: Pain, severe (8-10) Last Admin: 07/27/17 03:13 Dose: 0.25 mg Meropenem 250 mg/ Sodium (Chloride) 100 mls @ 100 mls/hr IVPB Q12H TINY PRN Reason: Protocol Stop: 08/02/17 11:31 Last Admin: 07/27/17 11:40 Dose: 100 mls/hr Ondansetron HCl (Zofran Inj) 4 mg IVP Q6H PRN PRN Reason: Nausea/Vomiting Last Admin: 07/26/17 21:18 Dose: 4 mg Pantoprazole Sodium (Protonix Inj) 40 mg IVP DAILY [facility] Last Admin: 07/27/17 09:56 Dose: 40 mg Sucralfate (Carafate Oral Susp) 1 gm PO BID [facility] Last Admin: 07/27/17 11:40 Dose: 1 gm - Labs Labs: 07/27/17 07:30 07/27/17 07:30 PT 11.5 SECONDS (9.4-12.5) 07/26/17 06:40 INR 1.00 (0.93-1.08) 07/26/17 06:40 APTT 29.8 Seconds (25.1-36.5) 07/26/17 06:40 - Constitutional Appears: Well, Non-toxic, No Acute Distress - Head Exam Head Exam: ATRAUMATIC, NORMOCEPHALIC - Eye Exam Eye Exam: Normal appearance. absent: Conjunctival injection, Scleral icterus - ENT Exam ENT Exam: Mucous Membranes Moist, Normal Oropharynx - Respiratory Exam Respiratory Exam: NORMAL BREATHING PATTERN. absent: Accessory Muscle Use, Respiratory Distress - Cardiovascular Exam Cardiovascular Exam: RRR - GI/Abdominal Exam GI & Abdominal Exam: Soft, Tenderness (epigastric tenderness). absent: Distended - Extremities Exam Extremities Exam: absent: Calf Tenderness, Pedal Edema, Tenderness - Neurological Exam Neurological Exam: Alert, Awake, Oriented x3 - Psychiatric Exam Psychiatric exam: Normal Affect, Normal Mood - Skin Skin Exam: Dry, Intact, Normal Color, Warm Assessment and Plan - Assessment and Plan (Free Text) Assessment: 41M with epigastric pain and cholelithiasis, small hiatal hernia, and possible esophagitis Plan: Continue on diet and monitor tolerance Follow up GI recs and possible EGD tomorrow Patient desires a cholecystectomy in the future which may be warranted. But no acute cholecystitis suspected at this time and patient has signs of esophagitis on CT. Patient management per Primary and GI at this time with plans for outpatient follow up of the cholelithiasis in Dr. Resendez's office 1-2 weeks after discharge. Patient should have a low fat diet as outpatient--explained to him at length Please reach out to the surgery team for any further questions ro concerns Discussed with Dr. Mal Melendez, [email or web address]
--- NOTE | 2017-07-27 15:03 | CP.PCM.PN ---
Subjective - Date & Time of Evaluation Date of Evaluation: 07/27/17 Time of Evaluation: 11:05 - Subjective Subjective: No fevers, abdominal is a little better but had hiccups and a little abdominal pain last night. Objective - Vital Signs/Intake and Output Vital Signs (last 24 hours): Temp Pulse Resp BP Pulse Ox 98.5 F 67 20 124/81 99 07/27/17 14:00 07/27/17 14:00 07/27/17 14:00 07/27/17 14:00 07/27/17 14:00 Intake and Output: 07/27/17 07/27/17 06:59 18:59 Intake Total 240 Output Total 0 Balance 240 - Medications Medications: Current Medications Al Hydrox/Mg Hydrox/Simethicone 30 ml/Diphenhydramine HCl 75 mg/Lidocaine 30 ml 0 ml PO Q2H PRN PRN Reason: MOUTH/THROAT PAIN Last Admin: 07/26/17 21:47 Dose: 5 soln Hydromorphone HCl (Dilaudid) 0.25 mg IVP Q4H PRN PRN Reason: Pain, severe (8-10) Last Admin: 07/27/17 03:13 Dose: 0.25 mg Ondansetron HCl (Zofran Inj) 4 mg IVP Q6H PRN PRN Reason: Nausea/Vomiting Last Admin: 07/26/17 21:18 Dose: 4 mg Pantoprazole Sodium (Protonix Inj) 40 mg IVP DAILY [facility] Last Admin: 07/27/17 09:56 Dose: 40 mg Sucralfate (Carafate Oral Susp) 1 gm PO BID [facility] Last Admin: 07/27/17 11:40 Dose: 1 gm - Labs Labs: 07/27/17 07:30 07/27/17 07:30 PT 11.5 SECONDS (9.4-12.5) 07/26/17 06:40 INR 1.00 (0.93-1.08) 07/26/17 06:40 APTT 29.8 Seconds (25.1-36.5) 07/26/17 06:40 - Constitutional Appears: Non-toxic, Chronically Ill - Head Exam Head Exam: NORMAL INSPECTION - ENT Exam ENT Exam: Mucous Membranes Moist - Neck Exam Neck Exam: absent: Meningismus - Respiratory Exam Respiratory Exam: Decreased Breath Sounds - Cardiovascular Exam Cardiovascular Exam: +S1, +S2 - GI/Abdominal Exam GI & Abdominal Exam: Soft. 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 toe amputation and partial metatarsal amputation history of sepsis secondary to left foot skin and skin structure infection with abscess with Corynebacterium history of left foot cellulitis and osteomyelitis with enterococcus morbid obesity with a BMI 38.9 end stage renal failure on hemodialysis with left arm fistula diabetes mellitus chronic obstructive lung disease hypertension history of Klebsiella bacteremia secondary to a dialysis catheter S/P removal coronary artery disease S/P cardiac catheterization Plan started Meropenem pending blood cx; reviewed Ultrasound of the abdomen - follow up GI evaluation and recommendations will monitor clinically - discussed with Dr. White Assessment systemic inflammatory response syndrome from pain due to due cholelithiasis R/O esophagitis - no evidence of acute cholecystitis history of fungal infection of the scalp history of acute gastroenteritis history of right foot ulcer, infected with skin and skin structure infection, with probable osteomyelitis S/P 5th toe amputation and partial metatarsal amputation history of sepsis secondary to left foot skin and skin structure infection with abscess with Corynebacterium history of left foot cellulitis and osteomyelitis with enterococcus morbid obesity with a BMI 38.9 end stage renal failure on hemodialysis with left arm fistula diabetes mellitus chronic obstructive lung disease hypertension history of Klebsiella bacteremia secondary to a dialysis catheter S/P removal coronary artery disease S/P cardiac catheterization Plan blood cultures are negative, reviewed Ultrasound of the abdomen - will d/c Meropenem and observe - follow up GI evaluation and recommendations will continue to monitor clinically
--- NOTE | 2017-07-27 16:51 | PN ---
DATE: 07/27/2017 SUBJECTIVE: This is a 41-year-old male on . The patient is feeling better this morning. Nursing staff relates that there are no particular problems. PHYSICAL EXAMINATION: VITAL SIGNS: His blood pressure is 134/88, his temperature is 98.7, his pulse is 97, respiratory rate is 20 and his oxygen saturation is 98% on room air. GENERAL: He is alert and oriented LUNGS: Clear with diminished breath sounds at the bases. HEART: Is in S1, S2 rhythm. He has a defibrillator in his chest. ABDOMEN: Obese. Soft. Positive bowel sounds. EXTREMITIES: Show no evidence of edema. He has a dialysis catheter in his left arm. LABORATORY DATA: His WBC is 11.6, his RBC is 4.5, hemoglobin 15.4, hematocrit 46.1 and platelets 291. Chemistry shows a sodium of 139, potassium 4.8 and chloride 90. The BUN is 30, the creatinine is 10.9. LFTs are normal. Total protein is 8.9. ASSESSMENT AND PLAN: The patient is currently receiving antibiotics, meropenem, for history of gallstones. He presented with history of abdominal pain, nausea and vomiting. He is currently being seen by Gastroenterology, was proposing an upper endoscopy to rule erosive gastritis. He is currently on pain medicine and intravenous Protonix. He has chronic renal disease, on dialysis 3 times a week. He has a remote history of coronary artery disease with stents, history of hyperparathyroidism, history of hypertension and history of diabetes mellitus. the current clinical status has been discussed with the patient. We will continue with current medical management, await endoscopy results and he will continue to be followed by the above mentioned consultants as in Infectious Disease, Renal and GI. Cleopatra White MD
[2017-07-28 06:40] LABS: BASO # 0.05 K/mm3 (0.0-2.0); BASO % 0.4 % (0.0-3.0); EOS # 0.2 (0.0-0.7); EOS % 1.9 % (1.5-5.0); GRAN # 7.5 (1.4-6.5); GRAN % 66.2 % (50.0-68.0); HEMOGLOBIN 13.7 g/dL (14.0-18.0); LYMPH # 2.6 (1.2-3.4); MEAN CORPUSCULAR HEMOGLOBIN 33.7 pg (25.0-35.0); MEAN CORPUSCULAR HGB CONC 33.4 g/dl (31.0-37.0); MONO % 8.5 % (1.0-6.0); RBC 4.06 10^6/uL (3.5-6.1); RED CELL DISTRIBUTION WIDTH 14.2 % (11.5-14.5); WHITE BLOOD COUNT 11.3 10^3/ul (4.5-11.0)
[2017-07-28 07:08] LABS: ALB/GLOB RATIO 1.2 (1.1-1.8); ALBUMIN 4.4 g/dL (3.0-4.8); CALCIUM 8.2 mg/dL (8.4-10.5)
[2017-07-28 08:18] VITALS: TEMP 98.2
--- NOTE | 2017-07-28 09:23 | PN ---
DATE: 07/28/2017 SUBJECTIVE: The patient has no complaints of any chest pain. No shortness of breath. PHYSICAL EXAMINATION: VITAL SIGNS: Temperature is 98.7, pulse of 100, blood pressure is 147/86, respirations 20. GENERAL: The patient is lying in bed, flat, comfortable. HEENT: No oral lesion. Anicteric sclerae. Moist mucosa. NECK: No JVD, adenopathy, or thyromegaly. CARDIOVASCULAR: S1 and S2, regular. No murmurs, rubs, or gallops. LUNGS: Clear to auscultation bilaterally. No wheeze, rales, or rhonchi. ABDOMEN: Bowel sounds are positive, soft, nontender and nondistended. EXTREMITIES: No cyanosis, clubbing or edema. ASSESSMENT: 1. End-stage renal disease, on hemodialysis. 2. Secondary hyperparathyroidism. 3. Arteriovenous fistula. 4. Dyslipidemia. 5. Coronary artery disease. 6. Cholelithiasis. 7. Hypertension. 8. Diabetes type 2. PLAN: The patient is going for endoscopy today. He is being dialyzed. He is on dialysis today. He is on Protonix. He is on Zofran. He is on a renal diet, but has been placed on n.p.o. status because of endoscopy to be done today. The patient had blood cultures that were negative. Next dialysis will be on Monday. Maximilian Zheng MD
[2017-07-28] MEDS ORDERED: Propofol 10 mg/ml Inj (20 ML) ONE (14:16)
--- NOTE | 2017-07-28 14:31 | CP.PCM.PN ---
Subjective - Date & Time of Evaluation Date of Evaluation: 07/28/17 Time of Evaluation: 12:25 - Subjective Subjective: No fevers, abdominal pain is better, no diarrhea, no nausea. Objective - Vital Signs/Intake and Output Vital Signs (last 24 hours): Temp Pulse Resp BP Pulse Ox 98.2 F 96 H 20 132/66 98 07/28/17 06:00 07/28/17 06:00 07/28/17 06:00 07/28/17 06:00 07/28/17 06:00 Intake and Output: 07/28/17 07/28/17 06:59 18:59 Intake Total 1260 Balance 1260 - Medications Medications: Current Medications Al Hydrox/Mg Hydrox/Simethicone 30 ml/Diphenhydramine HCl 75 mg/Lidocaine 30 ml 0 ml PO Q2H PRN PRN Reason: MOUTH/THROAT PAIN Last Admin: 07/26/17 21:47 Dose: 5 soln Hydromorphone HCl (Dilaudid) 0.25 mg IVP Q4H PRN PRN Reason: Pain, severe (8-10) Last Admin: 07/27/17 03:13 Dose: 0.25 mg Ondansetron HCl (Zofran Inj) 4 mg IVP Q6H PRN PRN Reason: Nausea/Vomiting Last Admin: 07/26/17 21:18 Dose: 4 mg Pantoprazole Sodium (Protonix Inj) 40 mg IVP DAILY [facility] Last Admin: 07/28/17 09:56 Dose: 40 mg - Labs Labs: 07/28/17 06:35 07/28/17 06:35 PT 11.5 SECONDS (9.4-12.5) 07/26/17 06:40 INR 1.00 (0.93-1.08) 07/26/17 06:40 APTT 29.8 Seconds (25.1-36.5) 07/26/17 06:40 - Constitutional Appears: Chronically Ill - ENT Exam ENT Exam: Mucous Membranes Moist - Neck Exam Neck Exam: absent: Meningismus - Respiratory Exam Respiratory Exam: Decreased Breath Sounds - Cardiovascular Exam Cardiovascular Exam: +S1, +S2 - GI/Abdominal Exam GI & Abdominal Exam: Soft. absent: Tenderness Assessment and Plan - Assessment and Plan (Free Text) Plan: Assessment systemic inflammatory response syndrome from pain due to due cholelithiasis R/O esophagitis - no evidence of acute cholecystitis history of fungal infection of the scalp history of acute gastroenteritis history of right foot ulcer, infected with skin and skin structure infection, with probable osteomyelitis S/P 5th toe amputation and partial metatarsal amputation history of sepsis secondary to left foot skin and skin structure infection with abscess with Corynebacterium history of left foot cellulitis and osteomyelitis with enterococcus morbid obesity with a BMI 38.9 end stage renal failure on hemodialysis with left arm fistula diabetes mellitus chronic obstructive lung disease hypertension history of Klebsiella bacteremia secondary to a dialysis catheter S/P removal coronary artery disease S/P cardiac catheterization Plan blood cultures are negative, reviewed Ultrasound of the abdomen - continue to observe off antibiotics - for EGD today discussed with Dr. White
[2017-07-28] MEDS ORDERED: Sodium Chloride 0.9% 1,000 ML IV SCH (15:00)
[2017-07-28 15:03] VITALS: BP 118/69; PULSE 95; RESP 23; O2SAT 97
== END 2017-07-28 21:48 | disposition home or self-care (01) | DRG 391 ==
LOC: ED 15:19 → ERH 21:55 → 5RSO 07-26 02:15
PROVIDERS: ADMIT Internal Medicine; ATTEND Internal Medicine
PROC: 5A1D70Z Performance of Urinary Filtration, Intermittent, Less than 6 Hours Per Day (ICD-10-PCS; 2017-07-26)
PROC: 5A1D70Z Performance of Urinary Filtration, Intermittent, Less than 6 Hours Per Day (ICD-10-PCS; 2017-07-28)
PROC: 0DJ08ZZ Inspection of Upper Intestinal Tract, Via Natural or Artificial Opening Endoscopic (ICD-10-PCS; principal; 2017-07-28 13:45)
DX: K21.0 Gastro-esophageal reflux disease with esophagitis (principal); N18.6 End stage renal disease; R65.10 Systemic inflammatory response syndrome (SIRS) of non-infectious origin without acute organ dysfunction; I50.22 Chronic systolic (congestive) heart failure; I13.2 Hypertensive heart and chronic kidney disease with heart failure and with stage 5 chronic kidney disease, or end stage renal disease; I42.9 Cardiomyopathy, unspecified; N25.81 Secondary hyperparathyroidism of renal origin; K52.9 Noninfective gastroenteritis and colitis, unspecified; E11.22 Type 2 diabetes mellitus with diabetic chronic kidney disease; I25.10 Atherosclerotic heart disease of native coronary artery without angina pectoris; E78.5 Hyperlipidemia, unspecified; E66.01 Morbid (severe) obesity due to excess calories; J44.9 Chronic obstructive pulmonary disease, unspecified; D63.1 Anemia in chronic kidney disease; K44.9 Diaphragmatic hernia without obstruction or gangrene; K80.20 Calculus of gallbladder without cholecystitis without obstruction; K29.80 Duodenitis without bleeding; Z68.38 Body mass index [BMI] 38.0-38.9, adult; Z99.2 Dependence on renal dialysis; Z79.02 Long term (current) use of antithrombotics/antiplatelets; Z95.810 Presence of automatic (implantable) cardiac defibrillator; Z95.5 Presence of coronary angioplasty implant and graft

== ENCOUNTER 2017-10-09 18:09 | Emergency (ER) | payer MEDICARE, BC ==
[2017-10-09 18:09] VITALS: BMI 36.1
--- NOTE | 2017-10-09 18:47 | ED PDOC ---
Arrival/HPI - General Chief Complaint: GI Problem Time Seen by Provider: 10/09/17 18:23 Historian: Patient - History of Present Illness Narrative History of Present Illness (Text): 10/09/17 18:47 A 41 year old female, whose past medical history includes end stage renal disease on dialysis, presents to the emergency department complaining of vomiting since yesterday. Patient reports he believes his meal last night of buttered lobster and salad was the cause of vomiting. Patient notes he vomited around 6-7 times yesterday and 3 times today, Patient also reports he came to the emergency department today right after his dialysis treatment. Patient also reports he presented to the emergency department 2 months with similar symptoms , was diagnosed with gallstones and treated with IV fluids and Zofran which alleviated his symptoms. Patient denies any fever, chills, chest pain, shortness of breath, nausea, diarrhea, urinary symptoms, back pain, neck pain, headache, dizziness, or any other complaints. PMD: Dr. White Time/Duration: 24 hours (yesterday) Symptom Onset: Gradual Activities at Onset: Light Context: Home Past Medical History - Provider Review Nursing Documentation Reviewed: Yes - Infectious Disease Hx of Infectious Diseases: None - Tetanus Immunization Tetanus Immunization: Unknown - Cardiac Hx Cardiac Disorders: Yes Hx Angina: Yes Hx Congestive Heart Failure: Yes Hx NV: Yes Hx Hypertension: Yes Hx Internal Defibrillator: Yes Hx Peripheral Edema: Yes - Pulmonary Hx Respiratory Disorders: Yes Hx Bronchitis: Yes Hx Chronic Obstructive Pulmonary Disease (COPD): Yes Hx Respiratory Tract Infection: Yes Hx Sleep Apnea: Yes - Neurological Hx Neurological Disorder: Yes Hx Dizziness: Yes Hx Syncope: Yes - HEENT Hx HEENT Disorder: Yes (tinnitis) Other/Comment: retinal detatchment 2008, laser sx both eyes - Renal Hx Renal Disorder: Yes Hx Dialysis: Yes Date of Last Dialysis Treatment: 10/09/17 Hx Renal Failure: Yes - Endocrine/Metabolic Hx Endocrine Disorders: Yes Hx Diabetes Mellitus Type 2: Yes - Hematological/Oncological Hx Blood Disorders: No Hx Blood Transfusions: No Hx Blood Transfusion Reaction: No - Integumentary Hx Dermatological Disorder: Yes Other/Comment: ULCER TO TOE - Musculoskeletal/Rheumatological Hx Musculoskeletal Disorders: Yes Hx Arthritis: Yes Hx Falls: No Hx Fractures: Yes Hx Herniated Disk: Yes Hx Osteomyelitis: Yes Other/Comment: left ankle torn achilles tendon - Gastrointestinal Hx Gastrointestinal Disorders: Yes Hx Diverticulitis: Yes Hx Gall Bladder Disease: Yes Hx Gastroesophageal Reflux: Yes - Genitourinary/Gynecological Hx Genitourinary Disorders: No - Psychiatric Hx Psychophysiologic Disorder: No Hx Substance Use: No - Past Surgical History Past Surgical History: Non-Contributing - Surgical History Hx Vascular Access Device: Yes - Anesthesia Hx Anesthesia Reactions: No Hx Malignant Hyperthermia: No - Suicidal Assessment Feels Threatened In Home Enviroment: No Family/Social History - Physician Review Nursing Documentation Reviewed: Yes Family/Social History: Unknown Family HX Smoking Status: Never Smoked Hx Alcohol Use: No Hx Substance Use: No Hx Substance Use Treatment: No Allergies/Home Meds Allergies/Adverse Reactions: Allergies piperacillin sodium [From Zosyn] Allergy (Verified 10/09/17 18:17) ITCHING tazobactam sodium [From Zosyn] Allergy (Verified 10/09/17 18:17) ITCHING IV DYE Adverse Reaction (Uncoded 10/09/17 18:17) NAUSEA Home Medications: Home Meds Medication Instructions Recorded Confirmed Clopidogrel [Plavix] 75 mg PO DAILY 10/06/15 10/09/17 Carvedilol [Coreg] 12.5 mg PO BID 12/12/16 10/09/17 Review of Systems - Physician Review All systems were reviewed & negative as marked: Yes - Review of Systems Constitutional: absent: Fevers, Night Sweats Respiratory: absent: SOB Cardiovascular: absent: Chest Pain Gastrointestinal: Vomiting. absent: Diarrhea, Nausea Genitourinary Male: absent: Urinary Output Changes Musculoskeletal: absent: Back Pain, Neck Pain Neurological: absent: Headache, Dizziness Physical Exam Vital Signs Pulse Resp BP Pulse Ox 10/09/17 20:30 92 H 18 153/98 H 99 - Systems Exam Head: Present: Atraumatic, Normocephalic Pupils: Present: PERRL Extroacular Muscles: Present: EOMI Conjunctiva: Present: Normal Mouth: Present: Moist Mucous Membranes Neck: Present: Normal Range of Motion Respiratory/Chest: Present: Clear to Auscultation, Good Air Exchange. No: Respiratory Distress, Accessory Muscle Use Cardiovascular: Present: Regular Rate and Rhythm, Normal S1, S2. No: Murmurs Abdomen: No: Tenderness, Distention, Peritoneal Signs Back: Present: Normal Inspection Upper Extremity: Present: Normal Inspection. No: Cyanosis, Edema Lower Extremity: Present: Normal Inspection. No: Edema Neurological: Present: GCS=15, CN II-XII Intact, Speech Normal Skin: Present: Warm, Dry, Normal Color. No: Rashes Psychiatric: Present: Alert, Oriented x 3, Normal Insight, Normal Concentration Medical Decision Making ED Course and Treatment: 10/09/17 18:49 Impression: 41 year old female presenting to the Emergency Department complaining of vomiting. Plan: -- Comp metabolic Panel -- Lipase -- CBC -- Pepcid -- Zofran -- Reassess and disposition Prior Visits: Notes and results from previous visits were reviewed. Progress Notes: - Lab Interpretations Lab Results: 10/09/17 19:12 10/09/17 19:12 Lab Results 10/09/17 19:12: Sodium 143, Potassium 4.9, Chloride 92 L, Carbon Dioxide 39 H, Anion Gap 17, BUN 29 H, Creatinine 8.5 H* D, Est GFR ( Amer) 9, Est GFR ( Non-Af Amer) 7, Random Glucose 91, Calcium 9.4, Total Bilirubin 0.8, AST 25, ALT 18, Alkaline Phosphatase 76, Total Protein 9.3 H, Albumin 4.7, Globulin 4.6 , Albumin/Globulin Ratio 1.0 L, Lipase 111 10/09/17 19:12: WBC 14.5 H D, RBC 4.16, Hgb 14.4, Hct 42.3, MCV 101.7, MCH 34.6 , MCHC 34.0, RDW 15.1 H, Plt Count 304, MPV 9.5, Gran % 78.9 H, Lymph % (Auto) 13.7 L, Twiggs % (Auto) 6.9 H, Eos % (Auto) 0.4 L, Baso % (Auto) 0.1, Gran # 11.40 H, Lymph # (Auto) 2.0, Twiggs # (Auto) 1.0 H, Eos # (Auto) 0.1, Baso # (Auto ) 0.02 - RAD Interpretation Radiology Orders: 10/09/17 19:51 ABD & PELVIS W/O PO OR IV CONT [CT] Stat - Medication Orders Current Medication Orders: Discontinued Medications Famotidine (Pepcid) 20 mg IVP STAT STA Stop: 10/09/17 18:43 Last Admin: 10/09/17 19:14 Dose: 20 mg IVP Administration Document 10/09/17 19:14 [place] (Rec[facility]09[facility]17 [email or web address] Charges for Administration # of IVP Administrations 1 Ketorolac Tromethamine (Toradol) 30 mg IVP STAT STA Stop: 10/09/17 20:08 Last Admin: 10/09/17 20:09 Dose: 30 mg MAR Pain Assessment Document 10/09/17 20:09 LA (Rec: 10/09/17 20:11 LA [id number]) Pain Reassessment Is this a pain reassessment? No Sleep Is patient sleeping during reassessment? No Presence of Pain Presence of Pain Yes Pain Scale Used Pain Scale Used Numeric Location Pain Location Body Site Abdomen Description Description Intermittent Intensity of Pain at present 5 Pain Behavior Guarding IVP Administration Document 10/09/17 20:09 LA (Rec: 10/09/17 20:11 LA [id number]) Charges for Administration # of IVP Administrations 1 Metoclopramide HCl (Reglan) 10 mg IVP STAT STA Stop: 10/09/17 20:53 Last Admin: 10/09/17 20:57 Dose: 10 mg IVP Administration Document 10/09/17 20:57 LA (Rec: 10/09/17 20:57 LA [id number]) Charges for Administration # of IVP Administrations 1 Metoclopramide HCl (Reglan) 10 mg IVP STAT STA Stop: 10/09/17 21:09 Last Admin: 10/09/17 21:21 Dose: 10 mg IVP Administration Document 10/09/17 21:21 LA (Rec: 10/09/17 21:21 LA [id number]) Charges for Administration # of IVP Administrations 1 Ondansetron HCl (Zofran Inj) 8 mg IVP STAT STA Stop: 10/09/17 18:43 Last Admin: 10/09/17 19:15 Dose: 8 mg IVP Administration Document 10/09/17 19:15 [place] (Rec: 10/09/17 19:15 [email or web address] Charges for Administration # of IVP Administrations 1 - Scribe Statement The provider has reviewed the documentation as recorded by the Scribchidi Love All medical record entries made by the Scribe were at my direction and personally dictated by me. I have reviewed the chart and agree that the record accurately reflects my personal performance of the history, physical exam, medical decision making, and the department course for this patient. I have also personally directed, reviewed, and agree with the discharge instructions and disposition. Disposition/Present on Arrival - Present on Arrival Any Indicators Present on Arrival: No History of DVT/PE: No History of Uncontrolled Diabetes: Yes Urinary Catheter: No History of Decub. Ulcer: No History Surgical Site Infection Following: None - Disposition Have Diagnosis and Disposition been Completed?: Yes Diagnosis: Vomiting Disposition: HOME/ ROUTINE Disposition Time: 21:00 Patient Problems: Current Active Problems Problem Status Onset Vomiting Acute Condition: IMPROVED Discharge Instructions (ExitCare): Nausea and Vomiting, Adult (DC) Additional Instructions: DIONE THACKER, thank you for letting us take care of you today. The emergency medical care you received today was directed at your acute symptoms. If you were prescribed any medication, please fill it and take as directed. It may take several days for your symptoms to resolve. Return to the Emergency Department if your symptoms worsen, do not improve, or if you have any other problems. Please contact your doctor or call one of the physicians/clinics you have been referred to that are listed on the Patient Visit Information form that is included in your discharge packet. Bring any paperwork you were given at discharge with you along with any medications you are taking to your follow up visit. Our treatment cannot replace ongoing medical care by a primary care provider outside of the emergency department. Thank you for allowing the [facility] team to be part of your care today. Follow up with Dr. White in 1-2 days for re-evaluation and further management. Prescriptions: Ondansetron ODT [Zofran ODT] 8 mg PO Q8 PRN #20 odt PRN Reason: Nausea/Vomiting Referrals: Cleopatra White MD [Primary Care Provider] - Follow up with primary Forms: [employer] (Bengali)
[2017-10-09 19:27] LABS: BASO # 0.02 K/mm3 (0.0-2.0); BASO % 0.1 % (0.0-3.0); EOS # 0.1 (0.0-0.7); EOS % 0.4 % (1.5-5.0); GRAN # 11.4 (1.4-6.5); GRAN % 78.9 % (50.0-68.0); HEMOGLOBIN 14.4 g/dL (14.0-18.0); LYMPH % 13.7 % (22.0-35.0); MEAN CELL VOLUME 101.7 fl (80.0-105.0); MEAN CORPUSCULAR HEMOGLOBIN 34.6 pg (25.0-35.0); MEAN PLATELET VOLUME 9.5 fl (7.0-11.0); MONO % 6.9 % (1.0-6.0); RBC 4.16 10^6/uL (3.5-6.1); RED CELL DISTRIBUTION WIDTH 15.1 % (11.5-14.5); WHITE BLOOD COUNT 14.5 10^3/ul (4.5-11.0)
[2017-10-09 19:43] LABS: ALBUMIN 4.7 g/dL (3.0-4.8); CALCIUM 9.4 mg/dL (8.4-10.5)
[2017-10-09 20:50] VITALS: O2SAT 99
[2017-10-09 22:53] VITALS: BP 145/90; PULSE 84; RESP 20
[2017-10-09 23:12] VITALS: TEMP 97.8
--- NOTE | 2017-10-10 09:13 | CT ---
Date of service: 10/09/2017 PROCEDURE: CT Abdomen and Pelvis without intravenous contrast HISTORY: Diffuse abdominal pain COMPARISON: 07/25/2017. TECHNIQUE: CT scan of the abdomen and pelvis was performed without administration of intravenous contrast. Oral contrast was not administered. Coronal and sagittal reformatted images were obtained. . Radiation dose: Total exam DLP = 1317.72 mGy-cm. This CT exam was performed using one or more of the following dose reduction techniques: Automated exposure control, adjustment of the mA and/or kV according to patient size, and/or use of iterative reconstruction technique. FINDINGS: LOWER THORAX: The visualized lungs are clear. LIVER: Mild hepatomegaly. No intrahepatic ductal dilatation. GALLBLADDER AND BILE DUCTS: Small calcified gallstones. No biliary dilatation PANCREAS: Normal in size. No ductal dilatation. SPLEEN: Normal in size. ADRENALS: Normal in size. No discrete nodule. KIDNEYS AND URETERS: Mild cortical atrophy. No hydronephrosis or nephrolithiasis. VASCULATURE: No aortic aneurysm. Premature atherosclerotic vascular calcifications with BOWEL: The small bowel loops are normal in caliber. The colon is normal in size. No bowel dilatation or wall thickening. No bowel obstruction. APPENDIX: Normal appendix. PERITONEUM: No free fluid. No free air. LYMPH NODES: No enlarged lymph nodes. BLADDER: Decompressed. REPRODUCTIVE: The prostate gland is normal in size BONES: No acute fracture. Large Schmorl's nodes at the superior endplate of L3 and L4 vertebral bodies. OTHER FINDINGS: Small fat containing umbilical hernia. IMPRESSION: No acute abdominal or pelvic abnormality. Cholelithiasis. A preliminary report was provided by [employer] services.
== END 2017-10-09 23:15 | disposition home or self-care (01) ==
LOC: ED 18:09
DX: R11.10 Vomiting, unspecified (principal); E11.9 Type 2 diabetes mellitus without complications; I12.0 Hypertensive chronic kidney disease with stage 5 chronic kidney disease or end stage renal disease; N18.6 End stage renal disease; Z99.2 Dependence on renal dialysis; I50.9 Heart failure, unspecified
CPT/HCPCS: 74176; 80053; 83690; 85025; 96374; 96375; 99284; J1885; J2405; J2765

== ENCOUNTER 2017-11-02 06:55 | Inpatient (IN) | payer MEDICARE, BC ==
[2017-11-02 06:57] VITALS: BMI 35.9
[2017-11-02] MEDS ORDERED: Morphine 4 mg/ml ISec IVP STA (07:30)
[2017-11-02] MEDS ORDERED: Pantoprazole 40 MG in Sodium Chloride 0.9% 100 ML IV STA (07:30)
--- NOTE | 2017-11-02 07:36 | ED PDOC ---
Arrival/HPI - General Chief Complaint: Abdominal Pain Time Seen by Provider: 11/02/17 07:19 Historian: Patient - History of Present Illness Narrative History of Present Illness (Text): 11/02/17 07:31 41 year old male, whose past medical history includes pacemaker, hypertension, diabetes, and end-stage renal disease on dialysis (Mon,Wed,Fri), presents to the emergency department complaining of epigastric abdominal pain for the past 2 days associated with severe nausea and multiple episodes of diarrhea. Patient denies any radiation of pain. He is a dialysis patient and states he missed his dialysis yesterday because he was too sick to go. Patient has known Cholelithiases. Patient is not a smoker or drinker. Patient denies any fever, chills, diarrhea, urinary symptoms, back pain, neck pain, or any other complaints. PMD: Dr. White Time/Duration: Other (2 days) Symptom Onset: Gradual Symptom Course: Unchanged Activities at Onset: Light Context: Home Associated Symptoms (Text): 11/02/17 07:56 Upper abdominal pain along with nausea and vomiting for 2 days. Missed dialysis yesterday. Known cholelithiasis. No diarrhea. Past Medical History - Provider Review Nursing Documentation Reviewed: Yes - Infectious Disease Hx of Infectious Diseases: None - Tetanus Immunization Tetanus Immunization: Unknown - Cardiac Hx Cardiac Disorders: Yes Hx Angina: Yes Hx Congestive Heart Failure: Yes Hx ID: Yes Hx Hypertension: Yes Hx Internal Defibrillator: Yes Hx Peripheral Edema: Yes - Pulmonary Hx Respiratory Disorders: Yes Hx Bronchitis: Yes Hx Chronic Obstructive Pulmonary Disease (COPD): Yes Hx Respiratory Tract Infection: Yes Hx Sleep Apnea: Yes - Neurological Hx Neurological Disorder: Yes Hx Dizziness: Yes Hx Syncope: Yes - HEENT Hx HEENT Disorder: Yes (tinnitis) Other/Comment: retinal detatchment 2008, laser sx both eyes - Renal Hx Renal Disorder: Yes Hx Dialysis: Yes Date of Last Dialysis Treatment: 10/09/17 Hx Renal Failure: Yes - Endocrine/Metabolic Hx Endocrine Disorders: Yes Hx Diabetes Mellitus Type 2: Yes - Hematological/Oncological Hx Blood Disorders: No Hx Blood Transfusions: No Hx Blood Transfusion Reaction: No - Integumentary Hx Dermatological Disorder: Yes Other/Comment: ULCER TO TOE - Musculoskeletal/Rheumatological Hx Musculoskeletal Disorders: Yes Hx Arthritis: Yes Hx Falls: No Hx Fractures: Yes Hx Herniated Disk: Yes Hx Osteomyelitis: Yes Other/Comment: left ankle torn achilles tendon - Gastrointestinal Hx Gastrointestinal Disorders: Yes Hx Diverticulitis: Yes Hx Gall Bladder Disease: Yes Hx Gastroesophageal Reflux: Yes - Genitourinary/Gynecological Hx Genitourinary Disorders: No - Psychiatric Hx Psychophysiologic Disorder: No Hx Substance Use: No - Past Surgical History Past Surgical History: Non-Contributing - Surgical History Hx Vascular Access Device: Yes - Anesthesia Hx Anesthesia Reactions: No Hx Malignant Hyperthermia: No - Suicidal Assessment Feels Threatened In Home Enviroment: No Family/Social History - Physician Review Nursing Documentation Reviewed: Yes Family/Social History: No Known Family HX Smoking Status: Never Smoked Hx Alcohol Use: No Hx Substance Use: No Hx Substance Use Treatment: No Allergies/Home Meds Allergies/Adverse Reactions: Allergies piperacillin sodium [From Zosyn] Allergy (Verified 10/09/17 18:17) ITCHING tazobactam sodium [From Zosyn] Allergy (Verified 10/09/17 18:17) ITCHING IV DYE Adverse Reaction (Uncoded 10/09/17 18:17) NAUSEA Home Medications: Home Meds Medication Instructions Recorded Confirmed Clopidogrel [Plavix] 75 mg PO DAILY 10/06/15 11/02/17 Carvedilol [Coreg] 12.5 mg PO BID 12/12/16 11/02/17 Review of Systems - Physician Review All systems were reviewed & negative as marked: Yes - Review of Systems Constitutional: absent: Fevers, Other (Chills) Gastrointestinal: Abdominal Pain, Nausea, Vomiting. absent: Diarrhea Musculoskeletal: absent: Back Pain, Neck Pain Physical Exam Vital Signs Reviewed: Yes Vital Signs Temp Pulse Resp BP Pulse Ox 11/02/17 11:00 99 H 18 148/78 99 11/02/17 10:27 98 F 85 19 121/53 L 98 11/02/17 09:13 79 18 155/86 H 98 11/02/17 07:47 86 18 158/98 H 98 11/02/17 07:30 98 F 75 19 119/53 L 97 11/02/17 06:58 98.5 F 97 H 17 164/111 H 99 Temperature: Afebrile Blood Pressure: Hypertensive Pulse: Regular Respiratory Rate: Normal Appearance: Positive for: Well-Appearing, Non-Toxic, Uncomfortable, Other (Obese ) Pain Distress: Moderate Mental Status: Positive for: Alert and Oriented X 3 - Systems Exam Head: Present: Atraumatic, Normocephalic Pupils: Present: PERRL Extroacular Muscles: Present: EOMI Conjunctiva: Present: Normal Mouth: Present: Moist Mucous Membranes Pharnyx: No: ERYTHEMA, EXUDATE, TONSILS ENLARGED Neck: Present: Normal Range of Motion Respiratory/Chest: Present: Clear to Auscultation, Good Air Exchange. No: Respiratory Distress, Accessory Muscle Use Cardiovascular: Present: Regular Rate and Rhythm, Normal S1, S2. No: Murmurs Abdomen: Present: Tenderness (Moderate epigastric tenderness). No: Distention, Peritoneal Signs, Rebound, Guarding Back: Present: Normal Inspection. No: CVA Tenderness Upper Extremity: Present: Normal Inspection. No: Cyanosis, Edema Lower Extremity: Present: Normal Inspection. No: Edema Neurological: Present: GCS=15, CN II-XII Intact, Speech Normal, Motor Func Grossly Intact Skin: Present: Warm, Dry, Normal Color. No: Rashes Psychiatric: Present: Alert, Oriented x 3, Normal Insight, Normal Concentration Medical Decision Making ED Course and Treatment: 11/02/17 07:31 Impression: 41 year old male presents complaining of epigastric abdominal pain associated with severe nausea and multiple episodes of vomiting that began 2 days ago. Plan: -- CT Abd & Pelvis w/o PO or IV Contrast -- EKG -- Labs -- Chest X-ray -- Morphine, Protonix Inj, Zofran Inj -- Reassess and disposition Prior Visits: Notes and results from previous visits were reviewed. Progress Notes: 11/02/17 07:59 EKG shows normal sinus rhythm rate approximately 100 with Q waves inferiorly and a nonspecific intraventricular conduction delay and no acute ST or T-wave changes PROCEDURE: CT Abdomen and Pelvis without intravenous contrast Dictator : Mac Sams MD Report Date : 11/02/2017 09:03:47 FINDINGS: GALLBLADDER AND BILE DUCTS: Gallstone IMPRESSION: No acute intra-abdominal finding PROCEDURE: Chest X-ray Dictator : Fredis Rao MD Report Date : 11/02/2017 09:12:54 IMPRESSION: No interval acute cardiopulmonary disease appreciated. 11/02/17 09:[address] White who is aware and agrees with the plan. Accepts patient into his service. 11/02/17 09:30 Patient's symptoms have improved. Dr. White will be here. 11/02/17 11:33 Dr. White requested that the patient be admitted to ICU in order for the patient to get dialysis today. - Lab Interpretations Lab Results: 11/02/17 07:55 11/02/17 07:55 Lab Results 11/02/17 07:55: Sodium 137, Potassium 5.2 H, Chloride 91 L, Carbon Dioxide 28, Anion Gap 23 H, BUN 74 H, Creatinine 14.1 H* D, Est GFR ( Amer) 5, Est GFR (Non-Af Amer) 4, Random Glucose 98, Calcium 8.9, Total Bilirubin 0.8, AST 29 , ALT 23, Alkaline Phosphatase 61, Lactate Dehydrogenase 599, Total Creatine Kinase 440 H, CK-MB (CK-2) 5.9 H, CK-MB (CK-2) % 1.3 L, Troponin I 0.28 H* D, Total Protein 8.7 H, Albumin 4.7, Globulin 4.0, Albumin/Globulin Ratio 1.2, Amylase 99, Lipase 118 11/02/17 07:55: PT 11.2, INR 0.97, APTT 29.7 11/02/17 07:55: WBC 8.8 D, RBC 3.69, Hgb 12.3 L D, Hct 36.9 L, MCV 100.0, MCH 33.3, MCHC 33.3, RDW 14.0, Plt Count 339, MPV 9.6, Gran % 86.8 H, Lymph % (Auto ) 10.3 L, [place] % (Auto) 2.7, Eos % (Auto) 0.0 L, Baso % (Auto) 0.2, Gran # 7.66 H, Lymph # (Auto) 0.9 L, [place] # (Auto) 0.2, Eos # (Auto) 0.0, Baso # (Auto) 0.02 I have reviewed the lab results: Yes - RAD Interpretation Radiology Orders: 11/02/17 07:30 ABD & PELVIS W/O PO OR IV CONT [CT] Stat 11/02/17 07:31 CHEST PORTABLE [RAD] Stat - EKG Interpretation Interpreted by ED Physician: Yes Type: 12 lead EKG - Medication Orders Current Medication Orders: Carvedilol (Coreg) 12.5 mg PO BID [facility] Clopidogrel Bisulfate (Plavix) 75 mg PO DAILY [facility] Last Admin: 11/02/17 13:12 Dose: 75 mg Insulin Human Regular (Humulin R Low) 0 units SC ACHS [facility] PRN Reason: Protocol Losartan Potassium (Cozaar) 50 mg PO DAILY [facility] Last Admin: 11/02/17 13:08 Dose: 50 mg MAR Pulse and Blood Pressure Document 11/02/17 13:08 RAMOM (Rec: 11/02/17 13:12 RAMOM [id number]) Pulse Pulse Rate (60-90) 92 Blood Pressure Blood Pressure (100/60-150/90) 183/120 Pantoprazole Sodium (Protonix Inj) 40 mg IVP DAILY [facility] Sevelamer HCl (Renagel) 1,600 mg PO 0800,1200,1700 [facility] Discontinued Medications Metoclopramide HCl (Reglan) 10 mg IVP [facility] Last Admin: 11/02/17 11:42 Dose: 10 mg IVP Administration Document 11/02/17 11:42 GMI (Rec: 11/02/17 11:51 GMI [facility] [place]-[id number]) Charges for Administration # of IVP Administrations 1 Morphine Sulfate (Morphine) 4 mg IVP STAT STA Stop: 11/02/17 07:31 Last Admin: 11/02/17 08:14 Dose: 4 mg MAR Pain Assessment Document 11/02/17 08:14 GMI (Rec: 11/02/17 08:15 GMI [id number]) Pain Reassessment Is this a pain reassessment? Yes Sleep Is patient sleeping during reassessment? No Presence of Pain Presence of Pain Yes Pain Scale Used Pain Scale Used Numeric Location Pain Location Body Site Abdomen Description Description Intermittent Intensity of Pain at present 8 Pain Behavior Moaning Facial Grimacing Alleviating Factors Distraction IVP Administration Document 11/02/17 08:14 GMI (Rec: 11/02/17 08:15 GMI [facility] [place]-[id number]) Charges for Administration # of IVP Administrations 1 Re-Assess: MAR Pain Assessment Document 11/02/17 09:14 GMI (Rec: 11/02/17 11:53 GMI [facility] [place]-[id number]) Pain Reassessment Is this a pain reassessment? No Sleep Is patient sleeping during reassessment? Yes Ondansetron HCl (Zofran Inj) 4 mg IVP STAT STA Stop: 11/02/17 07:31 Last Admin: 11/02/17 07:58 Dose: 4 mg IVP Administration Document 11/02/17 07:58 GMI (Rec: 11/02/17 07:59 GMI [facility] [place]-[id number]) Charges for Administration # of IVP Administrations 1 Pantoprazole Sodium (Protonix Inj) 40 mg IVP ONCE ONE Stop: 11/02/17 07:46 Last Admin: 11/02/17 08:15 Dose: 40 mg IVP Administration Document 11/02/17 08:15 GMI (Rec: 11/02/17 08:15 GMI [facility] [id number]) Charges for Administration # of IVP Administrations 1 - Scribe Statement The provider has reviewed the documentation as recorded by the Shalom Tamayo Provider Scribe Attestation: All medical record entries made by the Scribchidi were at my direction and personally dictated by me. I have reviewed the chart and agree that the record accurately reflects my personal performance of the history, physical exam, medical decision making, and the department course for this patient. I have also personally directed, reviewed, and agree with the discharge instructions and disposition. Disposition/Present on Arrival - Present on Arrival Any Indicators Present on Arrival: No History of DVT/PE: No History of Uncontrolled Diabetes: Yes Urinary Catheter: No History of Decub. Ulcer: No History Surgical Site Infection Following: None - Disposition Have Diagnosis and Disposition been Completed?: Yes Diagnosis: Vomiting, Cholelithiases, Abdominal pain, Elevated troponin, ESRD (end stage renal disease) Disposition: HOSPITALIZED Disposition Time: : Patient Plan: Observation, Telemetry Patient Problems: Current Active Problems Problem Status Onset Abdominal pain Acute Cholelithiases Acute ESRD (end stage renal disease) Acute Elevated troponin Acute Vomiting Acute Condition: IMPROVED
[2017-11-02 08:18] LABS: BASO # 0.02 K/mm3 (0.0-2.0); BASO % 0.2 % (0.0-3.0); GRAN # 7.66 (1.4-6.5); GRAN % 86.8 % (50.0-68.0); HEMOGLOBIN 12.3 g/dL (14.0-18.0); LYMPH # 0.9 (1.2-3.4); LYMPH % 10.3 % (22.0-35.0); MEAN CORPUSCULAR HEMOGLOBIN 33.3 pg (25.0-35.0); MEAN CORPUSCULAR HGB CONC 33.3 g/dl (31.0-37.0); MEAN PLATELET VOLUME 9.6 fl (7.0-11.0); MONO # 0.2 (0.1-0.6); MONO % 2.7 % (1.0-6.0); RBC 3.69 10^6/uL (3.5-6.1); WHITE BLOOD COUNT 8.8 10^3/ul (4.5-11.0)
[2017-11-02 08:22] LABS: INR 0.97; PARTIAL THROMBOPLASTIN TIME 29.7 Seconds (25.1-36.5); PROTHROMBIN TIME 11.2 SECONDS (9.4-12.5)
[2017-11-02 08:36] LABS: ALB/GLOB RATIO 1.2 (1.1-1.8); ALBUMIN 4.7 g/dL (3.0-4.8); CALCIUM 8.9 mg/dL (8.4-10.5); TROPONIN I 0.28 ng/mL
[2017-11-02 08:42] LABS: CK MB% 1.3 % (2.5-3.0); CK-MB 5.9 ng/mL (0.0-3.6)
--- NOTE | 2017-11-02 09:05 | CT ---
Date of service: 11/02/2017 PROCEDURE: CT Abdomen and Pelvis without intravenous contrast HISTORY: epigastric pain COMPARISON: None. TECHNIQUE: Without contrast. Contrast dose: Radiation dose: Total exam DLP = 1485 mGy-cm. This CT exam was performed using one or more of the following dose reduction techniques: Automated exposure control, adjustment of the mA and/or kV according to patient size, and/or use of iterative reconstruction technique. FINDINGS: LOWER THORAX: Unremarkable. LIVER: Unremarkable. No gross lesion or ductal dilatation. GALLBLADDER AND BILE DUCTS: Gallstone PANCREAS: Unremarkable. No gross lesion or ductal dilatation. SPLEEN: Unremarkable. ADRENALS: Unremarkable. No mass. KIDNEYS AND URETERS: Unremarkable. No hydronephrosis. No solid mass. Vascular calcifications. No evidence of renal stone VASCULATURE: Unremarkable. No aortic aneurysm. BOWEL: Unremarkable. No obstruction. No gross mural thickening. APPENDIX: Unremarkable. Normal appendix. PERITONEUM: Unremarkable. No free fluid. No free air. LYMPH NODES: Unremarkable. No enlarged lymph nodes. BLADDER: Unremarkable. REPRODUCTIVE: Unremarkable. BONES: No acute fracture. OTHER FINDINGS: None. IMPRESSION: No acute intra-abdominal finding
--- NOTE | 2017-11-02 09:14 | RAD ---
Date of service: 11/02/2017 HISTORY: ap COMPARISON: Portable chest 07/25/2017. FINDINGS: LUNGS: No active pulmonary disease. PLEURA: No significant pleural effusion identified, no pneumothorax apparent. CARDIOVASCULAR: Stable cardiomediastinal silhouette including AICD/implanted pacemaker. OSSEOUS STRUCTURES: No significant abnormalities. VISUALIZED UPPER ABDOMEN: Normal. OTHER FINDINGS: None. IMPRESSION: No interval acute cardiopulmonary disease appreciated.
--- NOTE | 2017-11-02 09:44 | CARD ---
APPROVED REPORT Date of service: 11/02/2017 EKG Measurement Heart [id number] <Conclusion> Normal sinus rhythm Possible Left atrial enlargement Nonspecific intraventricular block Inferior infarct, age undetermined Possible Anterolateral infarct, age undetermined Abnormal ECG
--- NOTE | 2017-11-02 11:50 | CP.PCM.CON ---
<TiffanyJennifer - Last Filed: 11/02/17 12:15> History of Present Illness - History of Present Illness History of Present Illness: Jennifer Allen, PGY2, ICU Consult Note for Dr Bauer: CC: nausea, vomiting 41 year old male with PMH ESRD on HD MWF, gastritis, cholethiasis, hypertension , diabetes mellitus, coronary artery disease with stents, retinal detachment, hyperlipidemia, presents for nausea and vomiting for past 1.5 days. Patient also reports associated upper abdominal pain, describes it as achy. Also reports associated poor appetite. States that his vomiting was initially food, then became bilious, non bloody. Denies fevers, chills, cp, sob, diaphoresis, syncope, dizziness, cough, headache, neck pain, urinary symptoms, leg swelling. Patient was recently admitted [place] [facility] for similar complaints in 07/2017, EGD then showed gastritis, chronic duodenitis, 1 cm hiatal hernia. Patient was also found to have gallstones, patient to follow up with Surgery outpatient for cholecystectomy (which the patient failed to do). Of note, patient reports missing his dialysis session yesterday because he was not feeling well. In ED, patient afebrile, hemodynamically stable, no leukocytosis. trop mildly elevated in setting of CKD. CT abd negative for any acute pathology. 12 point ROS obtained and negative, except as per HPI. PMD: Dr. Christopher Naik: Dr Maximilian Zheng Past medical history: End-stage renal disease on hemodialysis MWF, hypertension , diabetes mellitus, coronary artery disease with stents, retinal detachment, hyperlipidemia, cholelithiasis, gastritis Past surgical history: Eye laser surgery, defibrillator, cardiac catheterization 2, H2 venous fistula Allergies: Zosyn, IV dye Family history: Diabetes mellitus and hypertension Medications: Reviewed as per MAR Social history: Denies tobacco, EtOH or recreational drug use. Lives alone in an apartment. Review of Systems - Review of Systems All systems: reviewed and no additional remarkable complaints except Review of Systems: as per HPI Past Patient History - Infectious Disease Hx of Infectious Diseases: None - Tetanus Immunizations Tetanus Immunization: Unknown - Past Social History Smoking Status: Never Smoked - CARDIAC Hx Cardiac Disorders: Yes Hx Angina: Yes Hx Congestive Heart Failure: Yes Hx Heart Attack: Yes Hx Hypertension: Yes Hx Internal Defibrillator: Yes Hx Peripheral Edema: Yes - PULMONARY Hx Respiratory Disorders: Yes Hx Bronchitis: Yes Hx Chronic Obstructive Pulmonary Disease (COPD): Yes Hx Respiratory Tract Infection: Yes Hx Sleep Apnea: Yes - NEUROLOGICAL Hx Neurological Disorder: Yes Hx Dizziness: Yes Hx Syncope: Yes - HEENT Hx HEENT Problems: Yes (tinnitis) Other/Comment: retinal detatchment 2008, laser sx both eyes - RENAL Hx Chronic Kidney Disease: Yes Hx Dialysis: Yes Date of Last Dialysis Treatment: 10/09/17 Hx Renal Failure: Yes - ENDOCRINE/METABOLIC Hx Endocrine Disorders: Yes Hx Diabetes Mellitus Type 2: Yes - HEMATOLOGICAL/ONCOLOGICAL Hx Blood Disorders: No Hx Blood Transfusions: No Hx Blood Transfusion Reaction: No - INTEGUMENTARY Hx Dermatological Problems: Yes Other/Comment: ULCER TO TOE - MUSCULOSKELETAL/RHEUMATOLOGICAL Hx Musculoskeletal Disorders: Yes Hx Arthritis: Yes Hx Falls: No Hx Fractures: Yes Hx Herniated Disk: Yes Hx Osteomyelitis: Yes Other/Comment: left ankle torn achilles tendon - GASTROINTESTINAL Hx Gastrointestinal Disorders: Yes Hx Diverticulitis: Yes Hx Gall Bladder Disease: Yes Hx Gastroesophageal Reflux: Yes - GENITOURINARY/GYNECOLOGICAL Hx Genitourinary Disorders: No - PSYCHIATRIC Hx Psychophysiologic Disorder: No Hx Substance Use: No - SURGICAL HISTORY Hx Vascular Access Device: Yes - ANESTHESIA Hx Anesthesia Reactions: No Hx Malignant Hyperthermia: No Meds Allergies/Adverse Reactions: Allergies Allergy/AdvReac Type Severity Reaction Status Date / Time piperacillin sodium Allergy ITCHING Verified 10/09/17 18:17 [From Zosyn] tazobactam sodium Allergy ITCHING Verified 10/09/17 18:17 [From Zosyn] IV DYE AdvReac NAUSEA Uncoded 10/09/17 18:17 - Medications Medications: Current Medications Metoclopramide HCl (Reglan) 10 mg IVP ACHS [facility] Pantoprazole Sodium (Protonix Inj) 40 mg IVP DAILY [facility] Physical Exam - Constitutional Appears: Non-toxic, No Acute Distress, Older Than Stated Age - Head Exam Head Exam: ATRAUMATIC, NORMOCEPHALIC - Eye Exam Eye Exam: EOMI, PERRL. absent: Conjunctival injection, Nystagmus, Scleral icterus Pupil Exam: NORMAL ACCOMODATION, PERRL. absent: Irregular, Miosis, Mydriatic - ENT Exam ENT Exam: Mucous Membranes Moist - Neck Exam Neck exam: Positive for: Normal Inspection - Respiratory Exam Respiratory Exam: Clear to Auscultation Bilateral, NORMAL BREATHING PATTERN. absent: Chest Wall Tenderness, Decreased Breath Sounds, Rales, Rhonchi, Wheezes , Respiratory Distress, Stridor - Cardiovascular Exam Cardiovascular Exam: REGULAR RHYTHM, RRR, +S1, +S2. absent: Systolic Murmur - GI/Abdominal Exam GI & Abdominal Exam: Normal Bowel Sounds, Soft, Tenderness (Mild TTP in upper abdomen area/especially epigastric region). absent: Distended, Firm, Mass, Rebound, Rigid - Extremities Exam Extremities exam: Positive for: normal inspection. Negative for: calf tenderness, pedal edema - Back Exam Back exam: NORMAL INSPECTION. absent: CVA tenderness (L), CVA tenderness (R) - Neurological Exam Neurological exam: Alert, Oriented x3 - Psychiatric Exam Psychiatric exam: Normal Affect, Normal Mood - Skin Skin Exam: Dry, Normal Color, Warm Results - Vital Signs Recent Vital Signs: Last Vital Signs Temp 98 F 11/02/17 10:27 Pulse 85 11/02/17 10:27 Resp 19 11/02/17 10:27 BP 121/53 L 11/02/17 10:27 Pulse Ox 98 11/02/17 10:27 - Labs Result Diagrams: 11/02/17 07:55 11/02/17 07:55 Assessment & Plan - Assessment and Plan (Free Text) Assessment: 41 year old male with PMH ESRD on HD MWF, gastritis, cholethiasis, hypertension , diabetes mellitus, coronary artery disease with stents, retinal detachment, hyperlipidemia, presents for nausea/vomiting, upper abdominal pain: Neuro: AAOx4. No changes in mental status. Monitor. Respiratory: Saturating well on RA. Monitor pulse ox. Cardio: elevated trop in setting of CKD, denies cp, sob, diaphoresis. EKG shows normal sinus rhythm rate approximately 100 with Q waves inferiorly and a nonspecific intraventricular conduction delay and no acute ST or T-wave changes. QTc prolonged at 500 ms. f/u repeat troponin and EKG Hx of CAD with stents. Will c/w plavix, coreg, cozaar Hemodynamically stable. Maintain MAP>65. Monitor GI: Nausea/vomitin/2 gastritis vs gastroenteritis vs gallstones - patient has a history of gallstones - afebrile, no leukocytosis - CT abd pelvis neg for acute changes - Protonix 40 IV daily - Reglan prn achs - NPO - GI and surgery consulted. F/u recs. Nephro: - elevated BUN/Cr. - Hx of ESRD -on hemodialysis MWF, patient missed HD session yesterday. - Dr Richardson on board. Will have dialysis today. - Replace lytes, maintain euvolemia Heme: Stable Hgb, platelets. Monitor. ID: - afebrile, no leukocytosis. - Monitor off antibiotics. PPX: protonix, SCDs Patient seen and discussed with Dr Bauer. Jennifer Allen, PGY2 <Renato Bauer - Last Filed: 11/02/17 13:02> Meds - Medications Medications: Current Medications Carvedilol (Coreg) 12.5 mg PO BID [facility] Clopidogrel Bisulfate (Plavix) 75 mg PO DAILY [facility] Insulin Human Regular (Humulin R Low) 0 units SC ACHS [facility] PRN Reason: Protocol Losartan Potassium (Cozaar) 50 mg PO DAILY [facility] Metoclopramide HCl (Reglan) 5 mg IVP ACHS [facility] Pantoprazole Sodium (Protonix Inj) 40 mg IVP DAILY [facility] Sevelamer HCl (Renagel) 1,600 mg PO 0800,1200,1700 [facility] Results - Vital Signs Recent Vital Signs: Last Vital Signs Temp 98 F 11/02/17 10:27 Pulse 99 H 11/02/17 11:00 Resp 18 11/02/17 11:00 BP 148/78 11/02/17 11:00 Pulse Ox 99 11/02/17 11:00 - Labs Result Diagrams: 11/02/17 07:55 11/02/17 07:55 Assessment & Plan - Assessment and Plan (Free Text) Assessment: Patient seen and examined on rounds with resident, agree with note with following additions/exceptions: Patient is 41yo male with PMHx fo ESRD on HD, MWF, gastritis, cholethiasis, hypertension, diabetes mellitus, coronary artery disease with stents, retinal detachment, hyperlipidemia, presents for nausea/vomiting, upper abdominal pain. Currently the patient is afebrile, BP stable, o2 sat 99% on room air. Labs, imaging, chart reviewed. CT A/P without PO/IV contrast, negative for acute pathology Lipase wnl On exam, has mild epigastric tenderness EKG with NSST changes, Trops 0.28, denies CP, SOB Elevated troponin Nausea with vomiting Abd pain ESRD on HD HTN CAD Recommend: - supp o2 as needed, duonebs PRN, IS - panculture, UCx, BCx, Check procal - BP control - HD as per renal - monitor LFTs - obtain GI eval - obtain cardiology consult - repeat cardiac enzymes - ECHO - PPI - Zofran PRN - NPO - DVT ppx - Admit to MICU
--- NOTE | 2017-11-02 13:33 | CP.PCM.CON ---
<Dave Murray - Last Filed: 11/02/17 13:33> History of Present Illness - History of Present Illness History of Present Illness: General Surgery Consult Note CC: epigastric pain and non bloody vomiting HPI: 41yo M with a PMHX of ESRD on HD MWF, gastritis, cholethiasis, HTN, DM, CAD with stents, retinal detachment, HLD, presents for nausea and vomiting for past 1.5 days. Patient also reports associated sharp, epigastric 10/10 abdominal pain that is intermittent. States that his vomiting was initially food , then became bilious, non bloody from taking his Sensipar and Vit d. Denies fevers, cp, sob, syncope, dizziness, cough, headache, neck pain, urinary symptoms, leg swelling. Patient had recent hospitalization 1 mo ago, IVF and pepsic helped. Was admitted [place] [facility] [place] similar complaints, EGD then showed gastritis, chronic duodenitis, 1 cm hiatal hernia. Patient was also found to have gallstones, patient to follow up with Surgery outpatient for cholecystectomy (which the patient failed to do). Of note, patient reports missing his dialysis session yesterday because he was not feeling well. Pt reports foot bleeding as well. In ED, patient afebrile, hemodynamically stable, no leukocytosis. trop mildly elevated in setting of CKD. CT abd negative for any acute pathology. ROS: pertinent pos+ chills, diaphoresis, weakness, abd pain, vomiting, chronic leg and back pain neg - fevers, cp, sob, syncope, urinary symptoms, paresthsias, dysphagia PMD: Dr. White Nephro: Dr Maximilian Zheng Past medical history:PMHX of ESRD on HD MWF, gastritis w/ ulcers 2016, cholethiasis, HTN, DM, CAD (ND 2011 with 4 stents), retinal detachment, HLD Past surgical history: Eye laser surgery, defibrillator, cardiac catheterization 2, H2 venous fistula Allergies: Zosyn, IV dye, Family history: [place], DM, HTN, Lung CA Social history: Denies tobacco, EtOH or recreational drug use. Lives alone in an apartment. Review of Systems - Review of Systems All systems: reviewed and no additional remarkable complaints except (see HPI) Past Patient History - Infectious Disease Hx of Infectious Diseases: None - Tetanus Immunizations Tetanus Immunization: Unknown - Past Social History Smoking Status: Never Smoked - CARDIAC Hx Cardiac Disorders: Yes Hx Angina: Yes Hx Congestive Heart Failure: Yes Hx Heart Attack: Yes Hx Hypertension: Yes Hx Internal Defibrillator: Yes Hx Peripheral Edema: Yes - PULMONARY Hx Respiratory Disorders: Yes Hx Bronchitis: Yes Hx Chronic Obstructive Pulmonary Disease (COPD): Yes Hx Respiratory Tract Infection: Yes Hx Sleep Apnea: Yes - NEUROLOGICAL Hx Neurological Disorder: Yes Hx Dizziness: Yes Hx Syncope: Yes - HEENT Hx HEENT Problems: Yes (tinnitis) Other/Comment: retinal detatchment 2008, laser sx both eyes - RENAL Hx Chronic Kidney Disease: Yes Hx Dialysis: Yes Date of Last Dialysis Treatment: 10/09/17 Hx Renal Failure: Yes - ENDOCRINE/METABOLIC Hx Endocrine Disorders: Yes Hx Diabetes Mellitus Type 2: Yes - HEMATOLOGICAL/ONCOLOGICAL Hx Blood Disorders: No Hx Blood Transfusions: No Hx Blood Transfusion Reaction: No - INTEGUMENTARY Hx Dermatological Problems: Yes Other/Comment: ULCER TO TOE - MUSCULOSKELETAL/RHEUMATOLOGICAL Hx Musculoskeletal Disorders: Yes Hx Arthritis: Yes Hx Falls: No Hx Fractures: Yes Hx Herniated Disk: Yes Hx Osteomyelitis: Yes Other/Comment: left ankle torn achilles tendon - GASTROINTESTINAL Hx Gastrointestinal Disorders: Yes Hx Diverticulitis: Yes Hx Gall Bladder Disease: Yes Hx Gastroesophageal Reflux: Yes - GENITOURINARY/GYNECOLOGICAL Hx Genitourinary Disorders: No - PSYCHIATRIC Hx Psychophysiologic Disorder: No Hx Substance Use: No - SURGICAL HISTORY Hx Vascular Access Device: Yes - ANESTHESIA Hx Anesthesia Reactions: No Hx Malignant Hyperthermia: No Meds Allergies/Adverse Reactions: Allergies Allergy/AdvReac Type Severity Reaction Status Date / Time piperacillin sodium Allergy ITCHING Verified 10/09/17 18:17 [From Zosyn] tazobactam sodium Allergy ITCHING Verified 10/09/17 18:17 [From Zosyn] cinacalcet [From Sensipar] AdvReac NAUSEA Verified 11/02/17 13:29 IV DYE AdvReac NAUSEA Uncoded 10/09/17 18:17 - Medications Medications: Current Medications Carvedilol (Coreg) 12.5 mg PO BID [facility] Clopidogrel Bisulfate (Plavix) 75 mg PO DAILY [facility] Last Admin: 11/02/17 13:12 Dose: 75 mg Insulin Human Regular (Humulin R Low) 0 units SC ACHS [facility] PRN Reason: Protocol Losartan Potassium (Cozaar) 50 mg PO DAILY [facility] Last Admin: 11/02/17 13:08 Dose: 50 mg Pantoprazole Sodium (Protonix Inj) 40 mg IVP DAILY [facility] Sevelamer HCl (Renagel) 1,600 mg PO 0800,1200,1700 [facility] Physical Exam - Constitutional Appears: Non-toxic, No Acute Distress - Head Exam Head Exam: ATRAUMATIC, NORMOCEPHALIC - Eye Exam Eye Exam: Normal appearance - ENT Exam ENT Exam: Mucous Membranes Moist - Respiratory Exam Respiratory Exam: NORMAL BREATHING PATTERN. absent: Accessory Muscle Use, Respiratory Distress - Cardiovascular Exam Cardiovascular Exam: REGULAR RHYTHM - GI/Abdominal Exam GI & Abdominal Exam: Hernia (umbilical hernia), Soft, Tenderness. absent: Distended, Firm, Guarding, Rebound, Rigid - Extremities Exam Extremities exam: Positive for: pedal pulses present. Negative for: pedal edema - Neurological Exam Neurological exam: Alert, Oriented x3 - Psychiatric Exam Psychiatric exam: Normal Affect, Normal Mood - Skin Skin Exam: Dry, Intact, Normal Color Results - Vital Signs Recent Vital Signs: Last Vital Signs Temp 98 F 11/02/17 10:27 Pulse 92 H 11/02/17 13:08 Resp 18 11/02/17 11:00 BP 183/120 H 11/02/17 13:08 Pulse Ox 99 11/02/17 11:00 - Labs Result Diagrams: 11/02/17 07:55 11/02/17 07:55 - Imaging and Cardiology CT scan - abdomen Status: Image reviewed by me Assessment & Plan - Assessment and Plan (Free Text) Assessment: 41 year old male <Alina Musa - Last Filed: 11/02/17 19:38> Meds - Medications Medications: Current Medications Carvedilol (Coreg) 12.5 mg PO BID [facility] Last Admin: 11/02/17 17:59 Dose: Not Given Clopidogrel Bisulfate (Plavix) 75 mg PO DAILY [facility] Last Admin: 11/02/17 13:12 Dose: 75 mg Insulin Human Regular (Humulin R Low) 0 units SC ACHS [facility] PRN Reason: Protocol Last Admin: 11/02/17 17:00 Dose: Not Given Losartan Potassium (Cozaar) 50 mg PO DAILY [facility] Last Admin: 11/02/17 13:08 Dose: 50 mg Pantoprazole Sodium (Protonix Inj) 40 mg IVP DAILY [facility] Polyethylene Glycol (Miralax) 17 gm PO BID [facility] Last Admin: 11/02/17 18:00 Dose: Not Given Sevelamer HCl (Renagel) 1,600 mg PO 0800,1200,1700 [facility] Last Admin: 11/02/17 18:00 Dose: Not Given Results - Vital Signs Recent Vital Signs: Last Vital Signs Temp 98.3 F 11/02/17 16:00 Pulse 97 H 11/02/17 18:00 Resp 19 11/02/17 15:04 BP 166/98 H 11/02/17 15:04 Pulse Ox 98 11/02/17 14:00 - Labs Result Diagrams: 11/02/17 07:55 11/02/17 07:55 Assessment & Plan - Assessment and Plan (Free Text) Assessment: 41M w/ hx of HTN, DM, ESRD on HD, CAD w/ stents, Gastritis, Cholelithiasis, presented with abdominal pain which is now resolved -Symptoms resolved, tolerating PO, pt. states he thinks pain was related to hunger pains -U/S and CT reviewed, gallstones present with no acute intra-abdominal process -Pt encouraged to F/U with surgeon in office to discuss elective cholecystectomy as he has prior episodes of biliary colic -No surgical intervention at this time -Clear for discharge home from surgical standpoint, continue medical care as per primary teams Lencho PGY4
[2017-11-02] MEDS ORDERED: Pneumococcal 23-Valent Vaccine IM ONE (15:37)
--- NOTE | 2017-11-02 16:00 | CARD ---
APPROVED REPORT Date of service: 11/02/2017 EKG Measurement Heart [id number] <Conclusion> Normal sinus rhythm Possible Left atrial enlargement Rightward axis Nonspecific intraventricular block q in II,II, Avf Abnormal ECG
--- NOTE | 2017-11-02 16:12 | CP.PCM.CON ---
Addendum entered and electronically signed by Juwan Kirkpatrick DO 11/03/17 11:31 : The reason for this consult was N/V, not for hepatic metastatic disease/ elevated total bilirubin. Please disregard this. Addendum entered and electronically signed by Juwan Kirkpatrick DO 11/03/17 11:29 : After speaking with Dr. Raymond, there is no MRI pending. Please disregard this comment. Original Note: <Juwan Kirkpatrick - Last Filed: 11/02/17 16:15> History of Present Illness - History of Present Illness History of Present Illness: GI Consult Note for Dr. Raymond's Service - Nida PGY2 Reason for Consult: Hepatic Metastatic Disease/Elevated Total Bilirubin Mr. Hutchinson is a 41 year old male with a past medical history significant for ESRD (HD: MWF), gastritis, cholelithiasis, HTN, DM2, HLD, CAD s/p four ERICA (2011 ), and retinal detachment who presents with a chief complaint of N/V with associated constant achy epigastric pain for the past 36 hours. Patient reports that his presenting symptoms started simultaneously with his abdominal pain coming just prior to one episode of nausea with associated NBNB vomiting. This initially was described as mostly undigested food that later became bilious yesterday evening. Patient has not been able to tolerate PO intake during this time, solids or liquids. Patient reports that because of this acute illness, he missed his scheduled HD yesterday. Of note, patient was recently hospitalized at [facility] with similar complaints. At that time, he had an EGD done which showed gastritis, chronic duodenitis, and a 1cm hiatal hernia. Patient was also found to have cholelithiasis during that admission and was instructed to schedule an outpatient cholecystectomy with general surgery. Unfortunately, the patient was not able to do this. Currently, he denies any sick contacts, changes in diet, fevers, headache, chest pain, SOB cough, diarrhea, constipation , hematemesis, melena, hematochezia, changes in urine output, or skin changes. Of note, a CT Abdomen/Pelvis without contrast was done in the ED and showed cholelithiasis. PMH: As stated above PSH: Eye laser surgery, defibrillator, cardiac catheterization 2, H2 venous fistula Family History: [place], DM, HTN, Lung CA Social History: Denies any tobacco, alcohol or illicit drug use; Lives alone in apartment; Independent ADL's Allergies: Zosyn, Cinacalcet and IV dye Home Medications: As per MAR PMD: Dr. White Furnace Worker: Dr. Maximilian Zheng Review of Systems - Review of Systems Review of Systems: As stated in HPI, otherwise negative Past Patient History - Infectious Disease Hx of Infectious Diseases: None - Tetanus Immunizations Tetanus Immunization: Unknown - Past Social History Smoking Status: Never Smoked - CARDIAC Hx Cardiac Disorders: Yes (mi, cad) Hx Angina: Yes Hx Congestive Heart Failure: Yes Hx Hypertension: Yes Hx Internal Defibrillator: Yes Hx Peripheral Edema: Yes (+1 ble edema +3 pitting edema both feet) - PULMONARY Hx Respiratory Disorders: Yes Hx Bronchitis: Yes Hx Chronic Obstructive Pulmonary Disease (COPD): Yes Hx Respiratory Tract Infection: Yes Hx Sleep Apnea: (never had sleep study) Other/Comment: dexter as a child, was told by dr jean to have a sleep study pt never did for possible sleep apnea - NEUROLOGICAL Hx Neurological Disorder: Yes (syncope) Hx Dizziness: Yes Other/Comment: pt used to get headaches from b/p meds not now - HEENT Hx HEENT Problems: Yes (tinnitis) Other/Comment: retinal detatchment 2008, laser sx both eyes, impaired vision both eyes pt stated "I need another sx." - RENAL Hx Chronic Kidney Disease: Yes Hx Dialysis: Yes (on hd x 5 yrs at [facility] ) Hx Renal Failure: Yes - ENDOCRINE/METABOLIC Hx Endocrine Disorders: Yes Hx Diabetes Mellitus Type 2: Yes - HEMATOLOGICAL/ONCOLOGICAL Hx Blood Disorders: Yes Hx Anemia: Yes (blood bransfusion) - INTEGUMENTARY Hx Dermatological Problems: Yes Other/Comment: right foot 4th toe tip is red and clear drainage noted, 5th toe amputated 2017, +3 pitting edema both feet,dark discolored skin extremely dry skin to both feet toes swollen, toenails thick hard dry, dressing to r ft 4th toe, lfa av shunt, ble dark discolored skin +1 edema. Just to note pt developed wound to right 4th toe due to hammertoes and a different pair of shoes - MUSCULOSKELETAL/RHEUMATOLOGICAL Hx Musculoskeletal Disorders: Yes Hx Arthritis: Yes Hx Falls: No Hx Herniated Disk: Yes Hx Osteomyelitis: Yes (outer left foot sx infection) Other/Comment: muscle weakness stiff joints, hammertoes right foot - GASTROINTESTINAL Hx Gastrointestinal Disorders: Yes (obese) Hx Diverticulitis: Yes Hx Gall Bladder Disease: Yes (gallstones) Hx Gastroesophageal Reflux: Yes Other/Comment: [id number] lbs on purpose in 2 yrs, egd 07/28/17 dx with severe duodenitis,duodenal/and gastric erosins 1cm hiatal hernia - GENITOURINARY/GYNECOLOGICAL Hx Genitourinary Disorders: Yes (oliguria) - PSYCHIATRIC Hx Psychophysiologic Disorder: No Hx Depression: (denies) - SURGICAL HISTORY Hx Surgeries: Yes Hx Amputation: Yes (right 5th toe) Hx Cardiac Catheterization: Yes (10/09/14 dr chaudhari + stress test) Hx Coronary Stent: Yes (x4) Other/Comment: left ankle torn achilles tendon, left foot sx osteomylitis metarsal outer foot, left forearm av shunt, picc amina 07/22/15 and removed, kidney bx 2011 resulting in decreased function, laser sx b/l eyes for detached retina, rcw hd cath in and out, left chest hd cath in and out, - ANESTHESIA Hx Anesthesia Reactions: No Hx Malignant Hyperthermia: No Meds Allergies/Adverse Reactions: Allergies Allergy/AdvReac Type Severity Reaction Status Date / Time piperacillin sodium Allergy ITCHING Verified 10/09/17 18:17 [From Zosyn] tazobactam sodium Allergy ITCHING Verified 10/09/17 18:17 [From Zosyn] cinacalcet [From Sensipar] AdvReac NAUSEA Verified 11/02/17 13:29 IV DYE AdvReac NAUSEA Uncoded 10/09/17 18:17 - Medications Medications: Current Medications Carvedilol (Coreg) 12.5 mg PO BID [facility] Clopidogrel Bisulfate (Plavix) 75 mg PO DAILY [facility] Last Admin: 11/02/17 13:12 Dose: 75 mg Insulin Human Regular (Humulin R Low) 0 units SC ACHS [facility] PRN Reason: Protocol Losartan Potassium (Cozaar) 50 mg PO DAILY [facility] Last Admin: 11/02/17 13:08 Dose: 50 mg Pantoprazole Sodium (Protonix Inj) 40 mg IVP DAILY [facility] Polyethylene Glycol (Miralax) 17 gm PO BID [facility] Sevelamer HCl (Renagel) 1,600 mg PO 0800,1200,1700 [facility] Physical Exam - Constitutional Appears: Non-toxic, No Acute Distress - Head Exam Head Exam: ATRAUMATIC, NORMOCEPHALIC - Eye Exam Eye Exam: EOMI - ENT Exam ENT Exam: Mucous Membranes Moist - Neck Exam Neck exam: Positive for: Full Rom - Respiratory Exam Respiratory Exam: NORMAL BREATHING PATTERN. absent: Accessory Muscle Use, Respiratory Distress - Cardiovascular Exam Cardiovascular Exam: REGULAR RHYTHM, RRR, +S1, +S2 - GI/Abdominal Exam GI & Abdominal Exam: Normal Bowel Sounds, Soft (TTP in epigastric region), Tenderness. absent: Bruit, Diminished Bowel Sounds, Distended, Firm, Guarding, Hernia, Hyperactive Bowel Sounds, Hypoactive Bowel Sounds, Mass, Organomegaly, Pulsatile Mass, Rebound, Rigid - Rectal Exam Rectal Exam: Deferred - Extremities Exam Extremities exam: Negative for: calf tenderness - Neurological Exam Neurological exam: Alert, Oriented x3 - Psychiatric Exam Psychiatric exam: Normal Affect, Normal Mood - Skin Skin Exam: Dry, Intact, Normal Color, Warm Results - Vital Signs Recent Vital Signs: Last Vital Signs Temp 98.1 F 11/02/17 15:04 Pulse 59 L 11/02/17 15:04 Resp 19 11/02/17 15:04 BP 166/98 H 11/02/17 15:04 Pulse Ox 98 11/02/17 14:00 - Labs Result Diagrams: 11/02/17 07:55 11/02/17 07:55 Assessment & Plan - Assessment and Plan (Free Text) Assessment: 41 year old male with a past medical history significant for ESRD (HD: MWF), gastritis, cholelithiasis, HTN, DM2, HLD, CAD s/p four ERICA (2011), and retinal detachment who presents with a chief complaint of N/V with associated constant achy epigastric pain for the past 36 hours. Plan: -Recent EGD (07/2017) reviewed -CT Abdomen/Pelvis showed cholelithiasis -Abdominal US pending -LFT's within normal limits -NPO Diet -Continue Miralax -Continue Protonix for GI Prophylaxis GI Disposition: Will follow up Abdominal US report for further management. Patient seen and case discussed with attending, Dr. Raymond. - Date & Time Date: 11/02/17 Time: 16:12 <Rick Raymond V - Last Filed: 11/02/17 22:08> Meds - Medications Medications: Current Medications Carvedilol (Coreg) 12.5 mg PO BID [facility] Last Admin: 11/02/17 17:59 Dose: Not Given Clopidogrel Bisulfate (Plavix) 75 mg PO DAILY [facility] Last Admin: 11/02/17 13:12 Dose: 75 mg Insulin Human Regular (Humulin R Low) 0 units SC ACHS [facility] PRN Reason: Protocol Last Admin: 11/02/17 17:00 Dose: Not Given Losartan Potassium (Cozaar) 50 mg PO DAILY [facility] Last Admin: 11/02/17 13:08 Dose: 50 mg Pantoprazole Sodium (Protonix Inj) 40 mg IVP DAILY [facility] Polyethylene Glycol (Miralax) 17 gm PO BID [facility] Last Admin: 11/02/17 18:00 Dose: Not Given Sevelamer HCl (Renagel) 1,600 mg PO 0800,1200,1700 [facility] Last Admin: 11/02/17 18:00 Dose: Not Given Results - Vital Signs Recent Vital Signs: Last Vital Signs Temp 98.0 F 11/02/17 20:00 Pulse 97 H 11/02/17 18:00 Resp 19 11/02/17 15:04 BP 166/98 H 11/02/17 15:04 Pulse Ox 98 11/02/17 14:00 - Labs Result Diagrams: 11/02/17 07:55 11/02/17 07:55 Labs: Laboratory Results - last 24 hr 11/02/17 11/02/17 11/02/17 12:23 16:30 19:52 POC Glucose (mg/dL) 77 65 Troponin I 0.35 H* D 11/02/17 21:32 POC Glucose (mg/dL) 68 Troponin I Attending/Attestation - Attestation I have personally seen and examined this patient.: Yes I have fully participated in the care of the patient.: Yes I have reviewed all pertinent clinical information: Yes Notes (Text): This is an addendum to GI consult report dictated by the Earth Science Technician.The patient was seen and evaluated earlier. Medical records, lab studies, imagings were reviewed. Last 24 hours events reviewed. Agreed with the above treatment plan as outlined in Earth Science Technician 's notes with the addition of the following This patient had an endoscopy done recently was found to have duodenitis and gastric erosions Patient is admitted with epigastrc pain, nausea vomiting history of ESRD on HD Last EGD done recently and reviewed patient had duodenitis gastric erosions and esophagitis History of Gall stones Would recommended follow up LFT On examination patient had tenderness in epigastric and RUQ Small gall stones CBD normal MRI pending 11/02/17 21:59
[2017-11-02] MEDS: Insulin Reg-LOW-Coverage SC SCH (17:00)
--- NOTE | 2017-11-02 17:04 | US ---
Date of service: 11/02/2017 HISTORY: RUQ pain COMPARISON: None. TECHNIQUE: Sonographic evaluation of the abdomen. FINDINGS: LIVER: Measures 14.82 x 12 cm. Normal echogenicity of the liver parenchyma. No mass. No intrahepatic bile duct dilatation. GALLBLADDER: Small gallstone. No evidence of mural thickening or edema COMMON BILE DUCT: Measures 7.6 mm. No stones. No dilatation. PANCREAS: Unremarkable as visualized. No mass. No ductal dilatation. RIGHT KIDNEY: Measures 9.56 x 4.37 x 5.58cm. Both kidneys are echogenic consistent with a history of dialysis LEFT KIDNEY: Measures 10.65 x 5.78 x 5.24cm. Both kidneys are echogenic. SPLEEN: Normal in size and contour. No mass. AORTA: No aneurysmal dilatation. IVC: Unremarkable. OTHER FINDINGS: None. IMPRESSION: Unremarkable abdominal sonogram.
[2017-11-02] MEDS: POLYETHYLENE GLYCOL 3350 17 GM/Dose PACKET PO SCH (18:00)
[2017-11-02] MEDS ORDERED: Dextrose 50% SYRINGE Inj (50 ml) IVP ONE (18:02)
[2017-11-03] MEDS: Insulin Reg-LOW-Coverage SC SCH ×3 (02:29→22:46)
[2017-11-03 06:38] LABS: BASO # 0.04 K/mm3 (0.0-2.0); BASO % 0.5 % (0.0-3.0); EOS # 0.1 (0.0-0.7); EOS % 1.7 % (1.5-5.0); GRAN # 4.86 (1.4-6.5); GRAN % 63.5 % (50.0-68.0); HEMOGLOBIN 13.7 g/dL (14.0-18.0); LYMPH % 26.1 % (22.0-35.0); MEAN CELL VOLUME 101.5 fl (80.0-105.0); MEAN CORPUSCULAR HEMOGLOBIN 33.9 pg (25.0-35.0); MEAN CORPUSCULAR HGB CONC 33.4 g/dl (31.0-37.0); MEAN PLATELET VOLUME 9.4 fl (7.0-11.0); MONO # 0.6 (0.1-0.6); MONO % 8.2 % (1.0-6.0); RBC 4.04 10^6/uL (3.5-6.1); RED CELL DISTRIBUTION WIDTH 14.2 % (11.5-14.5); WHITE BLOOD COUNT 7.7 10^3/ul (4.5-11.0)
[2017-11-03 07:07] LABS: ALB/GLOB RATIO 1.1 (1.1-1.8); ALBUMIN 4.4 g/dL (3.0-4.8)
--- NOTE | 2017-11-03 08:11 | HP ---
HISTORY OF PRESENT ILLNESS: This is a 41-year-old male, presented to the emergency room with a 2-day history of nausea and vomiting and diarrhea. He states that he did not eat anything out of the ordinary and this is ingested too by his family. He went to dialysis this morning, but was referred to the emergency room because of his GI complaints and he missed dialysis the day before because of his illness. PAST MEDICAL HISTORY: The patient has history of myocardial infarction, coronary artery disease, stenting, pacemaker, chronic kidney disease, sepsis, diabetes, cholecystitis, osteomyelitis of the foot with surgical management and antibiotic management. ALLERGIES: HE IS ALLERGIC TO ZOSYN AND SENSIPAR ACCORDING TO THE PATIENT AND IV DYE. MEDICATIONS: Home medications reported as Coreg, Cozaar, Plavix, Zofran, and Renagel. Upon seeing the patient in the emergency room, he was vomiting bilious material and he was tachycardiac, hypertensive, and request for an evaluation with the Intensive Care Unit was made. PHYSICAL EXAMINATION LUNGS: Showed diminished breath sounds at the bases. HEART: There was rapid regular S1, S2 rhythm. ABDOMEN: Obese, soft with positive bowel sounds. There was mild right upper quadrant tenderness. No rebound appreciated. EXTREMITIES: Show no evidence of edema. NEUROLOGIC: He was alert and oriented x3. LABORATORY DATA: WBC is 8.8, RBC is 3.69, hemoglobin 12.3, hematocrit 36.9, platelet count was 339. PT was 11.2 with an INR of 0.97. PTT was 29.7. Chemistry showed a sodium of 137, potassium 5.2, chloride 91, CO2 of 28, BUN was 74, creatinine was 14. His LDH is 599. His CK is 440. His troponin is 0.28, his CK-MB is 55.9. His albumin is 4.7. His amylase was 99, lipase was 118. IMPRESSION: A 41-year-old male with acute abdominal complaints with nausea, vomiting and diarrhea. 1. Rule out cholecystitis. 2. Rule out acute gastroenteritis. 3. Chronic renal disease. 4. Coronary artery disease. 5. Diabetes mellitus. 6. Hypertension. Cleopatra White MD [facility] # [id number]
--- NOTE | 2017-11-03 08:29 | CP.PCM.PN ---
<Juwan Kirkpatrick - Last Filed: 11/03/17 14:15> Subjective - Date & Time of Evaluation Date of Evaluation: 11/03/17 Time of Evaluation: 08:29 - Subjective Subjective: GI Progress Note for Dr. Raymond's Service- Nida, PGY2 Patient seen and assessed at bedside in ICU. No acute events overnight noted. Patient had cardiac cath today. He reports that his presenting abdominal pain and N/V have resolved. Patient otherwise currently denies any fevers, chills, chest pain, SOB, abdominal pain, N/V/D/C, changes in urine output or any skin changes. Objective - Vital Signs/Intake and Output Vital Signs (last 24 hours): Temp Pulse Resp BP Pulse Ox 98.4 F 90 13 153/104 H 100 11/03/17 03:58 11/03/17 06:00 11/02/17 22:09 11/02/17 22:09 11/02/17 17:29 Intake and Output: 11/03/17 11/03/17 06:59 18:59 Intake Total 100 Output Total 2000 Balance -1900 - Medications Medications: Current Medications Carvedilol (Coreg) 12.5 mg PO BID [facility] Last Admin: 11/02/17 17:59 Dose: Not Given Clopidogrel Bisulfate (Plavix) 75 mg PO DAILY [facility] Last Admin: 11/02/17 13:12 Dose: 75 mg Insulin Human Regular (Humulin R Low) 0 units SC ACHS [facility] PRN Reason: Protocol Last Admin: 11/03/17 02:29 Dose: Not Given Losartan Potassium (Cozaar) 50 mg PO DAILY [facility] Last Admin: 11/02/17 13:08 Dose: 50 mg Pantoprazole Sodium (Protonix Inj) 40 mg IVP DAILY [facility] Polyethylene Glycol (Miralax) 17 gm PO BID [facility] Last Admin: 11/02/17 18:00 Dose: Not Given Sevelamer HCl (Renagel) 1,600 mg PO 0800,1200,1700 [facility] Last Admin: 11/02/17 18:00 Dose: Not Given - Labs Labs: 11/03/17 05:50 11/03/17 05:50 PT 11.2 SECONDS (9.4-12.5) 11/02/17 07:55 INR 0.97 11/02/17 07:55 APTT 29.7 Seconds (25.1-36.5) 11/02/17 07:55 - Constitutional Appears: Non-toxic, No Acute Distress - Head Exam Head Exam: ATRAUMATIC, NORMOCEPHALIC - Eye Exam Eye Exam: EOMI - ENT Exam ENT Exam: Mucous Membranes Moist - Neck Exam Neck Exam: Full ROM - Respiratory Exam Respiratory Exam: NORMAL BREATHING PATTERN. absent: Accessory Muscle Use, Respiratory Distress - Cardiovascular Exam Cardiovascular Exam: +S1, +S2 - GI/Abdominal Exam GI & Abdominal Exam: Soft, Normal Bowel Sounds. absent: Distended, Firm, Guarding, Rigid, Tenderness, Hernia, Mass, Rebound - Rectal Exam Rectal Exam: Deferred - Neurological Exam Neurological Exam: Alert, Awake, Oriented x3 - Psychiatric Exam Psychiatric exam: Normal Affect, Normal Mood - Skin Skin Exam: Dry, Intact, Normal Color, Warm Assessment and Plan - Assessment and Plan (Free Text) Assessment: 41 year old male with a past medical history significant for ESRD (HD: MWF), gastritis, cholelithiasis, HTN, DM2, HLD, CAD s/p four ERICA (2011), and retinal detachment who presents with a chief complaint of N/V with associated epigastric pain for the past 36 hours. Plan: -Recent EGD (07/2017) reviewed -CT Abdomen/Pelvis showed cholelithiasis -Abdominal US showed a small gallstone with unremarkable CBD at 7.6mm -LFT's within normal limits -Clear Liquid/Moderate Carbohydrate Consistent Diet -Continue Miralax -Continue Protonix for GI Prophylaxis GI Disposition: Abdominal pain and N/V have resolved. Continue current management with Miralax until normal BM schedule has returned and PPI for GI prophylaxis. Patient to be evaluated for CABG by outside plant attendant as he was found to have triple vessel disease on diagnostic cardiac cath today (11/03). Patient seen and case discussed with attending, Dr. Raymond. <Rick Raymond V - Last Filed: 11/03/17 23:12> Objective - Vital Signs/Intake and Output Vital Signs (last 24 hours): Temp Pulse Resp BP Pulse Ox 98.2 F 107 H 16 118/70 97 11/03/17 20:00 11/03/17 19:44 11/03/17 19:14 11/03/17 19:45 11/03/17 17:46 Intake and Output: 11/03/17 11/04/17 18:59 06:59 Output Total 1500 Balance -1500 - Medications Medications: Current Medications Carvedilol (Coreg) 12.5 mg PO BID [facility] Last Admin: 11/03/17 18:33 Dose: 12.5 mg Clopidogrel Bisulfate (Plavix) 75 mg PO DAILY [facility] Last Admin: 11/03/17 08:38 Dose: 75 mg Insulin Human Regular (Humulin R Low) 0 units SC ACHS [facility] PRN Reason: Protocol Last Admin: 11/03/17 22:46 Dose: Not Given Losartan Potassium (Cozaar) 50 mg PO DAILY [facility] Last Admin: 11/03/17 18:24 Dose: 50 mg Pantoprazole Sodium (Protonix Inj) 40 mg IVP DAILY [facility] Last Admin: 11/03/17 18:29 Dose: 40 mg Polyethylene Glycol (Miralax) 17 gm PO BID [facility] Last Admin: 11/03/17 18:28 Dose: 17 gm Sevelamer HCl (Renagel) 1,600 mg PO 0800,1200,1700 [facility] Last Admin: 11/03/17 18:29 Dose: 1,600 mg - Labs Labs: PT 11.2 SECONDS (9.4-12.5) 11/02/17 07:55 INR 0.97 11/02/17 07:55 APTT 29.7 Seconds (25.1-36.5) 11/02/17 07:55 Attending/Attestation - Attestation I have personally seen and examined this patient.: Yes I have fully participated in the care of the patient.: Yes I have reviewed all pertinent clinical information, including history, physical exam and plan: Yes Notes (Text): This is an addendum to GI followup report dictated by the Residential Counselor. The patient was seen and evaluated earlier. Medical records, lab studies, imagings were reviewed. Last 24 hours events reviewed. Agreed with the above treatment plan as outlined in Residential Counselor 's notes with the addition of the following This patient had a cardiac cath done and was found to have a triple vessel disease ultrasound scan reviewed and it showed CBD 7.6mm patient was feeling better, LFT remains normal On examination abdomen remains soft Minimal tenderness of deep palpation Patient was found to have triple vessel disease and is being evaluated for CABG On examination abdomen was soft Tolerating diet 11/03/17 23:07
[2017-11-03] MEDS ORDERED: Lidocaine PF 2% (5 ml) Inj (For Cardiac Arrhy) ONE (08:59)
[2017-11-03] MEDS ORDERED: Iodixanol 320 MG/ML 100 ML BOTTLE IV ONE (09:00)
[2017-11-03] MEDS ORDERED: Iodixanol 320 MG/ML 200 ML BOTTLE IV ONE (09:01)
[2017-11-03] MEDS ORDERED: Midazolam 2 MG/2 ML VIAL ONE ×2 (09:06→09:17)
[2017-11-03] MEDS: POLYETHYLENE GLYCOL 3350 17 GM/Dose PACKET PO SCH ×2 (10:00→18:28)
--- NOTE | 2017-11-03 11:22 | CP.CCUPN ---
<Braydon iTtus - Last Filed: 11/03/17 11:18> CCU Subjective - Physician Review Subjective (Free Text): Braydon Titus DO PGY1 - Internal Medicine Case Maker - ICU Progress Note Patient seen and evaluated at bedside this AM post cardiac cath No complaints voiced at this time; No complaints of epigastric pain or chest pain. 12 system ROS negative at this time 11/03/17 11:19 11/03/17 11:20 11/03/17 11:20 CCU Objective - Vital Signs / Intake & Output Intake and Output (Last 8hrs): Intake & Output 11/02/17 11/03/17 11/03/17 22:59 06:59 14:59 Intake Total 120 100 Output Total 50 1999 Balance 70 -1900 Weight 113.398 kg Intake: IV 0 Right Antecubital 0 Oral 120 100 Output: Urine 0 Urine, Voided 0 Emesis 50 Other 1999 Other: # Bowel Movements 0 0 - Physical Exam Head: Positive for: Atraumatic, Normocephalic Pupils: Positive for: PERRL Extroacular Muscles: Positive for: EOMI Conjunctiva: Positive for: Normal Mouth: Positive for: Moist Mucous Membranes Pharnyx: Negative for: ERYTHEMA, EXUDATE, TONSILS ENLARGED Neck: Positive for: Normal Range of Motion Respiratory/Chest: Positive for: Clear to Auscultation, Good Air Exchange. Negative for: Respiratory Distress, Accessory Muscle Use Cardiovascular: Positive for: Regular Rate and Rhythm, Normal S1, S2. Negative for: Murmurs Abdomen: Negative for: Distention, Peritoneal Signs, Rebound, Guarding Back: Positive for: Normal Inspection. Negative for: CVA Tenderness Upper Extremity: Positive for: Normal Inspection. Negative for: Cyanosis, Edema Lower Extremity: Positive for: Normal Inspection. Negative for: Edema Neurological: Positive for: GCS=15, CN II-XII Intact, Speech Normal, Motor Func Grossly Intact Skin: Positive for: Warm, Dry, Normal Color. Negative for: Rashes Psychiatric: Positive for: Alert, Oriented x 3, Normal Insight, Normal Concentration - Medications Active Medications: Active Medications Generic Name Dose Route Start Last Admin Trade Name Freq PRN Reason Stop Dose Admin Carvedilol 12.5 mg 11/02/17 18:00 11/02/17 17:59 Coreg PO Not Given BID [facility] Clopidogrel Bisulfate 75 mg 11/02/17 12:30 11/03/17 08:38 Plavix PO 75 mg DAILY [facility] Administration Insulin Human Regular 0 units 11/02/17 16:30 11/03/17 02:29 Humulin R Low SC Not Given ACHS [facility] Protocol Losartan Potassium 50 mg 11/02/17 12:30 11/02/17 13:08 Cozaar PO 50 mg DAILY [facility] Administration Pantoprazole Sodium 40 mg 11/03/17 10:00 Protonix Inj IVP DAILY [facility] Polyethylene Glycol 17 gm 11/02/17 18:00 11/02/17 18:00 Miralax PO Not Given BID [facility] Sevelamer HCl 1,600 mg 11/02/17 17:00 11/02/17 18:00 Renagel PO Not Given 0800,1200,1700 [facility] - Patient Studies Lab Studies: Lab Studies 11/03/17 11/03/17 11/03/17 Range/Units 08:32 07:37 05:50 WBC (4.5-11.0) 10^3/ul RBC (3.5-6.1) 10^6/uL Hgb (14.0-18.0) g/dL Hct (42.0-52.0) % MCV (80.0-105.0) fl MCH (25.0-35.0) pg MCHC (31.0-37.0) g/dl RDW (11.5-14.5) % Plt Count (120.0-450.0) 10^3/uL MPV (7.0-11.0) fl Gran % (50.0-68.0) % Lymph % (Auto) (22.0-35.0) % [place] % (Auto) (1.0-6.0) % Eos % (Auto) (1.5-5.0) % Baso % (Auto) (0.0-3.0) % Gran # (1.4-6.5) Lymph # (Auto) (1.2-3.4) [place] # (Auto) (0.1-0.6) Eos # (Auto) (0.0-0.7) Baso # (Auto) (0.0-2.0) K/mm3 Sodium 138 (132-148) mmol/L Potassium 4.2 (3.6-5.0) mmol/L Chloride 95 L (98-107) mmol/L Carbon Dioxide 27 (21-33) mmol/L Anion Gap 21 H (10-20) BUN 45 H (7-21) mg/dL Creatinine 11.2 H* D (0.8-1.5) mg/dl Est GFR ( Amer) 6 Est GFR (Non-Af Amer) 5 POC Glucose (mg/dL) 75 (65-110) mg/dL Random Glucose 74 (70-110) mg/dL Calcium 9.0 (8.4-10.5) mg/dL Phosphorus 7.1 H (2.5-4.5) mg/dL Magnesium 2.1 (1.7-2.2) mg/dL Total Bilirubin 0.7 (0.2-1.3) mg/dL AST 24 (17-59) U/L ALT 25 (7-56) U/L Alkaline Phosphatase 63 (38-126) U/L Troponin I 0.30 H* ng/mL Total Protein 8.4 H (5.8-8.3) g/dL Albumin 4.4 (3.0-4.8) g/dL Globulin 4.0 gm/dL Albumin/Globulin Ratio 1.1 (1.1-1.8) 11/03/17 11/03/17 11/02/17 Range/Units 05:50 00:40 21:32 WBC 7.7 (4.5-11.0) 10^3/ul RBC 4.04 (3.5-6.1) 10^6/uL Hgb 13.7 L (14.0-18.0) g/dL Hct 41.0 L (42.0-52.0) % MCV 101.5 (80.0-105.0) fl MCH 33.9 (25.0-35.0) pg MCHC 33.4 (31.0-37.0) g/dl RDW 14.2 (11.5-14.5) % Plt Count 335 (120.0-450.0) 10^3/uL MPV 9.4 (7.0-11.0) fl Gran % 63.5 (50.0-68.0) % Lymph % (Auto) 26.1 (22.0-35.0) % [place] % (Auto) 8.2 H (1.0-6.0) % Eos % (Auto) 1.7 (1.5-5.0) % Baso % (Auto) 0.5 (0.0-3.0) % Gran # 4.86 (1.4-6.5) Lymph # (Auto) 2.0 (1.2-3.4) [place] # (Auto) 0.6 (0.1-0.6) Eos # (Auto) 0.1 (0.0-0.7) Baso # (Auto) 0.04 (0.0-2.0) K/mm3 Sodium (132-148) mmol/L Potassium (3.6-5.0) mmol/L Chloride (98-107) mmol/L Carbon Dioxide (21-33) mmol/L Anion Gap (10-20) BUN (7-21) mg/dL Creatinine (0.8-1.5) mg/dl Est GFR ( Amer) Est GFR (Non-Af Amer) POC Glucose (mg/dL) 68 (65-110) mg/dL Random Glucose (70-110) mg/dL Calcium (8.4-10.5) mg/dL Phosphorus (2.5-4.5) mg/dL Magnesium (1.7-2.2) mg/dL Total Bilirubin (0.2-1.3) mg/dL AST (17-59) U/L ALT (7-56) U/L Alkaline Phosphatase (38-126) U/L Troponin I 0.34 H* ng/mL Total Protein (5.8-8.3) g/dL Albumin (3.0-4.8) g/dL Globulin gm/dL Albumin/Globulin Ratio (1.1-1.8) 11/02/17 11/02/17 11/02/17 Range/Units 19:52 16:30 12:23 WBC (4.5-11.0) 10^3/ul RBC (3.5-6.1) 10^6/uL Hgb (14.0-18.0) g/dL Hct (42.0-52.0) % MCV (80.0-105.0) fl MCH (25.0-35.0) pg MCHC (31.0-37.0) g/dl RDW (11.5-14.5) % Plt Count (120.0-450.0) 10^3/uL MPV (7.0-11.0) fl Gran % (50.0-68.0) % Lymph % (Auto) (22.0-35.0) % [place] % (Auto) (1.0-6.0) % Eos % (Auto) (1.5-5.0) % Baso % (Auto) (0.0-3.0) % Gran # (1.4-6.5) Lymph # (Auto) (1.2-3.4) [place] # (Auto) (0.1-0.6) Eos # (Auto) (0.0-0.7) Baso # (Auto) (0.0-2.0) K/mm3 Sodium (132-148) mmol/L Potassium (3.6-5.0) mmol/L Chloride (98-107) mmol/L Carbon Dioxide (21-33) mmol/L Anion Gap (10-20) BUN (7-21) mg/dL Creatinine (0.8-1.5) mg/dl Est GFR ( Amer) Est GFR (Non-Af Amer) POC Glucose (mg/dL) 65 77 (65-110) mg/dL Random Glucose (70-110) mg/dL Calcium (8.4-10.5) mg/dL Phosphorus (2.5-4.5) mg/dL Magnesium (1.7-2.2) mg/dL Total Bilirubin (0.2-1.3) mg/dL AST (17-59) U/L ALT (7-56) U/L Alkaline Phosphatase (38-126) U/L Troponin I 0.35 H* D ng/mL Total Protein (5.8-8.3) g/dL Albumin (3.0-4.8) g/dL Globulin gm/dL Albumin/Globulin Ratio (1.1-1.8) Laboratory Results - last 24 hr 11/02/17 11/02/17 11/02/17 12:23 16:30 19:52 WBC RBC Hgb Hct MCV MCH MCHC RDW Plt Count MPV Gran % Lymph % (Auto) [place] % (Auto) Eos % (Auto) Baso % (Auto) Gran # Lymph # (Auto) [place] # (Auto) Eos # (Auto) Baso # (Auto) Sodium Potassium Chloride Carbon Dioxide Anion Gap BUN Creatinine Est GFR ( Amer) Est GFR (Non-Af Amer) POC Glucose (mg/dL) 77 65 Random Glucose Calcium Phosphorus Magnesium Total Bilirubin AST ALT Alkaline Phosphatase Troponin I 0.35 H* D Total Protein Albumin Globulin Albumin/Globulin Ratio 11/02/17 11/03/17 11/03/17 21:32 00:40 05:50 WBC 7.7 RBC 4.04 Hgb 13.7 L Hct 41.0 L MCV 101.5 MCH 33.9 MCHC 33.4 RDW 14.2 Plt Count 335 MPV 9.4 Gran % 63.5 Lymph % (Auto) 26.1 [place] % (Auto) 8.2 H Eos % (Auto) 1.7 Baso % (Auto) 0.5 Gran # 4.86 Lymph # (Auto) 2.0 [place] # (Auto) 0.6 Eos # (Auto) 0.1 Baso # (Auto) 0.04 Sodium Potassium Chloride Carbon Dioxide Anion Gap BUN Creatinine Est GFR ( Amer) Est GFR (Non-Af Amer) POC Glucose (mg/dL) 68 Random Glucose Calcium Phosphorus Magnesium Total Bilirubin AST ALT Alkaline Phosphatase Troponin I 0.34 H* Total Protein Albumin Globulin Albumin/Globulin Ratio 11/03/17 11/03/17 11/03/17 05:50 07:37 08:32 WBC RBC Hgb Hct MCV MCH MCHC RDW Plt Count MPV Gran % Lymph % (Auto) [place] % (Auto) Eos % (Auto) Baso % (Auto) Gran # Lymph # (Auto) [place] # (Auto) Eos # (Auto) Baso # (Auto) Sodium 138 Potassium 4.2 Chloride 95 L Carbon Dioxide 27 Anion Gap 21 H BUN 45 H Creatinine 11.2 H* D Est GFR ( Amer) 6 Est GFR (Non-Af Amer) 5 POC Glucose (mg/dL) 75 Random Glucose 74 Calcium 9.0 Phosphorus 7.1 H Magnesium 2.1 Total Bilirubin 0.7 AST 24 ALT 25 Alkaline Phosphatase 63 Troponin I 0.30 H* Total Protein 8.4 H Albumin 4.4 Globulin 4.0 Albumin/Globulin Ratio 1.1 EKG/Cardiology Studies: Cardiology / EKG Studies 11/02/17 14:00 EKG [ELECTROCARDIOGRAM] Routine Comment: Reason For Exam: elevated trop 11/03/17 07:59 EKG [ELECTROCARDIOGRAM] Urgent Comment: Reason For Exam: EKG Follow Up Fingerstick Blood Sugar Results: 68 Review of Systems - Review of Systems All systems: reviewed and no additional remarkable complaints except Review of Systems: as per HPI Critical Care Progress Note - Nutrition Nutrition: Nutrition Category Date Time Status Liquid Diet [DIET] Diets 11/02/17 Dinner Ordered Assessment/Plan - Assessment and Plan (Free Text) Assessment: 41 year old male with PMH ESRD on HD MWF, gastritis, cholethiasis, hypertension , diabetes mellitus, coronary artery disease with stents, retinal detachment, hyperlipidemia, presented on 11/02 for nausea/vomiting, upper abdominal pain. Patient was catheterized 11/03 Found to have triple vessel disease requiring CABG. Neuro: AAOx4. No changes in mental status. Monitor. Respiratory: Saturating well on RA. Monitor pulse ox. Cardio: Initially, EKG shows normal sinus rhythm rate approximately 100 with Q waves inferiorly and a nonspecific intraventricular conduction delay and no acute ST or T-wave changes. QTc prolonged at 500 ms. Trops elevated on adm in setting of ESRD Repeat trop this AM still elevated; however not trending up. Patient was asymptomatic overnight no complaints of CP/SOB/Diaphoresis Patient found to have triple vessel disease requiring CABG; Pending Cath report at this time. Hx of CAD with stents. Will c/w plavix, coreg, cozaar Hemodynamically stable. Maintain MAP>65. Monitor GI: Nausea/vomitin/2 gastritis vs gastroenteritis vs gallstones - patient has a history of gallstones - afebrile, no leukocytosis - CT abd pelvis neg for acute changes - Abd U/S no cholecystitis - Protonix 40 IV daily - Reglan prn achs - CLD - Surgery - needs to f/u outpt for elective cholecystectomy - GI Following, appreciate reccs Nephro: - elevated BUN/Cr. - Hx of ESRD -on hemodialysis MWF - Dr Richardson on board. Pt. had HD yesterday - Replace lytes, maintain euvolemia Heme: Stable Hgb, platelets. Monitor. ID: - afebrile, no leukocytosis. - Monitor off antibiotics. PPX: protonix, SCDs Pt. seen examined and discussed with attending physician Dr. Ishaan Titus DO PGY1 Internal Medicine Case Maker Pager [phone] - Date & Time Date: 11/03/17 Time: 11:36 <Shawn Quiros - Last Filed: 11/03/17 14:53> CCU Objective - Vital Signs / Intake & Output Vital Signs (Last 4 hours): Vital Signs Temp 11/03/17 12:00 98.4 F - Medications Active Medications: Active Medications Generic Name Dose Route Start Last Admin Trade Name Freq PRN Reason Stop Dose Admin Carvedilol 12.5 mg 11/02/17 18:00 11/02/17 17:59 Coreg PO Not Given BID [facility] Clopidogrel Bisulfate 75 mg 11/02/17 12:30 11/03/17 08:38 Plavix PO 75 mg DAILY [facility] Administration Insulin Human Regular 0 units 11/02/17 16:30 11/03/17 02:29 Humulin R Low SC Not Given ACHS [facility] Protocol Losartan Potassium 50 mg 11/02/17 12:30 11/02/17 13:08 Cozaar PO 50 mg DAILY [facility] Administration Pantoprazole Sodium 40 mg 11/03/17 10:00 Protonix Inj IVP DAILY [facility] Polyethylene Glycol 17 gm 11/02/17 18:00 11/02/17 18:00 Miralax PO Not Given BID [facility] Sevelamer HCl 1,600 mg 11/02/17 17:00 11/02/17 18:00 Renagel PO Not Given 0800,1200,1700 [facility] Addendum Addendum: 11/03/17 14:53 ICU Attending Addendum: Patient seen and examined. Case reviewed on round with housestaff. Agree with resident note above with the following additions/exceptions: 41 M ESRD on HD MWF, gastritis, cholethiasis, hypertension, diabetes mellitus, coronary artery disease with stents, admitted on 11/02 for nausea/vomiting, had some eelvated TNI. Today patient went for cardiac catheterized which showed triple vessel disease. No stents placed. patient being referred to CABG. Will await CT Surg consult If surgery is held off, then patient can be transferred out of ICU cont plavix for CAD cont losartan and coreg gluc control with insulin Rest of care as noted above. Shawn Quiros MD Lead Sewage Plant Operator
--- NOTE | 2017-11-03 11:54 | CARDCATH ---
PROCEDURE DATE: 11/03/2017 HISTORY OF PRESENT ILLNESS: The patient is a 41-year-old male with a history of end-stage renal disease, treated with diabetes mellitus, hypertension as well as diabetes mellitus who presents with nausea and vomiting. He has complained of angina while he has been jogging recently. Laboratories includes an elevated troponin which is different from his previous troponins consistent with a non-STEMI. Because of this, cardiac catheterization was recommended. PROCEDURE: Left heart catheterization with coronary arteriography, left ventriculogram, supra-aortic valvular injection were performed. There were no complications. I performed moderate sedation which included the presence of an independent trained observer that assisted in monitoring the patient's level of consciousness and physiologic status. After administration of Versed and fentanyl, my intra-service time was 30 minutes. The findings on catheterization revealed a left ventricle that revealed severe anterior apical, inferoapical akinesis. The anterobasal and inferobasal as well as the lateral wall moved well. Estimated ejection fraction is 35%. Supra-aortic valvular injection revealed no aortic insufficiency. His coronary anatomy revealed a nondominant RCA which was occluded in its distal portion. The left main artery revealed intimal irregularities without critical lesions. The LAD was occluded in its midportion at the previously placed multiple stents that were placed in 2014 for a total occlusion and a diffusely diseased LAD. There is disease in the ostium of the diagonal vessels that were critical. The obtuse marginal branch and circumflex artery revealed diffuse atherosclerosis throughout its tree. There is critical disease in the obtuse marginal branch. Angio-Seal was used to close the femoral artery site. The patient tolerated the procedure well. In summary, the procedure revealed triple-vessel CAD with now an occluded LAD at the previously placed stent sites. The LV function revealed an akinetic anterior apical and inferoapical segments with an estimated ejection fraction of 35%. Given these findings, we will need to present his case to a cardiac surgeon to see the possibility for coronary artery bypass surgery. Ajay Diggs MD
--- NOTE | 2017-11-03 17:35 | CARD ---
APPROVED REPORT Date of service: 11/03/2017 EKG Measurement Heart [id number] <Conclusion> Normal sinus rhythm Possible Left atrial enlargement Inferior infarct, age undetermined Anterolateral infarct, age undetermined Abnormal ECG
--- NOTE | 2017-11-03 19:53 | CON ---
DATE: 11/03/2017 CHIEF COMPLAINT AND HISTORY OF PRESENT ILLNESS: This is a 41-year-old male who is coming into the hospital because of nausea and vomiting. The patient was due for dialysis yesterday, but was not able to start his dialysis treatment, he had missed his regular day. The patient was dialyzed yesterday and has improvement of his symptoms. He says that some of the medications may be causing some of his nausea. He is concerned that it may be Sensipar. He has no complaints of any chest pain. No shortness of breath, no nausea, no vomiting. At this point, he has no fevers or chills. REVIEW OF SYSTEMS: All other review of symptoms are within normal limits except that was mentioned. ALLERGIES: PIPERACILLIN, TAZOBACTAM, CINACALCET, ALTHOUGH THE CINACALCET GIVES NAUSEA. PAST MEDICAL HISTORY: 1. End-stage renal disease, on hemodialysis. 2. Coronary artery disease with stents. 3. Cardiomyopathy. 4. Defibrillator. 5. Dyslipidemia. 6. Hypertension. 7. Diabetes type 2. 8. CHF secondary to systolic dysfunction. 9. Secondary hyperparathyroidism. 10. Chronic anemia secondary to CKD. PAST SURGICAL HISTORY: 1. He has left AV fistula. 2. PermCath. 3. Defibrillator. FAMILY HISTORY: No history of kidney disease. SOCIAL HISTORY: No smoking or drinking. PHYSICAL EXAMINATION: VITAL SIGNS: Temperature is 98.4, pulse of 59, blood pressure is 152/104, respirations 15. GENERAL: The patient lying in bed, uncomfortable, and in no acute distress. HEENT: Atraumatic and normocephalic. Anicteric sclerae. Moist mucosa. Kim conjunctivae. No oral lesions. NECK: No JVD, anterior and posterior adenopathy, thyromegaly, or bruits. CARDIOVASCULAR: S1 and S2 regular. No murmur, rubs, or gallop. LUNGS: Clear to auscultation bilaterally. No wheezes, rales, or rhonchi. ABDOMEN: Bowel sounds are positive. Soft, nontender and nondistended. No hepatosplenomegaly. No rebound and no guarding EXTREMITIES: No cyanosis, clubbing, or edema. The left arm is positive for AV fistula. NEUROLOGIC: No facial asymmetry. Tongue is midline. No uvula deviation. Power is 5/5 upper extremity and lower extremity. Sensation intact in upper extremity and lower extremity. PSYCHIATRIC: He is awake, alert and oriented x3. No anxiety or depression. He has normal affect. GENITOURINARY: No CVA tenderness. VASCULAR: 2+ pulses in the carotid pulses and pedal pulses. SKIN: No erythema or nodules SPINE: Shows normal curvature. LABORATORY DATA: White count of 7.7, hemoglobin 13.7. Chemistry shows creatinine of 11.2 and yesterday, the creatinine was 14.1. Troponin 0.28 initially and repeat was 0.35 and 0.34. The patient's phosphorus is 7.1. CT of the abdomen and pelvis done which shows no acute findings. Ultrasound of the abdomen done shows no acute findings. ASSESSMENT: 1. Nausea and vomiting secondary to uremia. 2. End-stage renal disease, on hemodialysis. 3. Coronary artery disease. 4. Dyslipidemia. 5. Hypertension. 6. Diabetic nephropathy. 7. Secondary hyperparathyroidism. PLAN: The patient is currently comfortable. He is on carvedilol. The patient is going to continue with Norvasc for constipation. He is on Plavix. The patient is on Protonix daily. He is on Renagel for secondary hyperparathyroidism. The patient is on liquid diet. He is being followed by Dr. Diggs. The patient may need a cardiac cath. I did speak to Dr. White regarding the case. I feel that most of the symptoms were from not being dialyzed. After dialysis, he has had significant improvement. Maximilian Zheng MD
[2017-11-03] MEDS ORDERED: Oxycodone/Acetaminophen 5/325 mg Tab PO STA (20:57)
--- NOTE | 2017-11-03 22:47 | PN ---
DATE: 11/03/2017 SUBJECTIVE: A 41-year-old male in the Coronary Care Unit. The patient was admitted to [facility] with abdominal pain, nausea, vomiting and diarrhea. He also gets dialysis for his illness, was found to have elevation in his cardiac enzymes and today he was taken to the cardiac laboratory director and his rn occupational health Dr. Diggs who describes that the patient has triple-vessel disease and is recommending cardiothoracic evaluation. PHYSICAL EXAMINATION: VITAL SIGNS: He has a pulse of 108. His blood pressure is 99/59, his temperature is 98, his respiratory rate is 21 and oxygen saturation is 98% on room air. GENERAL: He is alert and oriented. LUNGS: Show diminished breath sounds at the bases. HEART: Is in irregular S1, S2 rhythm. He has a pacemaker placed. ABDOMEN: Obese. Soft with positive bowel sounds. EXTREMITIES: Show no evidence of edema. LABORATORY DATA: Shows WBC of 7.7, hemoglobin 13.7, hematocrit 41 and platelet count 335. His chemistry shows sodium 138, potassium 4.2, chloride 95. The BUN is 45, the creatinine is 11.2. His magnesium is 2.1, his phosphorus is 7.1. ASSESSMENT AND PLAN: 1. The patient is on chronic dialysis. He is scheduled for dialysis today. 2. He will continue to be monitored in the Intensive Care Unit setting given the cardiac findings, non-ST myocardial infarction, and the current recommendations by the underwriting consultant. We will continue to monitor the patient closely. I discussed with the patient the current clinical status. Cleopatra White MD
[2017-11-04 05:56] LABS: BASO # 0.04 K/mm3 (0.0-2.0); BASO % 0.5 % (0.0-3.0); EOS # 0.2 (0.0-0.7); EOS % 2.4 % (1.5-5.0); GRAN # 4.26 (1.4-6.5); GRAN % 53.8 % (50.0-68.0); HEMOGLOBIN 12.8 g/dL (14.0-18.0); LYMPH # 2.4 (1.2-3.4); LYMPH % 30.7 % (22.0-35.0); MEAN CELL VOLUME 102.4 fl (80.0-105.0); MEAN CORPUSCULAR HEMOGLOBIN 33.5 pg (25.0-35.0); MEAN CORPUSCULAR HGB CONC 32.7 g/dl (31.0-37.0); MEAN PLATELET VOLUME 9.7 fl (7.0-11.0); MONO % 12.6 % (1.0-6.0); RBC 3.82 10^6/uL (3.5-6.1); RED CELL DISTRIBUTION WIDTH 14.1 % (11.5-14.5); WHITE BLOOD COUNT 7.9 10^3/ul (4.5-11.0)
[2017-11-04 07:31] LABS: ALB/GLOB RATIO 1.1 (1.1-1.8); ALBUMIN 4.1 g/dL (3.0-4.8); CALCIUM 8.8 mg/dL (8.4-10.5)
[2017-11-04] MEDS: Insulin Reg-LOW-Coverage SC SCH ×5 (08:11→22:19)
--- NOTE | 2017-11-04 08:50 | CP.CCUPN ---
CCU Objective - Vital Signs / Intake & Output Vital Signs (Last 4 hours): Vital Signs Pulse 11/04/17 05:49 90 Intake and Output (Last 8hrs): Intake & Output 11/03/17 11/04/17 11/04/17 22:59 06:59 14:59 Intake Total 200 Output Total 1500 50 Balance -1500 150 Intake: IV 0 Right Hand 0 Oral 200 Output: Urine 0 50 Urine, Voided 0 50 Other 1500 Other: # Bowel Movements 1 - Physical Exam Head: Positive for: Atraumatic, Normocephalic Pupils: Positive for: PERRL Extroacular Muscles: Positive for: EOMI Conjunctiva: Positive for: Normal Mouth: Positive for: Moist Mucous Membranes Pharnyx: Negative for: ERYTHEMA, EXUDATE, TONSILS ENLARGED Neck: Positive for: Normal Range of Motion Respiratory/Chest: Positive for: Clear to Auscultation, Good Air Exchange. Negative for: Respiratory Distress, Accessory Muscle Use Cardiovascular: Positive for: Regular Rate and Rhythm, Normal S1, S2. Negative for: Murmurs Abdomen: Negative for: Distention, Peritoneal Signs, Rebound, Guarding Back: Positive for: Normal Inspection. Negative for: CVA Tenderness Upper Extremity: Positive for: Normal Inspection. Negative for: Cyanosis, Edema Lower Extremity: Positive for: Normal Inspection. Negative for: Edema Neurological: Positive for: GCS=15, CN II-XII Intact, Speech Normal, Motor Func Grossly Intact Skin: Positive for: Warm, Dry, Normal Color. Negative for: Rashes Psychiatric: Positive for: Alert, Oriented x 3, Normal Insight, Normal Concentration - Medications Active Medications: Active Medications Generic Name Dose Route Start Last Admin Trade Name Pablito PRN Reason Stop Dose Admin Aspirin 81 mg 11/04/17 10:00 Aspirin Chewable PO DAILY TINY Carvedilol 12.5 mg 11/02/17 18:00 11/03/17 18:33 Coreg PO 12.5 mg BID TINY Administration Clopidogrel Bisulfate 75 mg 11/02/17 12:30 11/03/17 08:38 Plavix PO 75 mg DAILY TINY Administration Insulin Human Regular 0 units 11/02/17 16:30 11/04/17 08:11 Humulin R Low SC Not Given ACHS [facility] Protocol Losartan Potassium 50 mg 11/02/17 12:30 11/03/17 18:24 Cozaar PO 50 mg DAILY TINY Administration Pantoprazole Sodium 40 mg 11/03/17 10:00 11/03/17 18:29 Protonix Inj IVP 40 mg DAILY TINY Administration Polyethylene Glycol 17 gm 11/02/17 18:00 11/03/17 18:28 Miralax PO 17 gm BID TINY Administration Sevelamer HCl 1,600 mg 11/02/17 17:00 11/04/17 08:13 Renagel PO 1,600 mg 0800,1200,1700 TINY Administration - Patient Studies Lab Studies: Lab Studies 11/04/17 11/04/17 11/04/17 Range/Units 07:34 05:15 05:15 WBC 7.9 (4.5-11.0) 10^3/ul RBC 3.82 (3.5-6.1) 10^6/uL Hgb 12.8 L (14.0-18.0) g/dL Hct 39.1 L (42.0-52.0) % MCV 102.4 (80.0-105.0) fl MCH 33.5 (25.0-35.0) pg MCHC 32.7 (31.0-37.0) g/dl RDW 14.1 (11.5-14.5) % Plt Count 294 (120.0-450.0) 10^3/uL MPV 9.7 (7.0-11.0) fl Gran % 53.8 (50.0-68.0) % Lymph % (Auto) 30.7 (22.0-35.0) % [place] % (Auto) 12.6 H (1.0-6.0) % Eos % (Auto) 2.4 (1.5-5.0) % Baso % (Auto) 0.5 (0.0-3.0) % Gran # 4.26 (1.4-6.5) Lymph # (Auto) 2.4 (1.2-3.4) [place] # (Auto) 1.0 H (0.1-0.6) Eos # (Auto) 0.2 (0.0-0.7) Baso # (Auto) 0.04 (0.0-2.0) K/mm3 Sodium 136 (132-148) mmol/L Potassium 4.2 (3.6-5.0) mmol/L Chloride 94 L (98-107) mmol/L Carbon Dioxide 30 (21-33) mmol/L Anion Gap 16 (10-20) BUN 33 H (7-21) mg/dL Creatinine 8.6 H* D (0.8-1.5) mg/dl Est GFR ( Amer) 8 Est GFR (Non-Af Amer) 7 POC Glucose (mg/dL) 74 (65-110) mg/dL Random Glucose 83 (70-110) mg/dL Calcium 8.8 (8.4-10.5) mg/dL Phosphorus 5.2 H (2.5-4.5) mg/dL Magnesium 2.0 (1.7-2.2) mg/dL Total Bilirubin 0.5 (0.2-1.3) mg/dL AST 33 (17-59) U/L ALT 23 (7-56) U/L Alkaline Phosphatase 62 (38-126) U/L Total Protein 7.7 (5.8-8.3) g/dL Albumin 4.1 (3.0-4.8) g/dL Globulin 3.6 gm/dL Albumin/Globulin Ratio 1.1 (1.1-1.8) 11/03/17 11/03/17 Range/Units 21:57 18:38 WBC (4.5-11.0) 10^3/ul RBC (3.5-6.1) 10^6/uL Hgb (14.0-18.0) g/dL Hct (42.0-52.0) % MCV (80.0-105.0) fl MCH (25.0-35.0) pg MCHC (31.0-37.0) g/dl RDW (11.5-14.5) % Plt Count (120.0-450.0) 10^3/uL MPV (7.0-11.0) fl Gran % (50.0-68.0) % Lymph % (Auto) (22.0-35.0) % [place] % (Auto) (1.0-6.0) % Eos % (Auto) (1.5-5.0) % Baso % (Auto) (0.0-3.0) % Gran # (1.4-6.5) Lymph # (Auto) (1.2-3.4) [place] # (Auto) (0.1-0.6) Eos # (Auto) (0.0-0.7) Baso # (Auto) (0.0-2.0) K/mm3 Sodium (132-148) mmol/L Potassium (3.6-5.0) mmol/L Chloride (98-107) mmol/L Carbon Dioxide (21-33) mmol/L Anion Gap (10-20) BUN (7-21) mg/dL Creatinine (0.8-1.5) mg/dl Est GFR ( Amer) Est GFR (Non-Af Amer) POC Glucose (mg/dL) 118 H 135 H (65-110) mg/dL Random Glucose (70-110) mg/dL Calcium (8.4-10.5) mg/dL Phosphorus (2.5-4.5) mg/dL Magnesium (1.7-2.2) mg/dL Total Bilirubin (0.2-1.3) mg/dL AST (17-59) U/L ALT (7-56) U/L Alkaline Phosphatase (38-126) U/L Total Protein (5.8-8.3) g/dL Albumin (3.0-4.8) g/dL Globulin gm/dL Albumin/Globulin Ratio (1.1-1.8) Laboratory Results - last 24 hr 11/03/17 11/03/17 11/04/17 18:38 21:57 05:15 WBC 7.9 RBC 3.82 Hgb 12.8 L Hct 39.1 L MCV 102.4 MCH 33.5 MCHC 32.7 RDW 14.1 Plt Count 294 MPV 9.7 Gran % 53.8 Lymph % (Auto) 30.7 [place] % (Auto) 12.6 H Eos % (Auto) 2.4 Baso % (Auto) 0.5 Gran # 4.26 Lymph # (Auto) 2.4 [place] # (Auto) 1.0 H Eos # (Auto) 0.2 Baso # (Auto) 0.04 Sodium Potassium Chloride Carbon Dioxide Anion Gap BUN Creatinine Est GFR ( Amer) Est GFR (Non-Af Amer) POC Glucose (mg/dL) 135 H 118 H Random Glucose Calcium Phosphorus Magnesium Total Bilirubin AST ALT Alkaline Phosphatase Total Protein Albumin Globulin Albumin/Globulin Ratio 11/04/17 11/04/17 05:15 07:34 WBC RBC Hgb Hct MCV MCH MCHC RDW Plt Count MPV Gran % Lymph % (Auto) [place] % (Auto) Eos % (Auto) Baso % (Auto) Gran # Lymph # (Auto) [place] # (Auto) Eos # (Auto) Baso # (Auto) Sodium 136 Potassium 4.2 Chloride 94 L Carbon Dioxide 30 Anion Gap 16 BUN 33 H Creatinine 8.6 H* D Est GFR ( Amer) 8 Est GFR (Non-Af Amer) 7 POC Glucose (mg/dL) 74 Random Glucose 83 Calcium 8.8 Phosphorus 5.2 H Magnesium 2.0 Total Bilirubin 0.5 AST 33 ALT 23 Alkaline Phosphatase 62 Total Protein 7.7 Albumin 4.1 Globulin 3.6 Albumin/Globulin Ratio 1.1 Fingerstick Blood Sugar Results: 74 Critical Care Progress Note - Nutrition Nutrition: Nutrition Category Date Time Status Heart Healthy Diet [DIET] Diets 11/03/17 Lunch Active
[2017-11-04] MEDS: POLYETHYLENE GLYCOL 3350 17 GM/Dose PACKET PO SCH ×2 (09:15→17:41)
--- NOTE | 2017-11-04 11:13 | CP.PCM.PN ---
<Chaitanya Graff - Last Filed: 11/04/17 11:23> Subjective - Date & Time of Evaluation Date of Evaluation: 11/04/17 Time of Evaluation: 11:08 - Subjective Subjective: GI Fellow PGY4 No acute overnight events. No GI complaints at this time. Afeb, HDS. Objective - Vital Signs/Intake and Output Vital Signs (last 24 hours): Temp Pulse Resp BP Pulse Ox 98.2 F 78 12 133/67 97 11/04/17 04:00 11/04/17 10:00 11/04/17 09:00 11/04/17 10:00 11/03/17 17:46 Intake and Output: 11/04/17 11/04/17 06:59 18:59 Intake Total 200 Output Total 50 Balance 150 - Medications Medications: Current Medications Aspirin (Aspirin Chewable) 81 mg PO DAILY [facility] Last Admin: 11/04/17 09:15 Dose: 81 mg Carvedilol (Coreg) 12.5 mg PO BID [facility] Last Admin: 11/04/17 09:14 Dose: 12.5 mg Clopidogrel Bisulfate (Plavix) 75 mg PO DAILY [facility] Last Admin: 11/04/17 09:15 Dose: 75 mg Insulin Human Regular (Humulin R Low) 0 units SC ACHS [facility] PRN Reason: Protocol Last Admin: 11/04/17 08:11 Dose: Not Given Losartan Potassium (Cozaar) 50 mg PO DAILY [facility] Last Admin: 11/04/17 09:14 Dose: 50 mg Pantoprazole Sodium (Protonix Inj) 40 mg IVP DAILY [facility] Last Admin: 11/04/17 09:15 Dose: 40 mg Polyethylene Glycol (Miralax) 17 gm PO BID [facility] Last Admin: 11/04/17 09:15 Dose: 17 gm Sevelamer HCl (Renagel) 1,600 mg PO 0800,1200,1700 [facility] Last Admin: 11/04/17 08:13 Dose: 1,600 mg - Labs Labs: 11/04/17 05:15 11/04/17 05:15 PT 11.2 SECONDS (9.4-12.5) 11/02/17 07:55 INR 0.97 11/02/17 07:55 APTT 29.7 Seconds (25.1-36.5) 11/02/17 07:55 - Constitutional Appears: Well, No Acute Distress - Head Exam Head Exam: NORMAL INSPECTION - Eye Exam Eye Exam: Normal appearance - ENT Exam ENT Exam: Mucous Membranes Moist - Respiratory Exam Respiratory Exam: Clear to Ausculation Bilateral, NORMAL BREATHING PATTERN - Cardiovascular Exam Cardiovascular Exam: REGULAR RHYTHM - GI/Abdominal Exam GI & Abdominal Exam: Soft, Normal Bowel Sounds. absent: Tenderness - Extremities Exam Extremities Exam: Normal Inspection - Neurological Exam Neurological Exam: CN II-XII Intact. absent: Altered - Psychiatric Exam Psychiatric exam: Normal Affect, Normal Mood - Skin Skin Exam: Normal Color Assessment and Plan - Assessment and Plan (Free Text) Assessment: 41 year old male with a past medical history significant for ESRD (HD: MWF), gastritis, cholelithiasis, HTN, DM2, HLD, CAD s/p four ERICA (2011), and retinal detachment who presents with a chief complaint of N/V with associated epigastric pain for the past 36 hours. Plan: -Recent EGD (07/2017) reviewed -CT Abdomen/Pelvis showed cholelithiasis -Abdominal US showed a small gallstone with unremarkable CBD at 7.6mm -LFT's within normal limits -Clear Liquid/Moderate Carbohydrate Consistent Diet -Continue Miralax -Continue Protonix for GI Prophylaxis. Decreased dose, 20mg, and made PO GI Disposition: Abdominal pain and N/V have resolved. Continue current management with Miralax until normal BM schedule has returned and PPI for GI prophylaxis. Patient to be evaluated for CABG by outside griddle attendant as he was found to have triple vessel disease on diagnostic cardiac cath today (11/03). <Segundo,Kovil V - Last Filed: 11/04/17 20:50> Objective - Vital Signs/Intake and Output Vital Signs (last 24 hours): Temp Pulse Resp BP Pulse Ox 98.7 F 89 36 H 121/77 97 11/04/17 12:00 11/04/17 17:41 11/04/17 15:00 11/04/17 17:41 11/03/17 17:46 Intake and Output: 11/04/17 11/05/17 18:59 06:59 Intake Total 180 Output Total 0 Balance 180 - Medications Medications: Current Medications Aspirin (Aspirin Chewable) 81 mg PO DAILY [facility] Last Admin: 11/04/17 09:15 Dose: 81 mg Carvedilol (Coreg) 12.5 mg PO BID [facility] Last Admin: 11/04/17 17:41 Dose: 12.5 mg Clopidogrel Bisulfate (Plavix) 75 mg PO DAILY [facility] Last Admin: 11/04/17 09:15 Dose: 75 mg Insulin Human Regular (Humulin R Low) 0 units SC ACHS [facility] PRN Reason: Protocol Last Admin: 11/04/17 18:48 Dose: Not Given Losartan Potassium (Cozaar) 50 mg PO DAILY [facility] Last Admin: 11/04/17 09:14 Dose: 50 mg Pantoprazole Sodium (Protonix Ec Tab) 20 mg PO 0600 [facility] Polyethylene Glycol (Miralax) 17 gm PO BID [facility] Last Admin: 11/04/17 17:41 Dose: 17 gm Sevelamer HCl (Renagel) 1,600 mg PO 0800,1200,1700 [facility] Last Admin: 11/04/17 17:41 Dose: 1,600 mg - Labs Labs: 11/04/17 05:15 11/04/17 05:15 PT 11.2 SECONDS (9.4-12.5) 11/02/17 07:55 INR 0.97 11/02/17 07:55 APTT 29.7 Seconds (25.1-36.5) 11/02/17 07:55 Attending/Attestation - Attestation I have personally seen and examined this patient.: Yes I have fully participated in the care of the patient.: Yes I have reviewed all pertinent clinical information, including history, physical exam and plan: Yes Notes (Text): This is an addendum to GI progress report dictated by the GI Fellow.The patient was seen and examined earlier. Medical records, lab studies, imagings were reviewed. Last 24 hours events reviewed. Agreed with the above treatment plan as outlined in GI Fellow 's notes with the addition of the following Tolerating the diet on examination abdomen soft, no tenderness Gall stones LFT is normal status post cardiac cath triple vessel disease waiting for cardiac surgical evaluation transfer ESRD on HT 11/04/17 20:47
--- NOTE | 2017-11-04 14:30 | PN ---
DATE: 11/04/2017 CARDIOLOGY FOLLOWUP SUBJECTIVE: The patient is chest pain free. PHYSICAL EXAMINATION: VITAL SIGNS: Blood pressure 143/99, heart rate is in the 90s. NECK: Negative JVD. LUNGS: Without rales. HEART: S1, S2. EXTREMITIES: Without edema. LABORATORY DATA: Hemoglobin is 12.8. Potassium is 4.2. IMPRESSION: 1. Status post [id number] myocardial infarction. 2. Triple-vessel coronary artery disease. 3. Ischemic dilated cardiomyopathy. 4. End-stage renal disease. 5. Diabetes mellitus. Given these findings, the patient can be transferred to telemetry today. From a cardiac perspective, I am waiting for cardiac surgeons to give me an opinion whether the patient is a surgical candidate. jAay Diggs MD
--- NOTE | 2017-11-05 00:50 | PN ---
DATE: 11/04/2017 SUBJECTIVE: The patient has no complaints of any chest pain. No shortness of breath. No headaches or dizziness. PHYSICAL EXAMINATION: VITAL SIGNS: Temperature is 98.7, pulse of 89, blood pressure 121/77, respirations 12. GENERAL: The patient is lying in bed, flat, comfortable. HEENT: No oral lesion. Anicteric sclerae. Moist mucosa. NECK: No JVD, adenopathy, or thyromegaly. CARDIOVASCULAR: S1 and S2, regular. No murmurs, rubs, or gallops. LUNGS: Clear to auscultation bilaterally. No wheeze, rales, or rhonchi. ABDOMEN: Bowel sounds are positive, soft, nontender and nondistended. EXTREMITIES: No cyanosis, clubbing or edema. LABORATORY DATA: Creatinine is 8.6. ASSESSMENT: 1. End stage renal disease, on hemodialysis. 2. Nausea and vomiting secondary to uremia, improved. 3. Coronary artery disease. 4. Dyslipidemia. 5. Hypertension. 6. Diabetic nephropathy. 7. Secondary hyperparathyroidism. 8. Ischemic dilated cardiomyopathy. 9. Non-ST elevation myocardial infarction. 10. Diabetes type 2. PLAN: The patient is currently comfortable. He was dialyzed yesterday and had a full treatment. The patient is being followed by Cardiology. I did speak to Dr. White regarding the case this morning. The patient is waiting for input from Cardiac Surgery regarding possible surgery. The patient's next dialysis will be on Monday, which is two days from now. The patient is on losartan for hypertension. He is on aspirin for his coronary artery disease. He is receiving Renagel for secondary hyperparathyroidism. The patient is on Plavix. He prefers to get a heart-healthy diet and does not want to be on a renal diet. Maximilian Zhneg MD
[2017-11-05] MEDS: Pantoprazole 20 mg EC Tab PO SCH (06:35)
[2017-11-05] MEDS: Insulin Reg-LOW-Coverage SC SCH ×4 (07:30→21:52)
[2017-11-05 07:32] LABS: BASO # 0.04 K/mm3 (0.0-2.0); BASO % 0.5 % (0.0-3.0); EOS # 0.3 (0.0-0.7); EOS % 3.6 % (1.5-5.0); GRAN # 4.53 (1.4-6.5); GRAN % 54.8 % (50.0-68.0); HEMOGLOBIN 11.7 g/dL (14.0-18.0); LYMPH # 2.5 (1.2-3.4); LYMPH % 29.9 % (22.0-35.0); MEAN CELL VOLUME 100.8 fl (80.0-105.0); MEAN CORPUSCULAR HEMOGLOBIN 33.1 pg (25.0-35.0); MEAN CORPUSCULAR HGB CONC 32.8 g/dl (31.0-37.0); MEAN PLATELET VOLUME 9.9 fl (7.0-11.0); MONO # 0.9 (0.1-0.6); MONO % 11.2 % (1.0-6.0); RBC 3.54 10^6/uL (3.5-6.1); RED CELL DISTRIBUTION WIDTH 13.9 % (11.5-14.5); WHITE BLOOD COUNT 8.3 10^3/ul (4.5-11.0)
[2017-11-05 07:42] LABS: ALB/GLOB RATIO 1.3 (1.1-1.8); ALBUMIN 3.8 g/dL (3.0-4.8)
[2017-11-05] MEDS: POLYETHYLENE GLYCOL 3350 17 GM/Dose PACKET PO SCH ×2 (09:59→17:32)
--- NOTE | 2017-11-05 12:18 | PN ---
DATE: 11/05/2017 SUBJECTIVE: A 41-year-old male resting comfortably in bed this morning. He offers no specific complaints. Nursing staff relates that there were no problems during the day or night. PHYSICAL EXAMINATION VITAL SIGNS: His temperature is 98.8, his pulse is 88, his blood pressure is 143/95, respiratory rate is 20, oxygen saturation is 100% on room air. NECK: Supple. LUNGS: Show diminished breath sounds at the bases. HEART: In S1, S2. ABDOMEN: Obese, soft with positive bowel sounds. EXTREMITIES: Show no evidence of edema. NEUROLOGIC: He is alert and oriented x3. LABORATORY DATA: Shows a WBC of 8.3, RBC 3.54, hemoglobin 11.7, hematocrit 35.7, platelet count 374. Chemistry shows sodium 136, potassium 4.4, chloride 94, BUN of 46, creatinine is 11.1. His phosphorus is 5.9, his calcium is 9. LFTs are normal. ASSESSMENT: 1. Non-ST elevation myocardial infarction. 2. Triple-vessel disease. 3. Dilated cardiomyopathy. 4. Chronic renal disease, on dialysis. 5. Diabetes mellitus. 6. Gallstone disease. PLAN: The patient is currently being followed by Nephrology, Cardiology and GI. He is awaiting cardiothoracic review of his recent cardiac catheterization by Dr. Diggs with recommendations for management. At this time, he states that he is not having any shortness of breath or chest pain. He does understand his clinical problems and has been encouraged to report any change in his general feelings or pain to nurses. Currently, he is on aspirin, Coreg, Cozaar, insulin, MiraLax, Plavix, Protonix and Renagel. We will follow the patient's labs. He is scheduled for dialysis tomorrow. Cleopatra White MD
--- NOTE | 2017-11-05 12:50 | PN ---
DATE: 11/05/2017 SUBJECTIVE: The patient has no complaints of any chest pain. No shortness of breath. No headaches or dizziness. PHYSICAL EXAMINATION: VITAL SIGNS: Temperature is 98.8, pulse of 76, blood pressure is 119/66, respirations 18. GENERAL: The patient is lying in bed, flat, comfortable. HEENT: No oral lesion. Anicteric sclerae. Moist mucosa. NECK: No JVD, adenopathy, or thyromegaly. CARDIOVASCULAR: S1 and S2, regular. No murmurs, rubs, or gallops. LUNGS: Clear to auscultation bilaterally. No wheeze, rales, or rhonchi. ABDOMEN: Bowel sounds are positive. Soft, nontender and nondistended. EXTREMITIES: No cyanosis, clubbing or edema. LABORATORY DATA: White count of 8.3, hemoglobin 11.7. Creatinine is 11.1. ASSESSMENT: 1. End-stage renal disease, on hemodialysis. 2. Nausea and vomiting secondary to uremia. 3. Coronary artery disease. 4. Dyslipidemia. 5. Hypotension. 6. Diabetic neuropathy. 7. Secondary hyperparathyroidism. 8. Ischemic dilated cardiomyopathy. 9. Mec-KS-pavpqyiqe myocardial infarction. 10. Diabetes type 2. PLAN: The patient is probably going to need CABG. The patient is getting dialysis. His next dialysis is due tomorrow. The patient is on aspirin. He is going to continue for hypotension. He is on Plavix for his coronary artery disease. He is on Renagel. He is on heart-healthy diet. Maximilian Zheng MD
--- NOTE | 2017-11-05 18:36 | CP.PCM.PN ---
Subjective - Date & Time of Evaluation Date of Evaluation: 11/05/17 Time of Evaluation: 11:00 - Subjective Subjective: Feels better tolerating diet no complaints of abdominal pain Objective - Vital Signs/Intake and Output Vital Signs (last 24 hours): Temp Pulse Resp BP Pulse Ox 98.6 F 69 18 126/80 99 11/05/17 17:37 11/05/17 17:37 11/05/17 17:37 11/05/17 17:37 11/05/17 17:37 Intake and Output: 11/05/17 11/05/17 06:59 18:59 Intake Total 400 600 Output Total 0 600 Balance 400 0 - Medications Medications: Current Medications Aspirin (Aspirin Chewable) 81 mg PO DAILY [facility] Last Admin: 11/05/17 09:59 Dose: 81 mg Carvedilol (Coreg) 12.5 mg PO BID [facility] Last Admin: 11/05/17 17:32 Dose: 12.5 mg Clopidogrel Bisulfate (Plavix) 75 mg PO DAILY [facility] Last Admin: 11/05/17 09:59 Dose: 75 mg Insulin Human Regular (Humulin R Low) 0 units SC [facility] PRN Reason: Protocol Last Admin: 11/05/17 17:40 Dose: Not Given Losartan Potassium (Cozaar) 50 mg PO DAILY [facility] Last Admin: 11/05/17 09:59 Dose: 50 mg Pantoprazole Sodium (Protonix Ec Tab) 20 mg PO 0600 [facility] Last Admin: 11/05/17 06:35 Dose: 20 mg Polyethylene Glycol (Miralax) 17 gm PO BID [facility] Last Admin: 11/05/17 17:32 Dose: 17 gm Sevelamer HCl (Renagel) 1,600 mg PO 0800,1200,1700 [facility] Last Admin: 11/05/17 17:32 Dose: 1,600 mg - Labs Labs: 11/05/17 06:30 11/05/17 06:30 PT 11.2 SECONDS (9.4-12.5) 11/02/17 07:55 INR 0.97 11/02/17 07:55 APTT 29.7 Seconds (25.1-36.5) 11/02/17 07:55 - Head Exam Head Exam: ATRAUMATIC, NORMOCEPHALIC - Eye Exam Eye Exam: EOMI, PERRL - ENT Exam ENT Exam: Mucous Membranes Moist, Normal Exam - Neck Exam Neck Exam: Full ROM. absent: Lymphadenopathy - Cardiovascular Exam Cardiovascular Exam: REGULAR RHYTHM, +S1, +S2. absent: JVD - GI/Abdominal Exam GI & Abdominal Exam: Soft. absent: Tenderness, Hernia, Mass - Extremities Exam Extremities Exam: Full ROM. absent: Calf Tenderness - Neurological Exam Neurological Exam: Alert, Awake, Oriented x3 Assessment and Plan - Assessment and Plan (Free Text) Assessment: THis patient with a past medical history of ESRD on HD, gastritis colilitiasis admitted with abdomenal pain lower chest pain was found to have a triple vessel disease patient is awaiting cardiac surgical evaluation LFT remains normal Last EGD report reviewed Patient is on PPI continue MIRALAX PRN for constapation Advised to eat small frequent meals and chew well
--- NOTE | 2017-11-05 20:36 | PN ---
DATE: 11/05/[address] Ajay Diggs. SUBJECTIVE: The patient denies any dizziness. He is short of breath on minimal exertion. PHYSICAL EXAMINATION: VITAL SIGNS: Blood pressure 131/88, heart rate 90, temperature 98.1, respirations 18. HEENT: Normocephalic. CHEST: Absent breath sounds over the bases. HEART: S1 and S2, regular. EXTREMITIES: 1+ pitting edema. LABORATORY DATA: Hemoglobin and hematocrit 11.7 and 35.7. White count and platelet count are within normal limits. Today's BUN and creatinine are 46 and 11.1. Calcium is below normal at 5.9. Cardiac catheterization revealed three-vessel coronary artery disease with occluded LAD and the previously placed stents. Ejection fraction estimated as 35%. ASSESSMENT: 1. Status post [id number] myocardial infarction. 2. Three-vessel coronary artery disease. 3. Ischemic cardiomyopathy. 4. End-stage renal disease, on hemodialysis. 5. Uncontrolled diabetes mellitus. 6. Hypocalcemia. RECOMMENDATIONS: Continue current aspirin 81 mg once a day, Coreg 12.5 mg once a day, Cozaar 50 mg once a day, Plavix 75 mg once a day, Renagel 1.6 g p.o. t.i.d. The plan is to prepare the patient for coronary artery bypass surgery after clearing the case with the receiving cardiothoracic surgeon. Juan David Dao MD
[2017-11-06] MEDS: Pantoprazole 20 mg EC Tab PO SCH (06:33)
[2017-11-06 07:24] LABS: BASO # 0.05 K/mm3 (0.0-2.0); BASO % 0.6 % (0.0-3.0); EOS # 0.4 (0.0-0.7); EOS % 4.3 % (1.5-5.0); GRAN # 4.66 (1.4-6.5); GRAN % 57.3 % (50.0-68.0); HEMOGLOBIN 11.8 g/dL (14.0-18.0); LYMPH # 2.3 (1.2-3.4); LYMPH % 28.7 % (22.0-35.0); MEAN CELL VOLUME 99.7 fl (80.0-105.0); MEAN CORPUSCULAR HEMOGLOBIN 33.1 pg (25.0-35.0); MEAN CORPUSCULAR HGB CONC 33.1 g/dl (31.0-37.0); MEAN PLATELET VOLUME 9.9 fl (7.0-11.0); MONO # 0.7 (0.1-0.6); MONO % 9.1 % (1.0-6.0); RBC 3.57 10^6/uL (3.5-6.1); RED CELL DISTRIBUTION WIDTH 13.9 % (11.5-14.5); WHITE BLOOD COUNT 8.1 10^3/ul (4.5-11.0)
[2017-11-06 08:04] LABS: ALB/GLOB RATIO 1.2 (1.1-1.8); ALBUMIN 4.4 g/dL (3.0-4.8); CALCIUM 9.1 mg/dL (8.4-10.5)
[2017-11-06] MEDS ORDERED: POLYETHYLENE GLYCOL 3350 17 GM/Dose PACKET PO PRN (08:06)
--- NOTE | 2017-11-06 08:10 | CP.PCM.PN ---
<Juwan Kirkpatrick - Last Filed: 11/06/17 18:44> Subjective - Date & Time of Evaluation Date of Evaluation: 11/06/17 Time of Evaluation: 08:10 - Subjective Subjective: GI Progress Note for Dr. Raymond's Service- Nida, PGY2 Patient seen and assessed at bedside. No acute events overnight noted. He denies any abdominal pain or N/V. Patient otherwise currently denies any fevers , chills, chest pain, SOB, hematemeis, D/C, melena, hematochezia changes in urine output or any skin changes. Objective - Vital Signs/Intake and Output Vital Signs (last 24 hours): Temp Pulse Resp BP Pulse Ox 97.7 F 82 20 140/82 97 11/06/17 06:00 11/06/17 06:00 11/06/17 06:00 11/06/17 06:00 11/06/17 06:00 Intake and Output: 11/06/17 11/06/17 06:59 18:59 Intake Total 600 Output Total 1150 Balance -550 - Medications Medications: Current Medications Aspirin (Aspirin Chewable) 81 mg PO DAILY [facility] Last Admin: 11/05/17 09:59 Dose: 81 mg Carvedilol (Coreg) 12.5 mg PO BID [facility] Last Admin: 11/05/17 17:32 Dose: 12.5 mg Clopidogrel Bisulfate (Plavix) 75 mg PO DAILY [facility] Last Admin: 11/05/17 09:59 Dose: 75 mg Insulin Human Regular (Humulin R Low) 0 units SC ACHS [facility] PRN Reason: Protocol Last Admin: 11/05/17 21:52 Dose: Not Given Losartan Potassium (Cozaar) 50 mg PO DAILY [facility] Last Admin: 11/05/17 09:59 Dose: 50 mg Pantoprazole Sodium (Protonix Ec Tab) 20 mg PO 0600 [facility] Last Admin: 11/06/17 06:33 Dose: 20 mg Polyethylene Glycol (Miralax) 17 gm PO BID PRN PRN Reason: Constipation Sevelamer HCl (Renagel) 1,600 mg PO 0800,1200,1700 [facility] Last Admin: 11/05/17 17:32 Dose: 1,600 mg - Labs Labs: 11/06/17 06:30 11/06/17 06:30 PT 11.2 SECONDS (9.4-12.5) 11/02/17 07:55 INR 0.97 11/02/17 07:55 APTT 29.7 Seconds (25.1-36.5) 11/02/17 07:55 - Constitutional Appears: Non-toxic, No Acute Distress - Head Exam Head Exam: ATRAUMATIC, NORMOCEPHALIC - Eye Exam Eye Exam: EOMI - ENT Exam ENT Exam: Mucous Membranes Moist - Neck Exam Neck Exam: Full ROM - Respiratory Exam Respiratory Exam: NORMAL BREATHING PATTERN. absent: Accessory Muscle Use, Respiratory Distress - Cardiovascular Exam Cardiovascular Exam: REGULAR RHYTHM, RRR, +S1, +S2 - GI/Abdominal Exam GI & Abdominal Exam: Soft, Normal Bowel Sounds. absent: Tenderness - Extremities Exam Extremities Exam: Normal Inspection - Back Exam Back Exam: NORMAL INSPECTION - Neurological Exam Neurological Exam: Alert, Awake, Oriented x3 - Psychiatric Exam Psychiatric exam: Normal Affect, Normal Mood - Skin Skin Exam: Dry, Intact, Normal Color, Warm Assessment and Plan - Assessment and Plan (Free Text) Assessment: 41 year old male with a past medical history significant for ESRD (HD: MWF), gastritis, cholelithiasis, HTN, DM2, HLD, CAD s/p four ERICA (2011), and retinal detachment who presents with a chief complaint of N/V with associated epigastric pain. Plan: -Recent EGD (07/2017) reviewed -CT Abdomen/Pelvis showed cholelithiasis -Abdominal US showed a small gallstone with unremarkable CBD at 7.6mm -LFT's within normal limits -Heart Healthy Diet (2gm Sodium/Renal Dialysis) -Continue Miralax PRN for constipation -Continue Protonix for GI Prophylaxis -Advised to eat small meals throughout the day and to ensure adequate mastication GI Disposition: Abdominal pain and N/V have resolved. Patient to have cardiac surgery evaluation. Patient seen and case discussed with attending, Dr. Raymond. <Rick Raymond V - Last Filed: 11/06/17 22:31> Objective - Vital Signs/Intake and Output Vital Signs (last 24 hours): Temp Pulse Resp BP Pulse Ox 98.1 F 85 20 137/86 96 11/06/17 18:00 11/06/17 18:00 11/06/17 18:00 11/06/17 18:00 09/17/18 18:00 - Medications Medications: Current Medications Aspirin (Aspirin Chewable) 81 mg PO DAILY [facility] Last Admin: 11/06/17 14:30 Dose: 81 mg Carvedilol (Coreg) 12.5 mg PO BID [facility] Last Admin: 11/06/17 17:54 Dose: 12.5 mg Insulin Human Regular (Humulin R Low) 0 units SC ACHS [facility] PRN Reason: Protocol Last Admin: 11/06/17 21:55 Dose: Not Given Losartan Potassium (Cozaar) 50 mg PO DAILY [facility] Last Admin: 11/06/17 14:30 Dose: 50 mg Pantoprazole Sodium (Protonix Ec Tab) 20 mg PO 0600 [facility] Last Admin: 11/06/17 06:33 Dose: 20 mg Polyethylene Glycol (Miralax) 17 gm PO BID PRN PRN Reason: Constipation Sevelamer HCl (Renagel) 1,600 mg PO 0800,1200,1700 [facility] Last Admin: 11/06/17 17:54 Dose: 1,600 mg - Labs Labs: 11/06/17 06:30 11/06/17 06:30 PT 11.2 SECONDS (9.4-12.5) 11/02/17 07:55 INR 0.97 11/02/17 07:55 APTT 29.7 Seconds (25.1-36.5) 11/02/17 07:55 Attending/Attestation - Attestation I have personally seen and examined this patient.: Yes I have fully participated in the care of the patient.: Yes I have reviewed all pertinent clinical information, including history, physical exam and plan: Yes Notes (Text): This is an addendum to GI followup report dictated by the Application Designer. The patient was seen and evaluated earlier. Medical records, lab studies, imagings were reviewed. Last 24 hours events reviewed. Agreed with the above treatment plan as outlined in Application Designer 's notes with the addition of the following Patient is tolerating diet On examination abdomen soft no tenderness Patient has gall stones which are asymptomatic Continue low dose PPI and soft diet 11/06/17 22:28
[2017-11-06] MEDS: Insulin Reg-LOW-Coverage SC SCH ×4 (08:24→21:55)
--- NOTE | 2017-11-06 10:35 | PN ---
DATE: 11/06/2017 CARDIOLOGY FOLLOWUP SUBJECTIVE: The patient is chest pain free. PHYSICAL EXAMINATION: VITAL SIGNS: Stable. LABORATORY DATA: Laboratories are unremarkable. IMPRESSION: 1. [id number] myocardial infarction. 2. History of coronary artery disease. 3. Moderately depressed ischemic left ventricular cardiomyopathy. 4. Multivessel coronary artery disease. PLAN: Given these findings, awaiting cardiac surgical opinion for possible coronary artery bypass surgery. Ajay Diggs MD
--- NOTE | 2017-11-06 17:23 | PN ---
DATE: 11/06/2017 SUBJECTIVE: A 41-year-old male, now on telemetry unit. He is status post non-ST myocardial infarction, status post cardiac catheterization. PHYSICAL EXAMINATION: VITAL SIGNS: His temp is 97.7, his pulse is 82, his blood pressure is 140/82, his respiratory rate is 20. GENERAL: He is alert and oriented x3. NECK: Supple. LUNGS: Clear. HEART: An S1 and S2 rhythm. He has a pacemaker in place. ABDOMEN: Obese, soft with positive bowel sounds. EXTREMITIES: Show no evidence of edema. MEDICATIONS: His current medications consist of aspirin, Coreg, Cozaar, sliding insulin scale, MiraLax, Plavix, Protonix and Renagel. ASSESSMENT AND PLAN: 1. He is being followed by Cardiology. He was awaiting now for an evaluation of his recent cardiac cath with triple vessel disease. 2. He is on dialysis for his chronic renal disease. He is scheduled for dialysis today, being followed by Nephrology. 3. He has a history of diabetes, on a sliding insulin scale with diabetic diet. 4. He is being followed by GI. He presented initially with severe abdominal pain with a history of nausea, vomiting and diarrhea, which to this patient has been attributed to his renal state as admits dialysis prior to admission. He is aware of his clinical condition at this time and we will await input from Cardiology. Continue recommendations from all the consultants. Cleopatra White MD
[2017-11-07 00:59] VITALS: O2SAT 99
[2017-11-07] MEDS: Pantoprazole 20 mg EC Tab PO SCH (06:31)
[2017-11-07 07:17] LABS: BASO # 0.04 K/mm3 (0.0-2.0); BASO % 0.6 % (0.0-3.0); EOS # 0.3 (0.0-0.7); GRAN # 3.81 (1.4-6.5); GRAN % 55.9 % (50.0-68.0); HEMOGLOBIN 11.6 g/dL (14.0-18.0); LYMPH # 2.1 (1.2-3.4); LYMPH % 30.6 % (22.0-35.0); MEAN CORPUSCULAR HEMOGLOBIN 32.9 pg (25.0-35.0); MEAN CORPUSCULAR HGB CONC 32.9 g/dl (31.0-37.0); MEAN PLATELET VOLUME 9.5 fl (7.0-11.0); MONO # 0.5 (0.1-0.6); MONO % 7.9 % (1.0-6.0); RBC 3.53 10^6/uL (3.5-6.1); RED CELL DISTRIBUTION WIDTH 13.8 % (11.5-14.5); WHITE BLOOD COUNT 6.8 10^3/ul (4.5-11.0)
[2017-11-07 07:45] LABS: ALB/GLOB RATIO 1.3 (1.1-1.8); ALBUMIN 3.9 g/dL (3.0-4.8); CALCIUM 8.9 mg/dL (8.4-10.5)
--- NOTE | 2017-11-07 11:09 | CP.PCM.PN ---
<Juwan Kirkpatrick - Last Filed: 11/07/17 11:10> Subjective - Date & Time of Evaluation Date of Evaluation: 11/07/17 Time of Evaluation: 11:08 - Subjective Subjective: GI Progress Note for Dr. Raymond's Service- Nida, PGY2 Patient seen and assessed at bedside. No acute events overnight noted. Patient has no complaints at this time including fevers, chills, chest pain, SOB, abdominal pain, or N/V/D/C. Objective - Vital Signs/Intake and Output Vital Signs (last 24 hours): Temp Pulse Resp BP Pulse Ox 98.2 F 89 20 123/77 99 11/07/17 06:00 11/07/17 06:00 11/07/17 06:00 11/07/17 06:00 11/07/17 06:00 Intake and Output: 11/07/17 11/07/17 06:59 18:59 Intake Total 300 Output Total 0 Balance 300 - Medications Medications: Current Medications Aspirin (Aspirin Chewable) 81 mg PO DAILY [facility] Last Admin: 11/06/17 14:30 Dose: 81 mg Carvedilol (Coreg) 12.5 mg PO BID [facility] Last Admin: 11/07/17 09:01 Dose: 12.5 mg Insulin Human Regular (Humulin R Low) 0 units SC ACHS [facility] PRN Reason: Protocol Last Admin: 11/06/17 21:55 Dose: Not Given Losartan Potassium (Cozaar) 50 mg PO DAILY [facility] Last Admin: 11/07/17 09:02 Dose: 50 mg Pantoprazole Sodium (Protonix Ec Tab) 20 mg PO 0600 [facility] Last Admin: 11/07/17 06:31 Dose: 20 mg Polyethylene Glycol (Miralax) 17 gm PO BID PRN PRN Reason: Constipation Sevelamer HCl (Renagel) 1,600 mg PO 0800,1200,1700 [facility] Last Admin: 11/07/17 08:59 Dose: 1,600 mg - Labs Labs: 11/07/17 06:30 11/07/17 06:30 PT 11.2 SECONDS (9.4-12.5) 11/02/17 07:55 INR 0.97 11/02/17 07:55 APTT 29.7 Seconds (25.1-36.5) 11/02/17 07:55 - Constitutional Appears: Non-toxic, No Acute Distress - Head Exam Head Exam: ATRAUMATIC - Eye Exam Eye Exam: EOMI - Neck Exam Neck Exam: Full ROM - Respiratory Exam Respiratory Exam: NORMAL BREATHING PATTERN. absent: Accessory Muscle Use, Respiratory Distress - Cardiovascular Exam Cardiovascular Exam: +S1, +S2 - GI/Abdominal Exam GI & Abdominal Exam: Soft, Normal Bowel Sounds. absent: Distended, Firm, Guarding, Tenderness, Mass, Rebound - Rectal Exam Rectal Exam: Deferred - Neurological Exam Neurological Exam: Alert, Awake, Oriented x3 - Psychiatric Exam Psychiatric exam: Normal Affect, Normal Mood - Skin Skin Exam: Dry, Intact, Normal Color, Warm Assessment and Plan - Assessment and Plan (Free Text) Assessment: 41 year old male with a past medical history significant for ESRD (HD: MWF), gastritis, cholelithiasis, HTN, DM2, HLD, CAD s/p four ERICA (2011), and retinal detachment who presents with a chief complaint of N/V with associated epigastric pain. Plan: -CT Abdomen/Pelvis showed cholelithiasis -Abdominal US showed a small gallstone with unremarkable CBD at 7.6mm -LFT's within normal limits -Heart Healthy Diet (2gm Sodium/Renal Dialysis) -Continue Miralax PRN for constipation -Continue Protonix for GI Prophylaxis -Advised to eat small meals throughout the day and to ensure adequate mastication GI Disposition: No further recommendations from GI at this time. Patient pending transfer to [facility] for CABG. Patient seen and case discussed with attending, Dr. Raymond. <Rick Raymond V - Last Filed: 11/07/17 22:19> Objective - Vital Signs/Intake and Output Vital Signs (last 24 hours): Temp Pulse Resp BP Pulse Ox 98 F 86 18 124/78 99 11/07/17 12:00 11/07/17 14:00 11/07/17 12:00 11/07/17 12:00 11/07/17 06:00 - Labs Labs: 11/07/17 06:30 11/07/17 06:30 PT 11.2 SECONDS (9.4-12.5) 11/02/17 07:55 INR 0.97 11/02/17 07:55 APTT 29.7 Seconds (25.1-36.5) 11/02/17 07:55 Attending/Attestation - Attestation I have personally seen and examined this patient.: Yes I have fully participated in the care of the patient.: Yes I have reviewed all pertinent clinical information, including history, physical exam and plan: Yes Notes (Text): This is an addendum to GI followup report dictated by the Director Of Event Marketing. The patient was seen and evaluated earlier. Medical records, lab studies, imagings were reviewed. Last 24 hours events reviewed. Agreed with the above treatment plan as outlined in Director Of Event Marketing 's notes with the addition of the following This patient has gall stones, gastroparesis, and PUD ESD on HD Patient awaiting for cardiac surgical evaluation 11/07/17 22:18
[2017-11-07 12:07] VITALS: BP 124/78; RESP 18; TEMP 98
[2017-11-07] MEDS: Insulin Reg-LOW-Coverage SC SCH ×2 (13:51→13:52)
--- NOTE | 2017-11-07 13:57 | PN ---
DATE: 11/07/2017 CARDIOLOGY FOLLOWUP SUBJECTIVE: The patient is without complaint. OBJECTIVE: VITAL SIGNS: Blood pressure is 124/78, the heart rate is in the 70s. NECK: Negative JVD. LUNGS: Without rales. HEART: Reveal S1, S2. EXTREMITIES: Without edema. LABORATORY DATA: Hemoglobin is 11.6. Chemistries: Glucose is 122. IMPRESSION: 1. Status post non-ST elevation myocardial infarction. 2. Three-vessel coronary artery disease. 3. Ischemic dilated cardiomyopathy. 4. Diabetes mellitus. 5. End-stage renal disease. Given these findings, I had an extensive discussion with the patient as well as his family about his need for coronary artery bypass surgery. A review of his cardiac film by the surgeons in [place], they are agreeable. We will transfer the patient to [facility] for coronary artery bypass surgery. Ajay Diggs MD
[2017-11-07 15:50] VITALS: PULSE 86
== END 2017-11-07 15:03 | disposition short-term general hospital (02) | DRG 280 ==
LOC: ED 06:55 → ERH 09:29 → CCU 12:24 → OBSVTOIN 11-03 11:31 → 2RNO 11-04 16:13
PROVIDERS: ADMIT Internal Medicine; ATTEND Internal Medicine
PROC: 5A1D70Z Performance of Urinary Filtration, Intermittent, Less than 6 Hours Per Day (ICD-10-PCS; 2017-11-02)
PROC: 4A023N7 Measurement of Cardiac Sampling and Pressure, Left Heart, Percutaneous Approach (ICD-10-PCS; principal; 2017-11-03)
PROC: B2111ZZ Fluoroscopy of Multiple Coronary Arteries using Low Osmolar Contrast (ICD-10-PCS; 2017-11-03)
PROC: B2151ZZ Fluoroscopy of Left Heart using Low Osmolar Contrast (ICD-10-PCS; 2017-11-03)
PROC: B3101ZZ Fluoroscopy of Thoracic Aorta using Low Osmolar Contrast (ICD-10-PCS; 2017-11-03)
PROC: 5A1D70Z Performance of Urinary Filtration, Intermittent, Less than 6 Hours Per Day (ICD-10-PCS; 2017-11-03)
PROC: 5A1D70Z Performance of Urinary Filtration, Intermittent, Less than 6 Hours Per Day (ICD-10-PCS; 2017-11-06)
DX: I21.4 Non-ST elevation (NSTEMI) myocardial infarction (principal); N18.6 End stage renal disease; I13.2 Hypertensive heart and chronic kidney disease with heart failure and with stage 5 chronic kidney disease, or end stage renal disease; I50.20 Unspecified systolic (congestive) heart failure; I42.0 Dilated cardiomyopathy; N25.81 Secondary hyperparathyroidism of renal origin; H33.20 Serous retinal detachment, unspecified eye; I25.10 Atherosclerotic heart disease of native coronary artery without angina pectoris; I25.82 Chronic total occlusion of coronary artery; E11.21 Type 2 diabetes mellitus with diabetic nephropathy; E11.22 Type 2 diabetes mellitus with diabetic chronic kidney disease; E11.40 Type 2 diabetes mellitus with diabetic neuropathy, unspecified; K29.70 Gastritis, unspecified, without bleeding; K29.80 Duodenitis without bleeding; D63.1 Anemia in chronic kidney disease; I25.5 Ischemic cardiomyopathy; K80.20 Calculus of gallbladder without cholecystitis without obstruction; E11.65 Type 2 diabetes mellitus with hyperglycemia; E11.43 Type 2 diabetes mellitus with diabetic autonomic (poly)neuropathy; K31.84 Gastroparesis; E83.51 Hypocalcemia; E66.9 Obesity, unspecified; R19.7 Diarrhea, unspecified; K44.9 Diaphragmatic hernia without obstruction or gangrene; E78.5 Hyperlipidemia, unspecified; G47.30 Sleep apnea, unspecified; J44.9 Chronic obstructive pulmonary disease, unspecified; K21.0 Gastro-esophageal reflux disease with esophagitis; Z68.37 Body mass index [BMI] 37.0-37.9, adult; Z99.2 Dependence on renal dialysis; Z79.02 Long term (current) use of antithrombotics/antiplatelets; Z95.5 Presence of coronary angioplasty implant and graft

== ENCOUNTER 2018-01-23 06:19 | Day surgery (SDC) | payer MEDICARE, BC ==
[2018-01-17 09:44] VITALS: BMI 36.3
[2018-01-23 06:49] LABS: BASO # 0.05 K/mm3 (0.0-2.0); BASO % 0.6 % (0.0-3.0); EOS # 0.4 (0.0-0.7); EOS % 4.3 % (1.5-5.0); GRAN # 5.67 (1.4-6.5); GRAN % 65.9 % (50.0-68.0); HEMOGLOBIN 10.2 g/dL (14.0-18.0); LYMPH # 1.9 (1.2-3.4); LYMPH % 22.5 % (22.0-35.0); MEAN CELL VOLUME 95.6 fl (80.0-105.0); MEAN CORPUSCULAR HEMOGLOBIN 30.2 pg (25.0-35.0); MEAN CORPUSCULAR HGB CONC 31.6 g/dl (31.0-37.0); MEAN PLATELET VOLUME 8.8 fl (7.0-11.0); MONO # 0.6 (0.1-0.6); MONO % 6.7 % (1.0-6.0); RBC 3.38 10^6/uL (3.5-6.1); WHITE BLOOD COUNT 8.6 10^3/uL (4.5-11.0)
[2018-01-23 06:55] LABS: CALCIUM 9.8 mg/dL (8.4-10.5)
[2018-01-23 07:06] VITALS: RESP 18
[2018-01-23] MEDS ORDERED: Bupivacaine 0.5% 50 ML IJ ONE (07:15)
[2018-01-23] MEDS ORDERED: Vancomycin 1 g Inj ONE ×2 (07:21→08:05)
[2018-01-23] MEDS ORDERED: Midazolam 2 MG/2 ML VIAL ONE (07:38)
[2018-01-23] MEDS ORDERED: Etomidate 20 mg/10ml Inj IV ONE (07:38)
[2018-01-23] MEDS ORDERED: Propofol 10 mg/ml Inj (20 ML) ONE (07:48)
[2018-01-23] MEDS ORDERED: HYDROmorphone 0.5 mg/0.5 ml ISec IVP PRN (08:45)
--- NOTE | 2018-01-23 08:57 | PCM.SURG1 ---
Surgeon's Initial Post Op Note - Surgeon's Notes Surgeon: Dr. Ajay Bucio. DPM Patent Agent: Dr. Damon Osborne. DPM/PGY1 Type of Anesthesia: IV Sedation Anesthesia Administered By: Dr. Barber Pre-Operative Diagnosis: Right 4th toe infected ulcer with underlying osteomyelitis. Operative Findings: See Dictation. Materials: 2-0 prolene Post-Operative Diagnosis: Same Operation Performed: 1- Right 4th toe amputation. 2- Right 4th metatarsal bone head resection with debridement of all necrotic tissues. Specimen/Specimens Removed: 1- R 4th toe. 2- R 4th proximal phalenx base. 3- R 4th metatarsal head. 4- Bone culture from the R 4th proximal phalanx base. 5- Deep wound culture. Estimated Blood Loss: EBL {In ML}: 1 Blood Products Given: N/A Drains Used: No Drains Post-Op Condition: Good Date of Surgery/Procedure: 01/23/18 Time of Surgery/Procedure: 08:57
[2018-01-23 10:03] VITALS: TEMP 97.8
--- NOTE | 2018-01-23 10:23 | RAD ---
Date of service: 01/23/2018 PROCEDURE: Right Foot Radiographs. HISTORY: S/P R 4th toe amp. with 4th met head resection COMPARISON: None. FINDINGS: BONES: There has been amputation of the 4th toe. Surgical packing is seen in place. There has also been amputation at the level of the distal 5th metatarsal. JOINTS: Normal. SOFT TISSUES: Normal. OTHER FINDINGS: None. IMPRESSION: There has been amputation of the 4th toe. Surgical packing is seen in place. There has also been amputation at the level of the distal 5th metatarsal.
[2018-01-23 11:15] VITALS: BP 108/58; PULSE 92; O2SAT 95
--- NOTE | 2018-01-24 08:33 | OP ---
PROCEDURE DATE: 01/23/2018 PREOPERATIVE DIAGNOSIS: Right fourth toe infected ulcer with underlying osteomyelitis. POSTOPERATIVE DIAGNOSIS: Right fourth toe infected ulcer with underlying osteomyelitis. PROCEDURES: 1. Right fourth toe amputation. 2. Right fourth metatarsal bone head resection with debridement of all necrotic tissues. 3. Implant Vancomycin/Osteoset antibiotic beads SURGEON: Ajay Bucio DPM NOC ENGINEER: Damon Osborne DPM/PGY1 TYPE OF ANESTHESIA: IV sedation. ANESTHESIOLOGIST: Tam Barber DO INDICATION: The patient is a 42-year-old male patient with the above diagnosis. The patient has exhausted all the conservative treatments at this time and now requests surgical intervention. The patient signed the consent after careful explanation of risks, benefits, complications, and consented for the surgical procedure. No guarantees were given nor implied. PREPARATION: The patient was brought to the operating room and placed on the operating table in a supine position. Time-out was performed for identification of the correct patient and procedure. After induction of the IV sedation, once sedation was achieved, the right foot was then prepped and draped in a normal sterile manner. Blood was exsanguinated from the right foot using Esmarch, and Esmarch was kept in place proximally on the right foot, maintaining some tourniquet effect. Then, the procedure began. DESCRIPTION OF PROCEDURE: PROCEDURE #1: Amputation of the right fourth digit. Attention was then drawn to the right fourth digit where a fishmouth incision was made circumferentially at the level of the fourth metatarsophalangeal joint using a #15 blade. The incision was then extended down through the subcutaneous layer, down to the level of the bone, using bone clamp to stabilize the toe. The fourth digit was then disarticulated from the foot at the level of the fourth metatarsophalangeal joint. This specimen then bagged from the operative field and sent to Pathology. It was noted that the base of the fourth proximal phalanx is completely fractured from the rest of the toe. Using a #15 blade, proximal phalanx base disarticulated from the fourth metatarsal head. Then, a bone culture was taken from the fourth proximal phalanx base, and then both specimens bagged from the field and sent to Pathology. PROCEDURE #2: Right fourth metatarsal head resection with debridement of necrotic tissues. Next, attention was drawn to the right fourth metatarsal head. Using a fresh #15 blade, the right fourth metatarsal head dissected from the surrounding tissue. Then, using bone cutter and rongeur, metatarsal head was resected. The remaining short bone was then debrided down to smoothness using a Bonds rasp. Then, amputation site was lavaged with copious amounts of mixture of sterile saline and bacitracin. Then, the antibiotic beads containing vancomycin antibiotic were put inside the amputation site. Closure of the amputation site using 2-0 Prolene sutures for the skin in a simple sterile and v-matteras retention fashion was performed. Then, injection of 10 mL of 0.5% Marcaine was done in a reversed Miles fashion proximal to the surgical site for providing postoperative analgesia was performed. Then, dressing applied using Betadine, Adaptic, and Kerlix. POSTOPERATIVE CONDITION: The patient tolerated the anesthesia and the procedure well and escorted to the recovery room with vital signs stable and neurovascular status intact to the right lower extremity. The patient will follow up with Dr. Ajay Bucio at his office upon discharge. DAMON OSBORNE DPM/[id number] Ajay Bucio DPM MTDDimas
== END 2018-01-23 12:15 | disposition home or self-care (01) ==
LOC: SDS 06:19
PROVIDERS: ATTEND Podiatrist
DX: E11.69 Type 2 diabetes mellitus with other specified complication (principal); M86.171 Other acute osteomyelitis, right ankle and foot; E11.621 Type 2 diabetes mellitus with foot ulcer; L97.513 Non-pressure chronic ulcer of other part of right foot with necrosis of muscle; I12.9 Hypertensive chronic kidney disease with stage 1 through stage 4 chronic kidney disease, or unspecified chronic kidney disease; E11.22 Type 2 diabetes mellitus with diabetic chronic kidney disease; N18.9 Chronic kidney disease, unspecified
CPT/HCPCS: 28810; 36415; 73630; 80048; 85025; 87070; 87075; 88305; 88311; C1713; J1170; J2250; J2405; J2704; J2765; J3010

== ENCOUNTER 2018-05-24 06:17 | Outpatient (CLI) | payer MEDICARE, BC | END 2018-05-24 06:18 | disposition home or self-care (01) | LOC: CARDIO 06:17 | DX: I25.10 Atherosclerotic heart disease of native coronary artery without angina pectoris (principal) ==

== ENCOUNTER 2018-05-31 22:13 | Inpatient (IN) | payer MEDICARE, BC ==
[2018-05-31 22:14] VITALS: BMI 35.9
--- NOTE | 2018-05-31 23:36 | ED PDOC ---
Arrival/HPI - General Chief Complaint: Lower Extremity Problem/Injury Time Seen by Provider: 05/31/18 22:43 Historian: Patient - History of Present Illness Narrative History of Present Illness (Text): 05/31/18 23:32 42 year old male, whose past medical history includes CVA s/p stents, Pacemaker, hypertension, diabetes, and end-stage renal disease on dialysis (Mon,Wed,Fri), osteomyelitis of the foot, presents to the emergency department sent in by Organ Pipe Finisher Dr. Rupinder Moss for evaluation of worsening bilateral foot infection for the past month. Patient reports he is constantly on his feet due to work. Patient reports he had dialysis today due to missing dialysis yesterday. Patient reports chills yesterday, but denies any fever, chills, chest pain, shortness of breath, nausea, vomiting, diarrhea, urinary symptoms, back pain, neck pain, headache, dizziness, or any other complaints. PMD: Dr. Cleopatra White Organ Pipe Finisher: Dr. Rupinder Moss. Time/Duration: Other (1 month) Symptom Onset: Gradual Symptom Course: Unchanged Activities at Onset: Light Context: Home Past Medical History - Provider Review Nursing Documentation Reviewed: Yes - Infectious Disease Hx of Infectious Diseases: None - Tetanus Immunization Tetanus Immunization: Unknown - Cardiac Hx Cardiac Disorders: Yes Hx Congestive Heart Failure: Yes Hx Hypertension: Yes - Pulmonary Hx Respiratory Disorders: Yes - Neurological Hx Paralysis: No - HEENT Hx HEENT Disorder: Yes (tinnitis) Other/Comment: retinal detatchment 2008, laser sx both eyes - Renal Hx Renal Disorder: Yes Hx Dialysis: Yes (MWF) Type of Dialysis Access: L forearm Date of Last Dialysis Treatment: 05/31/18 Hx Renal Failure: Yes - Endocrine/Metabolic Hx Endocrine Disorders: Yes Hx Diabetes Mellitus Type 2: Yes - Hematological/Oncological Hx Blood Transfusions: No Hx Blood Transfusion Reaction: No - Integumentary Hx Dermatological Disorder: Yes Other/Comment: ULCER TO TOE - Musculoskeletal/Rheumatological Hx Musculoskeletal Disorders: Yes - Gastrointestinal Other/Comment: [id number] lbs on purpose in 2 yrs, egd 07/28/17 dx with severe duodenitis,duodenal/and gastric erosins 1cm hiatal hernia - Genitourinary/Gynecological Hx Genitourinary Disorders: No - Psychiatric Hx Emotional Abuse: No Hx Physical Abuse: No Hx Substance Use: No - Past Surgical History Past Surgical History: Non-Contributing - Surgical History Hx Open Heart Surgery: Yes - Anesthesia Hx Anesthesia Reactions: No Hx Malignant Hyperthermia: No - Suicidal Assessment Feels Threatened In Home Enviroment: No Family/Social History - Physician Review Nursing Documentation Reviewed: Yes Family/Social History: No Known Family HX Smoking Status: Never Smoked Hx Alcohol Use: No Hx Substance Use: No Hx Substance Use Treatment: No Allergies/Home Meds Allergies/Adverse Reactions: Allergies piperacillin sodium [From Zosyn] Allergy (Severe, Verified 01/17/18 09:44) ITCHING tazobactam sodium [From Zosyn] Allergy (Severe, Verified 01/17/18 09:44) ITCHING cinacalcet [From Sensipar] Adverse Reaction (Severe, Verified 01/17/18 09:44) VOMITING IV DYE Adverse Reaction (Severe, Uncoded 01/17/18 09:44) NAUSEA ORAL VITAMIN D Adverse Reaction (Severe, Uncoded 01/17/18 09:44) VOMITING Home Medications: Home Meds Medication Instructions Recorded Confirmed Clopidogrel [Plavix] 75 mg PO DAILY 10/06/15 06/01/18 Aspirin [Ecotrin] 81 mg PO DAILY 12/21/17 06/01/18 Losartan [Cozaar] 50 mg PO DAILY 12/21/17 06/01/18 Atorvastatin [Lipitor] 20 mg PO DAILY 01/17/18 05/24/18 Sevelamer [Renagel] 900 mg PO 0800,1200,1700 05/31/18 06/01/18 Review of Systems - Physician Review All systems were reviewed & negative as marked: Yes - Review of Systems Constitutional: Other (chills). absent: Fevers Respiratory: absent: SOB Cardiovascular: absent: Chest Pain Gastrointestinal: absent: Abdominal Pain, Diarrhea, Nausea, Vomiting Genitourinary Male: absent: Dysuria, Frequency, Hematuria Musculoskeletal: absent: Back Pain, Neck Pain Skin: Other (bilateral infection to the toes) Neurological: absent: Headache, Dizziness Physical Exam Vital Signs Reviewed: Yes Vital Signs Temp Pulse Resp BP Pulse Ox 05/31/18 22:48 98.6 F 98 H 18 87/67 L 95 Temperature: Afebrile Blood Pressure: Normal Pulse: Regular Respiratory Rate: Normal Appearance: Positive for: Well-Appearing, Non-Toxic, Comfortable Pain Distress: None Mental Status: Positive for: Alert and Oriented X 3 - Systems Exam Head: Present: Atraumatic, Normocephalic Pupils: Present: PERRL Extroacular Muscles: Present: EOMI Conjunctiva: Present: Normal Mouth: Present: Moist Mucous Membranes Neck: Present: Normal Range of Motion Respiratory/Chest: Present: Clear to Auscultation, Good Air Exchange. No: Respiratory Distress, Accessory Muscle Use Cardiovascular: Present: Regular Rate and Rhythm, Normal S1, S2. No: Murmurs Abdomen: No: Tenderness, Distention, Peritoneal Signs Back: Present: Normal Inspection Upper Extremity: Present: Normal Inspection, Other (left forearm dialysis port with positive thrill). No: Cyanosis, Edema Lower Extremity: Present: Normal ROM, Other (amputated 4th and 5th digit. 3rd digit pale, ulcerated skin webspace of 3rd and 2nd toes. Left foot there is a 5cm by 2cm healing with some drainge on dressing. Foul smelling odor. ). No: NORMAL PULSES (palpable, decreased PT and DP pulses b/l) Neurological: Present: GCS=15, Speech Normal Skin: Present: Warm, Dry, Normal Color. No: Rashes Psychiatric: Present: Alert, Oriented x 3, Normal Insight, Normal Concentration Medical Decision Making ED Course and Treatment: 05/31/18 23:32 Impression: 42 year old male sent in by Dr. Ajay Bucio for worsening bilateral foot infection that began 1 month ago. Plan: -- labs -- Foot 3V x-ray -- Blood Culture, Wound Culture -- Foot left and right 3V x-ray -- Reassess and disposition Prior Visits: Notes and results from previous visits were reviewed. Progress Notes: 05/31/18 23:[address] Cleopatra White who is aware and agrees with the plan. Accepts patient into his service. Request consults from Dr. Hernandez (ID), Dr. Zheng (nephrology), Dr. Bucio (Podiatry), and Dr. Diggs (cardiology) 06/01/18 00:20 Dr. uBcio requested MRI and arterial dopplers. MRI not available tonight. Checked with radiologist tech who states arterial dopplers are not done overnight because they will not be read. - Lab Interpretations I have reviewed the lab results: Yes - RAD Interpretation Radiology Orders: 05/31/18 23:27 FOOT LEFT 3 VIEWS ROUTINE [RAD] Stat FOOT RIGHT 3 VIEWS ROUTINE [RAD] Stat Shook Machine Operator: ED Physician - Scribe Statement The provider has reviewed the documentation as recorded by the Shalom Tamayo Provider Scribe Attestation: All medical record entries made by the Shalom were at my direction and personally dictated by me. I have reviewed the chart and agree that the record accurately reflects my personal performance of the history, physical exam, medical decision making, and the department course for this patient. I have also personally directed, reviewed, and agree with the discharge instructions and disposition. Disposition/Present on Arrival - Present on Arrival Any Indicators Present on Arrival: No History of DVT/PE: No History of Uncontrolled Diabetes: No Urinary Catheter: No History of Decub. Ulcer: No History Surgical Site Infection Following: None - Disposition Have Diagnosis and Disposition been Completed?: Yes Diagnosis: Cellulitis, Foot ulcer Disposition: HOSPITALIZED Disposition Time: 23:40 Patient Plan: Admission Patient Problems: Current Active Problems Problem Status Onset Cellulitis Acute Foot ulcer Acute Condition: STABLE
[2018-05-31] MEDS ORDERED: Vancomycin 1gm in NS 250ml 1 GM/250 ML BAG IVPB STA (23:52)
[2018-06-01 00:46] LABS: BASO # 0.07 K/mm3 (0.0-2.0); BASO % 0.7 % (0.0-3.0); EOS # 0.3 (0.0-0.7); EOS % 2.9 % (1.5-5.0); HEMOGLOBIN 11.9 g/dL (14.0-18.0); LYMPH # 1.6 (1.2-3.4); MEAN CORPUSCULAR HEMOGLOBIN 31.6 pg (25.0-35.0); MEAN CORPUSCULAR HGB CONC 31.6 g/dl (31.0-37.0); MONO # 0.9 (0.1-0.6); MONO % 8.9 % (1.0-6.0); RBC 3.77 10^6/uL (3.5-6.1); RED CELL DISTRIBUTION WIDTH 16.7 % (11.5-14.5); WHITE BLOOD COUNT 9.8 10^3/uL (4.5-11.0)
[2018-06-01 00:47] LABS: INR 1.05; PARTIAL THROMBOPLASTIN TIME 28.6 Seconds (26.9-38.3); PROTHROMBIN TIME 11.6 SECONDS (9.4-12.5)
[2018-06-01 00:57] LABS: ALB/GLOB RATIO 0.9 (1.1-1.8); ALBUMIN 4.1 g/dL (3.0-4.8); CALCIUM 8.9 mg/dL (8.4-10.5)
[2018-06-01 01:04] LABS: VENOUS BLOOD GAS BASE EXCESS 7.8 mmol/L (0.0-2.0); VENOUS BLOOD GAS PO2 41 mm/Hg (30-55); VENOUS BLOOD PH 7.37 (7.32-7.43)
--- NOTE | 2018-06-01 10:40 | RAD ---
Date of service: 05/31/2018 PROCEDURE: Bilateral Feet Radiographs. HISTORY: wound r/o osteo COMPARISON: None. TECHNIQUE: 6 views obtained. FINDINGS: BONES: Right Foot: Previous resection of the 5th metacarpal Left Foot: There is a new bony destruction at the base of the 3rd proximal phalanx consistent with osteomyelitis. There is adjacent soft tissue swelling JOINTS: Right Foot: Normal. No osteoarthritis. Left Foot: Normal. No osteoarthritis. SOFT TISSUES: Right Foot: Normal. Left Foot: Normal. OTHER FINDINGS: None. IMPRESSION: There is a new bony destruction at the base of the right 3rd proximal phalanx consistent with osteomyelitis. There is adjacent soft tissue swelling
--- NOTE | 2018-06-01 10:40 | CP.PCM.CON ---
History of Present Illness - History of Present Illness History of Present Illness: Podiatry consult note for Dr. Bucio: 42 year old male patient with PMH of End-stage renal disease on hemodialysis MWF, hypertension, diabetes mellitus, coronary artery disease with stents, retinal detachment, hyperlipidemia, cholelithiasis, gastritis and multiple foot surgeries seen and evaluated at the bedside for bilateral foot ulcerations. Patient states that he just started new job 4 months ago at [employer] which requires from him to be on his feet all the day. Patient states that 3 weeks ago his right foot started to develop ulcerations on the left 3rd toe and the outside of his right foot. He states that it went worse. He states that it's painful up to 10/10 specially on the left side. He denies any trauma to his feet. He states that yesterday he started to feel feverish, had night sweats and chills. Patient states that he went yesterday to Dr. Bucio who sent him to the ED where he got admitted.Patient denies any recent N/V/CP or SOB. He denies any other pedal complaint at this time. PMH: End-stage renal disease on hemodialysis MWF, hypertension, diabetes mellitus, coronary artery disease with stents, retinal detachment, hyperlipidemia, cholelithiasis, gastritis PSH: Eye laser surgery, defibrillator, cardiac catheterization 2, H2 venous fistula, Right foot 4th and 5th toe amputations. Allergies: Zosyn, IV dye FH: Diabetes mellitus and hypertension Social Hx: Denies tobacco, EtOH or Illicit drug use. Review of Systems - Review of Systems Review of Systems: As per HPI - Constitutional Constitutional: As Per HPI Past Patient History - Infectious Disease Hx of Infectious Diseases: None - Tetanus Immunizations Tetanus Immunization: Unknown - Past Social History Smoking Status: Never Smoked - CARDIAC Hx Cardiac Disorders: Yes Hx Congestive Heart Failure: Yes Hx Hypertension: No Hx Pacemaker: Yes (Pt reported to have a defibilator) - PULMONARY Hx Respiratory Disorders: Yes - NEUROLOGICAL Other/Comment: pt used to get headaches from b/p meds not now - HEENT Hx HEENT Problems: Yes (tinnitis) Other/Comment: retinal detatchment 2008, laser sx both eyes - RENAL Hx Chronic Kidney Disease: Yes Hx Dialysis: Yes (MWF) Hx Renal Failure: Yes - ENDOCRINE/METABOLIC Hx Endocrine Disorders: Yes Hx Diabetes Mellitus Type 2: Yes - HEMATOLOGICAL/ONCOLOGICAL Hx Blood Disorders: No Hx Anemia: Yes (blood bransfusion) - INTEGUMENTARY Hx Dermatological Problems: Yes Other/Comment: ULCER TO TOE - MUSCULOSKELETAL/RHEUMATOLOGICAL Hx Musculoskeletal Disorders: Yes Hx Falls: Yes (Accidental fall years ago) - GASTROINTESTINAL Other/Comment: [id number] lbs on purpose in 2 yrs, egd 07/28/17 dx with severe duodenitis,duodenal/and gastric erosins 1cm hiatal hernia - GENITOURINARY/GYNECOLOGICAL Hx Genitourinary Disorders: No - PSYCHIATRIC Hx Emotional Abuse: No Hx Physical Abuse: No Hx Substance Use: Yes (Cannabis) - SURGICAL HISTORY Hx Surgeries: Yes Hx Coronary Stent: Yes Hx Open Heart Surgery: Yes - ANESTHESIA Hx Anesthesia Reactions: No Hx Malignant Hyperthermia: No Meds Allergies/Adverse Reactions: Allergies Allergy/AdvReac Type Severity Reaction Status Date / Time piperacillin sodium Allergy Severe ITCHING Verified 01/17/18 09:44 [From Zosyn] tazobactam sodium Allergy Severe ITCHING Verified 01/17/18 09:44 [From Zosyn] cinacalcet [From Sensipar] AdvReac Severe VOMITING Verified 01/17/18 09:44 IV DYE AdvReac Severe NAUSEA Uncoded 01/17/18 09:44 ORAL VITAMIN D AdvReac Severe VOMITING Uncoded 01/17/18 09:44 - Medications Medications: Current Medications Losartan Potassium (Cozaar) 50 mg PO DAILY [facility] Last Admin: 06/01/18 09:12 Dose: 50 mg Sevelamer HCl (Renagel) 800 mg PO 0800,1200,1700 [facility] Last Admin: 06/01/18 09:11 Dose: 800 mg Physical Exam - Constitutional Appears: No Acute Distress - Head Exam Head Exam: ATRAUMATIC, NORMOCEPHALIC - Extremities Exam Additional comments: B/L lower extremity focused exam: Vascular: DP/PT 2/4 b/l, Cap refill < 3 seconds, Temp gradient warm to warm from proximal to distal, Moderate non pitting edema noted to the b/l LE. Neuro: Gross sensation intact and protective sensation diminished b/l. Derm: Right foot: An open ulceration noted on the dorsum and the medial aspect of the right 3rd toe measuring 3cm X 2cm X 0.2cm. Positive purulence, No tracking, No undermining, No probe to bone and no malodor. Periwound erythema noted. Positive inter-digital macerations. Left foot: An open ulceration noted on the lateral aspect of the left foot 5cm X 2cm X 0.2cm with hyperkeratotic. Positive purulence, No tracking, No undermining, No probe to bone and no malodor. Periwound erythema noted. Positive inter-digital macerations. MSK: Muscle power 5/5 to all groups, Pain on palpating the blister sites. - Neurological Exam Neurological exam: Alert, Oriented x3 - Psychiatric Exam Psychiatric exam: Normal Affect, Normal Mood Results - Vital Signs Recent Vital Signs: Last Vital Signs Temp 98.3 F 06/01/18 06:00 Pulse 98 H 06/01/18 06:00 Resp 18 06/01/18 06:00 BP 124/76 06/01/18 09:12 Pulse Ox 98 06/01/18 06:00 - Labs Result Diagrams: 06/01/18 00:20 06/01/18 00:20 Labs: Laboratory Results - last 24 hr 06/01/18 06/01/18 06/01/18 00:20 00:20 00:20 WBC 9.8 RBC 3.77 Hgb 11.9 L Hct 37.7 L MCV 100.0 D MCH 31.6 MCHC 31.6 RDW 16.7 H Plt Count 409 MPV 9.0 Neut % (Auto) 71.5 H Lymph % (Auto) 16.0 L [place] % (Auto) 8.9 H Eos % (Auto) 2.9 Baso % (Auto) 0.7 Lymph # (Auto) 1.6 [place] # (Auto) 0.9 H Eos # (Auto) 0.3 Baso # (Auto) 0.07 Absolute Neuts (auto) 7.00 H PT 11.6 INR 1.05 APTT 28.6 pO2 VBG pH VBG pCO2 VBG HCO3 VBG Total CO2 VBG O2 Sat (Calc) VBG Base Excess VBG Potassium Sodium 138 Chloride 92 L Glucose Lactate FiO2 Potassium 4.6 Carbon Dioxide 35 H Anion Gap 15 BUN 41 H Creatinine 8.0 H* Est GFR ( Amer) 9 Est GFR (Non-Af Amer) 8 Random Glucose 119 H Calcium 8.9 Total Bilirubin 0.4 AST 51 ALT 28 Alkaline Phosphatase 66 Total Protein 8.4 H Albumin 4.1 Globulin 4.3 Albumin/Globulin Ratio 0.9 L Venous Blood Potassium 06/01/18 00:20 WBC RBC Hgb Hct MCV MCH MCHC RDW Plt Count MPV Neut % (Auto) Lymph % (Auto) [place] % (Auto) Eos % (Auto) Baso % (Auto) Lymph # (Auto) [place] # (Auto) Eos # (Auto) Baso # (Auto) Absolute Neuts (auto) PT INR APTT pO2 41 VBG pH 7.37 VBG pCO2 61.0 H VBG HCO3 35.3 H VBG Total CO2 37.2 H VBG O2 Sat (Calc) 76.7 H VBG Base Excess 7.8 H VBG Potassium 4.6 Sodium 138.0 Chloride 95.0 L Glucose 112 H Lactate 1.9 FiO2 21.0 Potassium Carbon Dioxide Anion Gap BUN Creatinine Est GFR ( Amer) Est GFR (Non-Af Amer) Random Glucose Calcium Total Bilirubin AST ALT Alkaline Phosphatase Total Protein Albumin Globulin Albumin/Globulin Ratio Venous Blood Potassium 4.6 Assessment & Plan - Assessment and Plan (Free Text) Assessment: 42 year old male patient with PMH of End-stage renal disease on hemodialysis MWF, hypertension, diabetes mellitus, coronary artery disease with stents, retinal detachment, hyperlipidemia, cholelithiasis, gastritis and multiple foot surgeries seen and evaluated at the bedside for bilateral foot ulcerations. Plan: Patient seen and evaluated Discussed in detail with Dr. Bucio Charts and vitals reviewed; Afebrile, WBCs 9.8 B/L foot 3 views X-ray: Bone distruction at the base of the Right proximal phalanx of the 3rd toe consistent with OM. Ordered B/L foot MRI Ordered SINGH/PVR. Ordered ESR/CRP Wound Cultures collected and sent to the lab. Wound cleaned with betadine and dressed with xeroform and DSD B/L. Ordered b/l surgical shoe. Patient to ambulate in a surgical shoe. ID on board, Reccs appreciated Patient to continue IV Abx as per ID. Thank you for the consult. Podiatry will follow up the patient while in house. - Date & Time Date: 06/01/18 Time: 10:28
--- NOTE | 2018-06-01 10:51 | CP.PCM.PCO ---
Additional Comments - Additional Comments Additional Comments: Pt is a 42 y.o. male w/pmhx/pshx of End-stage renal disease on hemodialysis MWF, hypertension, diabetes mellitus, coronary artery disease with stents, retinal detachment, hyperlipidemia, cholelithiasis, gastritis and R foot 4th and 5th toe amputations who was sent to ED by his medical scientific liaison due to worsening infection on radha ft. He is pending MRI radha ft, arterial doppler, bcx, wound cx. Cardio, podiatry, ID, Renal and Vascular on consult. Will continue to follow.
--- NOTE | 2018-06-01 12:01 | HP ---
DATE OF EXAM: 06/01/2018 HISTORY OF PRESENT ILLNESS: This is a 42-year-old male who was referred to [facility] by his Shirt Presser, Dr. Bucio for management of a wound on the right foot. He has been receiving outpatient therapy. The patient has a past medical history of chronic renal disease on dialysis three times a week, coronary artery disease with bypass surgery, osteomyelitis of the right foot, cellulitis of the left foot, noninsulin-dependent diabetes and hypertension. ALLERGIES: HE REPORTS HAVING ALLERGIES TO ZOSYN, SENSIPAR, IV DYE AND ORAL VITAMIN D. HOME MEDICATIONS: He states that his home medications consist of Renagel mg three times a day, Cozaar 50 mg daily, Plavix 75 mg daily and Ecotrin 81 mg daily. SOCIAL HISTORY: Is a nonsmoker, nondrinker and non drug user. REVIEW OF SYSTEMS: A 10 systems are reviewed. Pertinent findings as stated in the physical. PHYSICAL EXAMINATION VITAL SIGNS: Temperature is 98.3, the pulse is 98, the blood pressure is 121/77, oxygen saturation is 98% on room air and his respiratory rate is 18. GENERAL: He is alert and oriented x3. LUNGS: Clear. ABDOMEN: Soft with positive bowel sounds. HEART: Has an S1 and S2 rhythm. EXTREMITIES: He currently has dressings over both feet and a discussion with the staff, there is evidence of drainage area on the right foot on the second toe which is being followed on the outside. LABORATORY DATA: Shows a WBC of 9.8, his RBC is 3.77, hemoglobin 11.9, hematocrit 37.7 and platelet count is 409. PT is 11.6, INR 1.05 and PTT is 28.6. Lactate is reported at 1.9. Chemistry shows sodium 138, potassium 4.6, chloride 92, CO2 of 95, BUN is 41 and creatinine is 8. LFTs are normal. Total protein is 8.4. X-ray of the right foot is pending. The patient received a dose of vancomycin in the emergency room. Cultures of the foot and blood has been done. Repeat cultures have been requested. Consultations will be taken with Infectious Disease, Vascular, Renal, Cardiology and Podiatry. The patient will be scheduled for dialysis today. Further treatment plan pending input from the individual consultants. Cleopatra White MD [facility] # [id number]
--- NOTE | 2018-06-01 15:20 | US ---
PROCEDURE: Lower extremity SINGH exam HISTORY: Peripheral vascular disease with pain and ulceration. Previous smoking. PHYSICIAN(S): Ajay Leyva MD. FINDINGS: The right resting SINGH was not obtained. The left resting SINGH is normal, 1.1 The brachial systolic pressures are symmetric. The low thigh pressures and waveforms are normal and symmetric. The calf PVR waveforms augment normally. The ankle and metatarsal waveforms are relatively normal and symmetric. No significant pressure gradients are noted across the lower legs. IMPRESSION: 1. The PVR waveforms are normal and symmetric at all levels. 2. Limited study.
--- NOTE | 2018-06-01 17:21 | CON ---
DATE OF CONSULTATION: 06/01/2018 The patient is seen in bed, and he was seen earlier today in room 561, bed 2. CHIEF COMPLAINT: Bilateral foot infection, right worse than the left. HISTORY OF PRESENT ILLNESS: This is a 42-year-old male with obesity, BMI of 35 with hypertension, diabetes, cerebrovascular accident, coronary artery disease, congestive heart failure, end-stage renal disease on hemodialysis, history of osteomyelitis of foot, history of retinal detachment, history of high cholesterol, and GERD, who has been now admitted with foot infection. Infectious Disease consultation requested. The patient denies any fevers, any chills, no nausea, no vomiting, no chest pain. REVIEW OF SYSTEMS: Reveals a twelve-point review of systems performed. PAST MEDICAL HISTORY: Significant for cerebrovascular accident, hypertension, diabetes, coronary artery disease, congestive heart failure, end-stage renal disease on hemodialysis on Mondays, Wednesdays and Fridays, and osteomyelitis of the foot, GERD, high cholesterol, and retinal detachment. PAST SURGICAL HISTORY: Significant for pacemaker and cardiac cath with stent placement. The patient with a left arm fistula and a right fourth toe amputation and fifth toe amputation. ALLERGIES: THE PATIENT IS ALLERGIC TO PIPERACILLIN, TAZOBACTAM, IV DYE, AND ALL VITAMINS. MEDICATIONS: Medications at home include the patient to be on Sevelamer, Cozaar, Plavix, Ecotrin, and Lipitor. PHYSICAL EXAMINATION: GENERAL: He is in bed, answering questions appropriately, awake and alert. VITAL SIGNS: Temperature of 98, blood pressure is 120/70, respiratory rate of 18, and heart rate of 99. HEENT: Examination of HEENT is unremarkable. NECK: Supple. LUNGS: Have decreased breath sounds. HEART: Normal S1, S2. ABDOMEN: Soft, nontender. EXTREMITIES: Examination of the feet reveals the patient to have bilateral foot infections and significant cellulitis and the left foot with a lateral aspect ulcer and cellulitis around it and the right foot with a second and third toes necrosis and cellulitis around that. LABORATORY DATA: Laboratory examination reveals a white count of 9 and hemoglobin of 11. Chemistries are noted. Creatinine is 8. IMAGING STUDIES: X-ray of the right foot shows the presence of an osteomyelitis. ASSESSMENT AND PLAN: A 42-year-old male with cerebrovascular accident, hypertension, diabetes, admitted with a left foot cellulitis on the lateral aspect and the right foot cellulitis with a second and third toe necrosis and osteomyelitis of right foot based on x-ray findings. We will start the patient on Zyvox and meropenem for significant cellulitis in both feet, more so on the right foot than the left and the patient is on dialysis. We will start Zyvox and meropenem. We will need vascular workup and consultation, Podiatric consultation, and we will order his baseline sed rate and C-reactive protein with needed prolonged antibiotic therapy, waiting for superficial culture and deep cultures, perhaps wound cultures, and we will follow closely with you. Nasir Dunn MD
[2018-06-01] MEDS: Mupirocin 2% Ointment 15 GM TUBE TOP SCH (18:31)
--- NOTE | 2018-06-01 20:44 | CON ---
DATE: 06/01/2018 REASON FOR CONSULTATION: End-stage renal disease, on hemodialysis. REFERRING PHYSICIAN: Cleopatra White MD. CHIEF COMPLAINT AND HISTORY OF PRESENT ILLNESS: This is a 42-year-old male who is coming into the hospital, sent by his boomboat operator Dr. Nagy for evaluation of his feet. He was brought in for cellulitis. The patient had a history of end-stage renal disease, on hemodialysis Monday, Monday, and Monday. He has been compliant mostly for his treatment. He has had issues with missing treatments or delaying treatments because of a new job that he has started at [employer]. He does have a left arm fistula that has good bruit and thrill. He has a left arm fistula that is functioning. He has a history of coronary disease with stents, pacemaker, hypertension. The patient says he had chills yesterday. He denies any fevers. No chest pain. No shortness of breath. No abdominal pain. No back pain. No weakness in the arms or the legs. He says that the foot pain in the left side was 10/10. He says it is worse when he is working on his feet. He did not have any recent arterial Doppler's done. REVIEW OF SYSTEMS: All other review of symptoms are within normal limits except as mentioned. ALLERGIES: CONTRAST DYE, ZOSYN, CINACALCET AND IV DYE. PAST MEDICAL HISTORY: 1. End-stage renal disease on hemodialysis. 2. Diabetes type 2. 3. Coronary artery disease with stent. 4. Dyslipidemia. 5. Gastritis. 6. Retinal detachment. PAST SURGICAL HISTORY: Cardiac cath, venous fistula placement, right foot forth and fifth toe amputation. FAMILY HISTORY: The patient has diabetes and hypertension in the family. SOCIAL HISTORY: He does smoke and drink. PHYSICAL EXAMINATION VITAL SIGNS: He has a temperature of 98.3, pulse of 98, blood pressure 121/77, respirations 18, and O2 saturation 98%. Height is 5 feet 10 inches and he weighs 250 pounds. HEENT: Atraumatic and normocephalic. Anicteric sclerae. Moist mucosa. Gardiner conjunctivae. No oral lesions. NECK: No JVD, anterior and posterior adenopathy, thyromegaly, or bruits. CARDIOVASCULAR: S1 and S2 regular. No murmurs, rubs or gallops. LUNGS: Clear to auscultation bilaterally. No wheezes, rales, or rhonchi. ABDOMEN: Bowel sounds are positive. Soft, nontender and nondistended. No hepatosplenomegaly. No rebound and no guarding. EXTREMITIES: In the left there is an AV fistula with good thrill and bruit. In the right foot he has a open ulcer that is 6 x 5 x 0.4 cm and there is purulent discharge. LABORATORY DATA: White count of 9.8, hemoglobin 11.9. INR is 1.05. Chemistry shows his sodium is 138, potassium is 4.6, creatinine is 8.0, albumin is 4.1. He had a foot x-ray done that shows a new bony destruction at the base of the third proximal phalanx sensitive toward osteomyelitis. ASSESSMENT: 1. End-stage renal disease on hemodialysis. 2. Right third phalanx osteomyelitis. 3. Secondary hypoparathyroidism. 4. Anemia secondary to iron deficiency/chronic kidney disease. 5. Coronary artery disease. 6. Dyslipidemia. 7. Hypertension. 8. Congestive heart failure secondary to systolic dysfunction. 9. Left arteriovenous fistula. PLAN: The patient is about to continue his dialysis treatment. I did get consent for dialysis. He is going to be dialyzed today. We will continue Monday, Monday, Monday dialysis. For his osteomyelitis, he is being seen by Infectious Disease and Podiatry. I did speak to Dr. White regarding the case. The patient is on meropenem for antibiotics and so he is getting 250 mg. The patient is on Losartan for his hypertension. He is given a dose of ibuprofen daily. The patient is on vancomycin as well. He is given sevelamer for his secondary hyperparathyroidism. He is on linezolid. The patient had lower extremity Doppler's that had been ordered as well as a CT. He is imposed on a heart healthy diet. He did not want to be on a renal diet. He will need aggressive treatment of his infection. Maximilian Zheng MD
--- NOTE | 2018-06-02 00:02 | CON ---
DATE: 06/01/2018 CARDIOLOGY CONSULTATION HISTORY OF PRESENT ILLNESS: The patient is a 42-year-old male who presents with cellulitis of the lower extremity. PAST MEDICAL HISTORY: Includes history of an ischemic dilated cardiomyopathy with an EF of approximately 30%. He is status post coronary artery bypass surgery. In addition, the patient suffers from end-stage renal disease as well as peripheral vascular disease. He denies angina. Denies shortness of breath. SOCIAL HISTORY: The patient does not smoke. REVIEW OF SYSTEMS: History of cardiac symptomatology. PHYSICAL EXAMINATION: VITAL SIGNS: Blood pressure 124/76 and heart rate in the 90s. NECK: Negative JVD. LUNGS: Without rales. HEART: S1 and S2. EXTREMITIES: Bandage in lower extremities. LABORATORY DATA: Past echocardiogram reveals an LVEF of 30%. Laboratories were reviewed. IMPRESSION: 1. Ischemic dilated cardiomyopathy. 2. Coronary artery disease. 3. History of coronary artery bypass surgery. 4. Hypercholesterolemia. 5. Hypertension. PLAN: Given these findings, the patient is at increased risk for any anesthesia; however, his cardiac status is at his baseline and optimize. Ajay Diggs MD
[2018-06-02] MEDS: Mupirocin 2% Ointment 15 GM TUBE TOP SCH (11:44)
--- NOTE | 2018-06-02 11:46 | CP.PCM.PN ---
Subjective - Date & Time of Evaluation Date of Evaluation: 06/02/18 Time of Evaluation: 11:38 - Subjective Subjective: Podiatry progress note for Dr. Bucio: 42 year old male patient seen and evaluated at the bedside for bilateral foot ulcerations. Patient states that he still has pain in his ulceration sites L > R. Patient denies any overnight F/N/V/CP or SOB. He denies any other pedal complaint at this time. Objective - Vital Signs/Intake and Output Vital Signs (last 24 hours): Temp Pulse Resp BP Pulse Ox 97.9 F 90 20 156/96 H 96 06/02/18 06:00 06/02/18 10:20 06/02/18 06:00 06/02/18 10:20 06/02/18 06:00 Intake and Output: 06/02/18 06/02/18 06:59 18:59 Intake Total 240 Balance 240 - Medications Medications: Current Medications Acetaminophen (Tylenol 325mg Tab) 650 mg PO Q6H PRN PRN Reason: Pain, severe (8-10) Last Admin: 06/01/18 19:16 Dose: 650 mg Acetaminophen (Tylenol 325mg Tab) 325 mg PO Q6H PRN PRN Reason: Pain, severe (8-10) Last Admin: 06/01/18 22:33 Dose: 325 mg Codeine Sulfate (Codeine) 30 mg PO Q6 PRN PRN Reason: Pain, severe (8-10) Last Admin: 06/01/18 22:32 Dose: 30 mg Meropenem 250 mg/ Sodium (Chloride) 100 mls @ 100 mls/hr IVPB Q12H [facility]IN[facility]; Protocol Stop: 06/08/18 11:31 Last Admin: 06/01/18 22:33 Dose: 100 mls/hr Linezolid (Zyvox) 600 mg PO BID TINY; Protocol Stop: 06/08/18 11:25 Last Admin: 06/02/18 10:22 Dose: 600 mg Losartan Potassium (Cozaar) 50 mg PO DAILY [facility] Last Admin: 06/02/18 10:20 Dose: 50 mg Mupirocin (Bactroban Ointment) 0 gm TOP BID [facility] Last Admin: 06/01/18 18:31 Dose: Not Given Ondansetron HCl (Zofran Odt) 4 mg PO Q8H PRN PRN Reason: Nausea/Vomiting Sevelamer HCl (Renagel) 800 mg PO 0800,1200,1700 [facility] Last Admin: 06/02/18 10:20 Dose: 800 mg - Labs Labs: 06/01/18 00:20 06/01/18 00:20 PT 11.6 SECONDS (9.4-12.5) 06/01/18 00:20 INR 1.05 06/01/18 00:20 APTT 28.6 Seconds (26.9-38.3) 06/01/18 00:20 - Constitutional Appears: Non-toxic, No Acute Distress - Head Exam Head Exam: ATRAUMATIC, NORMOCEPHALIC - Extremities Exam Additional comments: B/L lower extremity focused exam: Vascular: DP/PT 2/4 b/l, Cap refill < 3 seconds, Temp gradient warm to warm from proximal to distal, Moderate non pitting edema noted to the b/l LE. Neuro: Gross sensation intact and protective sensation diminished b/l. Derm: Right foot: An open ulceration noted on the dorsum and the medial aspect of the right 3rd toe measuring 3cm X 1.8cm X 0.2cm. Positive purulence, No tracking, No undermining, No probe to bone and no malodor. Periwound erythema noted. Positive inter-digital macerations. Left foot: An open ulceration noted on the lateral aspect of the left foot 5cm X 2cm X 0.2cm with hyperkeratotic. Positive purulence, No tracking, No undermining, No probe to bone and no malodor. Periwound erythema noted. Positive inter-digital macerations. MSK: Muscle power 5/5 to all groups, Pain on palpating the blister sites. - Neurological Exam Neurological Exam: Alert, Awake, Oriented x3 - Psychiatric Exam Psychiatric exam: Normal Affect, Normal Mood Assessment and Plan - Assessment and Plan (Free Text) Assessment: 42 year old male patient seen and evaluated at the bedside for bilateral foot ulcerations. Plan: Patient seen and evaluated Discussed in detail with Dr. Bucio Charts and vitals reviewed; Afebrile, WBCs 9.8 B/L foot 3 views X-ray: Bone distruction at the base of the Right proximal phalanx of the 3rd toe consistent with OM. B/L foot MRI ordered; Pending. Ordered SINGH/PVR: PVR wave forms are normal and symmetrical b/l, Limited study. ESR: 135, CRP: 47.70 Wound Cultures: Pending Wound cleaned with saline and dressed with bactroban and DSD B/L. Patient to ambulate in a surgical shoe. ID on board, Reccs appreciated Vasc. consulted, Reccs appreciated. Patient to continue IV Abx as per ID. Podiatry will continue to follow up the patient while in house.
[2018-06-02] MEDS ORDERED: Vancomycin 1gm in NS 250ml 1 GM/250 ML BAG IVPB STA (12:57)
--- NOTE | 2018-06-02 14:33 | PN ---
DATE: 06/02/2018 SUBJECTIVE: The patient has no complaints of any chest pain or shortness of breath, headaches or dizziness. PHYSICAL EXAMINATION: VITAL SIGNS: Temperature is 97.9, pulse is 90, blood pressure is 158/100, respirations 20. GENERAL: The patient is lying in bed, flat, comfortable. HEENT: No oral lesion. Anicteric sclerae. Moist mucosa. NECK: No JVD, adenopathy, or thyromegaly. CARDIOVASCULAR: S1 and S2, regular. No murmurs, rubs, or gallops. LUNGS: Clear to auscultation bilaterally. No wheeze, rales, or rhonchi. ABDOMEN: Bowel sounds are positive, soft, nontender and nondistended. EXTREMITIES: no cyanosis, clubbing or edema. LABORATORY DATA: White count of 9.8, hemoglobin 11.9, creatinine is . ASSESSMENT: 1. End-stage renal disease, on hemodialysis. 2. Right third phalanx osteomyelitis. 3. Secondary hyperparathyroidism. 4. Anemia secondary to iron deficiency. 5. Coronary artery disease. 6. Dyslipidemia. 7. Hypertension. 8. Congestive heart failure secondary to systolic dysfunction. 9. Left arteriovenous fistula. PLAN: The patient will continue on his dialysis, next dialysis treatment is on Monday. The patient is on codeine for pain. He is receiving sevelamer for his secondary hyperparathyroidism. He is on Zyvox for his antibiotics. He is currently comfortable. He again needs a rather regular diet. Maximilian Zheng MD
--- NOTE | 2018-06-02 15:37 | PN ---
DATE: 06/02/2018 SUBJECTIVE: A 42-year-old male resting in bed. This morning, he states that he got some upset stomach with nausea and vomiting yesterday which may be related to the antibiotic that he has been placed on. He had dialysis yesterday. PHYSICAL EXAMINATION: VITAL SIGNS: Temperature is 97.9. His pulse is 90. His blood pressure is 135/76, respiratory rate is 20. He has 96% saturation on room air. GENERAL: He is alert and oriented x3. NECK: Supple. LUNGS: Clear. ABDOMEN: Obese, soft with positive bowel sounds. EXTREMITIES: Have dressings over both feet. ASSESSMENT AND PLAN: He is receiving IV antibiotics by Infectious Disease for infection of the feet. He is scheduled for an MRI of the feet with a clinical suspicion for osteomyelitis of the right foot. Cultures are pending. He has a history of chronic renal disease on dialysis three times a week being followed by Renal. He has a history of hypertension, a prior history of cellulitis and osteomyelitis. He has a history of coronary artery bypass surgery. A Vascular consult has been requested, the MRI results are pending. An extremity ultrasound Doppler study was done and being reported as showing limited study. We will await input by Vascular and Podiatry. Cardiology is following the patient in anticipation of possible surgery. Infectious Disease will be adjusting his antibiotics because of the patient's GI complaints after receiving them. Cleopatra White MD
--- NOTE | 2018-06-02 16:06 | PN ---
DATE: 06/02/2018 SUBJECTIVE: The patient is in bed in no acute distress, nontoxic. The patient was seen earlier this morning, he is complaining of not being able to tolerate Zyvox. He states it gave him nausea. PHYSICAL EXAMINATION VITAL SIGNS: On exam temperature is 98, blood pressure is 158/100, respiratory rate of 20 and heart rate of 102. HEENT: Unremarkable. NECK: Supple. LUNGS: Have decreased breath sounds. HEART: Normal S1 and S2. ABDOMEN: Soft. LABORATORY EXAMINATION: Reveals the cultures of his left foot is staph species and the toe cultures have no growth. Another left foot culture is pending. Blood cultures are negative. WBC count is 9.8, hemoglobin 11 and sed rate is 135. BUN of 41 and creatinine of 8.0. ASSESSMENT AND PLAN: This is a 42-year-old male with a history of cerebrovascular accident, hypertension, diabetes, history of left foot, admitted with a left foot cellulitis on lateral aspect and right foot cellulitis and a second and third toe necrosis and osteomyelitis of the right foot based on x-ray. Unable to tolerate Zyvox, we will continue the meropenem and give vancomycin renal failure adequate dosing 1 g IV now. We will follow with you. Nasir Dunn MD
[2018-06-03] MEDS: Mupirocin 2% Ointment 15 GM TUBE TOP SCH ×3 (09:01→17:22)
--- NOTE | 2018-06-03 11:42 | CP.PCM.PN ---
Subjective - Date & Time of Evaluation Date of Evaluation: 06/03/18 Time of Evaluation: 11:38 - Subjective Subjective: Podiatry progress note for Dr. Bucio: 42 year old male patient seen and evaluated at the bedside for bilateral foot ulcerations. Patient states that he still has pain in his ulceration sites L > R but the pain is less today. Patient denies any overnight F/N/V/CP or SOB. He denies any other pedal complaint at this time. Objective - Vital Signs/Intake and Output Vital Signs (last 24 hours): Temp Pulse Resp BP Pulse Ox 98.2 F 105 H 18 113/77 96 06/03/18 06:00 06/03/18 10:58 06/03/18 06:00 06/03/18 10:58 06/03/18 06:00 Intake and Output: 06/03/18 06/03/18 06:59 18:59 Intake Total 360 Balance 360 - Medications Medications: Current Medications Acetaminophen (Tylenol 325mg Tab) 650 mg PO Q6H PRN PRN Reason: Pain, severe (8-10) Last Admin: 06/01/18 19:16 Dose: 650 mg Acetaminophen (Tylenol 325mg Tab) 325 mg PO Q6H PRN PRN Reason: Pain, severe (8-10) Last Admin: 06/01/18 22:33 Dose: 325 mg Codeine Sulfate (Codeine) 30 mg PO Q6 PRN PRN Reason: Pain, severe (8-10) Last Admin: 06/01/18 22:32 Dose: 30 mg Meropenem 250 mg/ Sodium (Chloride) 100 mls @ 100 mls/hr IVPB Q12H [facility]; Protocol Stop: 06/08/18 11:31 Last Admin: 06/02/18 23:29 Dose: 100 mls/hr Losartan Potassium (Cozaar) 50 mg PO DAILY [facility] Last Admin: 06/03/18 10:58 Dose: 50 mg Mupirocin (Bactroban Ointment) 0 gm TOP BID [facility] Last Admin: 06/03/18 10:58 Dose: 1 applic Ondansetron HCl (Zofran Odt) 4 mg PO Q8H PRN PRN Reason: Nausea/Vomiting Last Admin: 06/02/18 11:43 Dose: 4 mg Sevelamer HCl (Renagel) 800 mg PO 0800,1200,1700 [facility] Last Admin: 06/03/18 08:47 Dose: 800 mg - Labs Labs: 06/01/18 00:20 06/01/18 00:20 PT 11.6 SECONDS (9.4-12.5) 06/01/18 00:20 INR 1.05 06/01/18 00:20 APTT 28.6 Seconds (26.9-38.3) 06/01/18 00:20 - Constitutional Appears: Well, Non-toxic, No Acute Distress - Head Exam Head Exam: ATRAUMATIC, NORMOCEPHALIC - Extremities Exam Additional comments: B/L lower extremity focused exam: Vascular: DP/PT 2/4 b/l, Cap refill < 3 seconds, Temp gradient warm to warm from proximal to distal, Moderate non pitting edema noted to the b/l LE. Neuro: Gross sensation intact and protective sensation diminished b/l. Derm: Right foot: An open ulceration noted on the dorsum and the medial aspect of the right 3rd toe measuring 3cm X 1.8cm X 0.2cm. Positive purulence, No tracking, No undermining, No probe to bone and no malodor. Periwound erythema noted. Positive inter-digital macerations. Left foot: An open ulceration noted on the lateral aspect of the left foot 5cm X 2cm X 0.2cm with hyperkeratotic. Positive purulence, No tracking, No undermining, No probe to bone and no malodor. Periwound erythema noted. Positive inter-digital macerations. MSK: Muscle power 5/5 to all groups, Pain on palpating the ulcer sites. - Neurological Exam Neurological Exam: Alert, Awake, Oriented x3 - Psychiatric Exam Psychiatric exam: Normal Affect, Normal Mood Assessment and Plan - Assessment and Plan (Free Text) Assessment: 42 year old male patient seen and evaluated at the bedside for bilateral foot ulcerations. Plan: Patient seen and evaluated Discussed in detail with Dr. Bucio Charts and vitals reviewed; Afebrile, WBCs 9.8 B/L foot 3 views X-ray: Bone distruction at the base of the Right proximal phalanx of the 3rd toe consistent with OM. B/L foot MRI couldn't be done as the patient has defibrillator Ordered Bone scan. SINGH/PVR (06/01): PVR wave forms are normal and symmetrical b/l, Limited study. ESR: 135, CRP: 47.70 Wound Cultures: left foot; (05/31) Staph species. (06/01) Corynebacterium species, Right foot; (05/31) Pending, (06/01) No growth after 24 hours. Wound cleaned with saline and dressed with bactroban and DSD B/L. Patient to ambulate in a surgical shoe. ID on board, Reccs appreciated Vasc. consulted, Reccs appreciated. Patient to continue IV Abx as per ID. Podiatry will continue to follow up the patient while in house.
--- NOTE | 2018-06-03 12:02 | PN ---
DATE: 06/03/2018 SUBJECTIVE: The patient is in bed in no acute distress, nontoxic. PHYSICAL EXAMINATION: VITAL SIGNS: Temperature is 98, blood pressure is 113/70, respiratory rate of 18. HEENT: Unremarkable. NECK: Supple. LUNGS: Have decreased breath sounds. HEART: Normal S1, S2. ABDOMEN: Soft, nontender. LABORATORY EXAMINATION: Reveals a white count of 9.8, hemoglobin 11, platelets of 409 and the chemistries reveals a BUN of 41, creatinine of 8.0. C-reactive protein is 47. Blood cultures are negative. Left foot culture is remains Staph species and another left foot cultures corynebacterium. Review of orders reveals the patient on intermittent vancomycin and meropenem. ASSESSMENT AND PLAN: This is a 42-year-old male with a history of cerebrovascular accident, hypertension, diabetes, history of left foot infection, admitted with left foot cellulitis from the lateral aspect of the left foot and right foot cellulitis with a second and third toe necrosis and osteomyelitis based on x-ray findings and did not tolerate Zyvox developed nausea and vomiting now it is resolved on intermittent vancomycin and meropenem at this point. We will order a random vancomycin level for tomorrow vascular evaluation is noted by Dr. Ajay Leyva. Case discussed with the patient at length this morning and Dr. White. Nasir Dunn MD
--- NOTE | 2018-06-03 14:37 | PN ---
DATE: 06/03/2018 SUBJECTIVE: The patient has no complaints of any chest pain. No shortness of breath. No headaches or dizziness. PHYSICAL EXAMINATION VITAL SIGNS: Temperature is 98.2, pulse of 105, blood pressure 113/77, and respirations 18. GENERAL: The patient is lying in bed, flat, comfortable. HEENT: No oral lesion. Anicteric sclerae. Moist mucosa. NECK: No JVD, adenopathy, or thyromegaly. CARDIOVASCULAR: S1 and S2, regular. No murmurs, rubs, or gallops. LUNGS: Clear to auscultation bilaterally. No wheeze, rales, or rhonchi. ABDOMEN: Bowel sounds are positive, soft, nontender and nondistended. EXTREMITIES: No cyanosis, clubbing or edema. ASSESSMENT: 1. End-stage renal disease, on hemodialysis. 2. Right third phalanx osteomyelitis. 3. Secondary hyperparathyroidism. 4. Anemia secondary to iron deficiency. 5. Coronary artery disease. 6. Dyslipidemia. 7. Hypertension. 8. Congestive heart failure secondary to systolic dysfunction. 9. Left arteriovenous fistula. 10. Obese with body mass index of 36. PLAN: The patient is currently on losartan for hypertension. He is receiving meropenem for antibiotics. He is going to continue with his sevelamer for his secondary hyperparathyroidism. He is on regular diet. He does not wish to be on a renal diet. I did speak to Dr. White as well as Dr. Dunn and regarding the case. The patient has an elevated ESR and CRP. We will need evaluation by Interventional Radiology. He has difficult time tolerating the Zyvox that he was on. Maximilian Zheng MD
--- NOTE | 2018-06-03 14:44 | PN ---
DATE: 06/03/2018 SUBJECTIVE: A 42-year-old male feels a bit better this morning. His GI upset is better. Nursing staff relates that there were no problems during the night. His temperature is 98.2, his pulse is 105, blood pressure is 113/77, oxygen sat is 96% on room air and respiratory rate is 18. He is alert and oriented x3. Lungs are clear. Heart has an S1 and S2 rhythm. Abdomen is soft with positive bowel sounds. Extremities; he is wearing surgical shoes and he has wound dressings on both feet. He has cultures of the blood which are negative at this time; however, he has grown a corynebacterium from the left foot and a staph aureus as well. He has evidence of osteomyelitis based upon radiological studies and is currently receiving antibiotics meropenem. He had been getting some vancomycin and which will be adjusted according to his dialysis schedule. He is on chronic dialysis three times a week with chronic renal failure. He is being followed by Cardiology. He had a history of bypass surgery in the past for ischemic heart disease and he has a pacemaker in place. A vascular evaluation has been requested prior to any surgical intervention on his foot and this has been discussed with the patient as well as with his [employer] and with Infectious Disease and with Podiatry and will continue current level of care. Cleopatra White MD
--- NOTE | 2018-06-03 18:35 | PN ---
DATE: 06/03/2018 SUBJECTIVE: I was asked to evaluate the patient for his antiplatelet therapy. The patient underwent quadruple bypass surgery in October of last year at [facility]. His most recent stents prior to his bypass surgery was more than a year ago. The patient is being considered for right third toe amputation. The patient denied any chest pain at this time. PHYSICAL EXAMINATION: VITAL SIGNS: Blood pressure 115/77, heart rate 105, temperature 98.2, and respirations 18. HEENT: Normocephalic. CHEST: Clear. HEART: S1 and S2, regular. EXTREMITIES: Dressings applied to the right third toe. LABORATORY DATA: Admitting BUN and creatinine are 41 and 8.0 and admitting glucose 119. Admitting hemoglobin and hematocrit 11.9 and 37.7. White count and platelet count are within normal limit. Echocardiographic study performed 10 days ago revealed global LV hypokinesis, moderate to severe; mild pulmonary hypertension; ejection fraction measured at 30%. ASSESSMENT: 1. Ischemic cardiomyopathy. 2. Peripheral vascular disease. 3. Coronary artery disease, status post quadruple bypass surgery in October of last year. 4. End-stage renal disease, on hemodialysis. 5. Hypertension. RECOMMENDATIONS: Continue Cozaar 50 mg once a day, IV meropenem at 250 mg every 12 hours, start aspirin at 81 mg once a day and obtain 12-lead EKG. Juan David Dao MD
--- NOTE | 2018-06-04 07:00 | CP.PCM.PN ---
Subjective - Date & Time of Evaluation Date of Evaluation: 06/04/18 Time of Evaluation: 06:57 - Subjective Subjective: Podiatry progress note for Dr. Bucio, 42 year old male patient seen and evaluated at the bedside with Dr. Ajay Bucio for Right 3rd digit ulceration and L lateral foot ulceration. Patient states that he still has pain in his ulceration sites L > R but the pain is less today. Patient is denying any other pedal complaints at this time. Patient is aware he is scheduled for surgery of the right 2nd digit partial amputation and right 3rd digit amputation pending medical and cardiac clearance. Objective - Vital Signs/Intake and Output Vital Signs (last 24 hours): Temp Pulse Resp BP Pulse Ox 98.3 F 97 H 18 120/84 97 06/03/18 22:00 06/03/18 22:00 06/03/18 22:00 06/03/18 22:00 06/03/18 22:00 Intake and Output: 06/03/18 06/04/18 18:59 06:59 Intake Total 480 Balance 480 - Medications Medications: Current Medications Acetaminophen (Tylenol 325mg Tab) 650 mg PO Q6H PRN PRN Reason: Pain, severe (8-10) Last Admin: 06/01/18 19:16 Dose: 650 mg Acetaminophen (Tylenol 325mg Tab) 325 mg PO Q6H PRN PRN Reason: Pain, severe (8-10) Last Admin: 06/01/18 22:33 Dose: 325 mg Aspirin (Aspirin Chewable) 81 mg PO DAILY [facility] Last Admin: 06/03/18 15:08 Dose: 81 mg Codeine Sulfate (Codeine) 30 mg PO Q6 PRN PRN Reason: Pain, severe (8-10) Last Admin: 06/01/18 22:32 Dose: 30 mg Meropenem 250 mg/ Sodium (Chloride) 100 mls @ 100 mls/hr IVPB Q12H [facility]; [place] col Stop: 06/08/18 11:31 Last Admin: 06/03/18 22:32 Dose: 100 mls/hr Losartan Potassium (Cozaar) 50 mg PO DAILY [facility] Last Admin: 06/03/18 10:58 Dose: 50 mg Mupirocin (Bactroban Ointment) 0 gm TOP BID [facility] Last Admin: 06/03/18 17:22 Dose: Not Given Ondansetron HCl (Zofran Odt) 4 mg PO Q8H PRN PRN Reason: Nausea/Vomiting Last Admin: 06/02/18 11:43 Dose: 4 mg Sevelamer HCl (Renagel) 800 mg PO 0800,1200,1700 [facility] Last Admin: 06/03/18 17:21 Dose: 800 mg - Labs Labs: 06/01/18 00:20 06/01/18 00:20 PT 11.6 SECONDS (9.4-12.5) 06/01/18 00:20 INR 1.05 06/01/18 00:20 APTT 28.6 Seconds (26.9-38.3) 06/01/18 00:20 - Constitutional Appears: Well, Non-toxic, No Acute Distress - Head Exam Head Exam: ATRAUMATIC, NORMOCEPHALIC - Extremities Exam Additional comments: B/L lower extremity focused exam: Vascular: DP and PT 2/4 bilaterally, Cap refill < 3 seconds, Temp gradient warm to warm from proximal to distal, minimal non pitting edema noted to the b/l LE. Neuro: Gross sensation intact and protective sensation diminished bilaterally Derm: Right foot: ulceration noted on the dorsum and the medial aspect of the right 3rd digit measuring 3cm X 1.8cm X 0.2cm. No purulence, No tracking, No undermining, No probe to bone and no malodor. Periwound erythema noted. Positive inter-digital macerations. Left foot: An open ulceration noted on the lateral aspect of the left foot 5cm X 2cm X 0.2cm with hyperkeratotic. Positive purulence, No tracking, No undermining, No probe to bone and no malodor. Periwound erythema noted. Positive inter-digital macerations. MSK: Muscle power 5/5 to all groups, Pain on palpating the ulcer sites. - Neurological Exam Neurological Exam: Alert, Awake, Oriented x3 - Psychiatric Exam Psychiatric exam: Normal Affect, Normal Mood Assessment and Plan - Assessment and Plan (Free Text) Assessment: 42 year old male patient seen and evaluated at the bedside for bilateral foot ulcerations Plan: Patient seen and evaluated with Dr. Bucio at bedside Discussed in detail with Dr. Bucio Charts and vitals reviewed; Afebrile, WBC 9.8 (06/01/18) ESR: 135, CRP: 47.70 (4/12/19) SINGH/PVR (06/01): PVR wave forms are normal and symmetrical b/l, Limited study B/L foot 3 views X-ray: Bone destruction at the base of the Right proximal phalanx of the 3rd toe consistent with OM B/L foot MRI couldn't be done as the patient has defibrillator Pending Bone Scan Wound Cultures: left foot: (05/31) Staph species. (06/01) Corynebacterium species, Right foot: (05/31) Staph Coag Negative, (06/01) No growth after 24 hours Wound cleaned with saline and dressed with bactroban and DSD B/L Patient to ambulate in a surgical shoe ID on board, Reccs appreciated Patient scheduled for right 3rd digit and right partial 2nd digit amputation on 06/07/18 Vascular Consult- Please evaluate patient for clearance prior to surgery Cardiac Consult- Please evaluate patient for clearance prior to surgery Please provide medical clearance for patient to proceed with surgery Patient to continue IV Abx as per ID, recommendations were appreciated Podiatry will continue to follow up the patient while in house
--- NOTE | 2018-06-04 07:07 | CARD ---
APPROVED REPORT Date of service: 06/03/2018 EKG Measurement Heart [id number] <Conclusion> Normal sinus rhythm Anterolateral infarct, age undetermined T wave abnormality, consider inferior ischemia Abnormal ECG
[2018-06-04] MEDS: Mupirocin 2% Ointment 15 GM TUBE TOP SCH ×2 (10:00→18:58)
[2018-06-04 10:24] LABS: HEMOGLOBIN 12.5 g/dL (14.0-18.0); MEAN CORPUSCULAR HEMOGLOBIN 31.8 pg (25.0-35.0); MEAN CORPUSCULAR HGB CONC 32.5 g/dl (31.0-37.0); MEAN PLATELET VOLUME 9.2 fl (7.0-11.0); RBC 3.93 10^6/uL (3.5-6.1); RED CELL DISTRIBUTION WIDTH 16.1 % (11.5-14.5); WHITE BLOOD COUNT 11.2 10^3/uL (4.5-11.0)
[2018-06-04 10:45] LABS: ALB/GLOB RATIO 0.9 (1.1-1.8); ALBUMIN 3.8 g/dL (3.0-4.8); CALCIUM 8.4 mg/dL (8.4-10.5)
--- NOTE | 2018-06-04 11:31 | PN ---
DATE: 06/04/2018 SUBJECTIVE: The patient is resting comfortably in dialysis. PHYSICAL EXAMINATION: VITAL SIGNS: Blood pressure is 135/89, heart rate in the 90s. NECK: Negative JVD. LUNGS: Without rales. HEART: S1, S2. EXTREMITIES: Without edema. LABORATORY DATA: Were not drawn. IMPRESSION: 1. Stable angina. 2. History of coronary artery bypass surgery. 3. End-stage renal disease. 4. Anemia. 5. Diabetes mellitus. 6. Hypertension. 7. . Given these findings, the patient is hemodynamically stable. The PVR's in the lower extremities are normal and symmetric. Ajay Diggs MD
--- NOTE | 2018-06-04 11:50 | PN ---
DATE: 06/04/2018 SUBJECTIVE: A 42-year-old male on dialysis 3 times a week with osteomyelitis of the right foot. He is being followed by Podiatry and Infectious Disease and Renal. PHYSICAL EXAMINATION GENERAL: He is alert and oriented x3. VITAL SIGNS: Currently, he has a temperature of 98, his pulse is 99. LUNGS: Clear. HEART: Is in S1, S2 rhythm. ABDOMEN: Soft with positive bowel sounds. EXTREMITIES: Showed dressings over both feet. A vascular consult has been requested, pending the anticipation of doing vascular surgery on his right foot. ASSESSMENT AND PLAN: He is being followed by Cardiology and Renal and Podiatry. We will await input from these individuals and from Vascular. He is currently on aspirin, Bactroban, Codeine with Tylenol, Cozaar, meropenem, Renagel, and Zofran p.r.n. He has had several doses of vancomycin and continue current level of care at this time. Cleopatra White MD
--- NOTE | 2018-06-04 18:58 | PN ---
DATE: 06/04/2018 SUBJECTIVE: The patient has no complaints of any chest pain. No shortness of breath. No headaches. No dizziness. PHYSICAL EXAMINATION: VITAL SIGNS: Temperature is 98.6, pulse of 84, respirations 12 and blood pressure 135/89. GENERAL: The patient is lying in bed, flat, comfortable. HEENT: No oral lesion. Anicteric sclerae. Moist mucosa. NECK: No JVD, adenopathy, or thyromegaly. CARDIOVASCULAR: S1 and S2, regular. No murmurs, rubs, or gallops. LUNGS: Clear to auscultation bilaterally. No wheeze, rales, or rhonchi. ABDOMEN: Bowel sounds are positive, soft, nontender and nondistended. EXTREMITIES: No cyanosis, clubbing or edema. LABORATORY DATA: Creatinine is 11.9. White count is 11.2. Potassium is 5.2. ASSESSMENT: 1. End-stage renal disease on hemodialysis Monday, Monday and Monday. 2. Right third plantar osteomyelitis. 3. Secondary hyperparathyroidism. 4. Anemia, chronic. 5. Coronary artery disease. 6. Dyslipidemia. 7. Hypertension. 8. Chronic heart failure secondary to systolic dysfunction, stable. 9. Left arteriovenous fistula. 10. Obese with body mass index of 36. PLAN: The patient is going for dialysis today. He is very comfortable. He is going to need vascular for evaluation by Dr. Ajay Leyva. He is on codeine for pain. He is going to continue with meropenem for antibiotics. He is on sevelamer for his secondary hyperparathyroidism. The patient is on Tylenol as needed for pain. There is a bone scan that has been ordered. The patient is on a regular diet because she refuses renal diet. Maximilian Zheng MD
--- NOTE | 2018-06-04 22:53 | CP.PCM.PN ---
Subjective - Date & Time of Evaluation Date of Evaluation: 06/04/18 Time of Evaluation: 07:35 - Subjective Subjective: Less pain in the legs, no fevers, not in distress. Objective - Vital Signs/Intake and Output Vital Signs (last 24 hours): Temp Pulse Resp BP Pulse Ox 0 F L 0 L 0 L 135/89 0 L 06/04/18 13:46 06/04/18 13:46 06/04/18 13:46 06/04/18 06:00 06/04/18 13:46 - Medications Medications: Current Medications Acetaminophen (Tylenol 325mg Tab) 650 mg PO Q6H PRN PRN Reason: Pain, severe (8-10) Last Admin: 06/01/18 19:16 Dose: 650 mg Acetaminophen (Tylenol 325mg Tab) 325 mg PO Q6H PRN PRN Reason: Pain, severe (8-10) Last Admin: 06/01/18 22:33 Dose: 325 mg Aspirin (Aspirin Chewable) 81 mg PO DAILY [facility] Last Admin: 06/04/18 14:09 Dose: 81 mg Codeine Sulfate (Codeine) 30 mg PO Q6 PRN PRN Reason: Pain, severe (8-10) Last Admin: 06/01/18 22:32 Dose: 30 mg Meropenem 250 mg/ Sodium (Chloride) 100 mls @ 100 mls/hr IVPB Q12H [facility]; Protocol Stop: 06/08/18 11:31 Last Admin: 06/04/18 22:34 Dose: 100 mls/hr Losartan Potassium (Cozaar) 50 mg PO DAILY [facility] Last Admin: 06/04/18 14:09 Dose: 50 mg Mupirocin (Bactroban Ointment) 0 gm TOP BID [facility] Last Admin: 06/04/18 18:58 Dose: Not Given Ondansetron HCl (Zofran Odt) 4 mg PO Q8H PRN PRN Reason: Nausea/Vomiting Last Admin: 06/02/18 11:43 Dose: 4 mg Sevelamer HCl (Renagel) 800 mg PO 0800,1200,1700 [facility] Last Admin: 06/04/18 18:59 Dose: Not Given - Labs Labs: 06/04/18 09:45 06/04/18 09:45 PT 11.6 SECONDS (9.4-12.5) 06/01/18 00:20 INR 1.05 06/01/18 00:20 APTT 28.6 Seconds (26.9-38.3) 06/01/18 00:20 - Constitutional Appears: Chronically Ill - Head Exam Head Exam: NORMAL INSPECTION - Respiratory Exam Respiratory Exam: Decreased Breath Sounds - Cardiovascular Exam Cardiovascular Exam: +S1, +S2 - GI/Abdominal Exam GI & Abdominal Exam: Soft. absent: Tenderness Assessment and Plan - Assessment and Plan (Free Text) Plan: Assessment left foot cellulitis and possible right foot osteomyelitis history of fungal infection of the scalp history of acute gastroenteritis history of right foot ulcer, infected with skin and skin structure infection, with probable osteomyelitis S/P 5th toe amputation and partial metatarsal amputation history of sepsis secondary to left foot skin and skin structure infection with abscess with Corynebacterium history of left foot cellulitis and osteomyelitis with enterococcus morbid obesity with a BMI 38.9 end stage renal failure on hemodialysis with left arm fistula diabetes mellitus chronic obstructive lung disease hypertension history of Klebsiella bacteremia secondary to a dialysis catheter S/P removal coronary artery disease S/P cardiac catheterization Plan continue intermittent Vancomycin and Merrem follow up plans of Podiatry will need to check vascular supply of the lower extremities discussed with Dr. White
--- NOTE | 2018-06-05 12:34 | CP.PCM.PN ---
Subjective - Date & Time of Evaluation Date of Evaluation: 06/05/18 Time of Evaluation: 12:17 - Subjective Subjective: Podiatry progress note for Dr. Bucio, 42 year old male patient seen and evaluated with Dr. Bucio the bedside for Right 3rd digit ulceration and L lateral foot ulceration. Patient states that he still has pain in his ulceration sites L > R but the pain is less today. Patient is denying any other pedal complaints at this time. Patient reports he starting bone scan today. Patient is aware he is scheduled for surgery on at 4:0 0 PM of the right 2nd digit partial amputation and right 3rd digit amputation Objective - Vital Signs/Intake and Output Vital Signs (last 24 hours): Temp Pulse Resp BP Pulse Ox 98.6 F 106 H 18 101/68 94 L 06/05/18 06:00 06/05/18 06:00 06/05/18 06:00 06/05/18 06:00 06/05/18 06:00 Intake and Output: 06/05/18 06/05/18 06:59 18:59 Intake Total 480 240 Balance 480 240 - Medications Medications: Current Medications Acetaminophen (Tylenol 325mg Tab) 650 mg PO Q6H PRN PRN Reason: Pain, severe (8-10) Last Admin: 06/01/18 19:16 Dose: 650 mg Acetaminophen (Tylenol 325mg Tab) 325 mg PO Q6H PRN PRN Reason: Pain, severe (8-10) Last Admin: 06/01/18 22:33 Dose: 325 mg Aspirin (Aspirin Chewable) 81 mg PO DAILY [facility]S [facility] Last Admin: 06/05/18 11:31 Dose: 81 mg Codeine Sulfate (Codeine) 30 mg PO Q6 PRN PRN Reason: Pain, severe (8-10) Last Admin: 06/01/18 22:32 Dose: 30 mg Meropenem 250 mg/ Sodium (Chloride) 100 mls @ 100 mls/hr IVPB Q12H [facility]S [facility]; Protocol Stop: 06/08/18 11:31 Last Admin: 06/05/18 11:31 Dose: 100 mls/hr Losartan Potassium (Cozaar) 50 mg PO DAILY [facility]S [facility] Last Admin: 06/05/18 11:31 Dose: 50 mg Mupirocin (Bactroban Ointment) 0 gm TOP BID [facility]S [facility] Last Admin: 06/04/18 18:58 Dose: Not Given Ondansetron HCl (Zofran Odt) 4 mg PO Q8H PRN PRN Reason: Nausea/Vomiting Last Admin: 06/02/18 11:43 Dose: 4 mg Sevelamer HCl (Renagel) 800 mg PO 0800,1200,1700 [facility] Last Admin: 06/05/18 11:31 Dose: 800 mg - Labs Labs: 06/04/18 09:45 06/04/18 09:45 PT 11.6 SECONDS (9.4-12.5) 06/01/18 00:20 INR 1.05 06/01/18 00:20 APTT 28.6 Seconds (26.9-38.3) 06/01/18 00:20 - Constitutional Appears: Well, Non-toxic, No Acute Distress - Head Exam Head Exam: ATRAUMATIC, NORMOCEPHALIC - Extremities Exam Additional comments: B/L lower extremity focused exam: Vascular: DP and PT 2/4 bilaterally, Cap refill < 3 seconds, Temp gradient warm to warm from proximal to distal, minimal non pitting edema noted to the b/l LE. Neuro: Gross sensation intact and protective sensation diminished bilaterally Derm: Right foot: ulceration noted on the dorsum and the medial aspect of the right 3rd digit measuring 3cm X 1.8cm X 0.2cm. No purulence, No tracking, No undermini ng, No probe to bone and no malodor. Periwound erythema noted. Positive inter- digital macerations. increasing gangrene of the tip of the 3rd digit Left foot: An open ulceration noted on the lateral aspect of the left foot 5cm X 2cm X 0.2cm with hyperkeratotic. Positive purulence, No tracking, No und ermining, No probe to bone and no malodor. Periwound erythema noted. Positive inter-digital macerations. MSK: Muscle power 5/5 to all groups, Pain on palpating the ulcer sites. - Neurological Exam Neurological Exam: Alert, Awake, Oriented x3 - Psychiatric Exam Psychiatric exam: Normal Affect, Normal Mood Assessment and Plan - Assessment and Plan (Free Text) Assessment: 42 year old male patient seen and evaluated at the bedside for bilateral foot ulcerations Plan: Patient seen and evaluated with Dr. Bucio at bedside Discussed in detail with Dr. Bucio Charts and vitals reviewed; Afebrile, WBC 11.2 (06/04/18) ESR: 135, CRP: 47.70 (06/01/18) SINGH/PVR (06/01): PVR wave forms are normal and symmetrical b/l, Limited study B/L foot 3 views X-ray: Bone destruction at the base of the Right proximal p halanx of the 3rd toe consistent with OM B/L foot MRI couldn't be done as the patient has defibrillator Pending Bone Scan- patient in the process of getting it today Wound Cultures: left foot: (05/31) Staph species. (06/01) Corynebacterium species, Right foot: (05/31) Staph Coag Negative, (06/01) No growth after 24 hours Wound cleaned with saline and dressed with bactroban and DSD B/L Patient to ambulate in a surgical shoe ID on board, Reccs appreciated Patient scheduled for right 3rd digit and right partial 2nd digit amputation with left wound debridement on 06/07/18 Patient will not be getting a transmetatarsal amputation Surgery under minimal sedation due to patient neuropathy Vascular Consult- recommendations appreciated Cardiac Consult- recommendations appreciated Please provide medical clearance for patient to proceed with surgery NPO after breakfast on Patient to continue IV Abx as per ID, recommendations were appreciated Podiatry will continue to follow up the patient while in house
[2018-06-05] MEDS: Mupirocin 2% Ointment 15 GM TUBE TOP SCH ×2 (13:23→17:20)
--- NOTE | 2018-06-05 13:52 | CON ---
DATE OF CONSULTATION: 06/05/2018 TIME: 01:00 p.m. CHIEF COMPLAINT/HISTORY OF PRESENT ILLNESS: This is a 42-year-old vasculopath, who was admitted with bilateral foot ulcerations. His history is significant for ESRD x 6 years (MWF), diabetes, coronary artery disease status post CABG, and dyslipidemia. The patient started a job at [employer] recently. He has been on his feet. He has been wearing work boots, which caused ulceration/injury to the lateral aspects of both feet. He is being followed by Dr. Ajay Bucio. He has had previous right fourth and fifth toe amputations. His femoral and popliteal pulses are palpable. His feet are warm. His SINGH/PVR exam on admission was limited by calcification. However, the PVR waveforms are normal and symmetric at all levels to the ankles. The metatarsal amplitudes are slightly diminished. I spoke with Dr. White and Dr. Bucio. This appears to be more of an issue with the shoes and foot care rather than perfusion. Certainly, he could have extensive small vessel disease. Dr. Bucio is planning on conservative treatment with possible limited digital amputations. If his wounds fail to heal with appropriate care and offloading, an angiogram can be obtained to evaluate his distal circulation. Ajay Leyva MD MTDD
--- NOTE | 2018-06-05 16:26 | PN ---
DATE: 06/05/2018 SUBJECTIVE: A 42-year-old male resting in bed comfortably this morning. Nursing staff relates that there were no particular problems. The patient seems to be comfortable this morning. OBJECTIVE: VITAL SIGNS: Temperature is 98.6, his pulse is 83, blood pressure is 101/68, respiratory rate is 18, oxygen sat is 94% on room air. GENERAL: He is alert and oriented x3. LUNGS: Clear. HEART: S1, S2 rhythm. ABDOMEN: Obese, soft with positive bowel sounds. He has a fistula in the left forearm for dialysis. He is having a bone scan done and he is in the process of having a vascular evaluation by Dr. Ajay Leyva. He is currently on meropenem with intermittent vancomycin for an osteomyelitis of the right foot. Cultures of the wounds on both the right and left foot are showing corynebacterium and Staphylococcus aureus, coag-negative. He is being followed by Nephrology, Cardiology, Infectious Disease and Podiatry. There is an ongoing discussion at this time about possible surgery. We will await the salesperson surgical appliances discussion with vascular results of the vascular studies and input from the individual consultants. All the clinical data to this point have been discussed with the patient. Cleopatra White MD
--- NOTE | 2018-06-05 17:41 | NM ---
Date of service: 06/05/2018 PROCEDURE: Three-phase bone Scan HISTORY: b/l foot ulcerations. R/Out or in OM. COMPARISON: 05/31/2018. Summary of findings on the comparison examination: There is a new bony destruction at the base of the right 3rd proximal phalanx consistent with osteomyelitis. There is adjacent soft tissue swelling 06/03/2016. Three-phase bone scan. Summary of findings on the comparison examination: Mild accumulation of radionuclide in the right 5th toe region on all 3 phases suspicious for osteomyelitis. TECHNIQUE: Following administration of 29.3 miCu of Tc MDP three-phase bone scan images were obtained. FINDINGS: Flow component: Increased flow to the right foot/3rd digit. Blood pool component: Accumulation of radionuclide distal aspect of the right 3rd digit. Delayed images at 3:00: Retention of radionuclide right 3rd digit. Other findings: Foci of increased uptake right tarsal bones and left tarsal bones IMPRESSION: Positive 3 phase bone scan for acute osteomyelitis right 3rd digit.
--- NOTE | 2018-06-05 18:27 | PN ---
DATE: 06/05/2018 CARDIOLOGY FOLLOWUP SUBJECTIVE: The patient is ambulating on the floor without symptoms. PHYSICAL EXAMINATION: VITAL SIGNS: Blood pressure is 101/68, heart rate is 100. NECK: Negative JVD. LUNGS: Without rales. HEART: S1 and S2. EXTREMITIES: Bandaged. LABORATORY DATA: Were not done today. IMPRESSION: 1. Ischemic dilated cardiomyopathy. 2. Lower extremity foot issues. 3. Diabetes mellitus. 4. End-stage renal disease. 5. History of coronary artery bypass surgery. 6. Diabetes mellitus. 7. Hypertension. Given these findings, the patient's cardiac status is stable. His poor LV function puts him at increased risk for anesthesia, however, it is optimum at this time. Ajay Diggs MD
--- NOTE | 2018-06-05 18:49 | PN ---
DATE: 06/05/2018 SUBJECTIVE: The patient has no complaint of any chest pain. No shortness of breath. No headache. PHYSICAL EXAMINATION VITAL SIGNS: Temperature is 98.6, pulse of 106, blood pressure is 101/68, and respirations 18. GENERAL: The patient is lying in bed, flat, comfortable. HEENT: No oral lesion. Anicteric sclerae. Moist mucosa. NECK: No JVD, adenopathy, or thyromegaly. CARDIOVASCULAR: S1 and S2, regular. No murmurs, rubs, or gallops. LUNGS: Clear to auscultation bilaterally. No wheeze, rales, or rhonchi. ABDOMEN: Bowel sounds are positive, soft, nontender and nondistended. EXTREMITIES: No cyanosis, clubbing or edema. LABORATORY DATA: White count of 11.3 and hemoglobin 12.5. Creatinine is 11.9. ASSESSMENT: 1. End stage renal disease, on hemodialysis. 2. Right third phalanx osteomyelitis. 3. Secondary hyperparathyroidism. 4. Anemia, chronic. 5. Coronary artery disease. 6. Dyslipidemia. 7. Hypertension. 8. Congestive heart failure, secondary to systolic dysfunction. 9. Left arteriovenous fistula. 10. Obesity with body mass index of 36. PLAN: The patient will continue with his dialysis. He is being evaluated by Podiatry and Vascular intervention for peripheral vascular disease. I did review the note of Dr. Ajay Leyva. The patient may have small-vessel disease. The patient is currently on Losartan for hypertension. He is going to be on sevelamer for his secondary hyperparathyroidism. He is on codeine for pain. He is on Tylenol as needed. The patient has a bone scan that has been ordered. Maximilian Zheng MD
[2018-06-05] MEDS ORDERED: Vancomycin 750mg 750 MG/250 ML BAG IVPB STA (21:53)
--- NOTE | 2018-06-05 21:56 | CP.PCM.PN ---
Subjective - Date & Time of Evaluation Date of Evaluation: 06/05/18 Time of Evaluation: 07:50 - Subjective Subjective: No fevers, no increased pain in the legs. Objective - Vital Signs/Intake and Output Vital Signs (last 24 hours): Temp Pulse Resp BP Pulse Ox 0 F L 0 L 0 L 135/89 0 L 06/04/18 13:46 06/04/18 13:46 06/04/18 13:46 06/04/18 06:00 06/04/18 13:46 - Medications Medications: Current Medications Acetaminophen (Tylenol 325mg Tab) 650 mg PO Q6H PRN PRN Reason: Pain, severe (8-10) Last Admin: 06/01/18 19:16 Dose: 650 mg Acetaminophen (Tylenol 325mg Tab) 325 mg PO Q6H PRN PRN Reason: Pain, severe (8-10) Last Admin: 06/01/18 22:33 Dose: 325 mg Aspirin (Aspirin Chewable) 81 mg PO DAILY [facility] Last Admin: 06/04/18 14:09 Dose: 81 mg Codeine Sulfate (Codeine) 30 mg PO Q6 PRN PRN Reason: Pain, severe (8-10) Last Admin: 06/01/18 22:32 Dose: 30 mg Meropenem 250 mg/ Sodium (Chloride) 100 mls @ 100 mls/hr IVPB Q12H [facility]; Protocol Stop: 06/08/18 11:31 Last Admin: 06/04/18 22:34 Dose: 100 mls/hr Losartan Potassium (Cozaar) 50 mg PO DAILY [facility] Last Admin: 06/04/18 14:09 Dose: 50 mg Mupirocin (Bactroban Ointment) 0 gm TOP BID [facility] Last Admin: 06/04/18 18:58 Dose: Not Given Ondansetron HCl (Zofran Odt) 4 mg PO Q8H PRN PRN Reason: Nausea/Vomiting Last Admin: 06/02/18 11:43 Dose: 4 mg Sevelamer HCl (Renagel) 800 mg PO 0800,1200,1700 [facility] Last Admin: 06/04/18 18:59 Dose: Not Given - Labs Labs: 06/04/18 09:45 06/04/18 09:45 PT 11.6 SECONDS (9.4-12.5) 06/01/18 00:20 INR 1.05 04/12/19 00:20 APTT 28.6 Seconds (26.9-38.3) 06/01/18 00:20 - Constitutional Appears: Chronically Ill - Head Exam Head Exam: NORMAL INSPECTION - Respiratory Exam Respiratory Exam: Decreased Breath Sounds - Cardiovascular Exam Cardiovascular Exam: +S1, +S2 - GI/Abdominal Exam GI & Abdominal Exam: Soft. absent: Tenderness - Extremities Exam Additional comments: both lower extremities with dressings in place Assessment and Plan - Assessment and Plan (Free Text) Plan: Assessment left foot cellulitis and possible right foot osteomyelitis history of fungal infection of the scalp history of acute gastroenteritis history of right foot ulcer, infected with skin and skin structure infection, with probable osteomyelitis S/P 5th toe amputation and partial metatarsal amputation history of sepsis secondary to left foot skin and skin structure infection with abscess with Corynebacterium history of left foot cellulitis and osteomyelitis with enterococcus morbid obesity with a BMI 38.9 end stage renal failure on hemodialysis with left arm fistula diabetes mellitus chronic obstructive lung disease hypertension history of Klebsiella bacteremia secondary to a dialysis catheter S/P removal coronary artery disease S/P cardiac catheterization Plan continue intermittent Vancomycin and Merrem patient planned for Surgery on discussed with Dr. White
[2018-06-06 09:02] LABS: HEMOGLOBIN 11.8 g/dL (14.0-18.0); MEAN CELL VOLUME 97.4 fl (80.0-105.0); MEAN CORPUSCULAR HGB CONC 31.8 g/dl (31.0-37.0); MEAN PLATELET VOLUME 9.3 fl (7.0-11.0); RBC 3.81 10^6/uL (3.5-6.1); WHITE BLOOD COUNT 10.7 10^3/uL (4.5-11.0)
[2018-06-06 09:28] LABS: ALBUMIN 3.9 g/dL (3.0-4.8); CALCIUM 8.3 mg/dL (8.4-10.5)
--- NOTE | 2018-06-06 13:02 | PN ---
DATE: 06/06/2018 SUBJECTIVE: The [id number] male currently on dialysis. He says he had a quiet night last night with no problems. His temperature is 98.2, his pulse is 101, his blood pressure is 133/87, respiratory rate is 18 and oxygen saturation at 98% on room air. He is alert and oriented x3. His lungs were clear. Heart has an S1 and S2 rhythm. He has a pacemaker in placed. Abdomen is obese, soft with positive bowel sounds. Extremities, he has dressings on both feet, being followed by Podiatry. He has osteomyelitis of the right foot. He is currently on meropenem and intermittent vancomycin. He has an anticipated surgery scheduled by Dr. Bucio tomorrow pending clearance by all the individual consultants. His laboratory data pre-dialysis this morning with a sodium 135, potassium 5.6, chloride 94, BUN is 71, creatinine is 11.7, calcium is 8.3 and phosphorus is 7.3. LFTs are normal. CBC shows a WBC of 10.7, RBC 3.81, hemoglobin 11.8, hematocrit 37.1 and platelet count is 348,000. Currently, he is on aspirin 81 mg daily, Bactroban wound care, Tylenol with codeine for severe pain, Cozaar 50 mg daily for hypertension and Renagel three times a day and Zofran p.r.n. He is currently being followed by Infectious Disease, Cardiology and Renal as well as Podiatry. He had a bone scan done which was then read as acute osteomyelitis of the right third digit. There is also focal increased uptake in the right tarsal bones than the left tarsal bones. He has been seen by Dr. Ajay Leyva of vascular evaluation and is communicating with Dr. Bucoi regarding the vascular status of this patient and the planned surgery. Continue current level of care at this time. Cleopatra White MD
--- NOTE | 2018-06-06 13:22 | CP.PCM.PN ---
Subjective - Date & Time of Evaluation Date of Evaluation: 06/06/18 Time of Evaluation: 15:39 - Subjective Subjective: Podiatry progress note for Dr. Bucio, 42 year old male patient seen and evaluated at bedside for Right 3rd digit ulceration and L lateral foot ulceration. Patient states that he still has pain in his ulceration sites L > R but the pain is less today. Patient is denying any other pedal complaints at this time. Patient is aware he is scheduled for surgery on at 4:00 PM of the right 2nd digit partial amputation and right 3rd digit amputation Objective - Vital Signs/Intake and Output Vital Signs (last 24 hours): Temp Pulse Resp BP Pulse Ox 98.2 F 101 H 18 133/87 98 06/06/18 06:00 06/06/18 06:00 06/06/18 06:00 06/06/18 06:00 06/06/18 06:00 Intake and Output: 06/06/18 06/06/18 06:59 18:59 Intake Total 1000 Balance 1000 - Medications Medications: Current Medications Acetaminophen (Tylenol 325mg Tab) 650 mg PO Q6H PRN PRN Reason: Pain, severe (8-10) Last Admin: 06/01/18 19:16 Dose: 650 mg Acetaminophen (Tylenol 325mg Tab) 325 mg PO Q6H PRN PRN Reason: Pain, severe (8-10) Last Admin: 06/01/18 22:33 Dose: 325 mg Aspirin (Aspirin Chewable) 81 mg PO DAILY [facility] Last Admin: 06/05/18 11:31 Dose: 81 mg Codeine Sulfate (Codeine) 30 mg PO Q6 PRN PRN Reason: Pain, severe (8-10) Last Admin: 06/01/18 22:32 Dose: 30 mg Heparin Sodium (Porcine) (Heparin) 4,000 units IV MWF [facility] Meropenem 250 mg/ Sodium (Chloride) 100 mls @ 100 mls/hr IVPB Q12H [facility]; Protocol Stop: 06/08/18 11:31 Last Admin: 06/06/18 01:34 Dose: 100 mls/hr Losartan Potassium (Cozaar) 50 mg PO DAILY [facility] Last Admin: 06/05/18 11:31 Dose: 50 mg Mupirocin (Bactroban Ointment) 0 gm TOP BID [facility] Last Admin: 06/05/18 17:20 Dose: Not Given Ondansetron HCl (Zofran Odt) 4 mg PO Q8H PRN PRN Reason: Nausea/Vomiting Last Admin: 06/02/18 11:43 Dose: 4 mg Sevelamer HCl (Renagel) 800 mg PO 0800,1200,1700 [facility] Last Admin: 06/05/18 17:20 Dose: 800 mg - Labs Labs: 06/06/18 08:50 06/06/18 08:50 PT 11.6 SECONDS (9.4-12.5) 06/01/18 00:20 INR 1.05 06/01/18 00:20 APTT 28.6 Seconds (26.9-38.3) 06/01/18 00:20 - Constitutional Appears: Well, Non-toxic, No Acute Distress - Head Exam Head Exam: ATRAUMATIC, NORMOCEPHALIC - Extremities Exam Additional comments: B/L lower extremity focused exam: Vascular: DP and PT 2/4 bilaterally, Cap refill < 3 seconds, Temp gradient warm to warm from proximal to distal, minimal non pitting edema noted to the b/l LE. Neuro: Gross sensation intact and protective sensation diminished bilaterally Derm: Right foot: ulceration noted on the dorsum and the medial aspect of the right 3rd digit measuring 3cm X 1.8cm X 0.2cm. No purulence, No tracking, No undermining, No probe to bone and no malodor. Periwound erythema noted. Positive inter-digital macerations. increasing gangrene of the tip of the 3rd digit Left foot: An open ulceration noted on the lateral aspect of the left foot 5cm X 2cm X 0.2cm with hyperkeratotic. Positive purulence, No tracking, No underminin g, No probe to bone and no malodor. Periwound erythema noted. Positive inter- digital macerations. MSK: Muscle power 5/5 to all groups, Pain on palpating the ulcer sites. - Neurological Exam Neurological Exam: Alert, Awake, Oriented x3 - Psychiatric Exam Psychiatric exam: Normal Affect, Normal Mood Assessment and Plan - Assessment and Plan (Free Text) Assessment: 42 year old male patient seen and evaluated at the bedside for bilateral foot ulcerations Plan: Patient seen and evaluated with Dr. Bucio at bedside Discussed in detail with Dr. Bucio Charts and vitals reviewed; Afebrile, WBC 10.7 (06/04/18) ESR: 135, CRP: 47.70 (06/01/18) SINGH/PVR (06/01): PVR wave forms are normal and symmetrical b/l, Limited study B/L foot 3 views X-ray: Bone destruction at the base of the Right proximal phalanx of the 3rd toe consistent with OM B/L foot MRI couldn't be done as the patient has defibrillator Pending Bone Scan- osteomyelitis right 3rd digit Wound Cultures: left foot: (05/31) Staph species. (06/01) Corynebacterium species, Right foot: (05/31) Staph Coag Negative, (06/01) No growth after 24 hours Wound cleaned with saline and dressed with bactroban and DSD B/L Patient to ambulate in a surgical shoe ID on board, Reccs appreciated Patient scheduled for right 3rd digit and right partial 2nd digit amputation with possible left wound debridement on 06/07/18 (3:00PM) Patient will not be getting a transmetatarsal amputation Surgery under minimal sedation due to patient neuropathy Vascular Consult- recommendations appreciated Cardiac Consult- recommendations appreciated Please provide medical clearance for patient to proceed with surgery NPO after breakfast on Heparin is MWF so will not be held prior to surgery, next scheduled dose for Monday. Patient to continue IV Abx as per ID, recommendations were appreciated Podiatry will continue to follow up the patient while in house
--- NOTE | 2018-06-06 22:45 | CP.PCM.PCO ---
<Ray Rodriguez - Last Filed: 06/06/18 22:42> Addendum Addendum: 06/06/18 22:43 House Doctor Note: Received a page from Nurse Vianney at 10:22PM regarding Mr. Hutchinson's PICC line. Nurse requesting to use PICC, as the x-ray was performed this evening. X-ray reviewed, and per prelim report: "PICC in place. Tip in SVC." PICC line may be used at this time. Please continue to monitor the patient, and please page ext [phone] again if needed. Ray Rodriguez PGY1 <Yonathan Hernández - Last Filed: 06/07/18 19:15> Attending/Attestation - Attestation I have personally seen and examined this patient.: No I have fully participated in the care of the patient.: No I have reviewed all pertinent clinical information: No
--- NOTE | 2018-06-07 00:28 | CP.PCM.PN ---
Subjective - Date & Time of Evaluation Date of Evaluation: 06/06/18 Time of Evaluation: 07:30 - Subjective Subjective: For surgery tomorrow, as discussed with Dr. Bucio. No fevers. Objective - Vital Signs/Intake and Output Vital Signs (last 24 hours): Temp Pulse Resp BP Pulse Ox 97.8 F 89 18 145/92 H 97 06/05/18 14:00 06/05/18 14:00 06/05/18 14:00 06/05/18 14:00 06/05/18 14:00 Intake and Output: 06/05/18 06/06/18 18:59 06:59 Intake Total 240 Balance 240 - Medications Medications: Current Medications Acetaminophen (Tylenol 325mg Tab) 650 mg PO Q6H PRN PRN Reason: Pain, severe (8-10) Last Admin: 06/01/18 19:16 Dose: 650 mg Acetaminophen (Tylenol 325mg Tab) 325 mg PO Q6H PRN PRN Reason: Pain, severe (8-10) Last Admin: 06/01/18 22:33 Dose: 325 mg Aspirin (Aspirin Chewable) 81 mg PO DAILY [facility] Last Admin: 06/05/18 11:31 Dose: 81 mg Codeine Sulfate (Codeine) 30 mg PO Q6 PRN PRN Reason: Pain, severe (8-10) Last Admin: 06/01/18 22:32 Dose: 30 mg Meropenem 250 mg/ Sodium (Chloride) 100 mls @ 100 mls/hr IVPB Q12H [facility]; Protocol Stop: 06/08/18 11:31 Last Admin: 06/05/18 11:30 Dose: Not Given Vancomycin HCl (Vancomycin 750 Mg In Ns) 750 mg in 250 mls @ 167 mls/hr IVPB MWF [facility]; Protocol Stop: 06/05/18 23:22 Losartan Potassium (Cozaar) 50 mg PO DAILY [facility] Last Admin: 06/05/18 11:31 Dose: 50 mg Mupirocin (Bactroban Ointment) 0 gm TOP BID [facility] Last Admin: 06/05/18 17:20 Dose: Not Given Ondansetron HCl (Zofran Odt) 4 mg PO Q8H PRN PRN Reason: Nausea/Vomiting Last Admin: 06/02/18 11:43 Dose: 4 mg Sevelamer HCl (Renagel) 800 mg PO 0800,1200,1700 [facility] Last Admin: 06/05/18 17:20 Dose: 800 mg - Labs Labs: 06/04/18 09:45 06/04/18 09:45 PT 11.6 SECONDS (9.4-12.5) 06/01/18 00:20 INR 1.05 06/01/18 00:20 APTT 28.6 Seconds (26.9-38.3) 06/01/18 00:20 - Constitutional Appears: Non-toxic, Chronically Ill - Head Exam Head Exam: NORMAL INSPECTION - Respiratory Exam Respiratory Exam: Decreased Breath Sounds - Cardiovascular Exam Cardiovascular Exam: +S1, +S2 - GI/Abdominal Exam GI & Abdominal Exam: Soft. absent: Tenderness Assessment and Plan - Assessment and Plan (Free Text) Plan: Assessment left foot cellulitis and possible right foot osteomyelitis history of fungal infection of the scalp history of acute gastroenteritis history of right foot ulcer, infected with skin and skin structure infection, with probable osteomyelitis S/P 5th toe amputation and partial metatarsal amputation history of sepsis secondary to left foot skin and skin structure infection with abscess with Corynebacterium history of left foot cellulitis and osteomyelitis with enterococcus morbid obesity with a BMI 38.9 end stage renal failure on hemodialysis with left arm fistula diabetes mellitus chronic obstructive lung disease hypertension history of Klebsiella bacteremia secondary to a dialysis catheter S/P removal coronary artery disease S/P cardiac catheterization Plan continue intermittent Vancomycin and Merrem patient planned for Surgery on - discussed this with Dr. Bucio, that the surgery will be conservative and as much as possible not take out too much tissue - also discussed that OR cx are to be taken and pathology and these will determine which antibiotics are to be continued and for how long discussed with Dr. White as well
--- NOTE | 2018-06-07 01:25 | PN ---
DATE: 06/06/2018 SUBJECTIVE: The patient has no complaints of any chest pain. No shortness of breath. No headache or dizziness. PHYSICAL EXAMINATION: VITAL SIGNS: Temperature 98.6, pulse of 103, blood pressure 105/71, and respirations 20. GENERAL: The patient is lying in bed, flat, comfortable. HEENT: No oral lesion. Anicteric sclerae. Moist mucosa. NECK: No JVD, adenopathy, or thyromegaly. CARDIOVASCULAR: S1 and S2, regular. No murmurs, rubs, or gallops. LUNGS: Clear to auscultation bilaterally. No wheeze, rales, or rhonchi. ABDOMEN: Bowel sounds are positive, soft, nontender and nondistended. EXTREMITIES: No cyanosis, clubbing, or edema. LABORATORY DATA: White count of 10.7 and hemoglobin 11.7. Creatinine is 5.6. ASSESSMENT: 1. End-stage renal disease, on hemodialysis. 2. Right third phalanx osteomyelitis. 3. Secondary hyperparathyroidism. 4. Anemia, chronic. 5. Coronary artery disease. 6. Dyslipidemia. 7. Hypertension. 8. Congestive heart failure, secondary to systolic dysfunction. 9. Left arteriovenous fistula. 10. Obesity with body mass index of 36. PLAN: The patient is on Losartan for hypertension. He is on codeine for pain. He had dialysis today, and I was able to take 4 L off. The patient was placed on because of the hyperkalemia. The patient is on meropenem for antibiotics. He is on sevelamer for secondary hyperparathyroidism. The patient is on Zofran as needed. He is on a regular diet. He is going to the OR tomorrow. We will order blood work to confirm that his potassium is within normal limits. The patient is optimized renally for the procedure. I did speak to Dr. Bucio regarding the case today. Maximilian Zheng MD
[2018-06-07] MEDS: Mupirocin 2% Ointment 15 GM TUBE TOP SCH (05:05)
[2018-06-07 06:51] LABS: HEMOGLOBIN 13.2 g/dL (14.0-18.0); MEAN CELL VOLUME 99.3 fl (80.0-105.0); MEAN CORPUSCULAR HEMOGLOBIN 31.7 pg (25.0-35.0); MEAN CORPUSCULAR HGB CONC 31.9 g/dl (31.0-37.0); MEAN PLATELET VOLUME 9.5 fl (7.0-11.0); RBC 4.17 10^6/uL (3.5-6.1); RED CELL DISTRIBUTION WIDTH 16.2 % (11.5-14.5); WHITE BLOOD COUNT 10.2 10^3/uL (4.5-11.0)
--- NOTE | 2018-06-07 07:33 | CP.PCM.PN ---
Subjective - Date & Time of Evaluation Date of Evaluation: 06/07/18 Time of Evaluation: 07:31 - Subjective Subjective: Podiatry progress note for Dr. Bucio, 42 year old male patient seen and evaluated with Dr. Bucio at bedside for Right 3rd digit ulceration and L lateral foot ulceration. Patient states that he still has pain in his ulceration sites L > R but the pain is less today. Patient is denying any other pedal complaints at this time. Patient is aware he is scheduled for surgery on at 3:00 PM of the right 2nd digit partial amputation and right 3rd digit amputation Objective - Vital Signs/Intake and Output Vital Signs (last 24 hours): Temp Pulse Resp BP Pulse Ox 98.2 F 110 H 20 122/77 97 06/07/18 06:00 06/07/18 06:00 06/07/18 06:00 06/07/18 06:00 06/07/18 06:00 Intake and Output: 06/07/18 06/07/18 06:59 18:59 Intake Total 240 Balance 240 - Medications Medications: Current Medications Acetaminophen (Tylenol 325mg Tab) 650 mg PO Q6H PRN PRN Reason: Pain, severe (8-10) Last Admin: 06/01/18 19:16 Dose: 650 mg Acetaminophen (Tylenol 325mg Tab) 325 mg PO Q6H PRN PRN Reason: Pain, severe (8-10) Last Admin: 06/01/18 22:33 Dose: 325 mg Aspirin (Aspirin Chewable) 81 mg PO DAILY [facility] Last Admin: 06/05/18 11:31 Dose: 81 mg Codeine Sulfate (Codeine) 30 mg PO Q6 PRN PRN Reason: Pain, severe (8-10) Last Admin: 06/06/18 23:40 Dose: 30 mg Heparin Sodium (Porcine) (Heparin) 4,000 units IV MWF [facility] Meropenem 250 mg/ Sodium (Chloride) 100 mls @ 100 mls/hr IVPB Q12H [facility]; Protocol Stop: 06/08/18 11:31 Last Admin: 06/06/18 23:40 Dose: 100 mls/hr Losartan Potassium (Cozaar) 50 mg PO DAILY [facility] Last Admin: 06/06/18 15:15 Dose: 50 mg Mupirocin (Bactroban Ointment) 0 gm TOP BID [facility] Last Admin: 06/07/18 05:05 Dose: Not Given Ondansetron HCl (Zofran Odt) 4 mg PO Q8H PRN PRN Reason: Nausea/Vomiting Last Admin: 06/02/18 11:43 Dose: 4 mg Sevelamer HCl (Renagel) 800 mg PO 0800,1200,1700 [facility] Last Admin: 06/06/18 15:15 Dose: 800 mg - Labs Labs: 06/07/18 06:10 06/06/18 08:50 PT 11.6 SECONDS (9.4-12.5) 06/01/18 00:20 INR 1.05 06/01/18 00:20 APTT 28.6 Seconds (26.9-38.3) 06/01/18 00:20 - Constitutional Appears: Well, Non-toxic, No Acute Distress - Head Exam Head Exam: ATRAUMATIC, NORMOCEPHALIC - Extremities Exam Additional comments: B/L lower extremity focused exam: Vascular: DP and PT 2/4 bilaterally, Cap refill < 3 seconds, Temp gradient warm to warm from proximal to distal, minimal non pitting edema noted to the b/l LE. Neuro: Gross sensation intact and protective sensation diminished bilaterally Derm: Right foot: ulceration noted on the dorsum and the medial aspect of the right 3rd digit measuring 3cm X 1.8cm X 0.2cm. No purulence, No tracking, No un dermining, No probe to bone and no malodor. Periwound erythema noted. Positive inter-digital macerations. increasing gangrene of the tip of the 3rd digit Left foot: An open ulceration noted on the lateral aspect of the left foot 5cm X 2cm X 0.2cm with hyperkeratotic. Positive purulence, No tracking, No undermining, No probe to bone and no malodor. Periwound erythema noted. Positive inter-digital macerations. MSK: Muscle power 5/5 to all groups, Pain on palpating the ulcer sites. - Neurological Exam Neurological Exam: Alert, Awake, Oriented x3 - Psychiatric Exam Psychiatric exam: Normal Affect, Normal Mood Assessment and Plan - Assessment and Plan (Free Text) Assessment: 42 year old male patient seen and evaluated at the bedside for bilateral foot ulcerations Plan: Patient seen and evaluated with Dr. Bucio at bedside Discussed in detail with Dr. Bucio Charts and vitals reviewed; Afebrile, WBC 10.7 (06/04/18) ESR: 135, CRP: 47.70 (06/01/18) SINGH/PVR (06/01): PVR wave forms are normal and symmetrical b/l, Limited study B/L foot 3 views X-ray: Bone destruction at the base of the Right proximal phalanx of the 3rd toe consistent with OM B/L foot MRI couldn't be done as the patient has defibrillator Pending Bone Scan- osteomyelitis right 3rd digit Wound Cultures: left foot: (05/31) Staph species. (06/01) Corynebacterium species, Right foot: (05/31) Staph Coag Negative, (06/01) No growth after 24 hours Wound cleaned with saline and dressed with bactroban and DSD B/L Patient to ambulate in a surgical shoe ID on board, Reccs appreciated Patient scheduled for right 3rd digit and right partial 2nd digit amputation with possible left wound debridement on 06/07/18 (3:00PM) Patient will not be getting a transmetatarsal amputation Surgery under minimal sedation due to patient neuropathy Vascular Consult- recommendations appreciated Cardiac Consult- recommendations appreciated Please provide medical clearance for patient to proceed with surgery, consent obtained NPO after breakfast on Heparin is MWF so will not be held prior to surgery, next scheduled dose for Monday. Patient to continue IV Abx as per ID, recommendations were appreciated Podiatry will continue to follow up the patient while in house
[2018-06-07 07:49] LABS: ALB/GLOB RATIO 0.9 (1.1-1.8); ALBUMIN 4.4 g/dL (3.0-4.8); CALCIUM 8.9 mg/dL (8.4-10.5)
--- NOTE | 2018-06-07 11:19 | RAD ---
Date of service: 06/06/2018 HISTORY: PICC line position COMPARISON: 12/27/2017 TECHNIQUE: 1 view obtained. FINDINGS: LUNGS: The right-sided PICC line is seen in the right axilla adjacent to the pacemaker. A dual lead pacemaker is seen on the right. The [place] rad report incorrectly reported that the PICC line is in the SVC. The PICC line does not reach the SVC PLEURA: No significant pleural effusion identified, no pneumothorax apparent. CARDIOVASCULAR: No aortic atherosclerotic calcification present. Normal cardiac size. No pulmonary vascular congestion. OSSEOUS STRUCTURES: No significant abnormalities. VISUALIZED UPPER ABDOMEN: Normal. OTHER FINDINGS: None. IMPRESSION: The right-sided PICC line is seen in the right axilla adjacent to the pacemaker. A dual lead pacemaker is seen on the right. The [place] rad report incorrectly reported that the PICC line is in the SVC. The PICC line does not reach the SVC
--- NOTE | 2018-06-07 13:11 | PN ---
DATE: 06/07/2018 SUBJECTIVE: The patient has no complaints of any chest pain. No shortness of breath. No headache or dizziness. PHYSICAL EXAMINATION: VITAL SIGNS: Temperature is 98.1, pulse of 110, blood pressure 122/77, respirations 20. GENERAL: The patient is lying in bed, flat, comfortable. HEENT: No oral lesion. Anicteric sclerae. Moist mucosa. NECK: No JVD, adenopathy, or thyromegaly. CARDIOVASCULAR: S1 and S2, regular. No murmurs, rubs, or gallops. LUNGS: Clear to auscultation bilaterally. No wheeze, rales, or rhonchi. ABDOMEN: Bowel sounds are positive, soft, nontender and nondistended. EXTREMITIES: No cyanosis, clubbing or edema. LABS: Show a potassium of 5.8, creatinine is 8.9. ASSESSMENT: 1. End-stage renal disease, on hemodialysis. 2. Hyperkalemia. 3. Secondary hyperparathyroidism. 4. Anemia, chronic. 5. Coronary artery disease. 6. Right third phalanx osteomyelitis. 7. Dyslipidemia. 8. Hypertension. 9. Left arteriovenous fistula. 10. Congestive heart failure, secondary to systolic dysfunction. 11. Obesity with body mass index of 36. 12. Noncompliance with diet. PLAN: The patient does have increase in potassium. He had a full treatment yesterday. He was placed on 2 K bath. The patient has been drinking Gatorade and is on a regular diet and refuses to be a renal diet. I will do a 2-hour treatment and put him on a 1 K bath to try to help with decreasing the potassium. He is going to OR later today for local treatment for his ulcer. The patient is on losartan. He is on sevelamer for his secondary hyperparathyroidism. He is on Tylenol as needed. The patient is comfortable. I did speak to Dr. White and Dr. Bucio to update them. Maximilian Zheng MD [id number]
--- NOTE | 2018-06-07 13:13 | PN ---
DATE: 06/07/2018 SUBJECTIVE: The patient is resting comfortably. PHYSICAL EXAMINATION: VITAL SIGNS: Stable. NECK: Negative JVD. LUNGS: Without rales. HEART: S1, S2. EXTREMITIES: Without edema. LABORATORY DATA: Reviewed. IMPRESSION: 1. Dilated cardiomyopathy. 2. Coronary artery disease. 3. End-stage renal disease. 4. The patient is scheduled for podiatric surgery on Monday. Ajay Diggs MD
--- NOTE | 2018-06-07 13:33 | PN ---
DATE: 06/07/2018 SUBJECTIVE: This is a 42-year-old male resting in bed this morning and the nursing staff relates that there were no problems during the night. PHYSICAL EXAMINATION VITAL SIGNS: His temperature is 98.2, his blood pressure is 122/77 and pulse is 100. GENERAL: He is alert and oriented x3. The patient is anticipating going for a surgical procedure on his right foot. He is receiving treatment for osteomyelitis. NECK: Supple. There is no JVD. HEART: Has an S1 and S2 rhythm. ABDOMEN: Obese and soft with positive bowel sounds. EXTREMITIES: He has dressings on both feet which are being monitored by Podiatry. LABORATORY DATA: Shows a WBC of 10.2, RBC 4.17, hemoglobin 13.2, hematocrit 41.4 and platelet count is 368. His chemistry sodium 137, potassium 5.8, chloride 94, BUN is 46 and creatinine is 8.9. His LFTs are normal. The patient will be undergoing dialysis. In anticipation of the planned surgery, this is being discussed between and Bench Lay Out Technician, Dr. Valdes and his Mine Administrator Supervisor, Dr. Bucio. He will continue on his IV antibiotics as per the prescription by Infectious Disease for his osteomyelitis. He has chronic renal disease on dialysis three times a week. He has a history of prior osteomyelitis and cellulitis of the left feet. He has had open heart surgery. He has a pacemaker in place. We will continue current level of care, closely monitor the patient. He is aware of all the clinical findings today and the proposed treatment plan. Cleopatra White MD
[2018-06-07] MEDS ORDERED: Bupivacaine 0.5% Inj(30mL) IJ ONE (18:50)
[2018-06-07] MEDS ORDERED: HYDROmorphone 0.5 mg/0.5 ml ISec IVP PRN (19:52)
--- NOTE | 2018-06-07 19:54 | PCM.SURG1 ---
Surgeon's Initial Post Op Note - Surgeon's Notes Surgeon: Dr. Ajay Bucio, DPM Dust Control Engineer: Dr. Pinky Méndez, PGY1 Type of Anesthesia: IV Sedation, Local Pre-Operative Diagnosis: Right 2nd and 3rd digit osteomyelitis. Left foot wound Operative Findings: see dictation. I: 5 cc of 0;.5 % marcaine intra operative. M: Antibiotics beads, 2-0 prolene Post-Operative Diagnosis: same as above Operation Performed: Right 3rd digit amputation and partial 2nd digit amputation. Left wound debridement Specimen/Specimens Removed: Right 2nd and 3rd digits. Right 3rd digit wound culture. Right 3rd digit bone cutlure. Left ulcer specimen Estimated Blood Loss: EBL {In ML}: 30 Blood Products Given: N/A Drains Used: No Drains Post-Op Condition: Good Date of Surgery/Procedure: 06/07/18 Time of Surgery/Procedure: 19:54
[2018-06-07] MEDS ORDERED: Sodium Chloride 0.9% 1,000 ML IV SCH (20:00)
--- NOTE | 2018-06-08 00:22 | CP.PCM.PN ---
Subjective - Date & Time of Evaluation Date of Evaluation: 06/07/18 Time of Evaluation: 07:55 - Subjective Subjective: No increased pain , no fevers, for surgery today. Objective - Vital Signs/Intake and Output Vital Signs (last 24 hours): Temp Pulse Resp BP Pulse Ox 98.1 F 111 H 18 157/71 H 100 06/06/18 21:52 06/06/18 21:52 06/06/18 21:52 06/06/18 21:52 06/06/18 21:52 Intake and Output: 06/06/18 06/07/18 18:59 06:59 Intake Total 240 Balance 240 - Medications Medications: Current Medications Acetaminophen (Tylenol 325mg Tab) 650 mg PO Q6H PRN PRN Reason: Pain, severe (8-10) Last Admin: 06/01/18 19:16 Dose: 650 mg Acetaminophen (Tylenol 325mg Tab) 325 mg PO Q6H PRN PRN Reason: Pain, severe (8-10) Last Admin: 06/01/18 22:33 Dose: 325 mg Aspirin (Aspirin Chewable) 81 mg PO DAILY [facility] Last Admin: 06/05/18 11:31 Dose: 81 mg Codeine Sulfate (Codeine) 30 mg PO Q6 PRN PRN Reason: Pain, severe (8-10) Last Admin: 06/06/18 23:40 Dose: 30 mg Heparin Sodium (Porcine) (Heparin) 4,000 units IV MWF [facility] Meropenem 250 mg/ Sodium (Chloride) 100 mls @ 100 mls/hr IVPB Q12H [facility]; Protocol Stop: 06/08/18 11:31 Last Admin: 06/06/18 23:40 Dose: 100 mls/hr Losartan Potassium (Cozaar) 50 mg PO DAILY [facility] Last Admin: 06/06/18 15:15 Dose: 50 mg Mupirocin (Bactroban Ointment) 0 gm TOP BID [facility] Last Admin: 06/05/18 17:20 Dose: Not Given Ondansetron HCl (Zofran Odt) 4 mg PO Q8H PRN PRN Reason: Nausea/Vomiting Last Admin: 06/02/18 11:43 Dose: 4 mg Sevelamer HCl (Renagel) 800 mg PO 0800,1200,1700 [facility] Last Admin: 06/06/18 15:15 Dose: 800 mg - Labs Labs: 04/17/19 08:50 06/06/18 08:50 PT 11.6 SECONDS (9.4-12.5) 06/01/18 00:20 INR 1.05 06/01/18 00:20 APTT 28.6 Seconds (26.9-38.3) 06/01/18 00:20 - Constitutional Appears: Non-toxic, Chronically Ill - Head Exam Head Exam: NORMAL INSPECTION - Respiratory Exam Respiratory Exam: Decreased Breath Sounds - Cardiovascular Exam Cardiovascular Exam: +S1, +S2 - GI/Abdominal Exam GI & Abdominal Exam: Soft. absent: Tenderness Assessment and Plan - Assessment and Plan (Free Text) Plan: Assessment left foot cellulitis and possible right foot osteomyelitis history of fungal infection of the scalp history of acute gastroenteritis history of right foot ulcer, infected with skin and skin structure infection, with probable osteomyelitis S/P 5th toe amputation and partial metatarsal amputation history of sepsis secondary to left foot skin and skin structure infection with abscess with Corynebacterium history of left foot cellulitis and osteomyelitis with enterococcus morbid obesity with a BMI 38.9 end stage renal failure on hemodialysis with left arm fistula diabetes mellitus chronic obstructive lung disease hypertension history of Klebsiella bacteremia secondary to a dialysis catheter S/P removal coronary artery disease S/P cardiac catheterization Plan continue intermittent Vancomycin and Merrem patient planned for Surgery today - discussed this with Dr. Bucio, that the surgery will be conservative and as much as possible not take out too much tissue - also discussed that OR cx are to be taken and pathology and these will determine which antibiotics are to be continued and for how long discussed with Dr. White as well
--- NOTE | 2018-06-08 09:48 | CP.PCM.PCO ---
Physician Communication Note - Physician Communication Note Physician Communication Note: Pending OR cx and pathology before determination of w/c IV abx & length.
--- NOTE | 2018-06-08 13:35 | PN ---
DATE: 06/08/2018 SUBJECTIVE: The patient has no complaints of any chest pain. No shortness of breath. No headache or dizziness. PHYSICAL EXAMINATION: VITAL SIGNS: Temperature is 98, pulse of 99, blood pressure 107/67 and respirations 20. GENERAL: The patient is lying in bed, flat, comfortable. HEENT: No oral lesion. Anicteric sclerae. Moist mucosa. NECK: No JVD, adenopathy, or thyromegaly. CARDIOVASCULAR: S1 and S2, regular. No murmurs, rubs, or gallops. LUNGS: Clear to auscultation bilaterally. No wheeze, rales, or rhonchi. ABDOMEN: Bowel sounds are positive, soft, nontender and nondistended. EXTREMITIES: No cyanosis, clubbing or edema. LABORATORY DATA: White count of 10.2 and hemoglobin 13.2. Potassium is 4.9. ASSESSMENT: 1. End-stage renal disease, on hemodialysis. 2. Hyperkalemia, improved. 3. Secondary hyperparathyroidism. 4. Anemia, chronic. 5. Coronary artery disease. 6. Right third phalanx osteomyelitis, status post surgery. 7. Dyslipidemia. 8. Hypertension. 9. Left arteriovenous fistula. 10. Congestive heart failure, secondary to systolic dysfunction. 11. Obesity with body mass index of 36. 12. Noncompliance with diet. 13. Status post right third digit amputation with partial second digit amputation. PLAN: The patient is going for dialysis today. I will continue with 2K bath and I will also increase his treatment time to four and half hours. The patient is bleeding, so I will hold off on giving heparin during dialysis. He is going to continue with sevelamer. He is on Tylenol for pain. He is on codeine as well. He is on a carbohydrate consistent diet. The patient is currently comfortable. Continue dialysis Monday, Monday and Monday. Maximilian Zheng MD
--- NOTE | 2018-06-08 14:45 | PN ---
DATE: 06/08/2018 SUBJECTIVE: A 42-year-old male currently on dialysis. The patient is status post surgery on his right foot. PHYSICAL EXAMINATION: VITAL SIGNS: Temperature is 98, blood pressure is 107/67, pulse is 99. GENERAL: The patient is alert and oriented x3. NECK: Supple. There is no JVD. LUNGS: Clear. HEART: Is in S1, S2 rhythm, pacemaker in place. EXTREMITIES: He has a PICC line in his right upper arm. He is on dialysis at this time. Dressings are intact on his feet. He is status post surgery of the right foot. Review of the surgical op note is noted. The patient states that he has been getting some intermittent pain in the left arm, at times associated with some tingling and numbness in the fingers of the left arm, sometimes settling in the left upper arm. There is no evidence of pain associated with movement of the arm. He states that when it comes, it can linger for about an hour. It is not associated with any chest pain or shortness of breath, fever or chills. PLAN: 1. I have discussed this with the patient and will discuss it with his patent chemist and also get a Neurology evaluation to rule out the possibility of any neurological issues. 2. The patient is currently on IV antibiotics for osteomyelitis of the feet, status post amputation of the second toe and partial third toe. We will continue antibiotics as per Infectious Disease and wait for the pathology results. He will continue to be followed by Nephrology and is on dialysis three times per week. He has a past medical history of heart surgery, pacemaker placement. He has a history of congestive heart failure, left arteriovenous fistula, hypertension, dyslipidemia, coronary artery disease, chronic anemia, secondary hyperparathyroidism, history of end-stage renal disease, on dialysis, history of hyperkalemia. I have spoken to his patent chemist, Dr. Diggs, who recommends getting Neurology evaluation. Continue current level of care. Cleopatra White MD
--- NOTE | 2018-06-08 17:00 | PN ---
DATE: 06/08/2018 CARDIOLOGY FOLLOWUP SUBJECTIVE: The patient is in dialysis, he is comfortable. He has intermittent pain under his left axilla which has been over the past several weeks. PHYSICAL EXAMINATION: VITAL SIGNS: Stable. NECK: Negative JVD. LUNGS: Without rales. HEART: S1 and S2. EXTREMITIES: Without edema. LABORATORY DATA: Reviewed. IMPRESSION: 1. Stable angina. 2. Ischemic dilated cardiomyopathy. 3. Coronary artery disease. 4. History of coronary artery bypass surgery. 5. End-stage renal disease. Given these findings, I do not believe this left axillary pain represents a cardiac ischemia. His latest stress test was just two weeks ago which showed no changes in terms of his perfusion defects. We will continue his present medications. Ajay Diggs MD
--- NOTE | 2018-06-08 17:33 | CT ---
Date of service: 06/08/2018 PROCEDURE: CT Cervical Spine without contrast HISTORY: c/o pain left arm numbness and tingling COMPARISON: None available. TECHNIQUE: Axial computed tomography images were obtained of the cervical spine without the use of intravenous contrast. Coronal and sagittal reformatted images were created and reviewed. Radiation dose: Total exam DLP = 593.01 mGy-cm. This CT exam was performed using one or more of the following dose reduction techniques: Automated exposure control, adjustment of the mA and/or kV according to patient size, and/or use of iterative reconstruction technique. FINDINGS: VERTEBRAE: There is normal alignment of the cervical vertebral bodies. There is reversal of cervical lordosis with mild cervical kyphosis. There is no acute fracture or traumatic anterior listhesis. Bone mineralization is normal. The craniocervical junction is normal. The atlantoaxial joint is normal. DISCS/SPINAL CANAL/NEURAL FORAMINA: Evaluation of the discs and spinal canal is limited on noncontrast CT examination. Allowing for this, the spinal canal is grossly patent. C2-3: Disc osteophyte complex with asymmetric left uncovertebral joint hypertrophy result in mild left neural foraminal narrowing. No central spinal canal stenosis. C3-4: Broad-based disc osteophyte complex without central spinal canal stenosis. Mild bilateral facet arthropathy contribute to moderate right and mild left neural foraminal narrowing. C4-5: Broad-based disc osteophyte complex without central spinal canal stenosis. Mild bilateral facet arthropathy contribute to mild right and moderate left neural foraminal narrowing. C5-6: Broad-based disc osteophyte complex without central spinal canal stenosis. Mild right and moderate left facet arthropathy and asymmetric left uncovertebral joint hypertrophy with resultant mild right and moderate left neural foraminal narrowing. C6-7: Broad-based disc osteophyte complex indents the ventral thecal sac with mild central spinal canal stenosis. Asymmetric bilateral uncovertebral vertebral joint hypertrophy in conjunction with mild facet arthropathy result in moderate right and mild left neural foraminal narrowing. C7-T1: Broad-based disc osteophyte complex with superimposed left posterolateral and foraminal disc protrusions, uncovertebral joint hypertrophy and mild bilateral facet arthropathy result in moderate right and severe left neural foraminal narrowing and mild central spinal canal stenosis. PARASPINAL SOFT TISSUES: Unremarkable. OTHER FINDINGS: None. IMPRESSION: 1. Mild multilevel degenerative disc disease due to combination of broad-based disc osteophyte complexes, uncovertebral joint hypertrophy and multilevel facet arthropathy worse at C7-T1 with a broad-based disc osteophyte complex, left posterolateral and foraminal disc protrusions, moderate right and severe left neural foraminal narrowing and mild spinal canal stenosis. There is probable impingement of the exiting left C 8 nerve root. If clinically indicated, correlation with MRI may be performed. 2. Reversal of normal cervical lordosis with mild cervical kyphosis.
--- NOTE | 2018-06-08 17:54 | CP.PCM.PN ---
Subjective - Date & Time of Evaluation Date of Evaluation: 06/08/18 Time of Evaluation: 17:48 - Subjective Subjective: House Doc Progress note: Paged by nurse: for picc line placement on CXR. Nurse reports that patient had a PICC line placed on 06/06/18. CXR prelim read showed PICC in SVC and was being used. However, official read showed PICC line in right axilla, not in SVC. House doc called to investigate if PICC line can be used. I called radiologist business information manager, Dr Chavez, who states that PICC line is in axillary vein. However, cannot comment on whether it can be used currently. Spoke with Dr Bean, who recommends the PICC line team to evaluate if PICC line can be used. Spoke with PMD Dr White, who states that PICC line nurse Ivette will come to [facility] in 1/2 hr to look at the PICC line, placement and usability. Dr White also has reached out to Dr Leyva, who will also review images and comment on the usability of it. Nursing staff informed to not give anything through the pICC line. Bedside nurse, Rose, understands and will page me if she hears from PICC line nurse Ivette or Dr White. Jennifer Allen, PGY2 Objective - Vital Signs/Intake and Output Vital Signs (last 24 hours): Temp Pulse Resp BP Pulse Ox 98.2 F 113 H 20 150/84 98 06/08/18 14:00 06/08/18 14:00 06/08/18 14:00 06/08/18 14:00 06/08/18 14:00 Intake and Output: 06/08/18 06/08/18 06:59 18:59 Intake Total 240 Balance 240 - Medications Medications: Current Medications Acetaminophen (Tylenol 325mg Tab) 650 mg PO Q6H PRN PRN Reason: Pain, severe (8-10) Last Admin: 06/01/18 19:16 Dose: 650 mg Acetaminophen (Tylenol 325mg Tab) 325 mg PO Q6H PRN PRN Reason: Pain, severe (8-10) Last Admin: 06/01/18 22:33 Dose: 325 mg Aspirin (Aspirin Chewable) 81 mg PO DAILY [facility] Last Admin: 06/08/18 09:34 Dose: 81 mg Gabapentin (Neurontin) 300 mg PO HS [facility]; Protocol Heparin Sodium (Porcine) (Heparin) 4,000 units IV MWF [facility] Hydromorphone HCl (Dilaudid) 0.5 mg IVP Q15M PRN PRN Reason: Pain, Moderate/Severe (4-10) Meropenem 250 mg/ Sodium (Chloride) 100 mls @ 100 mls/hr IVPB 1000,2200 [facility]; Protocol Losartan Potassium (Cozaar) 50 mg PO DAILY [facility] Last Admin: 06/06/18 15:15 Dose: 50 mg Mupirocin (Bactroban Ointment) 0 gm TOP BID [facility] Last Admin: 06/07/18 05:05 Dose: Not Given Ondansetron HCl (Zofran Odt) 4 mg PO Q8H PRN PRN Reason: Nausea/Vomiting Last Admin: 06/02/18 11:43 Dose: 4 mg Sevelamer HCl (Renagel) 800 mg PO 0800,1200,1700 [facility] Last Admin: 06/08/18 09:34 Dose: 800 mg - Labs Labs: 06/07/18 06:10 06/07/18 17:00 PT 11.6 SECONDS (9.4-12.5) 06/01/18 00:20 INR 1.05 06/01/18 00:20 APTT 28.6 Seconds (26.9-38.3) 06/01/18 00:20
--- NOTE | 2018-06-08 18:48 | CP.PCM.PN ---
Subjective - Date & Time of Evaluation Date of Evaluation: 06/08/18 Time of Evaluation: 18:44 - Subjective Subjective: Podiatry progress note for Dr. Bucio, 42 year old male patient seen and evaluated 1 day s/p Right partial 2nd digit and complete 3rd digit amputation and left wound debridement. Patient was seen in dialysis today. Patient complains of minimal pain. Patient denies any fever, nausea, vomiting, chest pain, shortness of breath. Objective - Vital Signs/Intake and Output Vital Signs (last 24 hours): Temp Pulse Resp BP Pulse Ox 98.2 F 113 H 20 150/84 98 06/08/18 14:00 06/08/18 14:00 06/08/18 14:00 06/08/18 14:00 06/08/18 14:00 Intake and Output: 06/08/18 06/08/18 06:59 18:59 Intake Total 240 Balance 240 - Medications Medications: Current Medications Acetaminophen (Tylenol 325mg Tab) 650 mg PO Q6H PRN PRN Reason: Pain, severe (8-10) Last Admin: 06/01/18 19:16 Dose: 650 mg Acetaminophen (Tylenol 325mg Tab) 325 mg PO Q6H PRN PRN Reason: Pain, severe (8-10) Last Admin: 06/01/18 22:33 Dose: 325 mg Aspirin (Aspirin Chewable) 81 mg PO DAILY [facility] Last Admin: 06/08/18 09:34 Dose: 81 mg Gabapentin (Neurontin) 300 mg PO HS [facility]; Protocol Heparin Sodium (Porcine) (Heparin) 4,000 units IV MWF [facility] Hydromorphone HCl (Dilaudid) 0.5 mg IVP Q15M PRN PRN Reason: Pain, Moderate/Severe (4-10) Meropenem 250 mg/ Sodium (Chloride) 100 mls @ 100 mls/hr IVPB 1000,2200 [facility]; Protocol Losartan Potassium (Cozaar) 50 mg PO DAILY [facility] Last Admin: 06/06/18 15:15 Dose: 50 mg Mupirocin (Bactroban Ointment) 0 gm TOP BID [facility] Last Admin: 06/07/18 05:05 Dose: Not Given Ondansetron HCl (Zofran Odt) 4 mg PO Q8H PRN PRN Reason: Nausea/Vomiting Last Admin: 06/02/18 11:43 Dose: 4 mg Sevelamer HCl (Renagel) 800 mg PO 0800,1200,1700 [facility] Last Admin: 06/08/18 09:34 Dose: 800 mg - Labs Labs: 06/07/18 06:10 06/07/18 17:00 PT 11.6 SECONDS (9.4-12.5) 06/01/18 00:20 INR 1.05 06/01/18 00:20 APTT 28.6 Seconds (26.9-38.3) 06/01/18 00:20 - Constitutional Appears: Well, Non-toxic, No Acute Distress - Head Exam Head Exam: ATRAUMATIC, NORMOCEPHALIC - Extremities Exam Additional comments: Dressing is clean, dry and intact No strike through noted to the JOANNE bandage - Neurological Exam Neurological Exam: Alert, Awake, Oriented x3 - Psychiatric Exam Psychiatric exam: Normal Affect, Normal Mood Assessment and Plan - Assessment and Plan (Free Text) Assessment: 42 year old male patient 1 day s/p Right partial 2nd digit and complete 3rd digit amputation and left wound debridement. Plan: Patient seen and evaluated Discussed in detail with Dr. Bucio Charts and vitals reviewed; Afebrile, WBC 10.2 (06/07/18) ESR: 135, CRP: 47.70 (06/01/18) SINGH/PVR (06/01): PVR wave forms are normal and symmetrical b/l, Limited study B/L foot 3 views X-ray: Bone destruction at the base of the Right proximal phalanx of the 3rd toe consistent with OM B/L foot MRI couldn't be done as the patient has defibrillator Bone Scan- osteomyelitis right 3rd digit Wound Cultures: left foot: (05/31) Staph species. (06/01) Corynebacterium species, Right foot: (05/31) Staph Coag Negative, (06/01) No growth after 24 hours OR Cultures pending Patient to ambulate in a surgical shoe ID on board, Reccs appreciated Vascular Consult- recommendations appreciated Cardiac Consult- recommendations appreciated Patient to continue IV Abx as per ID, recommendations were appreciated Patient dressing kept intact at this time, please re-inforce as needed Podiatry will continue to follow up the patient while in house
--- NOTE | 2018-06-09 10:43 | RAD ---
Date of service: 06/08/2018 HISTORY: Picc line placement COMPARISON: 06/06/2018 TECHNIQUE: 1 view obtained. FINDINGS: LUNGS: No active pulmonary disease. PLEURA: No significant pleural effusion identified, no pneumothorax apparent. CARDIOVASCULAR: No aortic atherosclerotic calcification present. Normal cardiac size. No pulmonary vascular congestion. OSSEOUS STRUCTURES: Sternal wires VISUALIZED UPPER ABDOMEN: Normal. OTHER FINDINGS: Dual lead pacemaker IMPRESSION: The PICC line is in satisfactory position in the SVC just above the right atrium
--- NOTE | 2018-06-09 10:50 | CP.PCM.PN ---
Subjective - Date & Time of Evaluation Date of Evaluation: 06/09/18 Time of Evaluation: 10:25 - Subjective Subjective: Patient feels well after the surgery, not in distress, no increased pain in the feet. Objective - Vital Signs/Intake and Output Vital Signs (last 24 hours): Temp Pulse Resp BP Pulse Ox 97.7 F 107 H 18 169/95 H 98 06/07/18 21:21 06/07/18 21:21 06/07/18 21:21 06/07/18 21:21 06/07/18 21:21 Intake and Output: 06/07/18 06/08/18 18:59 06:59 Intake Total 10 Balance 10 - Medications Medications: Current Medications Acetaminophen (Tylenol 325mg Tab) 650 mg PO Q6H PRN PRN Reason: Pain, severe (8-10) Last Admin: 06/01/18 19:16 Dose: 650 mg Acetaminophen (Tylenol 325mg Tab) 325 mg PO Q6H PRN PRN Reason: Pain, severe (8-10) Last Admin: 06/01/18 22:33 Dose: 325 mg Aspirin (Aspirin Chewable) 81 mg PO DAILY [facility] Last Admin: 06/05/18 11:31 Dose: 81 mg Codeine Sulfate (Codeine) 30 mg PO Q6 PRN PRN Reason: Pain, severe (8-10) Last Admin: 06/07/18 21:32 Dose: 30 mg Heparin Sodium (Porcine) (Heparin) 4,000 units IV MWF [facility] Hydromorphone HCl (Dilaudid) 0.5 mg IVP Q15M PRN PRN Reason: Pain, Moderate/Severe (4-10) Meropenem 250 mg/ Sodium (Chloride) 100 mls @ 100 mls/hr IVPB Q12H [facility]; Protocol Stop: 06/08/18 11:31 Last Admin: 06/07/18 11:38 Dose: 100 mls/hr Losartan Potassium (Cozaar) 50 mg PO DAILY [facility] Last Admin: 06/06/18 15:15 Dose: 50 mg Mupirocin (Bactroban Ointment) 0 gm TOP BID [facility] Last Admin: 06/07/18 05:05 Dose: Not Given Ondansetron HCl (Zofran Odt) 4 mg PO Q8H PRN PRN Reason: Nausea/Vomiting Last Admin: 06/02/18 11:43 Dose: 4 mg Sevelamer HCl (Renagel) 800 mg PO 0800,1200,1700 [facility] Last Admin: 06/06/18 15:15 Dose: 800 mg - Labs Labs: 06/07/18 06:10 06/07/18 17:00 PT 11.6 SECONDS (9.4-12.5) 06/01/18 00:20 INR 1.05 06/01/18 00:20 APTT 28.6 Seconds (26.9-38.3) 06/01/18 00:20 - Constitutional Appears: Non-toxic, Chronically Ill - Head Exam Head Exam: NORMAL INSPECTION - Respiratory Exam Respiratory Exam: Decreased Breath Sounds - Cardiovascular Exam Cardiovascular Exam: +S1, +S2 - GI/Abdominal Exam GI & Abdominal Exam: Soft. absent: Tenderness - Extremities Exam Additional comments: both feet with dressings and bandages in place Assessment and Plan - Assessment and Plan (Free Text) Plan: Assessment left foot cellulitis and possible right foot osteomyelitis S/P 2nd and 3rd digit amputations of right foot and left foot wound debridement POD #2 history of fungal infection of the scalp history of acute gastroenteritis history of right foot ulcer, infected with skin and skin structure infection, with probable osteomyelitis S/P 5th toe amputation and partial metatarsal amputation history of sepsis secondary to left foot skin and skin structure infection with abscess with Corynebacterium history of left foot cellulitis and osteomyelitis with enterococcus morbid obesity with a BMI 38.9 end stage renal failure on hemodialysis with left arm fistula diabetes mellitus chronic obstructive lung disease hypertension history of Klebsiella bacteremia secondary to a dialysis catheter S/P removal coronary artery disease S/P cardiac catheterization Plan continue intermittent Vancomycin and Merrem follow up OR cx and pathology will continue to monitor clinically
--- NOTE | 2018-06-09 13:30 | PN ---
DATE: 06/09/2018 SUBJECTIVE: The patient has no complaints of any chest pain. No shortness of breath. No headache. PHYSICAL EXAMINATION: VITAL SIGNS: Temperature is 97.7, pulse is 90, blood pressure is 138/79, and respiration is 20. GENERAL: The patient is lying in bed, flat, comfortable. HEENT: No oral lesion. Anicteric sclerae. Moist mucosa. NECK: No JVD, adenopathy, or thyromegaly. CARDIOVASCULAR: S1 and S2, regular. No murmurs, rubs, or gallops. LUNGS: Clear to auscultation bilaterally. No wheeze, rales, or rhonchi. ABDOMEN: Bowel sounds are positive, soft, nontender and nondistended. EXTREMITIES: No cyanosis, clubbing or edema. LABORATORY DATA: White count of 10.2, hemoglobin 13.2, and potassium is 4.9. ASSESSMENT: 1. End-stage renal disease, on hemodialysis. 2. Secondary hypoparathyroidism. 3. Hyperkalemia, resolved. 4. Anemia, chronic. 5. Coronary artery disease. 6. Right third phalanx osteomyelitis, status post surgery. 7. Status post right third digit amputation with partial second digit amputation. 8. Dyslipidemia. 9. Hypertension. 10. Left arteriovenous fistula. 11. Pacemaker. 12. Right peripherally inserted central catheter line. 13. Obesity with a body mass index of 36. 14. Noncompliance with diet. PLAN: The patient is currently on dialysis on Monday, Monday, and Monday; he will be continued. The patient is on codeine for pain. He is on losartan for his hypertension. He is receiving Neurontin for his neuropathy. He is on Renagel for his secondary hypoparathyroidism. The patient is on a diabetic diet. Maximilian Zheng MD
--- NOTE | 2018-06-09 14:18 | PN ---
DATE: 06/09/2018 SUBJECTIVE: A 42-year-old male status post podiatry surgery on the right foot and surgery on left foot. OBJECTIVE: VITAL SIGNS: Temperature is 97.7. His pulse is 90. Blood pressure is 138/79. He is alert and oriented x3. NECK: Supple with no JVD. LUNGS: Clear. HEART: S1, S2 rhythm. ABDOMEN: Soft with positive bowel sounds. EXTREMITIES: Show no evidence of edema. NEUROLOGIC: He is alert and oriented x3. The patient is currently receiving IV antibiotics for osteomyelitis of the foot being followed by Infectious Disease and Podiatry. We are awaiting pathology reports from the surgery done on . He has chronic renal disease on dialysis three times a week being followed by Nephrology. He has a history of coronary artery bypass surgery and he has been complaining of some left arm, shoulder pain CAT scan of the cervical spine shows degenerative changes. Neurology followup is pending. I will continue current level of care, awaiting them for the pathology reports. Cleopatra White MD
--- NOTE | 2018-06-09 16:15 | CP.PCM.PN ---
Subjective - Date & Time of Evaluation Date of Evaluation: 06/09/18 Time of Evaluation: 16:10 - Subjective Subjective: Podiatry Progress Note for Dr. Bucio 42M seen and evaluated at bedside one day s/p right third digit and partial second digit amputation and also for evaluation of lateral left leg wound. Patient is AAO x 3 and NAD. Denies any acute overnight events. States that pain is well controlled at this time. Denies any recent N/V/F/C/CP/SOB/D Objective - Vital Signs/Intake and Output Vital Signs (last 24 hours): Temp Pulse Resp BP Pulse Ox 97.7 F 90 20 136/80 100 06/09/18 07:48 06/09/18 07:48 06/09/18 07:48 06/09/18 11:29 06/09/18 07:48 Intake and Output: 06/09/18 06/09/18 06:59 18:59 Intake Total 600 Balance 600 - Medications Medications: Current Medications Acetaminophen (Tylenol 325mg Tab) 650 mg PO Q6H PRN PRN Reason: Pain, severe (8-10) Last Admin: 06/01/18 19:16 Dose: 650 mg Acetaminophen (Tylenol 325mg Tab) 325 mg PO Q6H PRN PRN Reason: Pain, severe (8-10) Last Admin: 06/01/18 22:33 Dose: 325 mg Aspirin (Aspirin Chewable) 81 mg PO DAILY [facility] Last Admin: 06/09/18 11:30 Dose: 81 mg Codeine Sulfate (Codeine) 30 mg PO Q6H PRN PRN Reason: Pain, severe (8-10) Last Admin: 06/09/18 02:12 Dose: 30 mg Gabapentin (Neurontin) 300 mg PO HS [facility]; Protocol Last Admin: 06/09/18 02:13 Dose: 300 mg Heparin Sodium (Porcine) (Heparin) 4,000 units IV MWF [facility] Hydromorphone HCl (Dilaudid) 0.5 mg IVP Q15M PRN PRN Reason: Pain, Moderate/Severe (4-10) Meropenem 250 mg/ Sodium (Chloride) 100 mls @ 100 mls/hr IVPB 1000,2200 [facility]; Protocol Last Admin: 06/09/18 09:35 Dose: 100 mls/hr Losartan Potassium (Cozaar) 50 mg PO DAILY [facility] Last Admin: 06/09/18 11:29 Dose: 50 mg Mupirocin (Bactroban Ointment) 0 gm TOP BID [facility] Last Admin: 06/07/18 05:05 Dose: Not Given Ondansetron HCl (Zofran Odt) 4 mg PO Q8H PRN PRN Reason: Nausea/Vomiting Last Admin: 06/02/18 11:43 Dose: 4 mg Sevelamer HCl (Renagel) 800 mg PO 0800,1200,1700 [facility] Last Admin: 06/09/18 11:29 Dose: 800 mg - Labs Labs: 06/07/18 06:10 06/07/18 17:00 PT 11.6 SECONDS (9.4-12.5) 06/01/18 00:20 INR 1.05 06/01/18 00:20 APTT 28.6 Seconds (26.9-38.3) 06/01/18 00:20 - Constitutional Appears: Well, Non-toxic, No Acute Distress - Extremities Exam Additional comments: B/L lower extremity focused exam: Vascular: DP and PT 2/4 bilaterally, Cap refill < 3 seconds to all remaining digits, Temp gradient warm to warm from proximal to distal WNL, minimal non pitting edema noted to the b/l LE. Neuro: Epicritic and protective sensation grossly diminished b/l Derm: Right foot: Amputation sites at second and third digits well coapted with no evidence of dehiscence and with all sutures intact. No erythema, malodor, drainage or other clinical signs of infection appreciated. Left foot: An open ulceration noted on the lateral aspect of the left foot 5cm X 2cm X 0.2cm with hyperkeratotic. No purulence, No tracking, No undermining, No probe to bone and no malodor. Minimal periwound erythema noted MSK: Muscle power 5/5 to all groups, Pain on palpating the ulcer sites. - Neurological Exam Neurological Exam: Alert, Awake, Oriented x3 - Psychiatric Exam Psychiatric exam: Normal Affect, Normal Mood Assessment and Plan - Assessment and Plan (Free Text) Assessment: 42M seen and evaluated at bedside one day s/p right third digit and partial second digit amputation and also for evaluation of lateral left leg wound Plan: Patient seen and evaluated Plan discussed with Dr. Rupinder Back abx per ID Right amputation sites dressed with betadine, DSD, JOANNE Left foot wound dressed with ABD, DSD, JOANNE Patient to remain NWB to right leg and partial weight bearing to heel on left leg No plan for further surgical intervention at this time Podiatry will continue to follow while patient in house
--- NOTE | 2018-06-09 23:36 | CON ---
DATE: 06/09/2018 HISTORY OF PRESENT ILLNESS: This is a 42-year-old male with past medical history of diabetes, hypertension, CVA, coronary artery disease, CHF, end-stage renal disease, on hemodialysis, also history of osteomyelitis of the foot and called to evaluate for pain and numbness of the left upper extremity and pain starts from the left hand radiated up to the left shoulder and not dropping called to evaluate the patient. PAST MEDICAL HISTORY: Hypertension, diabetes, coronary artery disease, CHF, end-stage renal disease, GERD, and retinal detachment. ALLERGIES: IV DYE, VITAMINS, AND PIPERACILLIN. PHYSICAL EXAMINATION: HEENT: Normocephalic and atraumatic. NECK: Supple. NEURO: Awake and oriented to self and place. Cranial nerves II through XII are tested. Pupils reactive. EOMs intact. Visual field full. No facial asymmetry. Tongue midline. Motor examination, moves all the extremities spontaneously. Deep tendon reflexes are 1+. Both plantars are downgoing. Sensory appears intact. Cerebellar gait is deferred. IMPRESSION AND PLAN: A 42-year-old male admitted with left foot cellulitis and also complaint of numbness and pain of left upper extremity. CT of the cervical spine was done yesterday, which showed degenerative disk disease and disk osteophyte complex, left posterolateral foraminal disk protrusion, and possibly symptoms to the cervical area. We will do the CAT scan of the head. Workup in progress. Continue present management. We will follow up. Valentino Macias MD
--- NOTE | 2018-06-10 11:43 | CP.PCM.PN ---
Subjective - Date & Time of Evaluation Date of Evaluation: 06/10/18 Time of Evaluation: 11:37 - Subjective Subjective: Podiatry Progress Note for Dr. Bucio 42M seen and evaluated at bedside two days s/p right third digit and partial second digit amputation and also for evaluation of lateral left leg wound. Patient is AAO x 3 and NAD. Denies any acute overnight events. States that pain is well controlled at this time. Denies any recent N/V/F/C/CP/SOB/D Objective - Vital Signs/Intake and Output Vital Signs (last 24 hours): Temp Pulse Resp BP Pulse Ox 97.7 F 99 H 18 154/82 H 97 06/10/18 06:00 06/10/18 06:00 06/10/18 06:00 06/10/18 09:37 06/10/18 06:00 Intake and Output: 06/10/18 06/10/18 06:59 18:59 Intake Total 100 Balance 100 - Medications Medications: Current Medications Acetaminophen (Tylenol 325mg Tab) 650 mg PO Q6H PRN PRN Reason: Pain, severe (8-10) Last Admin: 06/01/18 19:16 Dose: 650 mg Acetaminophen (Tylenol 325mg Tab) 325 mg PO Q6H PRN PRN Reason: Pain, severe (8-10) Last Admin: 06/01/18 22:33 Dose: 325 mg Aspirin (Aspirin Chewable) 81 mg PO DAILY [facility] Last Admin: 06/10/18 09:36 Dose: 81 mg Codeine Sulfate (Codeine) 30 mg PO Q6H PRN PRN Reason: Pain, severe (8-10) Last Admin: 06/10/18 09:36 Dose: 30 mg Gabapentin (Neurontin) 300 mg PO HS [facility]; Protocol Last Admin: 06/09/18 21:38 Dose: 300 mg Heparin Sodium (Porcine) (Heparin) 4,000 units IV MWF [facility] Hydromorphone HCl (Dilaudid) 0.5 mg IVP Q15M PRN PRN Reason: Pain, Moderate/Severe (4-10) Meropenem 250 mg/ Sodium (Chloride) 100 mls @ 100 mls/hr IVPB 1000,2200 [facility]; Protocol Last Admin: 06/10/18 09:39 Dose: 100 mls/hr Losartan Potassium (Cozaar) 50 mg PO DAILY [facility] Last Admin: 06/10/18 09:37 Dose: 50 mg Mupirocin (Bactroban Ointment) 0 gm TOP BID [facility] Last Admin: 06/07/18 05:05 Dose: Not Given Ondansetron HCl (Zofran Odt) 4 mg PO Q8H PRN PRN Reason: Nausea/Vomiting Last Admin: 06/02/18 11:43 Dose: 4 mg Sevelamer HCl (Renagel) 800 mg PO 0800,1200,1700 [facility] Last Admin: 06/10/18 08:10 Dose: 800 mg - Labs Labs: 06/07/18 06:10 06/07/18 17:00 PT 11.6 SECONDS (9.4-12.5) 06/01/18 00:20 INR 1.05 06/01/18 00:20 APTT 28.6 Seconds (26.9-38.3) 06/01/18 00:20 - Constitutional Appears: Well, Non-toxic, No Acute Distress - Extremities Exam Additional comments: B/L lower extremity focused exam: Vascular: DP and PT 2/4 bilaterally, Cap refill < 3 seconds to all remaining digits, Temp gradient warm to warm from proximal to distal WNL, minimal non pitting edema noted to the b/l LE. Neuro: Epicritic and protective sensation grossly diminished b/l Derm: Right foot: Amputation sites at second and third digits well coapted with no evidence of dehiscence and with all sutures intact. No erythema, malodor, drainage or other clinical signs of infection appreciated. Left foot: An open ulceration noted on the lateral aspect of the left foot 5cm X 2cm X 0.2cm with hyperkeratotic surrounding tissue. No purulence, No tracking, No undermining, No probe to bone and no malodor. No periwound erythema noted MSK: Muscle power 5/5 to all groups, Pain on palpating the ulcer sites. - Neurological Exam Neurological Exam: Alert, Awake, Oriented x3 - Psychiatric Exam Psychiatric exam: Normal Affect, Normal Mood Assessment and Plan - Assessment and Plan (Free Text) Assessment: 42M seen and evaluated at bedside two days s/p right third digit and partial second digit amputation and also for evaluation of lateral left leg wound. Plan: Patient seen and evaluated Plan discussed with Dr. Bucio Continue abx per ID Right amputation sites dressed with betadine, DSD, JOANNE Left foot wound dressed with ABD, DSD, JOANNE Patient to remain NWB to right leg and partial weight bearing to heel on left leg No plan for further surgical intervention at this time Podiatry will continue to follow while patient in house
--- NOTE | 2018-06-10 12:25 | PN ---
DATE: 06/10/2018 SUBJECTIVE: This is a 42-year-old male resting in bed this morning. Nursing staff relates there were no problems during the night. OBJECTIVE: VITAL SIGNS: The patient blood pressure is 154/82, temperature is 97.7, pulse was 99, respiratory rate is 18. GENERAL: The patient is alert and oriented x3. NECK: Supple with no JVD. LUNGS: Clear. HEART: S1, S2 rhythm with a pacemaker in place. He has a PICC line in his right arm and AV fistula for dialysis in the left wrist area. ABDOMEN: Soft with positive bowel sounds. EXTREMITIES: He has dressings over both feet status post surgery for osteomyelitis and wound infections. 1. He had a CT of his neck ordered by Neurology which showed evidence of degenerative arthritis and disc disease. We will await review by Neurology. 2. He is receiving dialysis three times a week. 3. He is on IV antibiotics for osteomyelitis of his feet. 4. He has bypass cardiac history. 5. He has secondary hyperparathyroidism. 6. There is a history of diabetes mellitus. Will continue current medication and treatment plan at this time and await input from the individual consultants. Cleopatra White MD
--- NOTE | 2018-06-10 13:17 | CT ---
Date of service: 06/10/2018 PROCEDURE: CT HEAD WITHOUT CONTRAST. HISTORY: numbness COMPARISON: 10/14/2011 TECHNIQUE: Axial computed tomography images were obtained through the head/brain without intravenous contrast. Radiation dose: Total exam DLP = 880.27 mGy-cm. This CT exam was performed using one or more of the following dose reduction techniques: Automated exposure control, adjustment of the mA and/or kV according to patient size, and/or use of iterative reconstruction technique. FINDINGS: HEMORRHAGE: No intracranial hemorrhage. BRAIN: No mass effect or edema. No atrophy or chronic microvascular ischemic changes. VENTRICLES: Unremarkable. No hydrocephalus. CALVARIUM: Unremarkable. PARANASAL SINUSES: Unremarkable as visualized. No significant inflammatory changes. MASTOID AIR CELLS: Unremarkable as visualized. No inflammatory changes. OTHER FINDINGS: None. IMPRESSION: No acute intracranial findings
--- NOTE | 2018-06-10 15:02 | PN ---
DATE: 06/10/2018 NEUROLOGY FOLLOWUP CHIEF COMPLAINT: Follow up for left side tingling and numbness and discomfort. SUBJECTIVE: The patient has no acute complaints today. His paresthesias have mildly improved. His CAT scan of the cervical spine does show multi degenerative disc disease throughout multiple levels and broad-based disc ossified complexes, most were seen with a moderate right and severe left neuroforaminal narrowing and spinal canal stenosis. There is probable impingement of the exiting left C8 nerve root which does correspond to the symptoms; therefore, would improve with outpatient physical therapy and gabapentin 300 at night. PAST MEDICAL HISTORY: History of end-stage renal disease on hemodialysis; secondary hypoparathyroidism; coronary artery disease; anemia of chronic disease; right third phalanx osteomyelitis status post surgery; status post right third digit amputation with partial second digit amputation; dyslipidemia, hypertension, pacemaker; obesity with body mass index of 36; and noncompliance with diet. REVIEW OF SYSTEMS: A 14-point review of systems is negative except as per the HPI. ALLERGIES: PIPERACILLIN, TAZOBACTAM IV DYE, ORAL VITAMIN D. FAMILY HISTORY: Noncontributory. SOCIAL HISTORY: No illicit drug use, smoking, or EtOH abuse. MEDICATIONS: Reviewed by nurses' reconciliation sheet. LABORATORY DATA: Today's blood sugar is 130. PHYSICAL EXAMINATION: VITAL SIGNS: Temperature 97.7, pulse rate 99, blood pressure of 154/80, respiratory rate 18, oxygen saturations 97% on room air. GENERAL: The patient is seen up in bed, in no acute distress. HEENT: Atraumatic, normocephalic. PERRLA. Extraocular muscles intact. NECK: Supple. No JVD. No adenopathy noted. HEART: S1 and S2. Regular rate and rhythm. No murmurs, rubs or gallops. LUNGS: Clear to auscultation. No adventitious sounds. ABDOMEN: Soft, nontender, nondistended. Bowel sounds present. EXTREMITIES: No clubbing, no cyanosis. Peripheral pulses are 2+felt bilaterally. He is status post right third digit amputation with partial second digit amputation on his foot and right third phalanx osteomyelitis, status post surgery. NEUROLOGIC: The patient is alert and oriented to person, place, month, and year. Speech is fluent without any errors. Cranial nerves II through XII are intact. Motor exam; moves all extremities . Sensory exam: Decreased light touch and pinprick up to the calves bilaterally. Decreased vibration of the toes. DTRs are 2+ throughout and 1 in both ankles bilaterally. Toes are downgoing bilaterally. Coordination; [id number] intact. No dysmetria noted. IMPRESSION: 1. Left sided upper extremity paresthesias and left arm pain secondary to multilevel degenerative disc disease, most likely with underlying severe left foraminal narrowing and most likely at the exiting left C8 nerve root which corresponds possibly to symptoms. At this time, we well recommend outpatient physical therapy for cervical disc disease. 2. Continue gabapentin 300 mg p.o. at night and continue with management of his underlying chronic medical conditions. Will follow up as an outpatient for possible EMG nerve conduction study of those upper extremities status post cervical radiculopathy. Thank you for this followup. Jeffrey Macias MD
--- NOTE | 2018-06-11 06:23 | PCM.OP ---
Operative Report - Operative Report Date of Surgery/Procedure: 06/07/18 Time of Surgery/Procedure: 19:00 Surgeon: Dr. Ajay Bucio DPM Melting Supervisor: Dr. Pinky Méndez PGY1 Anesthesia/Sedation: IV Sedation with Local Pre-Operative Diagnosis: 1. Right 2nd and 3rd digit osteomyelitis 2. Left plantar foot wound Post-Operative Diagnosis: same as above Indication for Surgery: Name of Procedures: 1) Amputation 3rd digit right foot 2) Amputation partial 2nd digit right foot 3) Left foot plantar wound debridement Indications: The patient is a 42 year-old male with the above diagnoses. The patient has exhausted all conservative treatment at this time and now requires surgical intervention. The patient signed the consent after careful explanation of risks, benefits, complication and alternatives for surgical procedure. No guarantees were given nor implied. NPO status was confirmed prior to taking patient to the OR. Operative Findings: Preparation: The patient was brought in to the operating room and placed on the operating room table lisa supine position. Timeout was performed for identification of the correct patient and procedure. After induction IV sedation, the patient received a total of 5mL of a 1:1 0.5% Marcaine plain in a local block type fashion to the Right foot. The right and left feet was then prepped and draped in normal sterile manner and the procedure began. No tourniquet was used during the procedure. Procedure/Operation Description: 1) Amputation 3rd digit right foot Attention was then drawn to the dorsal aspect of the right 3rd digit where a racket-type incision was made circumferentially at the level of the 3rd metatarso-phalangeal joint using a # 15 blade.The incision was then extended down through the subcutaneous layers down to the level of bone. Using a bone clamp to stabilize the toe, the 3rd digit was then disarticulated from the foot at the level of the MTPJ and was passed from the operative field and sent to pathology. A singh rasp was then used to remove all rough edges from the bone. Using a fresh #15 blade the soft tissue was then debulked of fat which was passed from the field. Next the surgical site was copiously flushed with sterile saline. A wound cx was then taken at this time. At this time, Osteomed antibiotic beads were packed into the amputation sites. At this time #2-0 prolene was used to re-approximate the skin edges. The wound was then dressed with adaptic, 4x4, kerlix and light coband dressing. 2) Amputation partial 2nd digit right foot Attention was then drawn to the dorsal aspect of the right 2nd digit where a fish-mouth type incision was made circumferentially at the level of the PIPJ using a #15 blade.The incision was then extended down through the subcutaneous layers down to the level of bone. Using a bone clamp to stabilize the toe, the 2nd digit was then disarticulated from the foot at the level of the PIPJ and the middle and distal phalanges were passed from the operative field and sent to path. A singh rasp was then used to remove all rough edges from the bone. Using a fresh #15 blade the soft tissue was then debulked of fat which was passed from the field. Next the surgical site was copiously flushed with sterile saline. A wound cx was then taken. At this time, Osteomed antibiotic beads were packed into the amputation sites. At this time #2-0 prolene was used to re-approximate the skin edges. The wound was then dressed with adaptic, 4x4, kerlix and light coband dressing. 3) Left foot plantar wound debridement Attention was directed to the left foot plantarly at the level of the cuboid where an approximately 2.0 cm x 1.4 cm ulceration was noted. The ulceration was noted to be composed of granular and fibrotic tissue with no visible bone exposure. Mechanical debridement was performed with a sterile 15 blade to remove all fibrotic and non-viable tissue from the wound base and the wound margins. It was an excisional wound debridement, full-thickness in nature to the level of the fascia. The surgical site was then irrigated using sterile saline solution. The site was then dressed with bacitracin, xeroform, 4x4 gauze, stella wrap, kerlix, and JOANNE wrap. Estimated Blood Loss: 30 cc Complications: none Discharge & Condition: Postoperative Condition: The patient tolerated the anesthesia and procedure well and was escorted to the recovery room with vital signs stable and neurovascular status intact to bilateral feet. Patient may be weightbearing as tolerated in surgical shoe. Podiatry will continue to follow while he remains in house. Will await results of wound cx and bone pathology results.
[2018-06-11] MEDS ORDERED: HYDROmorphone 0.5 mg/0.5 ml ISec IVP STA (07:53)
--- NOTE | 2018-06-11 08:11 | CP.PCM.PN ---
Subjective - Date & Time of Evaluation Date of Evaluation: 06/11/18 Time of Evaluation: 08:01 - Subjective Subjective: I'm working as house doc. I was paged for this patient's 10/10 left arm pain and 10/10 headache. His arm pain is likely 2/2 to cervical radiculopathy as recent cervical CT showed impingement of C8 nerve root. I ordered tylenol 650mg po qd and dilaudid 0.5mg ivp to address his acute pain. I spoke to neurologist Dr Jeffrey Macias who recommended increasing his gabapentin from 300mg hs to 300mg bid (I put this order in Spinal [facility]). Dr Macias also advised a pain management consult should be placed (I'll leave this up to Dr White as I do not know who he would like consulted). Although unlikely his his arm pain/axillae pain is cardiac in nature (stress test 2 weeks ago did not show perfusion defects) I still ordered an troponin and ekg to rule out a coronary event given his extensive CAD history. His headache was likely 2/[address] head [address] 2 days ago did not show acute findings. He was also self-treating his pain with ibuprofen which he brought from home - I told him not to do this given his kidney failure as it could lead to clots. -Plan partially discussed with Dr Jeffrey Macias -I called Dr White but was unable to reach him Objective - Vital Signs/Intake and Output Vital Signs (last 24 hours): Temp Pulse Resp BP Pulse Ox 98.7 F 100 H 20 140/60 96 06/11/18 06:00 06/11/18 06:00 06/11/18 06:00 06/11/18 06:00 06/11/18 06:00 - Medications Medications: Current Medications Acetaminophen (Tylenol 325mg Tab) 650 mg PO Q6H PRN PRN Reason: Pain, severe (8-10) Last Admin: 06/11/18 07:50 Dose: 650 mg Acetaminophen (Tylenol 325mg Tab) 325 mg PO Q6H PRN PRN Reason: Pain, severe (8-10) Last Admin: 06/01/18 22:33 Dose: 325 mg Aspirin (Aspirin Chewable) 81 mg PO DAILY [facility] Last Admin: 06/10/18 09:36 Dose: 81 mg Codeine Sulfate (Codeine) 30 mg PO Q6H PRN PRN Reason: Pain, severe (8-10) Last Admin: 06/11/18 03:39 Dose: 30 mg Gabapentin (Neurontin) 300 mg PO BID [facility]; Protocol Heparin Sodium (Porcine) (Heparin) 4,000 units IV MWF [facility] Hydromorphone HCl (Dilaudid) 0.5 mg IVP Q15M PRN PRN Reason: Pain, Moderate/Severe (4-10) Hydromorphone HCl (Dilaudid) 0.5 mg IVP STAT STA Stop: 06/11/18 07:54 Meropenem 250 mg/ Sodium (Chloride) 100 mls @ 100 mls/hr IVPB 1000,2200 [facility]; Protocol Last Admin: 06/10/18 21:27 Dose: 100 mls/hr Losartan Potassium (Cozaar) 50 mg PO DAILY [facility] Last Admin: 06/10/18 09:37 Dose: 50 mg Mupirocin (Bactroban Ointment) 0 gm TOP BID [facility] Last Admin: 06/07/18 05:05 Dose: Not Given Ondansetron HCl (Zofran Odt) 4 mg PO Q8H PRN PRN Reason: Nausea/Vomiting Last Admin: 06/02/18 11:43 Dose: 4 mg Sevelamer HCl (Renagel) 800 mg PO 0800,1200,1700 [facility] Last Admin: 06/10/18 16:28 Dose: 800 mg - Labs Labs: 06/07/18 06:10 06/07/18 17:00 PT 11.6 SECONDS (9.4-12.5) 06/01/18 00:20 INR 1.05 06/01/18 00:20 APTT 28.6 Seconds (26.9-38.3) 06/01/18 00:20
--- NOTE | 2018-06-11 09:15 | PN ---
DATE: 06/10/2018 SUBJECTIVE: The patient is seen at bed, in no acute distress. He was seen earlier today, comfortable, tolerating antibiotics. PHYSICAL EXAMINATION: VITAL SIGNS: Temperature is 98, blood pressure is 104/70, respiratory rate 18. HEENT: Unremarkable. NECK: Supple. LUNGS: Decreased breath sounds. HEART: Normal S1, S2. ABDOMEN: Soft. LABORATORY DATA: Laboratory examination reveals the patient to have a white count of 10,000; and chemistries are noted. Toxicology is reviewed. Vancomycin random of 14.9. Microbiology is noted. ASSESSMENT AND PLAN: This is a 42-year-old male with a left foot cellulitis and possible right foot osteomyelitis, second and third digit amputation of right foot and left foot, wound debridement post procedure day #3, and intermittent vancomycin and meropenem. Review of orders reveal the meropenem to be active. We will follow closely with you. Nasir Dunn MD
[2018-06-11 09:29] LABS: BASO # 0.05 K/mm3 (0.0-2.0); BASO % 0.5 % (0.0-3.0); EOS # 0.3 (0.0-0.7); EOS % 2.9 % (1.5-5.0); LYMPH # 1.2 (1.2-3.4); LYMPH % 11.5 % (22.0-35.0); MEAN CELL VOLUME 97.3 fl (80.0-105.0); MEAN CORPUSCULAR HEMOGLOBIN 31.3 pg (25.0-35.0); MEAN CORPUSCULAR HGB CONC 32.2 g/dl (31.0-37.0); MEAN PLATELET VOLUME 9.7 fl (7.0-11.0); MONO # 0.5 (0.1-0.6); MONO % 5.2 % (1.0-6.0); RBC 3.32 10^6/uL (3.5-6.1); RED CELL DISTRIBUTION WIDTH 15.8 % (11.5-14.5); WHITE BLOOD COUNT 10.2 10^3/uL (4.5-11.0)
[2018-06-11 09:39] LABS: HEMOGLOBIN 10.4 g/dL (14.0-18.0)
[2018-06-11 09:44] LABS: ALBUMIN 4.1 g/dL (3.0-4.8); CALCIUM 8.4 mg/dL (8.4-10.5)
--- NOTE | 2018-06-11 12:26 | CP.PCM.PN ---
Subjective - Date & Time of Evaluation Date of Evaluation: 06/11/18 Time of Evaluation: 13:12 - Subjective Subjective: Podiatry Progress Note for Dr. Bucio 42M seen and evaluated at bedside 3 days s/p right third digit and partial second digit amputation and also for evaluation of lateral left leg wound. Patient is AAO x 3 and NAD. Denies any acute overnight events. States that pain is well controlled at this time. Denies any recent N/V/F/C/CP/SOB/D Objective - Vital Signs/Intake and Output Vital Signs (last 24 hours): Temp Pulse Resp BP Pulse Ox 98.7 F 100 H 20 140/60 96 06/11/18 06:00 06/11/18 06:00 06/11/18 06:00 06/11/18 06:00 06/11/18 06:00 - Medications Medications: Current Medications Acetaminophen (Tylenol 325mg Tab) 650 mg PO Q6H PRN PRN Reason: Pain, severe (8-10) Last Admin: 06/11/18 07:50 Dose: 650 mg Acetaminophen (Tylenol 325mg Tab) 325 mg PO Q6H PRN PRN Reason: Pain, severe (8-10) Last Admin: 06/01/18 22:33 Dose: 325 mg Aspirin (Aspirin Chewable) 81 mg PO DAILY [facility] Last Admin: 06/10/18 09:36 Dose: 81 mg Codeine Sulfate (Codeine) 30 mg PO Q6H PRN PRN Reason: Pain, severe (8-10) Last Admin: 06/11/18 03:39 Dose: 30 mg Gabapentin (Neurontin) 300 mg PO BID [facility]; Protocol Heparin Sodium (Porcine) (Heparin) 4,000 units IV MWF [facility] Last Admin: 06/11/18 09:12 Dose: 4,000 units Hydromorphone HCl (Dilaudid) 0.5 mg IVP Q15M PRN PRN Reason: Pain, Moderate/Severe (4-10) Meropenem 250 mg/ Sodium (Chloride) 100 mls @ 100 mls/hr IVPB 1000,2200 [facility]; Protocol Last Admin: 06/10/18 21:27 Dose: 100 mls/hr Losartan Potassium (Cozaar) 50 mg PO DAILY [facility] Last Admin: 06/10/18 09:37 Dose: 50 mg Mupirocin (Bactroban Ointment) 0 gm TOP BID [facility] Last Admin: 06/07/18 05:05 Dose: Not Given Ondansetron HCl (Zofran Odt) 4 mg PO Q8H PRN PRN Reason: Nausea/Vomiting Last Admin: 06/02/18 11:43 Dose: 4 mg Sevelamer HCl (Renagel) 800 mg PO 0800,1200,1700 [facility] Last Admin: 06/10/18 16:28 Dose: 800 mg - Labs Labs: 06/11/18 09:00 06/11/18 09:00 PT 11.6 SECONDS (9.4-12.5) 06/01/18 00:20 INR 1.05 06/01/18 00:20 APTT 28.6 Seconds (26.9-38.3) 06/01/18 00:20 - Constitutional Appears: Well, Non-toxic, No Acute Distress - Head Exam Head Exam: ATRAUMATIC, NORMOCEPHALIC - Extremities Exam Additional comments: B/L lower extremity focused exam: Vascular: DP and PT 2/4 bilaterally, Cap refill < 3 seconds to all remaining d igits, Temp gradient warm to warm from proximal to distal WNL, minimal non pitting edema noted to the b/l LE. Neuro: Epicritic and protective sensation grossly diminished b/l Derm: Right foot: Amputation sites at second and third digits well coapted with no evidence of dehiscence and with all sutures intact. No erythema, malodor, drainage or other clinical signs of infection appreciated. Left foot: An open ulceration noted on the lateral aspect of the left foot 5cm X 2cm X 0.2cm with hyperkeratotic surrounding tissue. No purulence, No tracking, No undermining, No probe to bone and no malodor. No periwound erythema noted MSK: Muscle power 5/5 to all groups, Pain on palpating the ulcer sites - Neurological Exam Neurological Exam: Alert, Awake, Oriented x3 - Psychiatric Exam Psychiatric exam: Normal Affect, Normal Mood Assessment and Plan - Assessment and Plan (Free Text) Assessment: 42M seen and evaluated at bedside three days s/p right third digit and partial second digit amputation and also for evaluation of lateral left leg wound. Plan: Patient seen and evaluated with Dr. Bucio Plan discussed with Dr. Bucio Continue abx per ID Right amputation sites dressed with betadine, DSD, JOANNE Left foot wound dressed with ABD, DSD, JOANNE Patient to remain NWB to right leg and partial weight bearing to heel on left l eg Patient likely to be brought into the OR on for application of graft to left foot wound Please provide medical clearance, NPO past midnight on Monday Podiatry will continue to follow while patient in house
--- NOTE | 2018-06-11 12:30 | CARD ---
APPROVED REPORT Date of service: 06/11/2018 EKG Measurement Heart [id number] <Conclusion> Sinus tachycardia Possible Left atrial enlargement Inferior infarct, age Old? Anterior infarct, age Old? T wave abnormality, consider lateral ischemia Abnormal ECG
[2018-06-11] MEDS: Mupirocin 2% Ointment 15 GM TUBE TOP SCH ×2 (13:43→18:46)
--- NOTE | 2018-06-11 14:19 | CP.PCM.PCO ---
Physician Communication Note - Physician Communication Note Physician Communication Note: Per Pathology, results will be available tomorrow.
--- NOTE | 2018-06-11 14:20 | PN ---
DATE: 06/11/2018 SUBJECTIVE: This is a 42-year-old male, currently on dialysis. The patient states that this morning he was having pain in his left neck and arm area. He was seen by Cardiology previously, ruled out cardiac etiology at that time. He has been seen by Neurology and evaluation has been done. At this time, the patient is on dialysis. PHYSICAL EXAMINATION: VITAL SIGNS: His blood pressure is 140/100, his temperature is 98.7, his pulse is 88. GENERAL: He is alert and oriented x3. NECK: Supple. LUNGS: Clear. HEART: Has an S1 and S2 rhythm. ABDOMEN: Obese, soft with positive bowel sounds. EXTREMITIES: Have bilateral dressings on the lower feet secondary to podiatric surgery recently done for osteomyelitis of the right foot and ulcer on the left foot with wound debridement. DIAGNOSTIC DATA: The patient had a CAT scan of his head, which showed no acute findings. A CAT scan of the cervical spine shows degenerative disease with disc hypertrophy. ASSESSMENT AND PLAN: 1. Neurology is recommending Neurontin at this time and pain management evaluation. I have discussed this as well with his renal attending, Dr. Olmedo as well as with the patient himself. 2. He has a peripherally inserted central catheter line in place. A recent x-ray is reported by the radiologist is showing that the peripherally inserted central catheter line is in the superior vena cava. 3. He is on chronic dialysis with an arteriovenous fistula in the left arm, which is where he has been getting some pain. 4. He has severe history of cardiac bypass surgery with a decreased ejection fraction. 5. He has a pacemaker. 6. He has a history of diabetes mellitus. 7. History of secondary hyperparathyroidism. 8. History of chronic renal disease, on dialysis. His current labs are pending. Current medications have been reviewed. We will get a pain management evaluation. He will continue his antibiotics as per the recommendations of Infectious Disease. Results of pathology from surgery done last are pending. Cleopatra White MD
--- NOTE | 2018-06-11 14:53 | PN ---
DATE: 06/11/2018 SUBJECTIVE: The patient tolerated dialysis well. PHYSICAL EXAMINATION: VITAL SIGNS: Blood pressure 140/60, heart rate is in the 90s. NECK: Negative JVD. LUNGS: Without rales. HEART: S1, S2. EXTREMITIES: Unchanged. LABORATORY DATA: Hemoglobin is 10.4. Chemistries, BUN and creatinine are noted. Troponin is 0.04. IMPRESSION: 1. End-stage renal disease. 2. Dilated cardiomyopathy. 3. Coronary artery disease. 4. End-stage renal disease. 5. Degenerative disk disease. 6. Diabetes mellitus. PLAN: Given these findings, the patient is hemodynamically stable. Ajay Diggs MD
[2018-06-11 16:53] LABS: HEPATITIS B SURFACE AG Negative (NEGATIVE)
[2018-06-11 16:57] LABS: HEPATITIS A IGM NEGATIVE (NEGATIVE); HEPATITIS B CORE AB NEGATIVE (NEGATIVE)
[2018-06-11 17:09] LABS: HEPATITIS C ANTIBODY NEGATIVE (NEGATIVE)
--- NOTE | 2018-06-11 17:51 | CP.PCM.CON ---
<FernandaÁngel - Last Filed: 06/11/18 17:55> History of Present Illness - History of Present Illness History of Present Illness: PGY4 GI fellow consult note 42-year-old male with a past medical history of ESRD, CAD status post stents, diabetes, hypertension, osteomyelitis of the second and third digits of the right foot status post amputation and a left plantar wound debridement on 05/21 10/08. GI consulted for abnormal liver tests. During our encounter patient states he has no GI complaints at this time. He reports that he is tolerating diet without issues. Denied weight loss, dys phagia, nausea, vomiting, abdominal pain, melena, hematochezia. Denied any alcohol nor drug use, supplement use. EGD done 07/28/17: Hiatal hernia, gastric erosions and duodenitis (no biopsies) 12 point review of systems negative other than stated above Medical history: See above Surgical history: Defibrillator, cardiac cath 2, left upper extremity fistula, CABG, eye surgery Medications: Reviewed Family history: Diabetes, hypertension Social history denied 3 Allergies Pipracil and tazobactam, IV dye Past Patient History - Infectious Disease Hx of Infectious Diseases: None - Tetanus Immunizations Tetanus Immunization: Unknown - Past Social History Smoking Status: Never Smoked - CARDIAC Hx Cardiac Disorders: Yes Hx Congestive Heart Failure: Yes Hx Hypertension: Yes - PULMONARY Hx Respiratory Disorders: Yes - NEUROLOGICAL Hx Paralysis: No - HEENT Hx HEENT Problems: Yes (tinnitis) Other/Comment: retinal detatchment 2008, laser sx both eyes - RENAL Hx Renal Failure: Yes - ENDOCRINE/METABOLIC Hx Diabetes Mellitus Type 2: Yes - HEMATOLOGICAL/ONCOLOGICAL Hx Blood Transfusions: No Hx Blood Transfusion Reaction: No - INTEGUMENTARY Hx Dermatological Problems: Yes Other/Comment: ULCER TO TOE - MUSCULOSKELETAL/RHEUMATOLOGICAL Hx Musculoskeletal Disorders: Yes - GASTROINTESTINAL Other/Comment: [id number] lbs on purpose in 2 yrs, egd 07/28/17 dx with severe duodenitis,duodenal/and gastric erosins 1cm hiatal hernia - GENITOURINARY/GYNECOLOGICAL Hx Genitourinary Disorders: No - PSYCHIATRIC Hx Emotional Abuse: No Hx Physical Abuse: No Hx Substance Use: No - SURGICAL HISTORY Hx Surgeries: Yes - ANESTHESIA Hx Anesthesia Reactions: No Hx Malignant Hyperthermia: No Meds Allergies/Adverse Reactions: Allergies Allergy/AdvReac Type Severity Reaction Status Date / Time piperacillin sodium Allergy Severe ITCHING Verified 11/28/18 09:44 [From Zosyn] tazobactam sodium Allergy Severe ITCHING Verified 01/17/18 09:44 [From Zosyn] cinacalcet [From Sensipar] AdvReac Severe VOMITING Verified 01/17/18 09:44 IV DYE AdvReac Severe NAUSEA Uncoded 01/17/18 09:44 ORAL VITAMIN D AdvReac Severe VOMITING Uncoded 01/17/18 09:44 - Medications Medications: Current Medications Acetaminophen (Tylenol 325mg Tab) 650 mg PO Q6H PRN PRN Reason: Pain, severe (8-10) Last Admin: 06/11/18 07:50 Dose: 650 mg Acetaminophen (Tylenol 325mg Tab) 325 mg PO Q6H PRN PRN Reason: Pain, severe (8-10) Last Admin: 06/01/18 22:33 Dose: 325 mg Aspirin (Aspirin Chewable) 81 mg PO DAILY [facility] Last Admin: 06/11/18 13:43 Dose: Not Given Codeine Sulfate (Codeine) 30 mg PO Q6H PRN PRN Reason: Pain, severe (8-10) Last Admin: 06/11/18 03:39 Dose: 30 mg Gabapentin (Neurontin) 300 mg PO BID [facility]; Protocol Last Admin: 06/11/18 13:44 Dose: Not Given Heparin Sodium (Porcine) (Heparin) 4,000 units IV MWF [facility] Last Admin: 06/11/18 09:12 Dose: 4,000 units Hydromorphone HCl (Dilaudid) 0.5 mg IVP Q15M PRN PRN Reason: Pain, Moderate/Severe (4-10) Meropenem 250 mg/ Sodium (Chloride) 100 mls @ 100 mls/hr IVPB 1000,2200 [facility]; Protocol Last Admin: 06/11/18 13:56 Dose: 100 mls/hr Losartan Potassium (Cozaar) 50 mg PO DAILY [facility] Last Admin: 06/11/18 13:43 Dose: Not Given Mupirocin (Bactroban Ointment) 0 gm TOP BID [facility] Last Admin: 06/11/18 13:43 Dose: Not Given Ondansetron HCl (Zofran Odt) 4 mg PO Q8H PRN PRN Reason: Nausea/Vomiting Last Admin: 06/02/18 11:43 Dose: 4 mg Sevelamer HCl (Renagel) 800 mg PO 0800,1200,1700 [facility] Last Admin: 06/11/18 13:55 Dose: 800 mg Physical Exam - Constitutional Appears: Well, No Acute Distress - Head Exam Head Exam: ATRAUMATIC, NORMAL INSPECTION - Eye Exam Eye Exam: EOMI. absent: Scleral icterus - ENT Exam ENT Exam: Mucous Membranes Moist. absent: Mucous Membranes Dry - Respiratory Exam Respiratory Exam: NORMAL BREATHING PATTERN. absent: Accessory Muscle Use, Respiratory Distress - Cardiovascular Exam Cardiovascular Exam: REGULAR RHYTHM, RRR - GI/Abdominal Exam GI & Abdominal Exam: Soft. absent: Bruit, Distended, Firm, Guarding, Mass, Organomegaly, Pulsatile Mass, Rigid, Tenderness - Extremities Exam Extremities exam: Positive for: normal inspection. Negative for: pedal edema - Back Exam Back exam: NORMAL INSPECTION. absent: rash noted - Neurological Exam Neurological exam: Alert, CN II-XII Intact - Psychiatric Exam Psychiatric exam: Normal Affect, Normal Mood - Skin Skin Exam: Normal Color, Warm Additional comments: left upper extremity AV fistula Results - Vital Signs Recent Vital Signs: Last Vital Signs Temp 98.1 F 06/11/18 14:00 Pulse 110 H 06/11/18 14:00 Resp 20 06/11/18 14:00 BP 95/51 L 06/11/18 14:00 Pulse Ox 97 06/11/18 14:00 - Labs Result Diagrams: 06/11/18 09:00 06/11/18 09:00 Labs: Laboratory Results - last 24 hr 06/11/18 06/11/18 06/11/18 09:00 09:00 09:00 WBC 10.2 RBC 3.32 L Hgb 10.4 L D Hct 32.3 L MCV 97.3 MCH 31.3 MCHC 32.2 RDW 15.8 H Plt Count 297 MPV 9.7 Neut % (Auto) 79.9 H Lymph % (Auto) 11.5 L [place] % (Auto) 5.2 Eos % (Auto) 2.9 Baso % (Auto) 0.5 Lymph # (Auto) 1.2 [place] # (Auto) 0.5 Eos # (Auto) 0.3 Baso # (Auto) 0.05 Absolute Neuts (auto) 8.11 H Sodium 134 Potassium 6.6 H* D Chloride 94 L Carbon Dioxide 22 Anion Gap 24 H BUN 75 H Creatinine 12.2 H* D Est GFR ( Amer) 6 Est GFR (Non-Af Amer) 5 Random Glucose 103 Calcium 8.4 Phosphorus 10.0 H Magnesium 2.1 Total Bilirubin 0.5 AST 76 H D ALT 59 H Alkaline Phosphatase 134 H D Troponin I 0.04 D Total Protein 8.3 Albumin 4.1 Globulin 4.2 Albumin/Globulin Ratio 1.0 L Hepatitis A IgM Ab Hep Bs Antigen Hep B Core IgM Ab Hepatitis C Antibody 06/11/18 10:49 WBC RBC Hgb Hct MCV MCH MCHC RDW Plt Count MPV Neut % (Auto) Lymph % (Auto) [place] % (Auto) Eos % (Auto) Baso % (Auto) Lymph # (Auto) [place] # (Auto) Eos # (Auto) Baso # (Auto) Absolute Neuts (auto) Sodium Potassium Chloride Carbon Dioxide Anion Gap BUN Creatinine Est GFR ( Amer) Est GFR (Non-Af Amer) Random Glucose Calcium Phosphorus Magnesium Total Bilirubin AST ALT Alkaline Phosphatase Troponin I Total Protein Albumin Globulin Albumin/Globulin Ratio Hepatitis A IgM Ab Negative Hep Bs Antigen Negative Hep B Core IgM Ab Negative Hepatitis C Antibody Negative Assessment & Plan - Assessment and Plan (Free Text) Assessment: 42-year-old male with ESRD, CAD, diabetes, osteomyelitis status post amputation and surgical debridement on 06/07/18. GI consulted for abnormal liver test #abnormal liver tests: Hepatocellular pattern predominant with normalbilirubin at this time and mildly elevated alk phos. Rhabo (post op muscle injury) vs GERBER vs other #EGD done 07/28/17: Hiatal hernia, gastric erosions and duodenitis (no biopsies) Plan: Trend liver tests and check LDH Viral hepatitis ruled out Will consider abdominal ultrasound pending course IV fluids per primary Further workup pending clinical course Patient seen and examined with Dr. Raymond. Please see that dictation for further recommendations/changes Portions of this note has been dictated but not necessarily proofread <Rick Raymond V - Last Filed: 06/12/18 23:57> Meds - Medications Medications: Current Medications Acetaminophen (Tylenol 325mg Tab) 650 mg PO Q6H PRN PRN Reason: Pain, severe (8-10) Last Admin: 06/12/18 02:37 Dose: 650 mg Acetaminophen (Tylenol 325mg Tab) 325 mg PO Q6H PRN PRN Reason: Pain, severe (8-10) Last Admin: 06/01/18 22:33 Dose: 325 mg Aspirin (Aspirin Chewable) 81 mg PO DAILY [facility] Last Admin: 06/12/18 10:37 Dose: Not Given Codeine Sulfate (Codeine) 30 mg PO Q6H PRN PRN Reason: Pain, severe (8-10) Last Admin: 06/11/18 23:32 Dose: 30 mg Gabapentin (Neurontin) 300 mg PO BID [facility]; Protocol Last Admin: 06/12/18 18:16 Dose: Not Given Heparin Sodium (Porcine) (Heparin) 4,000 units IV MWF [facility] Last Admin: 06/11/18 09:12 Dose: 4,000 units Meropenem 250 mg/ Sodium (Chloride) 100 mls @ 100 mls/hr IVPB 1000,2200 [facility]; Protocol Last Admin: 06/12/18 14:43 Dose: 100 mls/hr Losartan Potassium (Cozaar) 50 mg PO DAILY [facility] Last Admin: 06/12/18 10:37 Dose: Not Given Mupirocin (Bactroban Ointment) 0 gm TOP BID [facility] Last Admin: 06/12/18 18:15 Dose: Not Given Ondansetron HCl (Zofran Odt) 4 mg PO Q8H PRN PRN Reason: Nausea/Vomiting Last Admin: 06/02/18 11:43 Dose: 4 mg Pregabalin (Lyrica) 50 mg PO BID [facility] Last Admin: 06/12/18 18:16 Dose: Not Given Sevelamer HCl (Renagel) 800 mg PO 0800,1200,1700 [facility] Last Admin: 06/12/18 17:51 Dose: 800 mg Tizanidine HCl (Zanaflex) 4 mg PO HS [facility] Last Admin: 06/12/18 21:06 Dose: 4 mg Results - Vital Signs Recent Vital Signs: Last Vital Signs Temp 98.1 F 06/12/18 22:27 Pulse 111 H 06/12/18 22:27 Resp 18 06/12/18 22:27 BP 154/60 H 06/12/18 22:27 Pulse Ox 99 06/12/18 22:27 - Labs Result Diagrams: 06/12/18 06:30 06/12/18 06:30 Labs: Laboratory Results - last 24 hr 06/12/18 06/12/18 06/12/18 06:30 06:30 13:00 WBC 10.1 RBC 3.51 Hgb 11.0 L Hct 34.8 L MCV 99.1 MCH 31.3 MCHC 31.6 RDW 16.1 H Plt Count 325 MPV 9.4 Neut % (Auto) 75.4 H Lymph % (Auto) 15.7 L [place] % (Auto) 6.4 H Eos % (Auto) 1.9 Baso % (Auto) 0.6 Lymph # (Auto) 1.6 [place] # (Auto) 0.7 H Eos # (Auto) 0.2 Baso # (Auto) 0.06 Absolute Neuts (auto) 7.62 H Sodium 139 Potassium 6.5 H* Chloride 96 L Carbon Dioxide 28 Anion Gap 22 H BUN 56 H Creatinine 9.3 H* D Est GFR ( Amer) 8 Est GFR (Non-Af Amer) 6 Random Glucose 97 Calcium 8.6 Total Bilirubin 0.5 AST 60 H D ALT 46 Alkaline Phosphatase 115 Lactate Dehydrogenase 685 Total Protein 8.6 H Albumin 4.1 Globulin 4.4 Albumin/Globulin Ratio 0.9 L Random Vancomycin 15.0 Attending/Attestation - Attestation I have personally seen and examined this patient.: Yes I have fully participated in the care of the patient.: Yes I have reviewed all pertinent clinical information: Yes Notes (Text): This is a delayed addendum dictation. The patient was seen and evaluated along with the GI fellow earlier. Denies any abdominal pain now. tolerating diet History of peptic ulcer disease gastroparesis patient end-stage renal disease on hemodialysis now found to have a increase LFT. Sonogram done in the past was reviewed suggestive of gallstones. CBD was normal. Follow-up LFT Repeat sonogram. 06/12/18 23:54
--- NOTE | 2018-06-11 19:58 | PN ---
DATE: 06/11/2018 SUBJECTIVE: The patient has no complaints of any chest pain. No shortness of breath. No headaches. He has been drinking milk and other drinks not consistent with his diet. PHYSICAL EXAMINATION: VITAL SIGNS: Temperature is 98.1, pulse of 110, blood pressure 95/51 and respiration is 20. GENERAL: The patient is lying in bed, flat, comfortable. HEENT: No oral lesion. Anicteric sclerae. Moist mucosa. NECK: No JVD, adenopathy, or thyromegaly. CARDIOVASCULAR: S1 and S2, regular. No murmurs, rubs, or gallops. LUNGS: Clear to auscultation bilaterally. No wheeze, rales, or rhonchi. ABDOMEN: Bowel sounds are positive, soft, nontender and nondistended. EXTREMITIES: No cyanosis, clubbing or edema. LABORATORY DATA: White count of 10.2 and hemoglobin 10.4. Creatinine is 12.2. Potassium is 6.6. ASSESSMENT: 1. End-stage renal disease, on hemodialysis. 2. Secondary hyperparathyroidism. 3. Hyperkalemia, resolved. 4. Anemia, chronic. 5. Coronary artery disease. 6. Right third phalanx osteomyelitis status post surgery. 7. Status post third digit amputation with partial second digit amputation. 8. Dyslipidemia. 9. Hypertension. 10. Left arteriovenous fistula. 11. Pacemaker. 12. Right peripherally inserted central catheter line. 13. Obesity with a body mass index of 36. 14. Noncompliance with diet. PLAN: The patient is going to be on a 1K bath for 2 hours and then will be on a 2K bath. He has 4-1/2 hours of dialysis. He is going to get about 4 liters of fluid removal. The patient is receiving codeine for pain. He has Dilaudid for his neck pain. The patient is on sevelamer. He is currently comfortable. The patient's CT of the head was reviewed, I also reviewed the patient's cervical spine CT, which showed that there was possible impingement of the left C8 nerve. His next dialysis will be on Monday. Maximilian Zheng MD
[2018-06-11] MEDS ORDERED: Vancomycin 1gm in NS 250ml 1 GM/250 ML BAG IVPB STA (22:23)
[2018-06-12] MEDS ORDERED: HYDROmorphone 0.5 mg/0.5 ml ISec IVP STA (00:58)
--- NOTE | 2018-06-12 01:38 | PN ---
DATE: 06/11/2018 SUBJECTIVE: The patient is seen in bed, in no acute distress. PHYSICAL EXAMINATION: VITAL SIGNS: Temperature is 98, blood pressure is 140/70, respiratory rate of 20, and heart rate of 110. HEENT: Unremarkable. NECK: Supple. LUNGS: Decreased breath sounds. HEART: Normal S1 and S2. ABDOMEN: Soft and nontender. LABORATORY DATA: Reveals a white count of 10,000 and hemoglobin of 10. Chemistries reveals to be creatinine 12.2. Microbiology reveals coagulase-negative Staphylococcus and corynebacterium from the foot cultures and toe cultures. REVIEW OF ORDERS: Reveals the patient on intermittent vancomycin and meropenem. ASSESSMENT AND PLAN: This is a 42-year-old male with left foot cellulitis, possible right foot osteomyelitis second and third digit amputation of right foot debridement postprocedure day #4 and given vancomycin. We will give another dose of vancomycin today. The patient is also on meropenem. The patient had procedure today where the patient had amputation of third digit in the right foot, amputation of partial second digit of right foot and surgical intervention today. We will give another dose of vancomycin and follow with you. Nasir Dunn MD
[2018-06-12 07:00] LABS: BASO # 0.06 K/mm3 (0.0-2.0); BASO % 0.6 % (0.0-3.0); EOS # 0.2 (0.0-0.7); EOS % 1.9 % (1.5-5.0); LYMPH # 1.6 (1.2-3.4); LYMPH % 15.7 % (22.0-35.0); MEAN CELL VOLUME 99.1 fl (80.0-105.0); MEAN CORPUSCULAR HEMOGLOBIN 31.3 pg (25.0-35.0); MEAN CORPUSCULAR HGB CONC 31.6 g/dl (31.0-37.0); MEAN PLATELET VOLUME 9.4 fl (7.0-11.0); MONO # 0.7 (0.1-0.6); MONO % 6.4 % (1.0-6.0); RBC 3.51 10^6/uL (3.5-6.1); RED CELL DISTRIBUTION WIDTH 16.1 % (11.5-14.5); WHITE BLOOD COUNT 10.1 10^3/uL (4.5-11.0)
--- NOTE | 2018-06-12 07:13 | CP.PCM.PN ---
Subjective - Date & Time of Evaluation Date of Evaluation: 06/12/18 Time of Evaluation: 07:13 - Subjective Subjective: Patient was seen at bedside. He was given dilaudid 0.5 mg IV x 1 for left shoulder pain. Has no complaints now. Medical record was reviewed. This 42 year old male was admitted for wound in right foot , infection, cellulitis,was sent to ER by customer care specialist. Has PMH of CAD,S/P CABG,CKD, HTN,NIDDM, Obesity, OM of right foot. Objective - Vital Signs/Intake and Output Vital Signs (last 24 hours): Temp Pulse Resp BP Pulse Ox 98.1 F 61 18 174/90 H 95 06/11/18 23:21 06/11/18 23:21 06/11/18 23:21 06/11/18 23:21 06/11/18 23:21 Intake and Output: 06/12/18 06/12/18 06:59 18:59 Intake Total 660 Balance 660 - Medications Medications: Current Medications Acetaminophen (Tylenol 325mg Tab) 650 mg PO Q6H PRN PRN Reason: Pain, severe (8-10) Last Admin: 06/12/18 02:37 Dose: 650 mg Acetaminophen (Tylenol 325mg Tab) 325 mg PO Q6H PRN PRN Reason: Pain, severe (8-10) Last Admin: 06/01/18 22:33 Dose: 325 mg Aspirin (Aspirin Chewable) 81 mg PO DAILY [facility] Last Admin: 06/11/18 13:43 Dose: Not Given Codeine Sulfate (Codeine) 30 mg PO Q6H PRN PRN Reason: Pain, severe (8-10) Last Admin: 06/11/18 23:32 Dose: 30 mg Gabapentin (Neurontin) 300 mg PO BID [facility]; Protocol Last Admin: 06/11/18 18:43 Dose: 300 mg Heparin Sodium (Porcine) (Heparin) 4,000 units IV MWF [facility] Last Admin: 06/11/18 09:12 Dose: 4,000 units Meropenem 250 mg/ Sodium (Chloride) 100 mls @ 100 mls/hr IVPB 1000,2200 [facility]; Protocol Last Admin: 06/11/18 21:32 Dose: 100 mls/hr Losartan Potassium (Cozaar) 50 mg PO DAILY [facility] Last Admin: 06/11/18 13:43 Dose: Not Given Mupirocin (Bactroban Ointment) 0 gm TOP BID [facility] Last Admin: 06/11/18 18:46 Dose: Not Given Ondansetron HCl (Zofran Odt) 4 mg PO Q8H PRN PRN Reason: Nausea/Vomiting Last Admin: 06/02/18 11:43 Dose: 4 mg Sevelamer HCl (Renagel) 800 mg PO 0800,1200,1700 [facility] Last Admin: 06/11/18 18:45 Dose: 800 mg - Labs Labs: 06/11/18 09:00 06/11/18 09:00 PT 11.6 SECONDS (9.4-12.5) 06/01/18 00:20 INR 1.05 06/01/18 00:20 APTT 28.6 Seconds (26.9-38.3) 06/01/18 00:20 - Constitutional Appears: Well, No Acute Distress - Head Exam Head Exam: ATRAUMATIC, NORMAL INSPECTION, NORMOCEPHALIC - Eye Exam Eye Exam: Normal appearance - ENT Exam ENT Exam: Normal External Ear Exam - Neck Exam Neck Exam: Normal Inspection - Respiratory Exam Respiratory Exam: NORMAL BREATHING PATTERN - Cardiovascular Exam Cardiovascular Exam: absent: JVD - GI/Abdominal Exam GI & Abdominal Exam: absent: Distended - Rectal Exam Rectal Exam: Deferred - Exam Bimanual exam: NORMAL BIMANUAL EXAM (Deferred.) - Extremities Exam Additional comments: Right foot wound covered by dressing. - Back Exam Back Exam: NORMAL INSPECTION - Neurological Exam Neurological Exam: Alert, Awake, Oriented x3 - Psychiatric Exam Psychiatric exam: Normal Affect - Skin Skin Exam: Normal Color Assessment and Plan - Assessment and Plan (Free Text) Assessment: Right foot pain. Right foot wound. Right foot cellullitis. CAD. S/P CABG. HTN NIDDM CKD OM of right foot. Plan: Dilaudid 0.5 mg IV x 1. Continue present management.
[2018-06-12 08:16] LABS: CALCIUM 8.6 mg/dL (8.4-10.5)
[2018-06-12 08:17] LABS: ALB/GLOB RATIO 0.9 (1.1-1.8); ALBUMIN 4.1 g/dL (3.0-4.8)
--- NOTE | 2018-06-12 11:18 | PN ---
DATE: 06/12/2018 SUBJECTIVE: A 42-year-old male comfortable this morning, although the nurses state that during the night the patient was having pain in his left arm, neck, and shoulder area. PHYSICAL EXAMINATION: VITAL SIGNS: His temperature is 97. His pulse is 96. His blood pressure is 126/75, respiratory rate is 20, oxygen sat is 100% on room air. GENERAL: He is alert and oriented x3. NECK: Supple. LUNGS: Clear. HEART: S1, S2 rhythm. ABDOMEN: Obese, soft with positive bowel sounds. EXTREMITIES: No evidence of edema. He has dressings on both feet. LABORATORY DATA: Hepatitis screen is negative at this time. WBC is 10.1, RBC is 3.51, hemoglobin 11, hematocrit 34.8, platelet count is 325. Chemistry shows sodium 139, potassium 6.5, chloride 96, CO2 of 28, BUN is 56, creatinine is 9.3. The patient's LFTs are better compared to the day before. His AST is now 60. The ALT and alkaline phosphatase normalized. His troponin was 0.04. His albumin is 4.1. ASSESSMENT AND PLAN: 1. The patient had dialysis yesterday; however, required dialysis today. We will contact the dialysis unit and have them get in touch with Dr. Gonzalez, his renal attending. The potassium bath will need to be adjusted accordingly. 2. He continues on intravenous Merrem and intermittent vancomycin during dialysis for the osteomyelitis of his feet. Pathology is pending on the surgical specimens post debridement of a wound on the left foot and amputation of the part of the second and third toes on the right foot. I will continue current level of care at this time. Follow up the patient's labs. The nurses are now stating that the PICC line is not functioning adequately, we will get vascular interventional evaluation for this. Cleopatra White MD
[2018-06-12] MEDS: Mupirocin 2% Ointment 15 GM TUBE TOP SCH ×2 (12:37→18:15)
--- NOTE | 2018-06-12 12:55 | PN ---
DATE: 06/12/2018 SUBJECTIVE: The patient has no complaints of any chest pain. No shortness of breath. No headaches. No dizziness. PHYSICAL EXAMINATION: VITAL SIGNS: Temperature is 97.1, pulse of 96, blood pressure 126/75, respirations 20. GENERAL: The patient is lying in bed, flat, comfortable. HEENT: No oral lesion. Anicteric sclerae. Moist mucosa. NECK: No JVD, adenopathy, or thyromegaly. CARDIOVASCULAR: S1 and S2, regular. No murmurs, rubs, or gallops. LUNGS: Clear to auscultation bilaterally. No wheeze, rales, or rhonchi. ABDOMEN: Bowel sounds are positive, soft, nontender and nondistended. EXTREMITIES: No cyanosis, clubbing or edema. LABORATORY DATA: White count of 10.1, hemoglobin 11. Creatinine is 9.3. Potassium is 6.5. ASSESSMENT: 1. Hyperkalemia. 2. End-stage renal disease, on hemodialysis. 3. Noncompliance with diet. 4. Secondary hyperparathyroidism. 5. Anemia, chronic. 6. Coronary artery disease. 7. Status post right third digit amputation and partial second digit amputation. 8. Right third phalanx osteomyelitis. 9. Dyslipidemia. 10. Hypertension. 11. Left arteriovenous fistula. 12. Pacemaker. 13. Right peripherally inserted central catheter line. 14. Obesity with a body mass index of 36. PLAN: The patient is going to be dialyzed today. I will place the patient on a 1K bath for 3 hours. The patient had full treatment yesterday. I believe that the hyperkalemia is from the diet that the patient has been on. The patient has not been on a renal diet. The patient has been changed to a renal diet at this point. The patient is currently on losartan for hypertension. He is getting codeine for pain. He does have acute neck pain and he has been getting Dilaudid for his pain. The patient is on sevelamer for his secondary hyperparathyroidism. I did speak to Dr. White regarding the patient's case and I will dialyze the patient today. Maximilian Zheng MD [facility] # [id number]
--- NOTE | 2018-06-12 13:20 | CP.PCM.PN ---
Subjective - Date & Time of Evaluation Date of Evaluation: 06/12/18 Time of Evaluation: 13:23 - Subjective Subjective: Podiatry Progress Note for Dr. Bucio 42M seen and evaluated at bedside 4 days s/p right third digit and partial second digit amputation and also for evaluation of lateral left leg wound. Patient is AAO x 3 and NAD. Denies any acute overnight events. States that pain is well controlled at this time. Denies any recent N/V/F/C/CP/SOB/D Objective - Vital Signs/Intake and Output Vital Signs (last 24 hours): Temp Pulse Resp BP Pulse Ox 97.1 F L 96 H 20 126/75 100 06/12/18 07:00 06/12/18 07:00 06/12/18 07:00 06/12/18 07:00 06/12/18 07:00 Intake and Output: 06/12/18 06/12/18 06:59 18:59 Intake Total 660 Balance 660 - Medications Medications: Current Medications Acetaminophen (Tylenol 325mg Tab) 650 mg PO Q6H PRN PRN Reason: Pain, severe (8-10) Last Admin: 06/12/18 02:37 Dose: 650 mg Acetaminophen (Tylenol 325mg Tab) 325 mg PO Q6H PRN PRN Reason: Pain, severe (8-10) Last Admin: 06/01/18 22:33 Dose: 325 mg Aspirin (Aspirin Chewable) 81 mg PO DAILY [facility] Last Admin: 06/12/18 10:37 Dose: Not Given Codeine Sulfate (Codeine) 30 mg PO Q6H PRN PRN Reason: Pain, severe (8-10) Last Admin: 06/11/18 23:32 Dose: 30 mg Gabapentin (Neurontin) 300 mg PO BID [facility]; Protocol Last Admin: 06/12/18 10:37 Dose: Not Given Heparin Sodium (Porcine) (Heparin) 4,000 units IV MWF [facility] Last Admin: 06/11/18 09:12 Dose: 4,000 units Meropenem 250 mg/ Sodium (Chloride) 100 mls @ 100 mls/hr IVPB 1000,2200 [facility]; Protocol Last Admin: 06/11/18 21:32 Dose: 100 mls/hr Losartan Potassium (Cozaar) 50 mg PO DAILY [facility] Last Admin: 06/12/18 10:37 Dose: Not Given Mupirocin (Bactroban Ointment) 0 gm TOP BID [facility] Last Admin: 06/12/18 12:37 Dose: Not Given Ondansetron HCl (Zofran Odt) 4 mg PO Q8H PRN PRN Reason: Nausea/Vomiting Last Admin: 06/02/18 11:43 Dose: 4 mg Pregabalin (Lyrica) 50 mg PO BID [facility] Sevelamer HCl (Renagel) 800 mg PO 0800,1200,1700 [facility] Last Admin: 06/12/18 12:39 Dose: Not Given Tizanidine HCl (Zanaflex) 4 mg PO HS [facility] - Labs Labs: 06/12/18 06:30 06/12/18 06:30 PT 11.6 SECONDS (9.4-12.5) 06/01/18 00:20 INR 1.05 06/01/18 00:20 APTT 28.6 Seconds (26.9-38.3) 06/01/18 00:20 - Constitutional Appears: Well, Non-toxic, No Acute Distress - Head Exam Head Exam: ATRAUMATIC, NORMOCEPHALIC - Extremities Exam Additional comments: B/L lower extremity focused exam: Vascular: DP and PT 2/4 bilaterally, Cap refill < 3 seconds to all remaining digits, Temp gradient warm to warm from proximal to distal WNL, minimal non pitting edema noted to the b/l LE. Neuro: Epicritic and protective sensation grossly diminished b/l Derm: Right foot: Amputation sites at second and third digits well coapted with no evidence of dehiscence and with all sutures intact. No erythema, malodor, drainage or other clinical signs of infection appreciated. Left foot: An open ulceration noted on the lateral aspect of the left foot 5cm X 2cm X 0.2cm with hyperkeratotic surrounding tissue. No purulence, No tracking, No undermining, No probe to bone and no malodor. No periwound erythema noted MSK: Muscle power 5/5 to all groups, Pain on palpating the ulcer sites - Neurological Exam Neurological Exam: Alert, Awake, Oriented x3 - Psychiatric Exam Psychiatric exam: Normal Affect, Normal Mood Assessment and Plan - Assessment and Plan (Free Text) Assessment: 42M seen and evaluated at bedside 4 days s/p right third digit and partial second digit amputation and also for evaluation of lateral left leg wound. Plan: Patient seen and evaluated Plan discussed with Dr. Bucio Continue abx per ID Right amputation sites dressed with betadine, DSD, JOANNE Left foot wound dressed with ABD, DSD, JOANNE Patient to remain NWB to right leg and partial weight bearing to heel on left leg Patient likely to be brought into the OR on for application of graft to left foot wound Please provide medical clearance, NPO past midnight on Monday Podiatry will continue to follow while patient in house
--- NOTE | 2018-06-12 15:29 | PN ---
DATE: 06/12/2018 SUBJECTIVE: The patient is in bed, in no acute distress, nontoxic. PHYSICAL EXAMINATION: VITAL SIGNS: Temperature is 97, blood pressure 126/70, respiratory rate of 20, and heart rate of 110. HEENT: Unremarkable. NECK: Supple. LUNGS: Decreased breath sounds. HEART: Normal, S1 and S2. ABDOMEN: Soft and nontender. LABORATORY DATA: Reveals the patient's white count of 10,000. Chemistries, creatinine is 9.3. REVIEW OF ORDERS: Reveals the patient to be on intermittent vancomycin and meropenem and the patient's random vancomycin level is . ASSESSMENT AND PLAN: He is a 42-year-old male with obesity, body mass index of 35, who was admitted with left foot cellulitis, possible right foot osteomyelitis and second and third digit amputation. Post procedure day #5 and intermittent vancomycin and meropenem. We will order vancomycin random level, awaiting for pathology of the amputation regarding margins of the bone. We will follow vancomycin random level and pathology report. Nasir Dunn MD
--- NOTE | 2018-06-12 16:27 | CP.PCM.PN ---
<Ángel Michael - Last Filed: 06/12/18 16:25> Subjective - Date & Time of Evaluation Date of Evaluation: 06/12/18 Time of Evaluation: 13:00 - Subjective Subjective: PGY4 GI fellow progress note Patient was undergoing dialysis when seen this afternoon. States he is currently feeling well without any abdominal pain and is tolerating diet. Five-point review of systems negative other than stated above Objective - Vital Signs/Intake and Output Vital Signs (last 24 hours): Temp Pulse Resp BP Pulse Ox 97.1 F L 96 H 20 126/75 100 06/12/18 07:00 06/12/18 07:00 06/12/18 07:00 06/12/18 07:00 06/12/18 07:00 Intake and Output: 06/12/18 06/12/18 06:59 18:59 Intake Total 660 Balance 660 - Medications Medications: Current Medications Acetaminophen (Tylenol 325mg Tab) 650 mg PO Q6H PRN PRN Reason: Pain, severe (8-10) Last Admin: 06/12/18 02:37 Dose: 650 mg Acetaminophen (Tylenol 325mg Tab) 325 mg PO Q6H PRN PRN Reason: Pain, severe (8-10) Last Admin: 06/01/18 22:33 Dose: 325 mg Aspirin (Aspirin Chewable) 81 mg PO DAILY [facility] Last Admin: 06/12/18 10:37 Dose: Not Given Codeine Sulfate (Codeine) 30 mg PO Q6H PRN PRN Reason: Pain, severe (8-10) Last Admin: 06/11/18 23:32 Dose: 30 mg Gabapentin (Neurontin) 300 mg PO BID [facility]; Protocol Last Admin: 06/12/18 10:37 Dose: Not Given Heparin Sodium (Porcine) (Heparin) 4,000 units IV MWF [facility] Last Admin: 06/11/18 09:12 Dose: 4,000 units Meropenem 250 mg/ Sodium (Chloride) 100 mls @ 100 mls/hr IVPB 1000,2200 [facility]; Protocol Last Admin: 06/12/18 14:43 Dose: 100 mls/hr Losartan Potassium (Cozaar) 50 mg PO DAILY [facility] Last Admin: 06/12/18 10:37 Dose: Not Given Mupirocin (Bactroban Ointment) 0 gm TOP BID [facility] Last Admin: 06/12/18 12:37 Dose: Not Given Ondansetron HCl (Zofran Odt) 4 mg PO Q8H PRN PRN Reason: Nausea/Vomiting Last Admin: 06/02/18 11:43 Dose: 4 mg Pregabalin (Lyrica) 50 mg PO BID [facility] Sevelamer HCl (Renagel) 800 mg PO 0800,1200,1700 [facility] Last Admin: 06/12/18 12:39 Dose: Not Given Tizanidine HCl (Zanaflex) 4 mg PO HS [facility] - Labs Labs: 06/12/18 06:30 06/12/18 06:30 PT 11.6 SECONDS (9.4-12.5) 06/01/18 00:20 INR 1.05 06/01/18 00:20 APTT 28.6 Seconds (26.9-38.3) 06/01/18 00:20 - Constitutional Appears: Well, No Acute Distress - Head Exam Head Exam: ATRAUMATIC, NORMAL INSPECTION - Eye Exam Eye Exam: EOMI. absent: Scleral icterus - ENT Exam ENT Exam: Mucous Membranes Moist. absent: Mucous Membranes Dry - Respiratory Exam Respiratory Exam: NORMAL BREATHING PATTERN. absent: Accessory Muscle Use - GI/Abdominal Exam GI & Abdominal Exam: Soft. absent: Distended, Firm, Guarding, Rigid, Tenderness Assessment and Plan - Assessment and Plan (Free Text) Assessment: 42-year-old male with ESRD, CAD, diabetes, osteomyelitis status post amputation and surgical debridement on 06/07/18. GI consulted for abnormal liver test #Abnormal liver tests: Improved. Hepatocellular pattern predominant with normalbilirubin at this time and mildly elevated alk phos. Rhabo (post op muscle injury) vs GERBER vs other #EGD done 07/28/17: Hiatal hernia, gastric erosions and duodenitis (no biopsies) Plan: -Liver test improved Patient declined abdominal ultrasound despite medical recommendations Viral hepatitis ruled out IV fluids per primary Patient seen and examined with Dr. Raymond. Please see that dictation for further recommendations/changes <Rick Raymond V - Last Filed: 06/12/18 23:53> Objective - Vital Signs/Intake and Output Vital Signs (last 24 hours): Temp Pulse Resp BP Pulse Ox 98.1 F 111 H 18 154/60 H 99 06/12/18 22:27 06/12/18 22:27 06/12/18 22:27 06/12/18 22:27 06/12/18 22:27 Intake and Output: 06/12/18 06/13/18 18:59 06:59 Intake Total 720 Balance 720 - Medications Medications: Current Medications Acetaminophen (Tylenol 325mg Tab) 650 mg PO Q6H PRN PRN Reason: Pain, severe (8-10) Last Admin: 06/12/18 02:37 Dose: 650 mg Acetaminophen (Tylenol 325mg Tab) 325 mg PO Q6H PRN PRN Reason: Pain, severe (8-10) Last Admin: 06/01/18 22:33 Dose: 325 mg Aspirin (Aspirin Chewable) 81 mg PO DAILY [facility] Last Admin: 06/12/18 10:37 Dose: Not Given Codeine Sulfate (Codeine) 30 mg PO Q6H PRN PRN Reason: Pain, severe (8-10) Last Admin: 06/11/18 23:32 Dose: 30 mg Gabapentin (Neurontin) 300 mg PO BID [facility]; Protocol Last Admin: 06/12/18 18:16 Dose: Not Given Heparin Sodium (Porcine) (Heparin) 4,000 units IV MWF [facility] Last Admin: 06/11/18 09:12 Dose: 4,000 units Meropenem 250 mg/ Sodium (Chloride) 100 mls @ 100 mls/hr IVPB 1000,2200 [facility]; Protocol Last Admin: 06/12/18 14:43 Dose: 100 mls/hr Losartan Potassium (Cozaar) 50 mg PO DAILY [facility] Last Admin: 06/12/18 10:37 Dose: Not Given Mupirocin (Bactroban Ointment) 0 gm TOP BID [facility] Last Admin: 06/12/18 18:15 Dose: Not Given Ondansetron HCl (Zofran Odt) 4 mg PO Q8H PRN PRN Reason: Nausea/Vomiting Last Admin: 06/02/18 11:43 Dose: 4 mg Pregabalin (Lyrica) 50 mg PO BID [facility] Last Admin: 06/12/18 18:16 Dose: Not Given Sevelamer HCl (Renagel) 800 mg PO 0800,1200,1700 [facility] Last Admin: 06/12/18 17:51 Dose: 800 mg Tizanidine HCl (Zanaflex) 4 mg PO HS [facility] Last Admin: 06/12/18 21:06 Dose: 4 mg - Labs Labs: 06/12/18 06:30 06/12/18 06:30 PT 11.6 SECONDS (9.4-12.5) 06/01/18 00:20 INR 1.05 06/01/18 00:20 APTT 28.6 Seconds (26.9-38.3) 06/01/18 00:20 Attending/Attestation - Attestation I have personally seen and examined this patient.: Yes I have fully participated in the care of the patient.: Yes I have reviewed all pertinent clinical information, including history, physical exam and plan: Yes Notes (Text): This patient was seen and evaluated along with the GI fellow. The addendum continued progress report dictated by the fellow. LFTs show some improvement. Previous sonogram was reviewed suggestive of gallstones. Ordered repeat sonogram but patient is reluctant to have another sonogram. Follow-up LFT 06/12/18 23:52
--- NOTE | 2018-06-13 02:11 | CON ---
DATE: 06/12/2018 REQUESTING PHYSICIAN: Cleopatra White MD LOCATION: Room 561, bed 2. CHIEF COMPLAINT: Neck pain and left upper extremity pain. HISTORY OF PRESENT ILLNESS: Mr. Santos is a pleasant 42-year-old male with past medical history of hypertension, end-stage renal disease, on hemodialysis, Monday, Monday and Monday; history of diabetes mellitus, coronary artery disease with stenting, status post CABG; retinal detachment, hyperlipidemia, and multiple foot surgeries with toe amputation bilateral foot. The patient stated that he has been complaining of neck pain on and off for quite some time, but recently since he has been in the hospital, his neck pain got worse associated shooting down to the left shoulder blade down to the left upper extremity with tingling and numbness going down to the left ring and little finger. His pain level is 10/10. The patient is on codeine 30 mg as needed and 0.5 mg of IV push Dilaudid as needed for severe pain. He stated that the Dilaudid 0.5 mg does help him. PAST MEDICAL HISTORY: As mentioned above in history of present illness. ALLERGIES: ZOSYN AND IV DYE. FAMILY HISTORY: Hypertension and diabetes. SOCIAL HISTORY: He denies tobacco, EtOH, or elicit drug use. REVIEW OF SYSTEMS: A 14 point review of systems were negative except what is mentioned in the history of present illness. PHYSICAL EXAMINATION: GENERAL: The patient is lying in bed, in no acute distress. VITAL SIGNS: He is afebrile. Vital signs stable. HEENT: Head is normocephalic and atraumatic. CHEST: Clear to auscultation. ABDOMEN: Soft, nontender, and nondistended. CARDIOVASCULAR: S1 and S2 is normal. NEUROMUSCULAR: He is alert, awake and oriented x3, concentrates very well. Cranial nerves II through XII grossly intact. Coordination is grossly intact. There is tenderness over spinous process of cervical spine and left cervical paraspinal was tender trigger point and tightness of left upper trapezius, supraspinatus. Spurling test is positive on the left side. Sensation to light touch is impaired in left C7-C8 dermatome. Right foot is wrapped in dressing, status post toe amputation, left foot also has some ulcers are healing well. RADIOLOGIC STUDIES: CT scan of cervical spine without contrast performed on 06/08/2018 showed C2-C3 disk osteophyte complex, C3-C4 broad-based disk osteophyte complex with facet hypertrophy, C4-C5 broad-based disk osteophyte complex without central canal stenosis and mild bilateral facet arthropathy, C5-C6 broad-based disk osteophyte complex again without spinal canal stenosis and facet hypertrophy, C6-C7 broad-based disk osteophyte complex ventral thecal sac with mild central canal stenosis, asymmetric bilateral uncovertebral joint hypertrophy, C7-T1 broad-based disk osteophyte complex with superimposed left posterocentral and foraminal protrusion. IMPRESSION: 1. Multilevel cervical degenerative disk disease. 2. C7-T1 broad-based disk osteophyte complex with superimposed left posterocentral disk protrusion leading to left C7-C8 radiculopathy. RECOMMENDATIONS: 1. We will add Lyrica 50 mg twice a day and Zanaflex 4 mg at bedtime to the medication regimen. 2. Bedside physical therapy and to continue with outpatient physical therapy upon discharge. 3. If the above measure is not helpful, the patient may benefit from cervical epidural steroid injection. 4. If no response to cervical epidural steroid injection, the patient should be referred for spine surgery consultation for spine surgery evaluation. Ralf Bautista MD cc: Cleopatra White MD
[2018-06-13 08:17] LABS: BASO # 0.05 K/mm3 (0.0-2.0); BASO % 0.6 % (0.0-3.0); EOS # 0.3 (0.0-0.7); EOS % 3.7 % (1.5-5.0); HEMOGLOBIN 10.7 g/dL (14.0-18.0); LYMPH # 2.1 (1.2-3.4); LYMPH % 24.3 % (22.0-35.0); MEAN CORPUSCULAR HEMOGLOBIN 31.2 pg (25.0-35.0); MEAN CORPUSCULAR HGB CONC 31.8 g/dl (31.0-37.0); MEAN PLATELET VOLUME 9.3 fl (7.0-11.0); MONO # 0.7 (0.1-0.6); MONO % 8.4 % (1.0-6.0); RBC 3.43 10^6/uL (3.5-6.1); WHITE BLOOD COUNT 8.5 10^3/uL (4.5-11.0)
[2018-06-13] MEDS ORDERED: Doxercalciferol 4 mcg/2 ml Inj IV ONE (08:19)
[2018-06-13 08:30] LABS: ALB/GLOB RATIO 0.9 (1.1-1.8); ALBUMIN 3.8 g/dL (3.0-4.8); CALCIUM 8.5 mg/dL (8.4-10.5)
[2018-06-13] MEDS ORDERED: ETELCALCETIDE IV SCH (10:00)
--- NOTE | 2018-06-13 11:57 | CP.PCM.CON ---
History of Present Illness - History of Present Illness History of Present Illness: SPINE Asked to see pt for complaints of neck/L arm pain. Pt seen in dialysis this morning. He states he adjusted his medications and now has no more pain. I explained that Dr. Bautista's recommendations of PT and possible FRED were good first steps, and that we wouldn't consider any surgical intervention unless he failed to respond to those first. Also, we would not operate in the presence of acute osteomyelitis. He does not want any spinal surgery in any case so no further visits were scheduled. Thank you. Past Patient History - Infectious Disease Hx of Infectious Diseases: None - Tetanus Immunizations Tetanus Immunization: Unknown - Past Social History Smoking Status: Never Smoked - CARDIAC Hx Cardiac Disorders: Yes Hx Congestive Heart Failure: Yes Hx Hypertension: Yes - PULMONARY Hx Respiratory Disorders: Yes - NEUROLOGICAL Hx Paralysis: No - HEENT Hx HEENT Problems: Yes (tinnitis) Other/Comment: retinal detatchment 2008, laser sx both eyes - RENAL Hx Renal Failure: Yes - ENDOCRINE/METABOLIC Hx Diabetes Mellitus Type 2: Yes - HEMATOLOGICAL/ONCOLOGICAL Hx Blood Transfusions: No Hx Blood Transfusion Reaction: No - INTEGUMENTARY Hx Dermatological Problems: Yes Other/Comment: ULCER TO TOE - MUSCULOSKELETAL/RHEUMATOLOGICAL Hx Musculoskeletal Disorders: Yes - GASTROINTESTINAL Other/Comment: [id number] lbs on purpose in 2 yrs, egd 07/28/17 dx with severe duodenitis,duodenal/and gastric erosins 1cm hiatal hernia - GENITOURINARY/GYNECOLOGICAL Hx Genitourinary Disorders: No - PSYCHIATRIC Hx Emotional Abuse: No Hx Physical Abuse: No Hx Substance Use: No - SURGICAL HISTORY Hx Surgeries: Yes - ANESTHESIA Hx Anesthesia Reactions: No Hx Malignant Hyperthermia: No Meds Allergies/Adverse Reactions: Allergies Allergy/AdvReac Type Severity Reaction Status Date / Time piperacillin sodium Allergy Severe ITCHING Verified 01/17/18 09:44 [From Zosyn] tazobactam sodium Allergy Severe ITCHING Verified 01/17/18 09:44 [From Zosyn] cinacalcet [From Sensipar] AdvReac Severe VOMITING Verified 01/17/18 09:44 IV DYE AdvReac Severe NAUSEA Uncoded 01/17/18 09:44 ORAL VITAMIN D AdvReac Severe VOMITING Uncoded 01/17/18 09:44 - Medications Medications: Current Medications Acetaminophen (Tylenol 325mg Tab) 650 mg PO Q6H PRN PRN Reason: Pain, severe (8-10) Last Admin: 06/12/18 02:37 Dose: 650 mg Acetaminophen (Tylenol 325mg Tab) 325 mg PO Q6H PRN PRN Reason: Pain, severe (8-10) Last Admin: 06/01/18 22:33 Dose: 325 mg Aspirin (Aspirin Chewable) 81 mg PO DAILY [facility] Last Admin: 06/12/18 10:37 Dose: Not Given Codeine Sulfate (Codeine) 30 mg PO Q6H PRN PRN Reason: Pain, severe (8-10) Last Admin: 06/11/18 23:32 Dose: 30 mg Etelcalcetide (Parsabiv) 7.5 mg IV [facility] Gabapentin (Neurontin) 300 mg PO BID [facility]; Protocol Last Admin: 06/12/18 18:16 Dose: Not Given Heparin Sodium (Porcine) (Heparin) 4,000 units IV [facility] Last Admin: 06/11/18 09:12 Dose: 4,000 units Meropenem 250 mg/ Sodium (Chloride) 100 mls @ 100 mls/hr IVPB 1000,2200 [facility]; Protocol Last Admin: 06/13/18 04:40 Dose: Not Given Losartan Potassium (Cozaar) 50 mg PO DAILY [facility] Last Admin: 06/12/18 10:37 Dose: Not Given Mupirocin (Bactroban Ointment) 0 gm TOP BID [facility] Last Admin: 06/12/18 18:15 Dose: Not Given Ondansetron HCl (Zofran Odt) 4 mg PO Q8H PRN PRN Reason: Nausea/Vomiting Last Admin: 06/02/18 11:43 Dose: 4 mg Pregabalin (Lyrica) 50 mg PO BID [facility] Last Admin: 06/12/18 18:16 Dose: Not Given Sevelamer HCl (Renagel) 800 mg PO 0800,1200,1700 [facility] Last Admin: 06/12/18 17:51 Dose: 800 mg Tizanidine HCl (Zanaflex) 4 mg PO HS [facility] Last Admin: 06/12/18 21:06 Dose: 4 mg Results - Vital Signs Recent Vital Signs: Last Vital Signs Temp 98.2 F 06/13/18 06:00 Pulse 96 H 06/13/18 06:00 Resp 16 06/13/18 06:00 BP 110/61 06/13/18 06:00 Pulse Ox 96 06/13/18 06:00 - Labs Result Diagrams: 06/13/18 08:05 06/13/18 08:05 Labs: Laboratory Results - last 24 hr 06/12/18 06/13/18 06/13/18 13:00 08:05 08:05 WBC 8.5 RBC 3.43 L Hgb 10.7 L Hct 33.6 L MCV 98.0 MCH 31.2 MCHC 31.8 RDW 16.0 H Plt Count 307 MPV 9.3 Neut % (Auto) 63.0 Lymph % (Auto) 24.3 [place] % (Auto) 8.4 H Eos % (Auto) 3.7 Baso % (Auto) 0.6 Lymph # (Auto) 2.1 [place] # (Auto) 0.7 H Eos # (Auto) 0.3 Baso # (Auto) 0.05 Absolute Neuts (auto) 5.33 Sodium 137 Potassium 4.3 Chloride 94 L Carbon Dioxide 30 Anion Gap 17 BUN 47 H Creatinine 7.5 H* Est GFR ( Amer) 10 Est GFR (Non-Af Amer) 8 Random Glucose 119 H Calcium 8.5 Total Bilirubin 0.4 AST 52 ALT 38 Alkaline Phosphatase 93 Total Protein 8.0 Albumin 3.8 Globulin 4.2 Albumin/Globulin Ratio 0.9 L Random Vancomycin 15.0
--- NOTE | 2018-06-13 14:08 | CP.PCM.PCO ---
Additional Comments - Additional Comments Additional Comments: D/W Dr. Dunn pathology and OR culture results, recommends Vancomycin 1gm IV with each dialysis x 4weeks, may DC M[place]arcus. Plan discussed w/ Dr. White.
--- NOTE | 2018-06-13 14:17 | CP.PCM.PN ---
Subjective - Date & Time of Evaluation Date of Evaluation: 06/13/18 Time of Evaluation: 14:15 - Subjective Subjective: Podiatry Progress Note for Dr. Bucio 42M seen and evaluated at bedside 5 days s/p right third digit and partial second digit amputation and also for evaluation of lateral left leg wound. Patient is AAO x 3 and NAD. Denies any acute overnight events. States that pain is well controlled at this time. Denies any recent N/V/F/C/CP/SOB/D. Patietn aware he is going to the OR tomorrow for left foot graft application Objective - Vital Signs/Intake and Output Vital Signs (last 24 hours): Temp Pulse Resp BP Pulse Ox 98.3 F 115 H 20 132/61 97 06/13/18 13:58 06/13/18 13:58 06/13/18 13:58 06/13/18 13:58 06/13/18 13:58 Intake and Output: 06/13/18 06/13/18 06:59 18:59 Intake Total 720 Output Total 480 Balance 240 - Medications Medications: Current Medications Acetaminophen (Tylenol 325mg Tab) 650 mg PO Q6H PRN PRN Reason: Pain, severe (8-10) Last Admin: 06/12/18 02:37 Dose: 650 mg Acetaminophen (Tylenol 325mg Tab) 325 mg PO Q6H PRN PRN Reason: Pain, severe (8-10) Last Admin: 06/01/18 22:33 Dose: 325 mg Aspirin (Aspirin Chewable) 81 mg PO DAILY [facility] Last Admin: 06/12/18 10:37 Dose: Not Given Codeine Sulfate (Codeine) 30 mg PO Q6H PRN PRN Reason: Pain, severe (8-10) Last Admin: 06/11/18 23:32 Dose: 30 mg Etelcalcetide (Parsabiv) 7.5 mg IV [facility] Gabapentin (Neurontin) 300 mg PO BID [facility]; Protocol Last Admin: 06/12/18 18:16 Dose: Not Given Heparin Sodium (Porcine) (Heparin) 4,000 units IV [facility] Last Admin: 06/11/18 09:12 Dose: 4,000 units Vancomycin HCl (Vancomycin 1gm) 1 gm in 250 mls @ 167 mls/hr IVPB [facility]; Protocol Stop: 07/13/18 10:01 Losartan Potassium (Cozaar) 50 mg PO DAILY [facility] Last Admin: 06/12/18 10:37 Dose: Not Given Mupirocin (Bactroban Ointment) 0 gm TOP BID [facility] Last Admin: 06/12/18 18:15 Dose: Not Given Ondansetron HCl (Zofran Odt) 4 mg PO Q8H PRN PRN Reason: Nausea/Vomiting Last Admin: 06/02/18 11:43 Dose: 4 mg Pregabalin (Lyrica) 50 mg PO BID [facility] Last Admin: 06/12/18 18:16 Dose: Not Given Sevelamer HCl (Renagel) 800 mg PO 0800,1200,1700 [facility] Last Admin: 06/12/18 17:51 Dose: 800 mg Tizanidine HCl (Zanaflex) 4 mg PO HS [facility] Last Admin: 06/12/18 21:06 Dose: 4 mg - Labs Labs: 06/13/18 08:05 06/13/18 08:05 PT 11.6 SECONDS (9.4-12.5) 06/01/18 00:20 INR 1.05 06/01/18 00:20 APTT 28.6 Seconds (26.9-38.3) 06/01/18 00:20 - Constitutional Appears: Well, Non-toxic, No Acute Distress - Head Exam Head Exam: ATRAUMATIC, NORMOCEPHALIC - Extremities Exam Additional comments: B/L lower extremity focused exam: Vascular: DP and PT 2/4 bilaterally, Cap refill < 3 seconds to all remaining digits, Temp gradient warm to warm from proximal to distal WNL, minimal non pitting edema noted to the b/l LE. Neuro: Epicritic and protective sensation grossly diminished b/l Derm: Right foot: Amputation sites at second and third digits well coapted with no evidence of dehiscence and with all sutures intact. No erythema, malodor, d rainage or other clinical signs of infection appreciated. Left foot: An open ulceration noted on the lateral aspect of the left foot 5cm X 2cm X 0.2cm with hyperkeratotic surrounding tissue. No purulence, No tracking, No undermining, No probe to bone and no malodor. No periwound erythema noted MSK: Muscle power 5/5 to all groups, Pain on palpating the ulcer sites - Neurological Exam Neurological Exam: Alert, Awake, Oriented x3 - Psychiatric Exam Psychiatric exam: Normal Affect, Normal Mood Assessment and Plan - Assessment and Plan (Free Text) Assessment: 42M seen and evaluated at bedside 5 days s/p right third digit and partial second digit amputation and also for evaluation of lateral left leg wound. Plan: Patient seen and evaluated Plan discussed with Dr. Bucio Continue abx per ID Right amputation sites dressed with betadine, DSD, JOANNE Left foot wound dressed with ABD, DSD, JOANNE Patient to remain NWB to right leg and partial weight bearing to heel on left leg Patient to be brought into the OR on for application of graft to left foot wound Please provide medical clearance NPO past midnight on Monday Patient will be d/c on IV Abx Vanco with dialysis for 4 weeks as per infectious disease Podiatry will continue to follow while patient in house
[2018-06-13] MEDS ORDERED: Vancomycin 1gm in NS 250ml 1 GM/250 ML BAG IVPB SCH (14:23)
[2018-06-13] MEDS ORDERED: Heparin 0 ML IV ONE (14:36)
[2018-06-13] MEDS ORDERED: Lidocaine PF 2% (5 ml) Inj (For Cardiac Arrhy) ONE (14:36)
[2018-06-13] MEDS: Mupirocin 2% Ointment 15 GM TUBE TOP SCH (18:00)
--- NOTE | 2018-06-13 18:37 | PN ---
DATE: 06/13/2018 SUBJECTIVE: A 42-year-old male currently receiving dialysis. He states that he was eating and was a bit more comfortable the night before. They does state that he has been getting pain in his neck, left arm, shoulder area. PHYSICAL EXAMINATION: VITAL SIGNS: His temperature is 98, his pulse is 96, and his blood pressure is 110/61. LUNGS: Clear. HEART: S1 and S2 rhythm. ABDOMEN: Obese, soft with positive bowel sounds. EXTREMITIES: Have dressings on both feet status post surgery for the chronic ulcer of the toes and osteomyelitis. LABORATORY DATA: Pathology reports are noted. WBC this morning shows 8.5 with an RBC of 3.43, hemoglobin 10.7, hematocrit 33.6, and platelet count is 307. Chemistry shows a sodium of 137, potassium 4.3, chloride 94, the BUN is 47, and creatinine is 7.5. His LFTs are normal. ASSESSMENT AND PLAN: 1. It has been explained to the patient both by the pain management physician and by the orthopedic spinal surgeon and by myself and by Dr. Olmedo the findings on the CT of the cervical spine, the clinical issues at hand. He appears to understand that at this time, wishes not to use any Lyrica or Neurontin. 2. He continues on intravenous antibiotics have been prescribed by Infectious Disease. Given the pathology results, we will need to review with Infectious Disease the recommendation for the length of antibiotic therapy. 3. Vascular interventional consult has been requested because it was reported that the nurses were having difficulty with the peripherally inserted central catheter line. 4. He continues on dialysis 3 times a week for his chronic renal disease. 5. He has a history of diabetes mellitus. 6. He has a history of bypass with a pacemaker. We will continue current recommended management at this time. Cleopatra White MD
--- NOTE | 2018-06-13 21:54 | PN ---
DATE: 06/13/2018 SUBJECTIVE: The patient has no complaints of any chest pain. No shortness of breath. No headaches or dizziness. PHYSICAL EXAMINATION: VITAL SIGNS: Temperature is 98.3, pulse of 116, blood pressure 132/61, respirations 20. GENERAL: The patient is lying in bed, flat, comfortable. HEENT: No oral lesion. Anicteric sclerae. Moist mucosa. NECK: No JVD, adenopathy, or thyromegaly. CARDIOVASCULAR: S1 and S2, regular. No murmurs, rubs, or gallops. LUNGS: Clear to auscultation bilaterally. No wheeze, rales, or rhonchi. ABDOMEN: Bowel sounds are positive, soft, nontender and nondistended. EXTREMITIES: No cyanosis, clubbing or edema. In the left arm, there is a fistula with good thrill and bruit. ASSESSMENT: 1. End-stage renal disease, on hemodialysis Monday, Monday, Monday. 2. Hyperkalemia. 3. Noncompliance with diet. 4. Secondary hyperparathyroidism. 5. Status post right third amputation and partial second digit amputation. 6. Anemia, chronic. 7. Coronary artery disease. 8. Right third phalanx osteomyelitis. 9. Dyslipidemia. 10. Hypertension. 11. Pacemaker. 12. Left arteriovenous fistula. 13. Right peripherally inserted central catheter line. 14. Obesity with a body mass index of 36. PLAN: The patient is continuing with his dialysis. I did see him on dialysis. He has a potassium that is elevated at 6.5 yesterday. He did receive dialysis yesterday. He is on heparin during his dialysis treatment. The patient is on codeine for pain. He is on Lyrica for his neuropathy. He does have acute neck pain. The patient is on Neurontin for neuropathy as well. He is receiving Renagel for his secondary hyperparathyroidism. The patient is on vancomycin for antibiotics. He was given Zanaflex by Dr. Bautista. I did speak to Dr. White regarding the case. The patient is going to be continued on his Hectorol and Parsabiv. He was getting this as an outpatient. The patient currently is on a renal diet. Maximilian Norm, MD
--- NOTE | 2018-06-14 03:04 | PN ---
DATE: 06/13/2018 SUBJECTIVE: The patient is in bed, in no acute distress, nontoxic. PHYSICAL EXAMINATION: VITAL SIGNS: Temperature is 98, blood pressure is 130/60, respiratory rate of 18. HEENT: Unremarkable. NECK: Supple. LUNGS: Have decreased breath sounds. HEART: Normal S1, S2. ABDOMEN: Soft. LABORATORY EXAMINATION: Reveals a white count of 8.5, hemoglobin of 10, platelets of 307. Chemistries creatinine 7.5. Random vancomycin level is noted to be at 15 yesterday, and toe cultures done from the ED showed no growth. The patient has had multiple coag-negative Staph cultures from the left foot and toe culture from the . The pathology note is reviewed. ASSESSMENT AND PLAN: This is a 42-year-old with obesity, body mass index of 35, admitted with left foot cellulitis, possible right foot osteomyelitis, second and third digit amputation, postprocedure day #6 with pathology consistent with resection of the margin, positive for osteo with a Staphylococcus. We will give vancomycin during each dialysis for the next four weeks. We will follow with you. Nasir Dunn MD
--- NOTE | 2018-06-14 12:08 | PN ---
DATE: 06/14/2018 SUBJECTIVE: A 42-year-old male resting in bed this morning. The patient states that he was having some discomfort over his left arm. PHYSICAL EXAMINATION: VITAL SIGNS: Temperature of 98. His pulse is 105. His blood pressure is 120/53. His respiratory rate is 20. His oxygen sat is 97% on room air. GENERAL: He is alert and oriented x3. NECK: Supple. No JVD. LUNGS: Clear. ABDOMEN: Obese, soft with positive bowel sounds. EXTREMITIES: The PICC line has been removed from his right arm. He has an AV fistula on the left arm. He has dressings over both feet, status post surgery. At this particular point in time, it has been recommended that he does not need to continue the meropenem and will need the vancomycin during dialysis. At the same time, we are awaiting further Podiatry management of his left foot. I have discussed with the patient the recommendations of all the individual consultations, the findings of his cervical CT study and the indications for management. However, the patient does not wish to use the recommended medications and he is aware of the potential consequences and risks about following those recommendations. He continues on dialysis three times a week for his chronic renal failure. We will continue current level of care pending followup with Podiatry, Infectious Disease, and Nephrology. Cleopatra White MD
[2018-06-14] MEDS ORDERED: Lidocaine 1% Inj (20ml) ONE (12:54)
[2018-06-14] MEDS ORDERED: Bupivacaine 0.5% 50 ML IJ ONE (12:54)
[2018-06-14] MEDS ORDERED: Sodium Chloride 0.9% 1,000 ML IV SCH (13:45)
--- NOTE | 2018-06-14 13:53 | PCM.SURG1 ---
Surgeon's Initial Post Op Note - Surgeon's Notes Surgeon: Dr. Ajay Bucio, DPM Sign Manufacturer: Dr. Pinky Méndez PGY1 Type of Anesthesia: IV Sedation Anesthesia Administered By: Dr. Garsia Pre-Operative Diagnosis: Left plantar non-healing ulcer Operative Findings: see dictation. M: Apligraf, 3-0 Vicryl Post-Operative Diagnosis: same Operation Performed: Left foot wound debridement. Application of Apligraf Specimen/Specimens Removed: wound pathology. wound culture Estimated Blood Loss: EBL {In ML}: 2 Blood Products Given: N/A Drains Used: No Drains Post-Op Condition: Good Date of Surgery/Procedure: 06/14/18 Time of Surgery/Procedure: 13:52
[2018-06-14] MEDS: Mupirocin 2% Ointment 15 GM TUBE TOP SCH ×2 (15:35→18:43)
--- NOTE | 2018-06-14 22:51 | PN ---
DATE: 06/14/2018 SUBJECTIVE: The patient is seen in bed, in no acute distress, nontoxic, and was seen earlier today in [facility], bed 2. PHYSICAL EXAMINATION: VITAL SIGNS: Temperature is 98, blood pressure is 112/70, and respiratory rate of 16. HEENT: Unremarkable. NECK: Supple. LUNGS: Decreased breath sounds. LABORATORY DATA: Noted. Review of microbiology reveals cultures are noted. ASSESSMENT AND PLAN: A 42-year-old with obesity, body mass index of 35 and second and third digit amputation postprocedure day #7. Pathology will consistent with osteomyelitis with Staphylococcus. We will give vancomycin at each dialysis for the next 4 to 6 weeks with CBC, SMA-18, sed rate, and C-reactive protein. Naisr Dunn MD
--- NOTE | 2018-06-15 00:25 | PN ---
DATE: 06/14/2018 SUBJECTIVE: The patient has no complaints of any chest pain or shortness of breath or headache. He was complaining of acute neck pain early this morning. He was waiting for a muscle relaxant. PHYSICAL EXAMINATION: VITAL SIGNS: Temperature is 98.1, pulse is 96, blood pressure 123/76, respirations 20. GENERAL: The patient is lying in bed, flat, comfortable. HEENT: No oral lesion. Anicteric sclerae. Moist mucosa. NECK: No JVD, adenopathy, or thyromegaly. CARDIOVASCULAR: S1 and S2, regular. No murmurs, rubs, or gallops. LUNGS: Clear to auscultation bilaterally. No wheeze, rales, or rhonchi. ABDOMEN: Bowel sounds are positive, soft, nontender and nondistended. EXTREMITIES: No cyanosis, clubbing or edema. LABORATORY DATA: White count of 8.5, hemoglobin 10.7, creatinine is 7.5. ASSESSMENT: 1. End-stage renal disease, on hemodialysis. 2. Hyperkalemia, resolved. 3. Noncompliant with diet. 4. Secondary hyperparathyroidism. 5. Acute neck pain. 6. Status post right third amputation, partial second digit amputation. 7. Anemia, chronic. 8. Coronary artery disease. 9. Right third phalanx osteomyelitis. 10. Dyslipidemia. 11. Hypertension. 12. Pacemaker. 13. Left arteriovenous fistula. 14. Right peripherally inserted central catheter line. 15. Obesity with a body mass index of 36. PLAN: The patient is currently on Parsabiv and Hectorol. He states that because he missed doses of his Parsabiv and Hectorol, he is having the acute neck pain. I advised him that this is most likely not the case. He says that he is sure that this is the case. He is going to get dialysis tomorrow. He is on Neurontin for neuropathy. He is on Lyrica for his neck pain. He is on Renagel for secondary hyperparathyroidism. I will renew this medication. The patient is going to continue his losartan for his hypertension. He is receiving vancomycin. The patient is going to get vancomycin on dialysis. Maximilian Zheng MD
[2018-06-15] MEDS ORDERED: Lidocaine 5% Patch TD STA (04:20)
--- NOTE | 2018-06-15 07:04 | CP.PCM.PN ---
Subjective - Date & Time of Evaluation Date of Evaluation: 06/15/18 Time of Evaluation: 07:30 - Subjective Subjective: Podiatry Progress Note for Dr. Bucio 42 y/o male seen and evaluated at bedside 6 days s/p right third digit and partial second digit amputation and 1 day status post application of graft to the left leg wound. Patient is AAO x 3 and NAD. Denies any acute overnight events. States that pain is well controlled at this time. Denies any recent N/V/F/C/CP/SOB/D. Objective - Vital Signs/Intake and Output Vital Signs (last 24 hours): Temp Pulse Resp BP Pulse Ox 98 F 98 H 19 96/53 L 98 06/14/18 22:17 06/14/18 22:17 06/14/18 22:17 06/14/18 22:17 06/14/18 22:17 Intake and Output: 06/15/18 06/15/18 06:59 18:59 Intake Total 240 Balance 240 - Medications Medications: Current Medications Acetaminophen (Tylenol 325mg Tab) 650 mg PO Q6H PRN PRN Reason: Pain, severe (8-10) Last Admin: 06/12/18 02:37 Dose: 650 mg Acetaminophen (Tylenol 325mg Tab) 325 mg PO Q6H PRN PRN Reason: Pain, severe (8-10) Last Admin: 06/01/18 22:33 Dose: 325 mg Aspirin (Aspirin Chewable) 81 mg PO DAILY [facility] Last Admin: 06/14/18 15:35 Dose: Not Given Codeine Sulfate (Codeine) 30 mg PO Q6H PRN PRN Reason: Pain, severe (8-10) Last Admin: 06/14/18 17:49 Dose: 30 mg Etelcalcetide (Parsabiv) 7.5 mg IV F [facility] Gabapentin (Neurontin) 300 mg PO BID [facility]; Protocol Last Admin: 06/14/18 18:43 Dose: Not Given Heparin Sodium (Porcine) (Heparin) 4,000 units IV [facility] Last Admin: 06/11/18 09:12 Dose: 4,000 units Vancomycin HCl (Vancomycin 1gm) 1 gm in 250 mls @ 167 mls/hr IVPB [facility]; Protocol Stop: 07/11/18 10:01 Losartan Potassium (Cozaar) 50 mg PO DAILY [facility] Last Admin: 06/14/18 15:39 Dose: Not Given Mupirocin (Bactroban Ointment) 0 gm TOP BID [facility] Last Admin: 06/14/18 18:43 Dose: Not Given Ondansetron HCl (Zofran Odt) 4 mg PO Q8H PRN PRN Reason: Nausea/Vomiting Last Admin: 06/02/18 11:43 Dose: 4 mg Pregabalin (Lyrica) 50 mg PO BID [facility] Last Admin: 06/14/18 18:45 Dose: Not Given Sevelamer HCl (Renagel) 800 mg PO 0800,1200,1700 [facility] Last Admin: 06/14/18 16:20 Dose: 800 mg Tizanidine HCl (Zanaflex) 4 mg PO HS [facility] Last Admin: 06/14/18 21:48 Dose: 4 mg - Labs Labs: 06/13/18 08:05 06/13/18 08:05 PT 11.6 SECONDS (9.4-12.5) 06/01/18 00:20 INR 1.05 06/01/18 00:20 APTT 28.6 Seconds (26.9-38.3) 06/01/18 00:20 - Constitutional Appears: Well, Non-toxic, No Acute Distress - Head Exam Head Exam: ATRAUMATIC, NORMOCEPHALIC - Extremities Exam Additional comments: Dressings to B/L LE clean, dry and intact. - Neurological Exam Neurological Exam: Alert, Awake, Oriented x3 - Psychiatric Exam Psychiatric exam: Normal Affect, Normal Mood Assessment and Plan - Assessment and Plan (Free Text) Assessment: 42 y/o male seen and evaluated at bedside 6 days s/p right third digit and partial second digit amputation and 1 day s/p application of graft to the left leg wound. Plan: Patient seen and evaluated Plan discussed with Dr. Bucio Continue abx per ID Dressing to be kept clean, dry and intact Patient to remain NWB to right leg and partial weight bearing to heel on left leg Patient stable for D/C from podiatric standpoint Podiatry will continue to follow while patient in house
[2018-06-15 08:02] LABS: HEMOGLOBIN 11.4 g/dL (14.0-18.0); MEAN CORPUSCULAR HGB CONC 32.7 g/dl (31.0-37.0); MEAN PLATELET VOLUME 9.3 fl (7.0-11.0); RBC 3.56 10^6/uL (3.5-6.1); RED CELL DISTRIBUTION WIDTH 15.8 % (11.5-14.5); WHITE BLOOD COUNT 8.9 10^3/uL (4.5-11.0)
[2018-06-15] MEDS ORDERED: Doxercalciferol 4 mcg/2 ml Inj IV ONE (08:21)
[2018-06-15] MEDS ORDERED: Vancomycin 1gm in NS 250ml 1 GM/250 ML BAG IVPB SCH (10:00)
--- NOTE | 2018-06-15 10:20 | PN ---
DATE: 06/15/2018 SUBJECTIVE: The patient has no complaints of any chest pain. No shortness of breath. No headaches, no dizziness. He was seen on dialysis, he feels well. He did have episodes of vomiting this morning. The patient says that he had a burger late at night and that may be the cause of his vomiting. PHYSICAL EXAMINATION: VITAL SIGNS: Temperature is 97.5, pulse is 91, blood pressure 114/79 and respirations 18. GENERAL: The patient is lying in bed, flat, comfortable. HEENT: No oral lesion. Anicteric sclerae. Moist mucosa. NECK: No JVD, adenopathy, or thyromegaly. CARDIOVASCULAR: S1 and S2, regular. No murmurs, rubs, or gallops. LUNGS: Clear to auscultation bilaterally. No wheeze, rales, or rhonchi. ABDOMEN: Bowel sounds are positive, soft, nontender and nondistended. EXTREMITIES: No cyanosis, clubbing or edema. LABORATORY DATA: His potassium is 4.3. His creatinine is 7.5. ASSESSMENT: 1. End-stage renal disease, on hemodialysis. 2. Hyperkalemia, resolved. 3. Noncompliant with diet. 4. Secondary hyperparathyroidism. 5. Acute neck pain, improved. 6. Status post right third toe amputation. 7. Partial second digit amputation. 8. Anemia, chronic. 9. Coronary artery disease. 10. Right third phalanx osteomyelitis. 11. Dyslipidemia. 12. Hypertension. 13. Pacemaker. 14. Left arm arteriovenous fistula. 15. Right peripherally inserted central catheter line. 16. Obesity with a body mass index of 36. PLAN: The patient is currently comfortable. He is going to continue his dialysis. The patient is possibly scheduled to go home today. He says the pain medication that he is getting with the codeine is not helping him. He will need to continue with vancomycin for the next four weeks for his osteomyelitis. The patient is on losartan for hypertension. He is on aspirin daily. He is receiving heparin for dialysis. The patient is receiving Neurontin for neuropathy. He is on Zofran as needed. Maximilian Zheng MD [facility] # [id number]
[2018-06-15 12:53] VITALS: BP 131/65; PULSE 90; RESP 19; TEMP 98; O2SAT 98
--- NOTE | 2018-06-15 23:18 | PN ---
DATE: 06/15/2018 SUBJECTIVE: The patient is seen in bed, in no acute distress, and nontoxic. PHYSICAL EXAMINATION: VITAL SIGNS: Temperature is 98, blood pressure is 120/70, and respiratory rate is 16. HEENT: Unremarkable. NECK: Supple. LUNGS: Decreased breath sounds. HEART: Normal S1 and S2. ABDOMEN: Soft. LABORATORY DATA: Reviewed. Operative notes from yesterday is reviewed. left foot. ASSESSMENT AND PLAN: This is a 42-year-old male with obesity with body mass index of 35 with second and third digit amputation, postprocedure day #8. Pathology is consistent with osteomyelitis. The patient had Staphylococcus. We will give vancomycin at each dialysis next 4 to 6 weeks pending also follow with CBC, SMA-18, sed rate, and C-reactive protein. Nasir Dunn MD
--- NOTE | 2018-06-20 13:24 | PCM.OP ---
Operative Report - Operative Report Date of Surgery/Procedure: 06/14/18 Time of Surgery/Procedure: 13:00 Surgeon: Dr. Ajay Bucio DPM Insulation Helper: Dr. Pinky Méndez PGY1 Anesthesia/Sedation: Local Anesthesia Pre-Operative Diagnosis: Left foot plantar wound Post-Operative Diagnosis: same as above Indication for Surgery: Procedures 1) Full Thickness wound debridement 2) Application of Skin Graft Indications: The patient is a 42 year old male with the above diagnoses. The patient has exhausted all conservative treatment at this time and now requires surgical intervention. The patient signed the consent after careful explanation of risks, benefits, complications and alternatives for surgical procedure. No guarantees were given nor implied. NPO status was confirmed prior to taking patient to the OR. Operative Findings: Preparation: The patient was brought in to the operating room and placed on the operating room table in a supine position. Timeout was performed for identification of the correct patient and procedure. The lower extremity was then prepped and draped in normal sterile manner and the procedure began. No tourniquet was used during the procedure. Procedure/Operation Description: Procedure 1: Full Thickness Wound Debridement Attention was then directed to the plantar aspect of the left foot where a non- healing wound measuring approximately 3 cm x 2 cm x 0.6 cm was present. A sterile 15 blade and forceps were utilized to excise all necrotic tissue from the wound bed and wound margins. Next the ulceration was excisonally debrided of all remaining fibrotic and non-viable tissue until fresh and healthy bleeding granular tissue appeared. Wound culture was obtained. Procedure 2: Application of Apligraft At this time, Apligraf was prepped and applied to the wound bed. The graft was secured with 3-0 Vicryl. The site was dressed with adaptic, gauze, abdominal pads, and Kerlix. Estimated Blood Loss: 2 cc Complications: none Discharge & Condition: Postoperative Condition: The patient tolerated the anesthesia and procedure well and was escorted to the recovery room with vital signs stable and neurovascular status intact to the left foot
== END 2018-06-15 16:03 | disposition home or self-care (01) | DRG 617 ==
LOC: ED 22:13 → ERH 23:54 → 5RNO 06-01 01:15
PROVIDERS: ADMIT Internal Medicine; ATTEND Internal Medicine
PROC: 5A1D70Z Performance of Urinary Filtration, Intermittent, Less than 6 Hours Per Day (ICD-10-PCS; 2018-06-04)
PROC: 02HV33Z Insertion of Infusion Device into Superior Vena Cava, Percutaneous Approach (ICD-10-PCS; 2018-06-06)
PROC: 3E04329 Introduction of Other Anti-infective into Central Vein, Percutaneous Approach (ICD-10-PCS; 2018-06-06)
PROC: 5A1D70Z Performance of Urinary Filtration, Intermittent, Less than 6 Hours Per Day (ICD-10-PCS; 2018-06-06)
PROC: 0Y6T0Z0 Detachment at Right 3rd Toe, Complete, Open Approach (ICD-10-PCS; 2018-06-07)
PROC: 0Y6R0Z2 Detachment at Right 2nd Toe, Mid, Open Approach (ICD-10-PCS; 2018-06-07)
PROC: 5A1D70Z Performance of Urinary Filtration, Intermittent, Less than 6 Hours Per Day (ICD-10-PCS; 2018-06-07)
PROC: 0JBR0ZZ Excision of Left Foot Subcutaneous Tissue and Fascia, Open Approach (ICD-10-PCS; principal; 2018-06-07 14:45)
PROC: 5A1D70Z Performance of Urinary Filtration, Intermittent, Less than 6 Hours Per Day (ICD-10-PCS; 2018-06-08)
PROC: 5A1D70Z Performance of Urinary Filtration, Intermittent, Less than 6 Hours Per Day (ICD-10-PCS; 2018-06-11)
PROC: 5A1D70Z Performance of Urinary Filtration, Intermittent, Less than 6 Hours Per Day (ICD-10-PCS; 2018-06-12)
PROC: 5A1D70Z Performance of Urinary Filtration, Intermittent, Less than 6 Hours Per Day (ICD-10-PCS; 2018-06-13)
PROC: 0HRNXK3 Replacement of Left Foot Skin with Nonautologous Tissue Substitute, Full Thickness, External Approach (ICD-10-PCS; 2018-06-14)
PROC: 0JBR0ZZ Excision of Left Foot Subcutaneous Tissue and Fascia, Open Approach (ICD-10-PCS; 2018-06-14)
PROC: 5A1D70Z Performance of Urinary Filtration, Intermittent, Less than 6 Hours Per Day (ICD-10-PCS; 2018-06-15)
DX: E11.69 Type 2 diabetes mellitus with other specified complication (principal); M86.171 Other acute osteomyelitis, right ankle and foot; L03.116 Cellulitis of left lower limb; L03.115 Cellulitis of right lower limb; I13.2 Hypertensive heart and chronic kidney disease with heart failure and with stage 5 chronic kidney disease, or end stage renal disease; I50.20 Unspecified systolic (congestive) heart failure; I42.0 Dilated cardiomyopathy; H33.20 Serous retinal detachment, unspecified eye; N18.6 End stage renal disease; E11.22 Type 2 diabetes mellitus with diabetic chronic kidney disease; E11.621 Type 2 diabetes mellitus with foot ulcer; L97.529 Non-pressure chronic ulcer of other part of left foot with unspecified severity; E11.51 Type 2 diabetes mellitus with diabetic peripheral angiopathy without gangrene; N25.81 Secondary hyperparathyroidism of renal origin; I25.118 Atherosclerotic heart disease of native coronary artery with other forms of angina pectoris; I25.5 Ischemic cardiomyopathy; M50.10 Cervical disc disorder with radiculopathy, unspecified cervical region; M25.78 Osteophyte, vertebrae; E87.5 Hyperkalemia; D50.9 Iron deficiency anemia, unspecified; E11.40 Type 2 diabetes mellitus with diabetic neuropathy, unspecified; D63.1 Anemia in chronic kidney disease; B95.8 Unspecified staphylococcus as the cause of diseases classified elsewhere; M50.33 Other cervical disc degeneration, cervicothoracic region; M50.23 Other cervical disc displacement, cervicothoracic region; M48.03 Spinal stenosis, cervicothoracic region; K29.70 Gastritis, unspecified, without bleeding; E78.5 Hyperlipidemia, unspecified; E78.00 Pure hypercholesterolemia, unspecified; F17.200 Nicotine dependence, unspecified, uncomplicated; J44.9 Chronic obstructive pulmonary disease, unspecified; K21.9 Gastro-esophageal reflux disease without esophagitis; E66.9 Obesity, unspecified; Z99.2 Dependence on renal dialysis; Z91.11 Patient's noncompliance with dietary regimen; Z87.11 Personal history of peptic ulcer disease; Z95.5 Presence of coronary angioplasty implant and graft; Z68.36 Body mass index [BMI] 36.0-36.9, adult; Z86.73 Personal history of transient ischemic attack (TIA), and cerebral infarction without residual deficits; Z95.1 Presence of aortocoronary bypass graft; Z95.0 Presence of cardiac pacemaker; Z79.82 Long term (current) use of aspirin; Z79.02 Long term (current) use of antithrombotics/antiplatelets

== ENCOUNTER 2018-06-28 10:55 | Outpatient (CLI) | payer MEDICARE, BC | END 2018-06-28 10:56 | disposition home or self-care (01) | LOC: LAB 10:55 ==